=== PATIENT | female | born 1945 | race Caucasian/White ===

== ENCOUNTER 2023-09-15 20:39 | Inpatient (IN) | payer MEDICARE, SELFPAY ==
[2023-09-15 20:40] VITALS: BP 172/95; PULSE 128; RESP 22; TEMP 36.6; O2SAT 95; BMI 27.8
--- NOTE | 2023-09-15 20:48 | ED_ITS ---
Documented by User: BILL Brooks 09/15/23 23:40 HPI - SOB/Dyspnea 2 General: Chief Complaint: Shortness of Breath/Dyspnea Stated Complaint: SOB Time Seen by Provider: 09/15/23 20:41 Source: patient Mode of arrival: EMS Limitations: no limitations History of Present Illness: HPI Narrative: Patient presents emergency department today brought by EMS for evaluation treatment of acute worsening shortness of breath. Patient admits to a history of COPD but does not use at home oxygen. Patient has been diagnosed by clinical correlation by her doctor with pneumonia recently. She is on antibiotics but is not sure what they are. Patient states that for the first couple of days she thought she was getting better but, has recently acutely worsened. Patient feels like she is not able to get any air in. She is currently on a nasal cannula from EMS. Patient daughter arrives to ER and states her mother is taking doxycycline. Review of Systems 2 General: Reports: 10 or more systems reviewed and unremarkable except in HPI and below PFSH ED 2 PFSH: Medical History Tachycardia HTN (hypertension) Surgical History No pertinent past surgical history Physical Exam 2 Const: COMMON NORMALS: no acute distress, patient oriented x3 and alert HENMT: OTHER: Mucous membranes moist. Nasal passages clear. Eye: COMMON NORMALS: Equal, round and reactive pupils present, EOMs intact bilaterally and conjunctivae normal CONJUNCTIVA: Yes conjunctivae normal P UPIL: Yes Equal, round and reactive pupils present Lymph: LYMPHATIC: no lymphadenopathy noted Resp: OTHER: Patient on 2 L by nasal cannula. She is mildly tachypneic and seems to have increased effort-especially on inspiration. Cardio: OTHER: Mild tachycardia : COMMON NORMALS: Yes no CVA tenderness BLADDER/KIDNEY EXAM: Yes no CVA tenderness Back/Pelvis: COMMON NORMALS: no CVA tenderness, thoracic and lumbar spine normal to inspection and thoraco-lumbar ROM normal Extremity: COMMON NORMALS: normal to inspection, full ROM and no pedal edema Neuro: COMMON NORMALS: patient oriented x3 SENSORIUM/ORIENTATION: Yes alert Skin: COMMON NORMALS: no rashes or lesions noted and turgor normal GENERAL SKIN EXAM: no rashes or lesions noted and turgor normal Course 2 Vital Signs: Vital signs: Vital Signs Temperature 97.8 F 09/15/23 20:40 Pulse Rate 118 H 09/16/23 00:12 Respiratory Rate 20 H 09/16/23 00:12 Blood Pressure 178/99 09/16/23 00:12 Pulse Oximetry 96 09/16/23 00:12 Oxygen Delivery Me thod Nasal Cannula 09/16/23 00:12 Oxygen Flow Rate 2 09/16/23 00:12 MDM - SOB/Dyspnea Medical Decision Making Patient presents by EMS for acute worsening of shortness of breath. Patient reports a history of COPD but does not require at home oxygen. Patient's oxygen saturation is in the mid 90s percent on 2 L by nasal cannula. Family states she is currently taking doxycycline for clinical diagnosis of pneumonia. Patient thought she was doing a little bit better after starting her medications but has then had acute worsening. She states she feels like she cannot get any air in. Lab work today shows elevated white blood cell count however, we were notified of the critical sodium of 118. I did discuss the case with Dr. Sarah and as we discussed supplementing sodium, he also recommended a CT of the patient's chest for concerns of SIADH. Given the patient's hyponatremia and requirement for supplemental oxygen at this time, he has graciously offered to except transfer of care of this patient here in the emergency department for continued monitoring and management. Hospitalist was consulted and inpatient admission given for further management and treatment. Differential Diagnosis Likely acute exacerbation of chronic obstructive airways disease and community acquired pneumonia; Unlikely congestive heart failure, asthma with exacerbation or pulmonary embolism Lab Data 09/15/23 20:55 09/15/23 20:55 Labs/Radiology: Radiology Impressions Chest X-Ray 09/15/23 20:50 IMPRESSION: 1. No acute cardiopulmonary process. 2. Incidental/nonacute findings are listed in the report. Chest CT 09/15/23 21:43 IMPRESSION: 1. No acute cardiopulmonary process. 2. Moderate to severe atherosclerotic changes in the visualized arteries. 50% stenosis in the visualized upper abdominal aorta (series 4, image 54). 3. Indeterminate foci in both right and left adrenal glands. Consider 12 month follow-up adrenal CT. (Reference: Supriya) 4. Incidental/nonacute findings are listed in the report. COMMENTS: In the absence of a history or active diagnosis of lung cancer, it is recommended that this patient with emphysema be evaluated for enrollment in a low dose CT lung cancer screening program. REFERENCES: ThorntonLevon OROSCO, et al. Management of Incidental Adrenal Masses: A White Paper of the ACR Incidental Findings Committee. J Am Ailyn Radiol. 2017;14(8):3945-2231. Laboratory Results WBC 14.88 10^3/uL (3.29-11.43) H 09/15/23 20:55 RBC 3.71 10^6/uL (3.85-5.65) L 09/15/23 20:55 Hgb 10.90 g/dL (11.27-16.99) L 09/15/23 20:55 Hct 33.1 % (36-47) L 09/15/23 20:55 MCV 89.2 fl (85-98) 09/15/23 20:55 MCH 29.4 pg (27-33) 09/15/23 20:55 MCHC 32.9 g/dL (30-55) 09/15/23 20:55 RDW 13.0 % (12.1-15.1) 09/15/23 20:55 Plt Count 550 10^3/cmm (157-399) H 09/15/23 20:55 MPV 8.9 fL (7.4-10.4) 09/15/23 20:55 Neut % (Auto) 87.0 % 09/15/23 20:55 Lymph % (Auto) 6.9 % 09/15/23 20:55 Castro % (Auto) 4.5 % 09/15/23 20:55 Eos % (Auto) 0.3 % 09/15/23 20:55 Baso % (Auto) 0.1 % 09/15/23 20:55 Neut # (Auto) 12.95 10^3/uL (1.8-7.7) H 09/15/23 20:55 Lymph # (Auto) 1.0 10^3/uL (0.8-4.8) 09/15/23 20:55 Castro # (Auto) 0.7 10^3/uL (0.2-0.9) 09/15/23 20:55 Eos # (Auto) 0.0 10^3/uL (0.0-0.8) 09/15/23 20:55 Baso # (Auto) 0.0 10^3/uL (0.0-0.1) 09/15/23 20:55 Nucleated RBC % (auto) 0 % 09/15/23 20:55 Nucleated RBCs # 0.0 /100WBC 09/15/23 20:55 D-Dimer 0.37 ug/mLFEU (0-0.59) 09/16/23 00:00 Specimen Type Venous 09/15/23 21:11 Sample Site Lab draw 09/15/23 21:11 Jose Test N/a 09/15/23 21:11 VBG pH 7.38 (7.32-7.42) 09/15/23 21:11 VBG pCO2 45.7 mmHg (41-51) 09/15/23 21:11 VBG pO2 53.5 mmHg (25-40) H 09/15/23 21:11 VBG HCO3 26.8 mmol/L (24-28) 09/15/23 21:11 VBG Base Excess 1.2 mmol/L (-3.0-3.0) 09/15/23 21:11 VBG Hematocrit 35.5 % (37-47) L 09/15/23 21:11 O2 Delivery Device Na 09/15/23 21:11 Faith Doctor ID Cak 09/15/23 21:11 Sodium 118 mmol/L (136-145) L* 09/15/23 20:55 Potassium 3.9 mmol/L (3.5-5.1) 09/15/23 20:55 Chloride 81 mmol/L (98-107) L 09/15/23 20:55 Carbon Dioxide 26 mmol/L (22-29) 09/15/23 20:55 Anion Gap 14.9 (5-19) 09/15/23 20:55 BUN 25 mg/dL (8-23) H 09/15/23 20:55 Creatinine 1.1 mg/dL (0.5-0.9) H 09/15/23 20:55 GFR Calculation Not Reportable 09/15/23 20:55 Glucose 114 mg/dL (65-115) 09/15/23 20:55 Calculated Osmolality 251 mOsm/kg (285-295) L 09/15/23 20:55 Lactic Acid 1.2 mmol/L (0.5-2.2) 09/15/23 20:55 Calcium 9.7 mg/dL (8.5-10.5) 09/15/23 20:55 Total Bilirubin 0.2 mg/dL (0.15-1.2) 09/15/23 20:55 AST 16 U/L (0-32) 09/15/23 20:55 ALT 15 U/L (0-33) 09/15/23 20:55 Alkaline Phosphatase 77 U/L (35-105) 09/15/23 20:55 Troponin T Baseline 20 ng/L (0-10) H 09/15/23 20:55 Troponin T 120 Minute 21.76 ng/L (0-10) H 09/15/23 22:05 Delta Troponin T 1.76 ABS# (0-10) 09/15/23 22:05 Total Protein 7.4 g/dL (6.6-8.7) 09/15/23 20:55 Albumin 4.4 g/dL (3.5-5.2) 09/15/23 20:55 Globulin 3.0 g/dL (1.3-4.6) 09/15/23 20:55 Urine Color Yellow (Yellow) 09/15/23 21:10 Urine Appearance Clear (CLEAR) 09/15/23 21:10 Urine pH 6 (5-7) 09/15/23 21:10 Ur Specific [place] 1.015 (1.005-1.030) 09/15/23 21:10 Urine Protein 1+ (Negative) H 09/15/23 21:10 Urine Glucose (UA) Norm (Normal) 09/15/23 21:10 Urine Ketones Negative (Negative) 09/15/23 21:10 Urine Blood Neg (Negative) 09/15/23 21:10 Urine Nitrate Negative (Negative) 09/15/23 21:10 Urine Bilirubin Neg (Negative) 09/15/23 21:10 Prot Sulfosalicylic Acd Negative (Negative) 09/15/23 21:10 Urine Urobilinogen Norm mg/dL (Negative) 09/15/23 21:10 Ur Leukocyte Esterase Negative (Negative) 09/15/23 21:10 Urine RBC 0-4 /hpf (0-2) H 09/15/23 21:10 Urine WBC 0-4 /hpf (0-5) H 09/15/23 21:10 Ur Squamous Epith Cells 5-10 /hpf (0-5) H 09/15/23 21:10 Amorphous Sediment Not Reportable 09/15/23 21:10 Urine Bacteria Trace /hpf (NONE) 09/15/23 21:10 Influenza Type A Ag negative (Negative) 09/15/23 21:10 Influenza Type B Ag negative (Negative) 09/15/23 21:10 SARS-CoV-2 Ag (Rapid) negative (Negative) 09/15/23 21:10 All radiology interpretation(s) finalized by discharge Discharge Plan Discharge Patient Disposition: Admitted As Inpatient Admit Provider: Mandi Bo Clinical Impression: Acute hyponatremia Condition: Fair Coding Level of Care Code ED Endless Belt Finisher for Chg Fwd Documented by User: Karel Sarah DO 09/16/23 00:40 HPI - SOB/Dyspnea 2 General: Chief Complaint: Shortness of Breath/Dyspnea Stated Complaint: SOB Time Seen by Provider: 09/15/23 20:41 PFSH ED 2 PFSH: Medical History Tachycardia HTN (hypertension) Surgical History No pertinent past surgical history Course 2 Vital Signs: Vital signs: Vital Signs Temperature 97.8 F 09/15/23 20:40 Pulse Rate 118 H 09/16/23 00:12 Respiratory Rate 20 H 09/16/23 00:12 Blood Pressure 178/99 09/16/23 00:12 Pulse Oximetry 96 09/16/23 00:12 Oxygen Delivery Me thod Nasal Cannula 09/16/23 00:12 Oxygen Flow Rate 2 09/16/23 00:12 MDM - SOB/Dyspnea Medical Decision Making Patient presents by EMS for acute worsening of shortness of breath. Patient reports a history of COPD but does not require at home oxygen. Patient's oxygen saturation is in the mid 90s percent on 2 L by nasal cannula. Family states she is currently taking doxycycline for clinical diagnosis of pneumonia. Patient thought she was doing a little bit better after starting her medications but has then had acute worsening. She states she feels like she cannot get any air in. Lab work today shows elevated white blood cell count however, we were notified of the critical sodium of 118. I did discuss the case with Dr. Sarah and as we discussed supplementing sodium, he also recommended a CT of the patient's chest for concerns of SIADH. Given the patient's hyponatremia and requirement for supplemental oxygen at this time, he has graciously offered to except transfer of care of this patient here in the emergency department for continued monitoring and management. Hospitalist was consulted and inpatient admission given for further management and treatment. This patient was originally seen by Mrs. Daniel PA-C.? I agree with her history, evaluation, and treatment. Given the critical nature of her hyponatremia, with use of hypertonic saline, she will have to go to the ICU for frequent sodium checks. Hospitalist has seen the patient. Lab Data 09/15/23 20:55 09/15/23 20:55 Labs/Radiology: Radiology Impressions Chest X-Ray 09/15/23 20:50 IMPRESSION: 1. No acute cardiopulmonary process. 2. Incidental/nonacute findings are listed in the report. Chest CT 09/15/23 21:43 IMPRESSION: 1. No acute cardiopulmonary process. 2. Moderate to severe atherosclerotic changes in the visualized arteries. 50% stenosis in the visualized upper abdominal aorta (series 4, image 54). 3. Indeterminate foci in both right and left adrenal glands. Consider 12 month follow-up adrenal CT. (Reference: Supriya) 4. Incidental/nonacute findings are listed in the report. COMMENTS: In the absence of a history or active diagnosis of lung cancer, it is recommended that this patient with emphysema be evaluated for enrollment in a low dose CT lung cancer screening program. REFERENCES: Supryia OROSCO, et al. Management of Incidental Adrenal Masses: A White Paper of the ACR Incidental Findings Committee. J Am Ailyn Radiol. 2017;14(8):6364-9388. Laboratory Results WBC 14.88 10^3/uL (3.29-11.43) H 09/15/23 20:55 RBC 3.71 10^6/uL (3.85-5.65) L 09/15/23 20:55 Hgb 10.90 g/dL (11.27-16.99) L 09/15/23 20:55 Hct 33.1 % (36-47) L 09/15/23 20:55 MCV 89.2 fl (85-98) 09/15/23 20:55 MCH 29.4 pg (27-33) 09/15/23 20:55 MCHC 32.9 g/dL (30-55) 09/15/23 20:55 RDW 13.0 % (12.1-15.1) 09/15/23 20:55 Plt Count 550 10^3/cmm (157-399) H 09/15/23 20:55 MPV 8.9 fL (7.4-10.4) 09/15/23 20:55 Neut % (Auto) 87.0 % 09/15/23 20:55 Lymph % (Auto) 6.9 % 09/15/23 20:55 Castro % (Auto) 4.5 % 09/15/23 20:55 Eos % (Auto) 0.3 % 09/15/23 20:55 Baso % (Auto) 0.1 % 09/15/23 20:55 Neut # (Auto) 12.95 10^3/uL (1.8-7.7) H 09/15/23 20:55 Lymph # (Auto) 1.0 10^3/uL (0.8-4.8) 09/15/23 20:55 Castro # (Auto) 0.7 10^3/uL (0.2-0.9) 09/15/23 20:55 Eos # (Auto) 0.0 10^3/uL (0.0-0.8) 09/15/23 20:55 Baso # (Auto) 0.0 10^3/uL (0.0-0.1) 09/15/23 20:55 Nucleated RBC % (auto) 0 % 09/15/23 20:55 Nucleated RBCs # 0.0 /100WBC 09/15/23 20:55 D-Dimer 0.37 ug/mLFEU (0-0.59) 09/16/23 00:00 Specimen Type Venous 09/15/23 21:11 Sample Site Lab draw 09/15/23 21:11 Jose Test N/a 09/15/23 21:11 VBG pH 7.38 (7.32-7.42) 09/15/23 21:11 VBG pCO2 45.7 mmHg (41-51) 09/15/23 21:11 VBG pO2 53.5 mmHg (25-40) H 09/15/23 21:11 VBG HCO3 26.8 mmol/L (24-28) 09/15/23 21:11 VBG Base Excess 1.2 mmol/L (-3.0-3.0) 09/15/23 21:11 VBG Hematocrit 35.5 % (37-47) L 09/15/23 21:11 O2 Delivery Device Na 09/15/23 21:11 Faith Doctor ID Cak 09/15/23 21:11 Sodium 118 mmol/L (136-145) L* 09/15/23 20:55 Potassium 3.9 mmol/L (3.5-5.1) 09/15/23 20:55 Chloride 81 mmol/L (98-107) L 09/15/23 20:55 Carbon Dioxide 26 mmol/L (22-29) 09/15/23 20:55 Anion Gap 14.9 (5-19) 09/15/23 20:55 BUN 25 mg/dL (8-23) H 09/15/23 20:55 Creatinine 1.1 mg/dL (0.5-0.9) H 09/15/23 20:55 GFR Calculation Not Reportable 09/15/23 20:55 Glucose 114 mg/dL (65-115) 09/15/23 20:55 Calculated Osmolality 251 mOsm/kg (285-295) L 09/15/23 20:55 Lactic Acid 1.2 mmol/L (0.5-2.2) 09/15/23 20:55 Calcium 9.7 mg/dL (8.5-10.5) 09/15/23 20:55 Total Bilirubin 0.2 mg/dL (0.15-1.2) 09/15/23 20:55 AST 16 U/L (0-32) 09/15/23 20:55 ALT 15 U/L (0-33) 09/15/23 20:55 Alkaline Phosphatase 77 U/L (35-105) 09/15/23 20:55 Troponin T Baseline 20 ng/L (0-10) H 09/15/23 20:55 Troponin T 120 Minute 21.76 ng/L (0-10) H 09/15/23 22:05 Delta Troponin T 1.76 ABS# (0-10) 09/15/23 22:05 Total Protein 7.4 g/dL (6.6-8.7) 09/15/23 20:55 Albumin 4.4 g/dL (3.5-5.2) 09/15/23 20:55 Globulin 3.0 g/dL (1.3-4.6) 09/15/23 20:55 Urine Color Yellow (Yellow) 09/15/23 21:10 Urine Appearance Clear (CLEAR) 09/15/23 21:10 Urine pH 6 (5-7) 09/15/23 21:10 Ur Specific [place] 1.015 (1.005-1.030) 09/15/23 21:10 Urine Protein 1+ (Negative) H 09/15/23 21:10 Urine Glucose (UA) Norm (Normal) 09/15/23 21:10 Urine Ketones Negative (Negative) 09/15/23 21:10 Urine Blood Neg (Negative) 09/15/23 21:10 Urine Nitrate Negative (Negative) 09/15/23 21:10 Urine Bilirubin Neg (Negative) 09/15/23 21:10 Prot Sulfosalicylic Acd Negative (Negative) 09/15/23 21:10 Urine Urobilinogen Norm mg/dL (Negative) 09/15/23 21:10 Ur Leukocyte Esterase Negative (Negative) 09/15/23 21:10 Urine RBC 0-4 /hpf (0-2) H 09/15/23 21:10 Urine WBC 0-4 /hpf (0-5) H 09/15/23 21:10 Ur Squamous Epith Cells 5-10 /hpf (0-5) H 09/15/23 21:10 Amorphous Sediment Not Reportable 09/15/23 21:10 Urine Bacteria Trace /hpf (NONE) 09/15/23 21:10 Influenza Type A Ag negative (Negative) 09/15/23 21:10 Influenza Type B Ag negative (Negative) 09/15/23 21:10 SARS-CoV-2 Ag (Rapid) negative (Negative) 09/15/23 21:10 Discharge Plan Discharge Patient Disposition: Admitted As Inpatient Admit Provider: Mandi Bo Clinical Impression: Acute hyponatremia Condition: Fair Coding Level of Care Code ED Endless Belt Finisher for Camron Sousa
--- NOTE | 2023-09-15 20:50 | XRR_ITS ---
PROCEDURE INFORMATION: Exam: XR Chest Exam date and time: 09/15/2023 9:08 PM Age: 77 years old Clinical indication: Shortness of breath; Patient HX: SOB; Copd; Pneumonia TECHNIQUE: Imaging protocol: Radiologic exam of the chest. Views: 1 view. COMPARISON: No relevant prior studies available. FINDINGS: Lungs: Areas of scarring in the mid and lower lungs. No focal consolidation. No pulmonary edema. Pleural spaces: No pleural effusion. No pneumothorax. Heart/Mediastinum: Cardiac silhouette is moderately enlarged. Mediastinal contours are unremarkable. Vasculature: Vascular calcifications in the aorta. Bones/joints: Unremarkable for age. XR/XR chest 1V [id number] IMPRESSION: 1. No acute cardiopulmonary process. 2. Incidental/nonacute findings are listed in the report.
[2023-09-15 20:56] VITALS: BP 172/95; PULSE 68; RESP 16; O2SAT 96
[2023-09-15 21:02] LABS: Basophils % 0.1 %; Eosinophils % 0.3 %; Hematocrit 33.1 % (36-47); Lymphocytes % 6.9 %; Mean Corpuscular HGB Conc 32.9 g/dL (30-55); Mean Corpuscular Hemoglobin 29.4 pg (27-33); Mean Corpuscular Volume 89.2 fl (85-98); Mean Platelet Volume 8.9 fL (7.4-10.4); Monocytes # 0.7 10^3/uL (0.2-0.9); Monocytes % 4.5 %; Neutrophils # 12.95 10^3/uL (1.8-7.7); Nucleated Red Blood Cells % 0 %; Platelet Count 550 10^3/cmm (157-399); Red Blood Count 3.71 10^6/uL (3.85-5.65); White Blood Count 14.88 10^3/uL (3.29-11.43)
[2023-09-15 21:21] LABS: Base Excess VBG 1.2 mmol/L (-3.0-3.0); Blood Gas Operator Identificat CAK; Blood Gas Sample Type Venous; HCO3 VBG 26.8 mmol/L (24-28); PCO2 VBG 45.7 mmHg (41-51); PO2 VBG 53.5 mmHg (25-40); Venous Blood Gas Hematocrit 35.5 % (37-47); pH VBG 7.38 (7.32-7.42)
[2023-09-15 21:22] LABS: Blood Gas Sample Site LAB DRAW
[2023-09-15 21:26] LABS: Add Urine Microscopic? YES; Bilirubin Urine Neg (Negative); Blood Urine Neg (Negative); Glucose Urine UA Norm (Normal); Ketones Urine Negative (Negative); Leukocyte Esterase Urine Negative (Negative); Nitrate Urine Negative (Negative); Protein Urine 1+ (Negative); Specific Gravity, Urine 1.015 (1.005-1.030); Sulfosalicylic Acid Urine Negative (Negative); Urine Appearance Clear (CLEAR); Urine Color Yellow (Yellow); Urobilinogen Urine Norm (Negative); pH Urine 6 (5-7)
[2023-09-15 21:27] LABS: Bacteria Urine TRACE /hpf; RBC Urine 0-4 /hpf (0-2); WBC Urine 0-4 /hpf (0-5)
[2023-09-15 21:29] LABS: Troponin(5th) Baseline 20 ng/L (0-10)
[2023-09-15 21:31] LABS: Alanine Aminotransferase 15 U/L (0-33); Albumin Level 4.4 g/dL (3.5-5.2); Alkaline Phosphatase 77 U/L (35-105); Anion Gap 14.9 (5-19); Aspartate Amino Transferase 16 U/L (0-32); Blood Urea Nitrogen 25 mg/dL (8-23); Calcium 9.7 mg/dL (8.5-10.5); Carbon Dioxide 26 mmol/L (22-29); Chloride 81 mmol/L (98-107); Glucose 114 mg/dL (65-115); Osmolality Calculated 251 mOsm/kg (285-295); Potassium 3.9 mmol/L (3.5-5.1); Total Bilirubin 0.2 mg/dL (0.15-1.2); Total Protein 7.4 g/dL (6.6-8.7)
[2023-09-15 21:35] LABS: Influenza A by IFA negative (Negative); Influenza B by IFA negative (Negative); SARS Covid-2 Antigen negative (Negative)
[2023-09-15 21:36] LABS: Sodium 118 mmol/L (136-145)
--- NOTE | 2023-09-15 21:43 | CTR_ITS ---
PROCEDURE INFORMATION: Exam: CT Chest With Contrast; Diagnostic Exam date and time: 09/15/2023 10:09 PM Age: 77 years old Clinical indication: Abnormal findings; Abnormal diagnostic tests; Abnormal ekg; Shortness of breath; Patient HX: Currently being treated for pneumonia. C/O worsening SOB. Wbc of 15k. History of copd. ; Additional info: SOA, current tx for pneu, HX copd, acute SOA, hyponatremia TECHNIQUE: Imaging protocol: Diagnostic computed tomography of the chest with contrast. Sagittal and coronal reformatted images were created and reviewed. Radiation optimization: All CT scans at this facility use at least one of these dose optimization techniques: automated exposure control; mA and/or kV adjustment per patient size (includes targeted exams where dose is matched to clinical indication); or iterative reconstruction. Contrast material: OMNI 350; Contrast volume: 100 ml; Contrast route: INTRAVENOUS (IV); REPORTING DATA: Count of CT and Cardiac NM exams in prior 12 months: This patient has received 0 known CTs and 0 known cardiac nuclear medicine studies in the 12 months prior to the current study. COMPARISON: CR (CHEST, ) 09/15/2023 9:08 PM RADIATION DOSE METRICS: Total DLP (mGy-cm): 479.86 FINDINGS: Trachea: Tracheobronchial structures are patent. Lungs: Lungs are mildly hyperinflated. Lungs are clear bilaterally. Mild to moderate paraseptal and centrilobular emphysematous changes in the lungs. No focal consolidation. No pulmonary edema. There is linear scarring in the right middle lobe and red and left lower lobes. No pulmonary parenchymal nodules or masses. Pleural spaces: No pneumothorax. No pleural effusion. Heart: Stable moderate enlargement of the heart. Calcification of the mitral valve annulus. Coronary arteries: Moderate atherosclerotic calcification in the coronary arteries. Esophagus: The esophagus is unremarkable. Mediastinal space: No mediastinal hematoma. No pneumomediastinum. Lymph nodes: No lymphadenopathy. Vasculature: Moderate to severe atherosclerotic changes in the visualized arteries. 50% stenosis in the visualized upper abdominal aorta (series 4, image 54). No evidence for aortic aneurysm or aortic dissection. Pulmonary arteries are unremarkable. Pulmonary veins are unremarkable. Liver: Multiple calcified granulomas in the liver. Simple cyst in the left lobe of the liver measuring 1.3 cm. Gallbladder and bile ducts: The visualized gallbladder is unremarkable. No dilatation of the visualized bile ducts. Pancreas: The visualized pancreas is unremarkable. No pancreatic ductal dilatation. Spleen: Multiple calcified granulomas in the spleen. Adrenal glands: Indeterminate foci in the right and left adrenal glands. Hounsfield units show density greater than expected for adenomas. The focus in the right adrenal gland measures 0.9 x 1.6 cm and the focus in the left adrenal gland measures 1.2 x 1.0 cm (series 4, images 52 and 54). Kidneys and ureters: The visualized right and left kidneys are unremarkable. Bones/joints: Bones are diffusely osteopenic. Old fracture of the posterolateral right 7th rib in multiple old left rib fractures. Multilevel degenerative changes of varying severity in the visualized spine. Soft tissues: No acute abnormality in the extrathoracic soft tissues. CT/CT chest w con* [id number] IMPRESSION: 1. No acute cardiopulmonary process. 2. Moderate to severe atherosclerotic changes in the visualized arteries. 50% stenosis in the visualized upper abdominal aorta (series 4, image 54). 3. Indeterminate foci in both right and left adrenal glands. Consider 12 month follow-up adrenal CT. (Reference: Supriya) 4. Incidental/nonacute findings are listed in the report. COMMENTS: In the absence of a history or active diagnosis of lung cancer, it is recommended that this patient with emphysema be evaluated for enrollment in a low dose CT lung cancer screening program. REFERENCES: Supriya OROSCO et al. Management of Incidental Adrenal Masses: A White Paper of the ACR Incidental Findings Committee. J Am Ailyn Radiol. 2017;14(8):6945-6029.
[2023-09-15] MEDS: ipratropium-albuterol 3 mL Neb INHALATION (21:53)
[2023-09-15 21:55] VITALS: PULSE 116; RESP 18; O2SAT 94
[2023-09-15 21:56] VITALS: PULSE 120
[2023-09-15 22:08] LABS: Lactic Sepsis W/Reflex 1.2 mmol/L (0.5-2.2)
[2023-09-15] MEDS: iohexol 350 mg/mL 500 mL Btl (per mL) IV (22:08)
[2023-09-15] MEDS: cefTRIAXone 1,000 MG in sodium chloride 0.9% (plus) 50 ML 100 MG IV (22:20)
[2023-09-15] MEDS: sodium chloride 0.9% 500 ML IV (22:21)
[2023-09-15 22:40] VITALS: BP 171/78; PULSE 118; RESP 16; O2SAT 97
[2023-09-15 22:45] LABS: Troponin 5 2HR 21.76 ng/L (0-10); Troponin 5 2HR Delta 1.76 ABS# (0-10)
--- NOTE | 2023-09-15 22:46 | ECG_ITS ---
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 Measurements Intervals Donald Rate: 119 P: 103 WI: 101 QRS: 37 QRSD: 122 T: -7 QT: 336 QTc: 474 Interpretive Statements SINUS TACHYCARDIA WITH SHORT WI INTERVAL LATERAL MYOCARDIAL INFARCTION , PROBABLY OLD [40+ ms Q WAVE AND/OR ST/T ABNORMALITY IN I/aVL/V5/V6] INFERIOR MYOCARDIAL INFARCTION , PROBABLY OLD [40+ ms Q WAVE AND/OR ST/T ABNORMALITY IN II/aVF] ST DEPRESSION, CONSIDER SUBENDOCARDIAL INJURY [0.1+ mV ST DEPRESSION] No previous ECG available for comparison Electronically Signed On 09-16-2023 10:00:51 FOOD SERVICE SPECIALIST by Gregg Corrales M.D. [email or web address]
--- NOTE | 2023-09-15 22:51 | PC.NURSE ---
Delay in NaCl 3% due to waiting on telepharmacy to [facility]. Continued to be placed on hold awaiting to find location of med in hospital.
--- NOTE | 2023-09-15 23:05 | P.HP_ITS ---
Providers/Chief Complaint 2 Chief Complaint: SOB History of Present Illness Oanh Quispe is a 77 year old female with history of hypertension and congestive heart failure, takes Coreg, Lasix, presented to the hospital with chief complaint of shortness of breath. Patient has not been in this hospital before, patient is stating that she was told that she had low sodium a year ago she is not sure about the number, she has been feeling weak and lethargic for quite some time, she experiencing worsening of shortness of breath orthopnea PND with wheezing on Sunday her PCP started on steroids and doxycycline which did not improve her symptoms. For worsening of symptoms she decided to come to the hospital today, she is requiring 3 L which is new she does not use oxygen at home she is an active smoker smokes less than half a pack a day, no previous history of coronary disease, no recent diarrhea, vomiting patient is stating that she drinks 2 bottles of 16 ounces each. No previous history of cancer in the ER she was diagnosed with severe hyponatremia 118 she was started on hypertonic saline at 50 mill per hour which have decreased to 30/h, consulted nephro No active signs of seizure Patient is upset that she has to stay in the hospital during I have explained to the patient and her family that her sodium is critically low and we cannot replenish it quickly which can pose risk of pontine mylinosis and locked-in syndrome Review of Systems 2 Const: Denies: fever(s) Eyes: Denies: change in vision ENMT: Denies: throat pain Card: Denies: chest pain Resp: Reports: dyspnea GI: Denies: abdominal pain : Denies: urinary frequency Musc: Denies: neck pain Skin/Breast: Denies: rash Neuro: Denies: headache(s) Psych: Reports: anxiety Medications/Allergies Allergies Allergy/AdvReac Type Severity Reaction Status Date / Time No Known Allergies Allergy Verified 09/15/23 23:29 PFSH Acute 2 PFSH: Medical History Tachycardia HTN (hypertension) Surgical History No pertinent past surgical history Vitals/I&O/Wt Last Vital Signs Temp 97.8 F 09/15/23 20:40 Pulse 118 H 09/15/23 22:40 Resp 16 09/15/23 22:40 BP 171/78 09/15/23 22:40 Pulse Ox 97 09/15/23 22:40 O2 Del Method Nasal Cannula 09/15/23 22:40 O2 Flow Rate 3 09/15/23 22:40 09/15/23 09/15/23 09/16/23 14:59 22:59 06:59 Intake Total 50 / 50 Balance 50 / 50 Weight last 48 hrs Weight 68.946 kg Physical Exam 2 Narrative: Hypovolemic hyponatremia Family is at the bedside Examination tachycardia Abdomen soft Nonfocal Currently doing well on 2 L Mild wheezing present Appropriate mood and affect Data 09/15/23 20:55 09/15/23 20:55 A&P Assessment and plan (1) Acute hyponatremia: Plan Symptomatic chronic hyponatremia Hypovolemic hyponatremia Patient drinks fluid 2 bottles 16 ounces Timeline for low sodium is not known. Chronic hyponatremia Currently on hypertonic saline 30 mill per hour, will consult nephro Check sodium every 4 hours Goal sodium correction 6 -8mEq per 24 hours 5050 Hemoglobin A1c Smoker She takes Lasix at home Is not sure about congestive heart failure history I will request BNP and echo Hold Lasix No recent vomiting no history of cancer DVT prophylaxis added DNR/DNI goals of care discussed with the patient and clinical family Regular diet Patient is very upset that she wants to spend [place] with her family at the that he cannot correct her sodium rapidly. Risk of pontine myelinolysis and locked-in syndrome Attestations 2 Medical Necessity Statement*: More than 2 midnights anticipated in ICU for hyponatremia management Diagnoses Acute hyponatremia E87.1
[2023-09-15] MEDS: sodium chloride 3% 100 ML in empty flexible container 1 EACH 50 ML IV (23:13)
[2023-09-15 23:48] VITALS: BP 185/94; PULSE 121; RESP 18; O2SAT 95
[2023-09-16] VITALS (82 sets, daily range): BP systolic 125–199; BP diastolic 74–132; PULSE 86–118; RESP 12–25; TEMP 36.6–36.8; O2SAT 94–99; BMI 29.9
[2023-09-16 00:29] LABS: D Dimer 0.37 ug/mLFEU (0-0.59)
[2023-09-16 00:44] LABS: NT Pro B Type Natriuretic Pept 5839 pg/mL (0-450)
--- NOTE | 2023-09-16 00:48 | USCV_ITS ---
Oanh Quispe Age: 77 Gender: F : 1945 Exam Date: 09/16/2023 08:10 Ordering Phys: Mandi Bo MD Technologist: Agustin Beckett Exam Location: [facility] [place] Indication: chf BP: 174 / 74 HR: 97 Rhythm: Sinus Technical Quality: Adequate MEASUREMENTS (Male / Female) Normal Values 2D ECHO LVOT Diameter 2.0 cm LV Ejection Fraction MOD 2C 58.1 % LV Ejection Fraction 2C AL 58.9 % LA Diameter 4.1 cm LA Width 3.8 cm LA Height 5.8 cm RA Width 3.4 cm RA Height 5.0 cm IVC Diameter 2.0 cm DOPPLER AV Peak Velocity 226.3 cm/s LVOT Peak Velocity 90.0 cm/s AV Area Cont Eq vti 1.4 cm squared AV Area Cont Eq pk 1.2 cm squared MV Peak Velocity 139.0 cm/s MV Area PHT 8.5 cm squared Mitral E to A Ratio 1.4 MV E' Velocity 41.0 cm/s Mitral E to MV E' Ratio 6.8 Mitral E to LV E' Lateral Ratio 8.1 Mitral E to LV E' Septal Ratio 5.8 TR Peak Velocity 287.8 cm/s TR Peak Gradient 33.1 mmHg TR Mean Velocity 183.4 cm/s TR Mean Gradient 14.6 mmHg TR Velocity Time Integral 64.9 cm Right Atrial Pressure 3.0 mmHg Pulmonary Artery Systolic Pressu 36.1 mmHg FINDINGS Left Ventricle Technically limited quality echocardiogram because of poor ultrasonic windows. LV systolic function is normal with EF 55 to 60%. No regional wall motion abnormalities are seen. Right Ventricle Grossly normal. Right Atrium Normal in size Left Atrium Dilated Mitral Valve Grossly normal. Mild mitral regurgitation. Aortic Valve Grossly thickened. Mild aortic stenosis with aortic valve area of 1.41 cm squared and mean gradient across aortic valve of 10 mmHg. Tricuspid Valve Insufficient TR jet to calculate RVSP. Pulmonic Valve Not well visualized Pericardium Not well visualized Aorta Not well visualized IVC Appears to be normal CONCLUSIONS Technically limited quality echocardiogram because of poor ultrasonic windows. LV systolic function is normal with EF of 55 to 60%. Left atrial dilation. Mild mitral regurgitation. Mild aortic stenosis. No comparison studies are available. Gregg Corrales MD (Electronically Signed) Final Date: 16 September 2023 14:12 S
[2023-09-16 00:50] LABS: Sodium 119 mmol/L (136-145)
[2023-09-16] MEDS: carvedilol 12.5 mg Tablet PO ×2 (01:29→10:38)
[2023-09-16] MEDS: methylPREDNISolone sod succ 40 mg/mL INJ IVP ×2 (01:29→13:37)
--- NOTE | 2023-09-16 01:55 | PC.NURSE ---
Patient arrived to the ICU with sodium chloride 3% already running at 30ml/hr. MAR showed that ER nurse scanned the bag and started the infusion but then a new order was put in to change rate from 50mls/hr to 30mls/hr.
[2023-09-16 01:59] LABS: Potassium, Radom Urine 11 mmol/L; Urine Random Chloride 46 mmol/L; Urine Random Sodium 53 mmol/L
[2023-09-16 02:04] LABS: Creatinine Urine, Random 30 mg/dL (28-217); Microalbum Creatinine Ratio Ur 100 mg/dL (0-20); Microalbumin Random Urine 3 ug/dL (0-20)
[2023-09-16 02:34] LABS: Estmated Average Glucose 97
[2023-09-16] MEDS: hyDRALAzine 20 mg/mL INJ 1 mL 5 MG IVP (02:43)
[2023-09-16 03:54] LABS: Basophils % 0.1 %; Eosinophils % 0.3 %; Lymphocytes # 1.1 10^3/uL (0.8-4.8); Lymphocytes % 9.6 %; Mean Corpuscular Hemoglobin 29.4 pg (27-33); Mean Platelet Volume 9.3 fL (7.4-10.4); Monocytes # 0.5 10^3/uL (0.2-0.9); Monocytes % 3.9 %; Neutrophils # 9.87 10^3/uL (1.8-7.7); Nucleated Red Blood Cells % 0 %; Platelet Count 513 10^3/cmm (157-399); Red Blood Count 3.37 10^6/uL (3.85-5.65); White Blood Count 11.61 10^3/uL (3.29-11.43)
[2023-09-16 04:10] LABS: Anion Gap 14.5 (5-19); Blood Urea Nitrogen 22 mg/dL (8-23); C Reactive Protein 3.2 mg/L (0.0-4.9); Calcium 9.5 mg/dL (8.5-10.5); Carbon Dioxide 25 mmol/L (22-29); Chloride 87 mmol/L (98-107); Glucose 103 mg/dL (65-115); Magnesium 1.8 mg/dL (1.7-2.3); Osmolality Calculated 258 mOsm/kg (285-295); Potassium 4.5 mmol/L (3.5-5.1); Sodium 122 mmol/L (136-145)
[2023-09-16 04:19] LABS: Sodium 124 mmol/L (136-145)
[2023-09-16 04:22] LABS: Troponin 5 6HR 22.22 ng/L (0-10); Troponin 5 6HR Delta 2.22 ng/L (0-12)
[2023-09-16 04:31] LABS: Sodium 123 mmol/L (136-145); Thyroid Stimulating Hormone 2.17 uIU/mL (0.27-4.20); Uric Acid 4.4 mg/dL (2.4-5.7); Vitamin B12 630 pg/mL (232-1245)
[2023-09-16 08:33] LABS: Sodium 125 mmol/L (136-145)
--- NOTE | 2023-09-16 09:01 | PC.PHAR ---
PT VERIFIED MEDICATIONS- MEDICATIONS VERIFIED USING EXTERNAL MED LIST AND PT
[2023-09-16] MEDS: ipratropium-albuterol 3 mL Neb INHALATION ×2 (09:12→20:55)
--- NOTE | 2023-09-16 10:17 | P.CONIM_ITS ---
Providers/Reason For Consult 2 Consulting Physician/Specialty*: [facility]/Nephrology Reason for Consult*: Hyponatremia Attending Physician: Etta Muñiz MD History of Present Illness History of Present Illness Oanh Quispe is a 77 year old female Patient is a 77-year-old female with a past medical history of hypertension, CHF, presented to the emergency department due to shortness of breath. In the ER patient was noted to have low sodium of 118 and she was started on 3% saline and admitted to ICU. Patient reports that she had low sodium in the past. She was treated for bronchitis with steroids and doxycycline as outpatient. Most recent sodium is 125 and 3% saline is on hold. Noted urine sodium of 53 urine osmolality pending. Takes HCTZ at home also takes spironolactone at home. Patient currently denies any complaints. Review of Systems 2 Narrative: Other ROS negative Medications/Allergies Home Medications Medication Instructions Recorded Confirmed Last Taken Type buprenorphine HCl 2 mg sublingual 2 mg sublingual DAILY 09/16/23 09/16/23 Unknown History tablet carvedilol 6.25 mg tablet 6.25 mg PO BID 09/16/23 09/16/23 Unknown History doxycycline hyclate 100 mg capsule 100 mg PO BID 09/16/23 09/16/23 Unknown History duloxetine 20 mg capsule,delayed 20 mg PO DAILY 09/16/23 09/16/23 Unknown History release fluticasone 250 mcg-salmeterol 50 1 inh inhalation BID 09/16/23 09/16/23 Unknown History mcg/dose blistr powdr for inhalation fluticasone propionate 50 2 spray intranasal DAILY 09/16/23 09/16/23 Unknown History mcg/actuation nasal spray,suspension hydralazine 25 mg tablet 25 mg PO BID 09/16/23 09/16/23 Unknown History hydrochlorothiazide 25 mg tablet 25 mg PO DAILY 09/16/23 09/16/23 Unknown History hydrocodone 10 mg-acetaminophen 1 tab PO DAILY PRN Pain 09/16/23 09/16/23 Unknown History 325 mg tablet hydroxyzine HCl 25 mg tablet 25 mg PO QID PRN Anxiety 09/16/23 09/16/23 Unknown History prednisone 20 mg tablet 20 mg PO BID 09/16/23 09/16/23 Unknown History spironolactone 25 mg tablet 25 mg PO DAILY 09/16/23 09/16/23 Unknown History tiotropium bromide 18 mcg capsule 1 cap inhalation DAILY 09/16/23 09/16/23 Unknown History with inhalation device (Spiriva with HandiHaler) Allergies Allergy/AdvReac Type Severity Reaction Status Date / Time No Known Allergies Allergy Verified 09/16/23 08:31 Current Medications Generic Name Dose Route Start Last Admin Trade Name Freq PRN Reason Stop Dose Admin Albuterol/Ipratropium 3 ml 09/16/23 00:48 09/16/23 09:12 Ipratropium-Albuterol 3 Ml Neb INHALATION 3 ml Q6H PRN Administration SHORTNESS OF BREATH Carvedilol 12.5 mg 09/16/23 00:48 09/16/23 01:29 Carvedilol 12.5 Mg Tablet PO 12.5 mg DAILY BIANCA Administration Methylprednisolone Sodium Succinate 40 mg 09/16/23 01:00 09/16/23 01:29 Methylprednisolone Sod Succ 40 Mg/Ml Inj IVP 40 mg Q12H BIANCA Administration PFSH Acute 2 PFSH: Medical History Tachycardia HTN (hypertension) Surgical History No pertinent past surgical history Vitals/I&O/Wt Last Vital Signs Temp 97.8 F 09/15/23 20:40 Pulse 99 09/16/23 09:14 Resp 20 H 09/16/23 09:12 BP 170/97 09/16/23 08:15 Pulse Ox 96 09/16/23 09:12 O2 Del Method Nasal Cannula 09/16/23 09:12 O2 Flow Rate 2 09/16/23 09:12 09/15/23 09/16/23 09/16/23 22:59 06:59 14:59 Intake Total 50 / 50 500 / 550 100 / 100 Output Total 550 / 550 Balance 50 / 50 500 / 550 -450 / -450 Weight last 48 hrs Weight 74.389 kg Weight 74.389 kg Weight 68.946 kg Physical Exam 2 Narrative: awake , alert HEENT S1S2 RRR per report Lungs clear per report No edema Data 09/16/23 02:58 09/16/23 12:15 A&P Assessment and plan (1) Acute hyponatremia: Plan 1. Hyponatremia: Likely from HCTZ use, exacerbated by hypovolemia, status post 3% saline currently on hold-most recent sodium 125. 3% saline is on hold currently and awaiting next sodium level. Holding HCTZ and spironolactone. Free water restriction to 1500 mill per day. -If next sodium is below 125 we will restart 3% saline. BMPs every 4 until sodium level 125 then can change to BMPs every 12 hours -Echo reviewed, EF 55 to 60% 2. History of hypertension: On Coreg, HCTZ and Aldactone on hold (will not restart these at discharge) 3. Shortness of breath, possible bronchitis, on steroids Patient evaluated using audiovisual cart. Time spent 40 minutes. Consult Attestations 2 Medical Necessity Statement: per medicine team Coding Level of Care Code Acute Code for [facility] Diagnoses Acute hyponatremia E87.1
[2023-09-16] MEDS: enoxaparin 40 mg/0.4 mL Syringe SUBCUT (10:38)
[2023-09-16] MEDS: sennosides-docusate Tablet 1 TAB PO (10:38)
[2023-09-16 12:49] LABS: Sodium 122 mmol/L (136-145)
--- NOTE | 2023-09-16 15:12 | P.PN_ITS ---
Subjective 2 Subjective: seen today sodium 125, repeat pending nephro on board pt would like to go home in AM Vitals/I&O/Wt Last Vital Signs Temp 97.8 F 09/15/23 20:40 Pulse 87 09/16/23 14:00 Resp 19 H 09/16/23 14:00 BP 163/96 09/16/23 14:00 Pulse Ox 96 09/16/23 12:00 O2 Del Method Nasal Cannula 09/16/23 09:12 O2 Flow Rate 2 09/16/23 09:12 09/16/23 09/16/23 09/16/23 06:59 14:59 22:59 Intake Total 500 / 550 100 / 100 Output Total 900 / 900 Balance 500 / 550 -800 / -800 Weight last 48 hrs Weight 74.389 kg Weight 74.389 kg Weight 68.946 kg Physical Exam 2 Narrative: Hypovolemic hyponatremia Family is at the bedside Examination tachycardia Abdomen soft Nonfocal Currently doing well on 2 L Mild wheezing present Appropriate mood and affect Data 09/16/23 02:58 09/16/23 12:15 A&P Assessment and plan (1) Acute hyponatremia: Plan Symptomatic chronic hyponatremia Hypovolemic hyponatremia Patient drinks fluid 2 bottles 16 ounces Timeline for low sodium is not known. Chronic hyponatremia Currently on hypertonic saline 30 mill per hour, will consult nephro Check sodium every 4 hours Goal sodium correction 6 -8mEq per 24 hours 5050 Hemoglobin A1c Smoker She takes Lasix at home Is not sure about congestive heart failure history I will request BNP and echo Hold Lasix No recent vomiting no history of cancer DVT prophylaxis added DNR/DNI goals of care discussed with the patient and clinical family continue on 3% saline and monitor BMP [id number] Regular diet Patient is very upset that she wants to spend [place] with her family at the that he cannot correct her sodium rapidly. Risk of pontine myelinolysis and locked-in syndrome Attestations 2 Medical Necessity Statement*: continue in hospital mgmt for hyponatremia Diagnoses Acute hyponatremia E87.1
[2023-09-16 15:33] LABS: Sodium 122 mmol/L (136-145)
[2023-09-16] MEDS: sodium chloride 3% 100 ML in empty flexible container 1 EACH 20 ML IV (16:14)
--- NOTE | 2023-09-16 18:30 | PC.NURSE ---
blood pressure remains elevated doctor call will restart home blood pressure medicine
[2023-09-16] MEDS: hyDRALAzine 25 mg Tablet PO (19:55)
[2023-09-16 20:38] LABS: Sodium 125 mmol/L (136-145)
--- NOTE | 2023-09-16 21:29 | PC.NURSE ---
2129 Sodium result of 125 sent to Hospitalist.
[2023-09-16] MEDS: sodium chloride 3% 500 ML 20 ML (22:54)
[2023-09-16 23:24] LABS: Sodium 127 mmol/L (136-145)
[2023-09-17] VITALS (19 sets, daily range): BP systolic 133–191; BP diastolic 64–99; PULSE 82–106; RESP 12–23; TEMP 36.6–36.9; O2SAT 86–97
[2023-09-17] MEDS: acetaminophen 500 mg Tablet PO ×2 (01:36→09:23)
[2023-09-17] MEDS: cyclobenzaprine 10 mg Tablet 5 MG PO ×2 (01:36→09:24)
[2023-09-17] MEDS: methylPREDNISolone sod succ 40 mg/mL INJ IVP (01:36)
[2023-09-17] MEDS: ipratropium-albuterol 3 mL Neb INHALATION (02:19)
[2023-09-17 05:29] LABS: Basophils % 0.1 %; Hematocrit 34.7 % (36-47); Lymphocytes # 1.1 10^3/uL (0.8-4.8); Lymphocytes % 13.6 %; Mean Corpuscular HGB Conc 31.1 g/dL (30-55); Mean Corpuscular Hemoglobin 29.2 pg (27-33); Mean Corpuscular Volume 93.8 fl (85-98); Mean Platelet Volume 9.3 fL (7.4-10.4); Monocytes # 0.3 10^3/uL (0.2-0.9); Monocytes % 4.3 %; Neutrophils # 6.21 10^3/uL (1.8-7.7); Neutrophils % 80.4 %; Nucleated Red Blood Cells % 0 %; Platelet Count 529 10^3/cmm (157-399); Red Cell Distribution Width 13.1 % (12.1-15.1); White Blood Count 7.72 10^3/uL (3.29-11.43)
[2023-09-17 05:45] LABS: Sodium 129 mmol/L (136-145)
[2023-09-17 05:47] LABS: Anion Gap 10.2 (5-19); Blood Urea Nitrogen 21 mg/dL (8-23); Calcium 9.3 mg/dL (8.5-10.5); Carbon Dioxide 28 mmol/L (22-29); Chloride 96 mmol/L (98-107); Glucose 119 mg/dL (65-115); Osmolality Calculated 274 mOsm/kg (285-295); Potassium 4.2 mmol/L (3.5-5.1); Sodium 130 mmol/L (136-145)
--- NOTE | 2023-09-17 05:54 | P.PN_ITS ---
Subjective 2 Subjective: no new complaints Medications: Reviewed: Yes Vitals/I&O/Wt Last Vital Signs Temp 98.2 F 09/17/23 05:00 Pulse 88 09/17/23 05:00 Resp 14 09/17/23 05:00 BP 175/81 09/17/23 05:00 Pulse Ox 86 L 09/17/23 05:00 O2 Del Method Nasal Cannula 09/17/23 02:15 O2 Flow Rate 2 09/17/23 02:15 09/16/23 09/16/23 09/17/23 14:59 22:59 06:59 Intake Total 930 / 930 350 / 1280 Output Total 1600 / 1600 300 / 1900 250 / 2150 Balance -670 / -670 50 / -620 -250 / -870 Weight last 48 hrs Weight 74.389 kg Weight 74.389 kg Weight 68.946 kg Physical Exam 2 Narrative: awake , alert HEENT S1S2 RRR per report Lungs clear per report No edema Data 09/17/23 04:55 09/17/23 07:37 A&P Assessment and plan (1) Acute hyponatremia: Plan 1. Hyponatremia: Likely from HCTZ use, exacerbated by hypovolemia, status post 3% saline currently on hold-most recent sodium 130. 3% saline stoppedl. Holding HCTZ and spironolactone. Free water restriction to 1500 mill per day. -Echo reviewed, EF 55 to 60% 2. History of hypertension: On Coreg, HCTZ and Aldactone on hold (will not restart these at discharge) 3. Shortness of breath, possible bronchitis, on steroids Patient evaluated using audiovisual cart. Time spent 20 minutes. Attestations 2 Medical Necessity Statement*: per medicine Coding Level of Care Code Acute Code for [facility] Fwd Diagnoses Acute hyponatremia E87.1
[2023-09-17 08:06] LABS: Sodium 131 mmol/L (136-145)
[2023-09-17] MEDS: carvedilol 12.5 mg Tablet PO (09:23)
[2023-09-17] MEDS: sennosides-docusate Tablet 1 TAB PO (09:24)
[2023-09-17] MEDS: enoxaparin 40 mg/0.4 mL Syringe SUBCUT (09:24)
[2023-09-17] MEDS: hyDRALAzine 25 mg Tablet PO (09:24)
[2023-09-17 11:29] LABS: Sodium 130 mmol/L (136-145)
--- NOTE | 2023-09-17 12:52 | PM.DCS ---
Discharge Providers Date of Admission: 09/16/23 00:23 Date of Discharge: September 17, 2023 Attending Provider at Admission: Mandi Bo MD Attending Provider at Discharge: Etta Muñiz MD Diagnoses at Discharge Discharge Diagnosis (1) Acute hyponatremia: Status: Resolved Reason for Visit Reason for Visit: SOB Brief History: As per Dr. Bo Oanh Quispe is a 77 year old female with history of hypertension and congestive heart failure, takes Coreg, Lasix, presented to the hospital with chief complaint of shortness of breath. Patient has not been in this hospital before, patient is stating that she was told that she had low sodium a year ago she is not sure about the number, she has been feeling weak and lethargic for quite some time, she experiencing worsening of shortness of breath orthopnea PND with wheezing on Sunday her PCP started on steroids and doxycycline which did not improve her symptoms. For worsening of symptoms she decided to come to the hospital today, she is requiring 3 L which is new she does not use oxygen at home she is an active smoker smokes less than half a pack a day, no previous history of coronary disease, no recent diarrhea, vomiting patient is stating that she drinks 2 bottles of 16 ounces each. No previous history of cancer in the ER she was diagnosed with severe hyponatremia 118 she was started on hypertonic saline at 50 mill per hour which have decreased to 30/h, consulted nephro No active signs of seizure Patient is upset that she has to stay in the hospital during arin I have explained to the patient and her family that her sodium is critically low and we cannot replenish it quickly which can pose risk of pontine mylinosis and locked-in syndrome Hospital Course Hospital Course Patient presented with hypoeuvolemic hyponatremia. She does have acute on chronic hyponatremia. Baseline sodium not known. Timeline for low sodium not known. She was treated with hypertonic saline. Nephrology was consulted. At discharge sodium 131. She was sent home with a fluid restriction. Patient asked to follow-up with primary care as an outpatient. She will be given BMP every 7 days at discharge. Patient qualified for 2 L nasal cannula at discharge. Nursing staff will alert case management to set up patient with home oxygen. Her existing machine is broken at this time. Physical Exam Narrative: Abdomen soft Nonfocal neuroexam Lungs clear to auscultation bilaterally Currently doing well on 2 L No acute distress. Appropriate mood and affect Discharge Data Studies Completed and Pending Completed Studies During Hospitalization Category Date Time Status CT chest w con* [id number] Stat Cat Scan 09/15/23 21:43 Completed XR chest 1V [id number] Stat Exams 09/15/23 20:50 Completed CV. echo complete* [id number] Routine Ultrasound 09/16/23 00:48 Completed Pending at discharge Category Date Time Status Blood Cultures ([facility]) Routine Lab 09/15/23 21:57 Received Blood Cultures ([facility]) Routine Lab 09/15/23 22:05 Received Osmolality Serum Routine Lab 09/16/23 02:58 Received Osmolality Urine Routine Lab 09/16/23 01:23 Received Sodium Q4H Lab 09/17/23 15:14 Ordered Sodium Q4H Lab 09/17/23 19:14 Ordered Radiology Impressions Chest X-Ray 09/15/23 20:50 IMPRESSION: 1. No acute cardiopulmonary process. 2. Incidental/nonacute findings are listed in the report. Chest CT 09/15/23 21:43 IMPRESSION: 1. No acute cardiopulmonary process. 2. Moderate to severe atherosclerotic changes in the visualized arteries. 50% stenosis in the visualized upper abdominal aorta (series 4, image 54). 3. Indeterminate foci in both right and left adrenal glands. Consider 12 month follow-up adrenal CT. (Reference: Supriya) 4. Incidental/nonacute findings are listed in the report. COMMENTS: In the absence of a history or active diagnosis of lung cancer, it is recommended that this patient with emphysema be evaluated for enrollment in a low dose CT lung cancer screening program. REFERENCES: Supriya OROSCO, et al. Management of Incidental Adrenal Masses: A White Paper of the ACR Incidental Findings Committee. J Am Ailyn Radiol. 2017;14(8):8034-1112. Laboratory Results WBC 7.72 10^3/uL (3.29-11.43) 09/17/23 04:55 RBC 3.70 10^6/uL (3.85-5.65) L 09/17/23 04:55 Hgb 10.80 g/dL (11.27-16.99) L 09/17/23 04:55 Hct 34.7 % (36-47) L 09/17/23 04:55 MCV 93.8 fl (85-98) 09/17/23 04:55 MCH 29.2 pg (27-33) 09/17/23 04:55 MCHC 31.1 g/dL (30-55) D 09/17/23 04:55 RDW 13.1 % (12.1-15.1) 09/17/23 04:55 Plt Count 529 10^3/cmm (157-399) H 09/17/23 04:55 MPV 9.3 fL (7.4-10.4) 09/17/23 04:55 Neut % (Auto) 80.4 % 09/17/23 04:55 Lymph % (Auto) 13.6 % 09/17/23 04:55 White % (Auto) 4.3 % 09/17/23 04:55 Eos % (Auto) 0.0 % 09/17/23 04:55 Baso % (Auto) 0.1 % 09/17/23 04:55 Neut # (Auto) 6.21 10^3/uL (1.8-7.7) 09/17/23 04:55 Lymph # (Auto) 1.1 10^3/uL (0.8-4.8) 09/17/23 04:55 White # (Auto) 0.3 10^3/uL (0.2-0.9) 09/17/23 04:55 Eos # (Auto) 0.0 10^3/uL (0.0-0.8) 09/17/23 04:55 Baso # (Auto) 0.0 10^3/uL (0.0-0.1) 09/17/23 04:55 Nucleated RBC % (auto) 0 % 09/17/23 04:55 Nucleated RBCs # 0.0 /100WBC 09/17/23 04:55 D-Dimer 0.37 ug/mLFEU (0-0.59) 09/16/23 00:00 Specimen Type Venous 09/15/23 21:11 Sample Site Lab draw 09/15/23 21:11 Jose Test N/a 09/15/23 21:11 VBG pH 7.38 (7.32-7.42) 09/15/23 21:11 VBG pCO2 45.7 mmHg (41-51) 09/15/23 21:11 VBG pO2 53.5 mmHg (25-40) H 09/15/23 21:11 VBG HCO3 26.8 mmol/L (24-28) 09/15/23 21:11 VBG Base Excess 1.2 mmol/L (-3.0-3.0) 09/15/23 21:11 VBG Hematocrit 35.5 % (37-47) L 09/15/23 21:11 O2 Delivery Device Na 09/15/23 21:11 Hand I Thermal Cutter ID Cak 09/15/23 21:11 Sodium 130 mmol/L (136-145) L 09/17/23 11:06 Potassium 4.2 mmol/L (3.5-5.1) 09/17/23 04:55 Chloride 96 mmol/L (98-107) L 09/17/23 04:55 Carbon Dioxide 28 mmol/L (22-29) 09/17/23 04:55 Anion Gap 10.2 (5-19) 09/17/23 04:55 BUN 21 mg/dL (8-23) 09/17/23 04:55 Creatinine 0.9 mg/dL (0.5-0.9) 09/17/23 04:55 GFR Calculation Not Reportable 09/17/23 04:55 Glucose 119 mg/dL (65-115) H 09/17/23 04:55 Estimat Average Glucose 97 09/16/23 00:00 Hemoglobin A1c 5.0 % (4.0-6.0) 09/16/23 00:00 Calculated Osmolality 274 mOsm/kg (285-295) L 09/17/23 04:55 Lactic Acid 1.2 mmol/L (0.5-2.2) 09/15/23 20:55 Uric Acid 4.4 mg/dL (2.4-5.7) 09/16/23 02:58 Calcium 9.3 mg/dL (8.5-10.5) 09/17/23 04:55 Magnesium 1.8 mg/dL (1.7-2.3) 09/16/23 02:58 Total Bilirubin 0.2 mg/dL (0.15-1.2) 09/15/23 20:55 AST 16 U/L (0-32) 09/15/23 20:55 ALT 15 U/L (0-33) 09/15/23 20:55 Alkaline Phosphatase 77 U/L (35-105) 09/15/23 20:55 Troponin T Baseline 20 ng/L (0-10) H 09/15/23 20:55 Troponin T 120 Minute 21.76 ng/L (0-10) H 09/15/23 22:05 Delta Troponin T 1.76 ABS# (0-10) 09/15/23 22:05 Troponin T Hi Sens 6Hr 22.22 ng/L (0-10) H 09/16/23 02:58 Troponin T Hi Sens 6Hr Delta 2.22 ng/L (0-12) 09/16/23 02:58 C-Reactive Protein 3.2 mg/L (0.0-4.9) 09/16/23 02:58 NT-Pro-B Natriuret Pep 5839 pg/mL (0-450) H 09/16/23 00:00 Total Protein 7.4 g/dL (6.6-8.7) 09/15/23 20:55 Albumin 4.4 g/dL (3.5-5.2) 09/15/23 20:55 Globulin 3.0 g/dL (1.3-4.6) 09/15/23 20:55 Vitamin B12 630 pg/mL (232-1245) 09/16/23 02:58 TSH 2.17 uIU/mL (0.27-4.20) 09/16/23 02:58 Urine Color Yellow (Yellow) 09/15/23 21:10 Urine Appearance Clear (CLEAR) 09/15/23 21:10 Urine pH 6 (5-7) 09/15/23 21:10 Ur Specific [place] 1.015 (1.005-1.030) 09/15/23 21:10 Urine Protein 1+ (Negative) H 09/15/23 21:10 Urine Glucose (UA) Norm (Normal) 09/15/23 21:10 Urine Ketones Negative (Negative) 09/15/23 21:10 Urine Blood Neg (Negative) 09/15/23 21:10 Urine Nitrate Negative (Negative) 09/15/23 21:10 Urine Bilirubin Neg (Negative) 09/15/23 21:10 Prot Sulfosalicylic Acd Negative (Negative) 09/15/23 21:10 Urine Urobilinogen Norm mg/dL (Negative) 09/15/23 21:10 Ur Leukocyte Esterase Negative (Negative) 09/15/23 21:10 Urine RBC 0-4 /hpf (0-2) H 09/15/23 21:10 Urine WBC 0-4 /hpf (0-5) H 09/15/23 21:10 Ur Squamous Epith Cells 5-10 /hpf (0-5) H 09/15/23 21:10 Amorphous Sediment Not Reportable 09/15/23 21:10 Urine Bacteria Trace /hpf (NONE) 09/15/23 21:10 Ur Random Microalbumin 3 ug/dL (0-20) 09/16/23 01:23 Ur Random Sodium 53 mmol/L 09/16/23 01:23 Ur Random Potassium 11 mmol/L 09/16/23 01:23 Ur Random Chloride 46 mmol/L 09/16/23 01:23 Urine Creatinine 30 mg/dL (28-217) 09/16/23 01:23 Microalb/Creat Ratio 100 mg/dL (0-20) H 09/16/23 01:23 Influenza Type A Ag negative (Negative) 09/15/23 21:10 Influenza Type B Ag negative (Negative) 09/15/23 21:10 SARS-CoV-2 Ag (Rapid) negative (Negative) 09/15/23 21:10 Vitals Last Vital Signs Temp 97.8 F 09/17/23 08:00 Pulse 88 09/17/23 11:00 Resp 18 09/17/23 11:00 BP 133/73 09/17/23 11:00 Pulse Ox 93 09/17/23 11:47 O2 Del Method Nasal Cannula 09/17/23 11:00 O2 Flow Rate 2 09/17/23 11:47 Discharge Plan Discharge Patient Disposition: Home Condition: Fair Prescriptions: Continued carvedilol 6.25 mg tablet 6.25 mg PO BID doxycycline hyclate 100 mg capsule 100 mg PO BID hydralazine 25 mg tablet 25 mg PO BID hydrocodone-acetaminophen 10-325 mg tablet 1 tab PO DAILY PRN (Reason: Pain) spironolactone 25 mg tablet 25 mg PO DAILY hydroxyzine HCl 25 mg tablet 25 mg PO QID PRN (Reason: Anxiety) hydrochlorothiazide 25 mg tablet 25 mg PO DAILY fluticasone propionate 50 mcg/actuation spray,suspension 2 spray INTRANASAL DAILY buprenorphine HCl 2 mg tablet, sublingual 2 mg SUBLINGUAL DAILY duloxetine 20 mg capsule,delayed release(DR/EC) 20 mg PO DAILY No Action fluticasone propion-salmeterol 250-50 mcg/dose blister with device 1 inh INHALATION BID Qty: 60 3RF Spiriva with HandiHaler 18 mcg capsule, w/inhalation device 1 cap INHALATION DAILY Qty: 60 3RF Discharge Orders: Discharge Order (Routine); Ordered 09/17/23 Ordered By: Etta Muñiz Other Ambulatory Orders: DME: Oxygen (Order) Location: None Selected Ordered By: Etta Muñiz Basic Metabolic Panel (Routine) Timeframe: 1 Week Facility: [facility] - Location: Lab - Main Lab Ordered By: Etta Muñiz Referrals: Long Malone MD [Physician] - 2 weeks (Dr. Malone's Office has your information and will be calling you to schedule a follow up appointment. You can call the number listed if you have any questions or concerns. Thank you.) Discharge Diet: Cardiac Discharge Activity: Resume usual activity Patient Instructions: Hyponatremia, Using Oxygen at Home (DC), Opioid Safety Discharge Attestations Time Spent in Discharge Care*: greater than 30 min Quality Metrics Clinical Quality Measures [ No reported AMI, CVA or VTE this stay] Coding Level of Care Code Acute Code for Chg Fwd Diagnoses Acute hyponatremia E87.1
--- NOTE | 2023-09-17 15:03 | PC.NURSE ---
Discharge instructions provided after H.O.M.E. with O2 finished. No questions. Pt instructed to completed her previously prescribed predinsone and Doxycycline.
[2023-09-19 07:55] LABS: Osmolality Urine 357 mOsm/kg (50-1200)
[2023-09-19 08:04] LABS: Osmolality Serum 258 mOsm/kg (278-305)
== END 2023-09-17 15:00 | disposition home or self-care (01) | DRG 641 ==
LOC: ER 23:39 → ICU 09-16 00:23
PROVIDERS: Emergency Medicine; Hospitalist; Admitting Provider Internal Medicine; Emergency Provider Physician Assistant; Visit Provider Internal Medicine
DX: E87.1 Hypo-osmolality and hyponatremia (principal); Z11.52 Encounter for screening for COVID-19; I11.0 Hypertensive heart disease with heart failure; I50.9 Heart failure, unspecified; F17.210 Nicotine dependence, cigarettes, uncomplicated
CPT/HCPCS: 36415; 71045; 71260; 80048; 80053; 81001; 82044; 82436; 82607; 82803; 83036; 83605; 83735; 83880; 83930; 83935; 84133; 84295; 84300; 84443; 84484; 84550; 85025; 85378; 86140; 87040; 87426; 87804; 93005; 93306; 94640; 94760; 96365; 96366; 96367; 96372; 97161; 99285; J0360; J0696; J1650; J2920; J7040; J7131; Q9967

== ENCOUNTER → 2023-09-20 09:22 | Outpatient (BNVA) | payer MEDICARE, SELFPAY | PROVIDERS: Visit Provider Internal Medicine Pulmonary Disease | DX: R06.02 Shortness of breath (principal); Z09 Encounter for follow-up examination after completed treatment for conditions other than malignant neoplasm; J43.2 Centrilobular emphysema; F17.210 Nicotine dependence, cigarettes, uncomplicated | CPT/HCPCS: 99204 ==

== ENCOUNTER 2023-10-11 07:49 | Outpatient (CLI) | payer MEDICARE, SELFPAY ==
[2023-10-11 08:22] VITALS: PULSE 89; RESP 18; O2SAT 99
[2023-10-11 08:26] VITALS: PULSE 89
[2023-10-11] MEDS: albuterol 2.5 mg/3 mL Neb INHALATION (08:26)
== END 2023-10-11 07:50 | disposition home or self-care (01) ==
PROVIDERS: Visit Provider Internal Medicine Pulmonary Disease
DX: R06.02 Shortness of breath (principal)
CPT/HCPCS: 94060; 94618; 94726; 94729; J7613

== ENCOUNTER 2023-11-09 10:01 | Inpatient (IN) | payer MEDICARE, SELFPAY ==
[2023-11-09] VITALS (16 sets, daily range): BP systolic 104–152; BP diastolic 10–83; PULSE 94–109; RESP 16–24; TEMP 36.2–36.7; O2SAT 90–99; BMI 28.3
--- NOTE | 2023-11-09 10:22 | XR_ITS ---
WS: [id number] Portable AP upright chest, 11/09/2023 Clinical Data: dyspnea/cough Comparison: Portable chest, 11/06/2023 Findings: No nodules, masses or effusions are seen. The heart is enlarged. The pulmonary vascularity is not increased. No pneumonia or pneumothorax is seen. The aortic arch and descending thoracic aorta show tortuosity. There are monitor leads on the chest wall. Impression: Cardiomegaly and atherosclerosis.
--- NOTE | 2023-11-09 10:23 | ECG_ITS ---
[facility] Test Date: 2023-11-09 Pat Name: Oanh Quispe Department: Room: Gender: Female Public Health Sanitarian: : 1945 Requested By: Chintan Allison Order Number: [id number] Booker MD: Gregg Corrales M.D. Measurements Intervals [place] Rate: 176 P: 0 NM: 0 QRS: 73 QRSD: 114 T: 38 QT: 282 QTc: 484 Interpretive Statements SUPRAVENTRICULAR TACHYCARDIA MODERATE INTRAVENTRICULAR CONDUCTION DELAY [110+ ms QRS DURATION] NONSPECIFIC ST & T-WAVE ABNORMALITY Compared to ECG 11/06/2023 22:45:18 Intraventricular conduction delay now present T-wave abnormality now present Sinus rhythm no longer present Electronically Signed On 11-09-2023 14:01:12 PIANO STRINGER by Gregg Corrales M.D. [id number] f
--- NOTE | 2023-11-09 10:27 | ECG_ITS ---
[facility] Test Date: 2023-11-09 Pat Name: Oanh Quispe Department: Room: Gender: Female Substation Design Draftsperson: : 1945 Requested By: Chintan Allison Order Number: [id number] Booker MD: Gregg Corrales M.D. Measurements Intervals [place] Rate: 105 P: 0 IN: 0 QRS: 66 QRSD: 84 T: 63 QT: 351 QTc: 466 Interpretive Statements ATRIAL FIBRILLATION WITH RAPID VENTRICULAR RESPONSE WITH ABERRANT CONDUCTION OR VENTRICULAR PREMATURE COMPLEXES MODERATE ST DEPRESSION [0.05+ mV ST DEPRESSION] Compared to ECG 11/09/2023 10:16:58 Aberrant conduction of supraventricular beat(s) now present Ventricular premature complex(es) now present ST (T wave) deviation now present Supraventricular tachycardia no longer present Intraventricular conduction delay no longer present T-wave abnormality no longer present Electronically Signed On 11-09-2023 14:01:02 MILLINERY BLOCKER by Gregg Corrales M.D. [id number] f
--- NOTE | 2023-11-09 10:40 | ED_ITS ---
HPI - SOB/Dyspnea 2 General: Chief Complaint: Shortness of Breath/Dyspnea Stated Complaint: SOB , neck and back pain Time Seen by Provider: 11/09/23 10:12 Source: patient Mode of arrival: ambulatory History of Present Illness: HPI Narrative: 77-year-old female presents emergency ro om with neck and back pain and shortness of breath on arrival here she first EKG shows SVT auscultating it sounds more like atrial fibrillation she converted spontaneously to a lower rate and is still running in A-fib with a rate a little over 100. MD elicited complaint: shortness of breath and cough Associated symptoms: Reports palpitations; Deny abdominal pain, chest pain or fever(s) Review of Systems 2 Const: Denies: fever(s) or chills Card: Reports: palpitations and irregular heart rhythm; Denies: chest pain Resp: Reports: dyspnea GI: Denies: abdominal pain : Denies: dysuria, urinary frequency or urinary urgency Musc: Denies: neck pain or back pain Skin/Breast: Denies: rash PFSH ED 2 PFSH: Medical History (Updated 11/14/23 @ 08:00 by Chintan Lincoln DO) Acute respiratory failure Chronic hyponatremia COPD (chronic obstructive pulmonary disease) Upper respiratory infection Encounter to establish care Emphysema lung Chronic low back pain Tachycardia HTN (hypertension) Surgical History H/O: hysterectomy Social History Smoking and tobacco/nicotine status: current every day tobacco/nicotine user cigarettes Packs smoked per day: 0.5 Years cigarettes smoked: 62 [ Other cigarette details: Started at 15] Physical Exam 2 Const: GENERAL APPEARANCE: cooperative and comfortable O RIENTATION/CONSCIOUSNESS: Yes awake, Yes oriented to person, Yes oriented to place and Yes oriented to time HENMT: COMMON NORMALS: normocephalic, atraumatic and hearing grossly normal bilaterally HEAD & SCALP: normocephalic and atraumatic Resp: COMMON NORMALS: normal respiratory effort, No retractions, No use of accessory muscles and clear to auscultation bilaterally AUSCULTATION: clear to auscultation bilaterally Cardio: COMMON NORMALS: No murmurs present (Cardio) RATE: tachycardic R HYTHM: abnormal rhythm irregularly irregular GI: COMMON NORMALS: Soft to palpation and No hepatosplenomegaly present A USCULTATION: Yes normoactive bowel sounds PALPATION: Yes Soft to palpation, No Tenderness to palpation present (GI), No Guarding due to palpation present (GI) and Yes No hepatosplenomegaly present Extremity: COMMON NORMALS: normal to inspection, capillary refill normal, no clubbing, cyanosis or edema, no calf tenderness and no pedal edema Neuro: SENSORIUM/ORIENTATION: Yes oriented to person, Yes oriented to place and Yes oriented to time Skin: COMMON NORMALS: no rashes or lesions noted GENERAL SKIN EXAM: no rashes or lesions noted Course 2 Vital Signs: Vital signs: Vital Signs Temperature 97.1 F L 11/14/23 07:54 Pulse Rate 85 11/14/23 07:54 Respiratory Rate 19 H 11/14/23 07:54 Blood Pressure 133/70 11/14/23 07:54 Pulse Oximetry 95 11/14/23 07:54 Oxygen Delivery Me thod Room Air 11/14/23 07:54 Oxygen Flow Rate 2 11/14/23 04:45 Fraction of Inspir ed Oxygen 30 11/12/23 05:00 MDM - SOB/Dyspnea Medical Decision Making Acute hyponatremia atrial fibrillation exacerbation heart failure and COPD. Admit discussed with hospitalist orders written Differential Diagnosis Likely acute exacerbation of chronic obstructive airways disease and congestive heart failure Medical Records I reviewed the patient's medical records. Lab Data I reviewed the patient's lab results. 11/12/23 05:04 11/13/23 05:17 Labs/Radiology: Radiology Impressions Chest CTA 11/10/23 13:17 IMPRESSION: 1. No pulmonary embolism. 2. Predominantly upper lobe centrilobular emphysema. 3. There is moderate atherosclerotic calcification of the coronary arteries. COMMENTS: The presence of pulmonary emphysema on CT is an independent risk factor for lung cancer. In the absence of a history or active diagnosis of lung cancer, it is recommended that this patient with emphysema be evaluated for enrollment in a low dose CT lung cancer screening program. Lumbar Spine X-Ray 11/12/23 08:16 IMPRESSION: Degenerative changes. Thoracic Spine X-Ray 11/12/23 08:18 IMPRESSION: No acute findings. Laboratory Results WBC 8.42 10^3/uL (3.29-11.43) 11/09/23 10:38 RBC 3.61 10^6/uL (3.85-5.65) L 11/09/23 10:38 Hgb 10.40 g/dL (11.27-16.99) L 11/09/23 10:38 Hct 32.1 % (36-47) L 11/09/23 10:38 MCV 88.9 fl (85-98) 11/09/23 10:38 MCH 28.8 pg (27-33) 11/09/23 10:38 MCHC 32.4 g/dL (30-55) 11/09/23 10:38 RDW 13.1 % (12.1-15.1) 11/09/23 10:38 Plt Count 487 10^3/cmm (157-399) H 11/09/23 10:38 MPV 9.8 fL (7.4-10.4) 11/09/23 10:38 Neut % (Auto) 86.4 % 11/09/23 10:38 Lymph % (Auto) 8.8 % 11/09/23 10:38 [place] % (Auto) 4.4 % 11/09/23 10:38 Eos % (Auto) 0.0 % 11/09/23 10:38 Baso % (Auto) 0.0 % 11/09/23 10:38 Neut # (Auto) 7.28 10^3/uL (1.8-7.7) 11/09/23 10:38 Lymph # (Auto) 0.7 10^3/uL (0.8-4.8) L 11/09/23 10:38 [place] # (Auto) 0.4 10^3/uL (0.2-0.9) 11/09/23 10:38 Eos # (Auto) 0.0 10^3/uL (0.0-0.8) 11/09/23 10:38 Baso # (Auto) 0.0 10^3/uL (0.0-0.1) 11/09/23 10:38 Nucleated RBC % (auto) 0 % 11/09/23 10:38 Nucleated RBCs # 0.0 /100WBC 11/09/23 10:38 PT 12.50 SECONDS (12.1-14.9) 11/09/23 10:38 INR 0.91 (0.8-1.2) 11/09/23 10:38 Sodium 121 mmol/L (136-145) L 11/09/23 10:38 Potassium 3.8 mmol/L (3.5-5.1) 11/09/23 10:38 Chloride 80 mmol/L (98-107) L 11/09/23 10:38 Carbon Dioxide 27 mmol/L (22-29) 11/09/23 10:38 Anion Gap 17.8 (5-19) 11/09/23 10:38 BUN 22 mg/dL (8-23) 11/09/23 10:38 Creatinine 0.9 mg/dL (0.5-0.9) 11/09/23 10:38 GFR Calculation Not Reportable 11/09/23 10:38 Glucose 110 mg/dL (65-115) 11/09/23 10:38 Estimat Average Glucose 105 11/09/23 10:38 Hemoglobin A1c 5.3 % (4.0-6.0) 11/09/23 10:38 Calculated Osmolality 256 mOsm/kg (285-295) L 11/09/23 10:38 Calcium 9.3 mg/dL (8.5-10.5) 11/09/23 10:38 Total Bilirubin 0.5 mg/dL (0.15-1.2) 11/09/23 10:38 AST 52 U/L (0-32) H 11/09/23 10:38 ALT 21 U/L (0-33) 11/09/23 10:38 Alkaline Phosphatase 91 U/L (35-105) 11/09/23 10:38 Troponin T Baseline 32 ng/L (0-10) H 11/09/23 10:38 Troponin T 120 Minute 33.31 ng/L (0-10) H 11/09/23 13:28 Delta Troponin T 1.31 ABS# (0-10) 11/09/23 13:28 NT-Pro-B Natriuret Pep 82870 pg/mL (0-450) H 11/09/23 10:38 Total Protein 6.7 g/dL (6.6-8.7) 11/09/23 10:38 Albumin 4.0 g/dL (3.5-5.2) 11/09/23 10:38 Globulin 2.7 g/dL (1.3-4.6) 11/09/23 10:38 TSH 4.03 uIU/mL (0.27-4.20) 11/09/23 10:38 Urine Color Yellow (Yellow) 11/09/23 11:35 Urine Appearance Clear (CLEAR) 11/09/23 11:35 Urine pH 6 (5-7) 11/09/23 11:35 Ur Specific [place] 1.005 (1.005-1.030) 11/09/23 11:35 Urine Protein Neg (Negative) 11/09/23 11:35 Urine Glucose (UA) Norm (Normal) 11/09/23 11:35 Urine Ketones Negative (Negative) 11/09/23 11:35 Urine Blood Neg (Negative) 11/09/23 11:35 Urine Nitrate Negative (Negative) 11/09/23 11:35 Urine Bilirubin Neg (Negative) 11/09/23 11:35 Urine Urobilinogen Norm mg/dL (Negative) 11/09/23 11:35 Ur Leukocyte Esterase Negative (Negative) 11/09/23 11:35 Urine Osmolality 288 mOsm/kg (50-1200) 11/09/23 11:35 All radiology interpretation(s) finalized by discharge Discharge Plan Discharge Patient Disposition: Admitted As Inpatient Admit Provider: Manpreet Branch Clinical Impression: Hyponatremia, Chronic heart failure with preserved ejection fraction (HFpEF), Acute respiratory failure, CHF exacerbation, COPD exacerbation Condition: Stable Coding Level of Care Code ED Filler In for Camron Sousa
[2023-11-09 10:44] LABS: Hematocrit 32.1 % (36-47); Lymphocytes # 0.7 10^3/uL (0.8-4.8); Lymphocytes % 8.8 %; Mean Corpuscular HGB Conc 32.4 g/dL (30-55); Mean Corpuscular Hemoglobin 28.8 pg (27-33); Mean Corpuscular Volume 88.9 fl (85-98); Mean Platelet Volume 9.8 fL (7.4-10.4); Monocytes # 0.4 10^3/uL (0.2-0.9); Monocytes % 4.4 %; Neutrophils # 7.28 10^3/uL (1.8-7.7); Neutrophils % 86.4 %; Nucleated Red Blood Cells % 0 %; Platelet Count 487 10^3/cmm (157-399); Red Blood Count 3.61 10^6/uL (3.85-5.65); Red Cell Distribution Width 13.1 % (12.1-15.1); White Blood Count 8.42 10^3/uL (3.29-11.43)
[2023-11-09] MEDS: carvedilol 3.125 mg Tablet PO (10:55)
--- NOTE | 2023-11-09 10:56 | PC.PHAR ---
PTS DAUGHTER RICKY [phone] VERIFIED PTS MEDS AND STATES THE PT ALSO HAD A LIST OF HER MEDS WITH HER-PTS DAUGHTER STATES ON 11/08/23 THAT THE PTS BUPRENORPHINE 2MG DAILY WAS DCED PTS DAUGHTER STATES THE PT HAD 1MG ON 11/08/23 IN THE AM AND THEN GOT A RX FOR NORCO AND TOOK ONE TAB AT HS ON 11/08/23 AND A NORCO ON 11/09/23-
[2023-11-09 11:01] LABS: Troponin(5th) Baseline 32 ng/L (0-10)
[2023-11-09] MEDS: FUROsemide 10 mg/mL SDV 2mL 20 MG IVP (11:12)
[2023-11-09 11:38] LABS: Alanine Aminotransferase 21 U/L (0-33); Alkaline Phosphatase 91 U/L (35-105); Blood Urea Nitrogen 22 mg/dL (8-23); Calcium 9.3 mg/dL (8.5-10.5); Carbon Dioxide 27 mmol/L (22-29); Chloride 80 mmol/L (98-107); Globulin 2.7 g/dL (1.3-4.6); Glucose 110 mg/dL (65-115); NT Pro B Type Natriuretic Pept 11966 pg/mL (0-450); Osmolality Calculated 256 mOsm/kg (285-295); Sodium 121 mmol/L (136-145); Thyroid Stimulating Hormone 4.03 uIU/mL (0.27-4.20); Total Bilirubin 0.5 mg/dL (0.15-1.2); Total Protein 6.7 g/dL (6.6-8.7)
[2023-11-09 11:40] LABS: Anion Gap 17.8 (5-19); Aspartate Amino Transferase 52 U/L (0-32); Potassium 3.8 mmol/L (3.5-5.1)
[2023-11-09 11:50] LABS: Add Urine Microscopic? NO; Charge for UA Resulting for Rev
[2023-11-09 11:53] LABS: Specific Gravity, Urine 1.005 (1.005-1.030); Urine Appearance Clear (CLEAR); Urine Color Yellow (Yellow); pH Urine 6 (5-7)
[2023-11-09 11:54] LABS: Bilirubin Urine Neg (Negative); Blood Urine Neg (Negative); Glucose Urine UA Norm (Normal); Ketones Urine Negative (Negative); Leukocyte Esterase Urine Negative (Negative); Nitrate Urine Negative (Negative); Protein Urine Neg (Negative); Urobilinogen Urine Norm (Negative)
--- NOTE | 2023-11-09 12:30 | ECG_ITS ---
[facility] Test Date: 2023-11-09 Pat Name: Oanh Quispe Department: Room: Gender: Female Automotive Fuel Systems Converter: : 1945 Requested By: Chintan Allison Order Number: [id number] Booker MD: Gregg Corrales M.D. Measurements Intervals [place] Rate: 99 P: 82 MI: 123 QRS: 65 QRSD: 110 T: 23 QT: 382 QTc: 491 Interpretive Statements SINUS RHYTHM WITH OCCASIONAL VENTRICULAR PREMATURE COMPLEXES WITH OCCASIONAL SUPRAVENTRICULAR PREMATURE COMPLEXES ST DEPRESSION, CONSIDER SUBENDOCARDIAL INJURY [0.1+ mV ST DEPRESSION] Compared to ECG 11/09/2023 10:20:25 Atrial fibrillation no longer present Aberrant conduction of supraventricular beat(s) no longer present ST (T wave) deviation still present Electronically Signed On 11-09-2023 14:02:40 CHIEF AIRLINE RADIO OPERATOR by Gregg Corrales M.D. [id number]
[2023-11-09] MEDS: ipratropium-albuterol 3 mL Neb INHALATION ×3 (12:40→20:05)
[2023-11-09] MEDS: dexamethasone 10 mg/mL INJ IM (12:44)
--- NOTE | 2023-11-09 13:51 | P.HP_ITS ---
Providers/Chief Complaint 2 Admitting Physician: Manpreet Branch MD Primary Care Provider: Margarita Lilly DO Chief Complaint: SOB , neck and back pain History of Present Illness Oanh Quispe is a 77 year old female with a past medical history of chronic hyponatremia, CHF, COPD, emphysema, hypertension, quit smoking 5 days ago, who presents [facility] for shortness of breath, orthopnea, paroxysmal nocturnal dyspnea, lower extremity edema. Patient tells that she is here in the hospital is over the last few weeks she has had increased shortness of breath, shortness of breath with exertion now at rest, she can only sit up in bed, she needs to prop up with a pillow she has orthopnea, paroxysmal nocturnal dyspnea, no chest pain does have a cough, no fevers, no chills, due to concerns for her sodium level she has been taking 1000 mg of sodium 3 times daily denies any fevers, no chills Review of Systems 2 Const: Denies: fever(s) or chills Card: Denies: chest pain Resp: Reports: dyspnea and non-productive cough GI: Denies: abdominal pain : Reports: flank pain; Denies: difficulty voiding Medications/Allergies Home Medications Medication Instructions Recorded Confirmed Last Taken Type fluticasone 250 mcg-salmeterol 50 1 inh inhalation BID #60 ea 09/20/23 11/09/23 11/08/23 Rx mcg/dose blistr powdr for inhalation tiotropium bromide 18 mcg capsule 1 cap inhalation DAILY #60 09/20/23 11/09/23 11/08/23 Rx with inhalation device (Spiriva inhalations with HandiHaler) carvedilol 6.25 mg tablet 6.25 mg PO BID #60 tabs 10/22/23 11/09/23 11/09/23 Rx hydralazine 25 mg tablet 25 mg PO BID #30 tabs 10/22/23 11/09/23 11/09/23 Rx azithromycin 250 mg tablet See Rx Instructions PO .COMPLEX #6 11/07/23 11/09/23 11/08/23 Rx (Zithromax Z-Bhanu) tabs prednisone 20 mg tablet 40 mg (2 x 20 mg) PO DAILY 5 days 11/07/23 11/09/23 11/09/23 Rx #10 tabs hydrocodone 5 mg-acetaminophen 325 1 tab PO BID PRN pain 30 days #60 11/08/23 11/09/23 11/09/23 Rx mg tablet tabs buprenorphine HCl 2 mg sublingual 2 mg sublingual DAILY 11/09/23 11/09/23 11/08/23 History tablet 1 MG duloxetine 20 mg capsule,delayed 20 mg PO QAM 11/09/23 11/09/23 11/09/23 History release furosemide 20 mg tablet (Lasix) 20 mg PO QAM 11/09/23 11/09/23 11/08/23 History hydrochlorothiazide 25 mg tablet 25 mg PO QAM 11/09/23 11/09/23 11/09/23 History sodium chloride 1,000 mg soluble 1,000 mg PO TID 11/09/23 11/09/23 11/08/23 History tablet spironolactone 25 mg tablet 25 mg PO QAM 11/09/23 11/09/23 11/09/23 History Allergies Allergy/AdvReac Type Severity Reaction Status Date / Time No Known Allergies Allergy Verified 11/09/23 10:55 PFSH Acute 2 PFSH: Medical History Chronic low back pain Tachycardia HTN (hypertension) Surgical History H/O: hysterectomy Social History Smoking and tobacco/nicotine status: current every day tobacco/nicotine user cigarettes Packs smoked per day: 0.5 Years cigarettes smoked: 62 [ Other cigarette details: Started at 15] Vitals/I&O/Wt Last Vital Signs Pulse 103 H 11/09/23 13:26 Resp 21 H 11/09/23 13:26 BP 104/83 11/09/23 13:26 Pulse Ox 95 11/09/23 13:26 O2 Del Method Nasal Cannula 11/09/23 13:26 O2 Flow Rate 2 11/09/23 13:26 Physical Exam 2 Const: COMMON NORMALS: no acute distress and patient oriented x3 HENMT: COMMON NORMALS: normocephalic Eye: COMMON NORMALS: Equal, round and reactive pupils present and EOMs intact bilaterally Neck/C-Spine: OTHER: JVD, 8 centimeters Lymph: LYMPHATIC: no lymphadenopathy noted Chest: COMMONS NORMALS: normal inspection of the chest Resp: OTHER: Sitting up in bed, intercostal retraction suprasternal retractions, mild respiratory distress, tachypnea, wheezing and crackles in all lung tsang, Cardio: COMMON NORMALS: regular rate, regular rhythm, S1 normal heart sound present and S2 normal heart sound present RATE: regular rate RHYTHM: a bnormal rhythm HEART SOUNDS: S1 normal heart sound present and S2 normal heart sound present GI: COMMON NORMALS: Normal to inspection, nondistended, normoactive bowel sounds present, Soft to palpation and non-tender : COMMON NORMALS: Yes no CVA tenderness Extremity: COMMON NORMALS: no calf tenderness NARRATIVE EXTREMITY EXAM: 2+ pitting edema clearly only Neuro: COMMON NORMALS: patient oriented x3, CN's II-XII intact bilaterally, moves all extremities and no focal motor deficits Psych: COMMON NORMALS: mental status grossly normal Data 11/09/23 10:38 11/09/23 10:38 A&P Assessment and plan (1) Chronic heart failure with preserved ejection fraction (HFpEF): (2) COPD (chronic obstructive pulmonary disease): (3) Acute hyponatremia: (4) Acute respiratory failure: (5) CHF exacerbation: (6) COPD exacerbation: Plan Acute hypoxic respiratory failure, mild masturbatory distress, intercostal retraction suprasternal retractions, nasal flaring, -Secondary to CHF exacerbation -Secondary to COPD -Plan -Admit to CSU -Obtain ABG -Monitor respiratory status closely -Follow serum sodiums as patient is being diuresed every 4 hours -Lasix 40 IV twice daily -Serum sodiums every 4 hours -Monitor creatinine, monitor mag -Has received Decadron emergency room, continue Solu-Medrol -DuoNeb -Will consider BiPAP based on clinical progress CHF exacerbation, likely diastolic -Serial EKGs, serial troponins, telemetry monitoring -Cardiac echo COPD -Active exacerbation, quit smoking 5 days ago -Will obtain respiratory viral panel Acute hyponatremia, on chronic -Current serum sodium 121 -Prior history of hyponatremia was secondary to hydrochlorothiazide which she continues to take -Hold hydrochlorothiazide -Worry is with further diuresis or serum sodium eyedrop consult nephrology note will consider hypertonic saline -Neurochecks, New onset atrial fibrillation -Received Coreg in the emergency room, heart rates are well-controlled still in A-fib -Continue Coreg -Cardiac echo -Serial EKGs, serial troponins, telemetry monitoring -Started on therapeutic Lovenox Full code Lovenox for DVT prophylaxis Attestations 2 Medical Necessity Statement*: Patient requires hospital, inpatient, greater than 2 midnights for acute respiratory failure, CHF exacerbation, COPD exacerbation, hyponatremia Diagnoses Chronic heart failure with preserved ejection fraction (HFpEF) I50.32 COPD (chronic obstructive pulmonary disease) J44.9 Acute hyponatremia E87.1 Acute respiratory failure J96.00 CHF exacerbation I50.9 COPD exacerbation J44.1
[2023-11-09 14:17] LABS: Troponin 5 2HR 33.31 ng/L (0-10); Troponin 5 2HR Delta 1.31 ABS# (0-10)
[2023-11-09 14:28] LABS: ABG PCO2 49.5 mmHg (35-45); Arterial Blood Gas Hematocrit 33.2 % (37-47); Base Excess ABG 5.1 mmol/L (-2.0-2.0); Blood Gas Allen Test Pos; Blood Gas Sample Type Arterial; HCO3 ABG 30.8 mmol/L (22-26); PO2 ABG 89.8 mmHg (80.0-100.0)
[2023-11-09 14:29] LABS: Blood Gas Operator Identificat MONRO; Blood Gas Sample Site Radial, left; Oxygen Device NC; PO2 FiO2 Ratio Arterial Blood 0
--- OUTSIDE RECORDS SUMMARY | 2023-11-09 14:34 | XMS_ITS | Continuity of Care Document ---
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 Name Role Phone Reji ROTHMAN ([facility]), Anh Ocasio Primary Care Physician Encounter [facility] Financial Number [id number] Date(s): 04/28/22 - 05/25/23 [facility] [address] [place] [phone] Attending Physician: Reji ROTHMAN ([facility])Anh Allergies, Adverse Reactions, Alerts No Known Medication Allergies Assessment and Plan Future Scheduled Tests Laboratory* Troponin I - Series High-Sensitivity 04/27/22 Radiology* XR Shoulder 3 View Right Routine 04/27/22 Immunizations Given and Recorded Vaccine Date Status Refusal Reason influenza virus vaccine 07/14/22 Given influenza virus vaccine 08/23/21 Given influenza virus vaccine 08/02/20 Given influenza virus vaccine 07/28/19 Given influenza virus vaccine 08/12/18 Given influenza virus vaccine 06/20/17 Given influenza virus vaccine 07/13/16 Given Medications acetaminophen-hydrocodone 325 mg-10 mg oral tablet 1 tab, By mouth, Q4H, 150 tab, 0, 0, Substitution Permitted, [facility], 62, Height, 02/23/21 10:27:00 CDT, in, 67.55, Weight, 02/23/21 10:27:00 CDT, kg Start Date: 05/16/21 Status: Ordered acetaminophen-hydrocodone 325 mg-10 mg oral tablet 0.5 tab, By mouth, BID, 15 tab, 0, 0, Substitution Permitted, [facility], 62, Height (inches) (Clinical), 04/27/22 10:19:00 CDT, in, 69.27, Weight (kg) (Clinical), 04/27/22 10:20:00 CDT, kg Start Date: 05/17/23 Status: Ordered acetaminophen-hydrocodone 325 mg-10 mg oral tablet See Instructions, 1/2 tab PRN severe pain. may fill 05/16/23, 15 tab, 0, 0, Substitution Permitted, [facility], 62, Height (inches) (Clinical), 04/27/22 10:19:00 CDT, in, 69.27, Weight (kg) (Clinical), 04/27/22 10:20:00 CDT, kg Start Date: 05/15/23 Status: Ordered carvedilol 6.25 mg oral tablet = 1 tab, By mouth, BID, # 60 tab, Refill(s) 2, Pharmacy: [facility], [id number], Take 1 tablet by mouth twice daily, 69.27, 04/27/22 10:20:00 CDT, kg, Weight Start Date: 02/20/23 Status: Ordered celecoxib 50 mg oral capsule 50 mg = 1 cap, By mouth, BID, # 60 cap, Refill(s) 0, Pharmacy: 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, [id number], Take 1 capsule by mouth once daily, 69.27, 04/27/22 10:20:00 CDT, kg, Weight (kg)(Clinical) Start Date: 05/21/23 Status: Ordered furosemide 20 mg oral tablet = 1 tab, By mouth, Daily, PRN NEEDED FOR EDEMA, # 30 tab, Refill(s) 0, Pharmacy: [facility], [id number], TAKE 1 TABLET BY MOUTH ONCE DAILY NEEDED FOR EDEMA, 69.27, 04/27/22 10:20:00 CDT, kg, Weight (kg) (Clinical) Start Date: 03/05/23 Status: Ordered hydrALAZINE 25 mg oral tablet = 1 tab, By mouth, BID, # 60 tab, Refill(s) 0, Pharmacy: [facility], [id number], Take 1 tablet by mouth twice daily, 69.27, 04/27/22 10:20:00 CDT, kg, Weight (kg) (Clinical) Start Date: 05/15/23 Status: Ordered hydroCHLOROthiazide 25 mg oral tablet = 1 tab, By mouth, Daily, # 30 tab, Refill(s) 2, Pharmacy: [facility], [id number], Take 1 tablet by mouth once daily, 69.27, 04/27/22 10:20:00 CDT, kg, Weight Start Date: 02/20/23 Status: Ordered hydrOXYzine hydrochloride 25 mg oral tablet = 1 tab, By mouth, QID, PRN NEEDED FOR ANXIETY, # 30 tab, Refill(s) 0, Pharmacy: [facility], [id number], TAKE 1 TABLET BY MOUTH 4 TIMES DAILY NEEDED FOR ANXIETY, 69.27, 04/27/22 10:20:00 CDT, kg, Weight Start Date: 09/19/22 Status: Ordered ibuprofen Refill(s) 0 Start Date: 02/22/16 Status: Ordered spironolactone 25 mg oral tablet = 1 tab, By mouth, Daily, # 30 tab, Refill(s) 0, Pharmacy: [facility], [id number], Take 1 tablet by mouth once daily, 69.27, 04/27/22 10:20:00 CDT, kg, Weight (kg) (Clinical) Start Date: 05/15/23 Status: Ordered Trelegy Ellipta 100 mcg-62.5 mcg-25 mcg/inh inhalation powder = 1 puff, Inhalation, Daily, # 1 EA, Refill(s) 3, Pharmacy: [facility], [id number], 1 puff Inhalation Daily, 69.55, 03/13/22 10:33:00 CDT, kg, Weight Start Date: 03/13/22 Status: Ordered Vitamin C Refill(s) 0 Start Date: 02/22/16 Status: Ordered Problem List Condition Confirmation Course Effective Dates Status Health Status Informant Lumbar facet arthropathy Confirmed Active At very low risk for fall Confirmed Active At risk for depression Confirmed Active Benign hypertension without CHF Confirmed Active Bilateral cataracts Confirmed Active Centrilobular emphysema Confirmed Active Chronic hyponatremia Confirmed Active Chronic pain Confirmed Active Edema of lower extremity Confirmed Active Mixed hypercholesterolemia and hypertriglyceridemia Confirmed Active Recurrent cold sores Confirmed Active Tobacco use Confirmed Active patient Trigger finger, right index finger Confirmed Active Social History Social History Type Response Smoking Status Current every day sm oker; Smokeless tobacco use: Never; Has the patient smoked in the last 365 days, even once? Yes; Type: Cigarettes; Tobacco use per day: 10 or more cigarettes (1/2 pack or more)/day in last 30 days entered on: 08/23/21 Sex Female Goals quit smoking Start Date:07/13/16 End Date: Status:Met Progression:Not Met Live a long life Start Date:02/22/16 End Date:09/26 Status:Met Progression:Not Met Patient Care team information Care Team Personnel Name: Reji ROTHMAN ([facility])Anh Position: PX Physician - OB/Family Practice Member Role: Primary Care Physician Address: Address: [address] [place] [id number] [place] [address] Care Team Related Persons Name: RICKY MARIE Name: RICKY MARIE Address: home [address] [place] [phone] [place] Address: mailing [address] [place] [phone] [place] Name: GIVEN, NONE
[2023-11-09 14:36] LABS: INR 0.91 (0.8-1.2)
[2023-11-09] MEDS: FUROsemide 10 mg/mL SDV 4mL 40 MG IVP (14:36)
[2023-11-09] MEDS: pantoprazole 40 mg SDV IVP (14:37)
[2023-11-09 14:54] LABS: Lactic Sepsis W/Reflex 1.3 mmol/L (0.5-2.2)
[2023-11-09 14:58] LABS: Estmated Average Glucose 105; Hemoglobin A1C 5.3 % (4.0-6.0)
[2023-11-09 15:04] LABS: Procalcitonin 0.23 ng/mL (0-0.5); Thyroid Stimulating Hormone 3.23 uIU/mL (0.27-4.20)
[2023-11-09 15:16] LABS: C Reactive Protein 49.2 mg/L (0.0-4.9); Chol HDL Ratio 3.64 mg/dL (0.0-4.40); Cholesterol 222 mg/dL (0-200); HDL Cholesterol 61 mg/dL (60-100); LDL Cholesterol Calculated 148 mg/dL (50-129); LDL HDL Ratio 2.43 RATIO (0.00-3.22); Triglycerides 63 mg/dL (0-150)
[2023-11-09 15:22] LABS: Sodium 119 mmol/L (136-145)
--- NOTE | 2023-11-09 16:23 | ECG_ITS ---
[facility] Test Date: 2023-11-09 Pat Name: Oanh Quispe Department: Room: 105 Gender: Female [employer] Consultant: : 1945 Requested By: Chintan Allison Order Number: [id number] Booker MD: Gregg Corrales M.D. Measurements Intervals [place] Rate: 100 P: 48 IN: 139 QRS: 29 QRSD: 93 T: 12 QT: 362 QTc: 468 Interpretive Statements SINUS TACHYCARDIA WITH OCCASIONAL VENTRICULAR PREMATURE COMPLEXES POSSIBLE LEFT ATRIAL ENLARGEMENT [-0.1mV P-WAVE IN V1/V2] Compared to ECG 11/09/2023 12:30:53 Sinus rhythm no longer present ST (T wave) deviation no longer present Electronically Signed On 11-09-2023 23:46:40 FINANCIAL ANALYSIS CONSULTANT by Gregg Corrales M.D. [id number]
[2023-11-09] MEDS: potassium chloride ER 20 mEq Tablet PO (16:54)
[2023-11-09] MEDS: carvedilol 6.25 mg Tablet PO (16:55)
[2023-11-09] MEDS: enoxaparin 80 mg/0.8 mL Syringe 70 MG SUBCUT (17:04)
--- NOTE | 2023-11-09 17:05 | P.CONIM_ITS ---
Providers/Reason For Consult 2 Consulting Physician/Specialty*: Olivia Knight DO, telenephrology Reason for Consult*: Hyponatremia Requesting Physician: Manpreet Branch MD Attending Physician: Manpreet Branch MD Primary Care Provider: Margarita Lilly DO History of Present Illness History of Present Illness Oanh Quispe is a 77 year old female presented for evaluation of shortness of breath. States NaCl tablets were started in past week. Had been taking furosemide and weighing herself. Review of Systems 2 Const: Reports: fatigue Resp: Reports: dyspnea Musc: Reports: muscle weakness and other (legs ache, limited mobility) Medications/Allergies Home Medications Medication Instructions Recorded Confirmed Last Taken Type fluticasone 250 mcg-salmeterol 50 1 inh inhalation BID #60 ea 09/20/23 11/09/23 11/08/23 Rx mcg/dose blistr powdr for inhalation tiotropium bromide 18 mcg capsule 1 cap inhalation DAILY #60 09/20/23 11/09/23 11/08/23 Rx with inhalation device (Spiriva inhalations with HandiHaler) carvedilol 6.25 mg tablet 6.25 mg PO BID #60 tabs 10/22/23 11/09/23 11/09/23 Rx hydralazine 25 mg tablet 25 mg PO BID #30 tabs 10/22/23 11/09/23 11/09/23 Rx azithromycin 250 mg tablet See Rx Instructions PO .COMPLEX #6 11/07/23 11/09/23 11/08/23 Rx (Zithromax Z-Bhanu) tabs prednisone 20 mg tablet 40 mg (2 x 20 mg) PO DAILY 5 days 11/07/23 11/09/23 11/09/23 Rx #10 tabs hydrocodone 5 mg-acetaminophen 325 1 tab PO BID PRN pain 30 days #60 11/08/23 11/09/23 11/09/23 Rx mg tablet tabs buprenorphine HCl 2 mg sublingual 2 mg sublingual DAILY 11/09/23 11/09/23 11/08/23 History tablet 1 MG duloxetine 20 mg capsule,delayed 20 mg PO QAM 11/09/23 11/09/23 11/09/23 History release furosemide 20 mg tablet (Lasix) 20 mg PO QAM 11/09/23 11/09/23 11/08/23 History hydrochlorothiazide 25 mg tablet 25 mg PO QAM 11/09/23 11/09/23 11/09/23 History sodium chloride 1,000 mg soluble 1,000 mg PO TID 11/09/23 11/09/23 11/08/23 History tablet spironolactone 25 mg tablet 25 mg PO QAM 11/09/23 11/09/23 11/09/23 History Allergies Allergy/AdvReac Type Severity Reaction Status Date / Time No Known Allergies Allergy Verified 11/09/23 10:55 Current Medications Generic Name Dose Route Start Last Admin Trade Name Freq PRN Reason Stop Dose Admin Albuterol/Ipratropium 3 ml 11/09/23 16:00 11/09/23 15:03 Ipratropium-Albuterol 3 Ml Neb INHALATION 3 ml Q4H.RESPIRATORY BIANCA Administration Carvedilol 6.25 mg 11/09/23 18:00 11/09/23 16:55 Carvedilol 6.25 Mg Tablet PO 6.25 mg BID BIANCA Administration Enoxaparin Sodium 70 mg 11/09/23 17:00 11/09/23 17:04 Enoxaparin 80 Mg/0.8 Ml Syringe SUBCUT 70 mg Q12H BIANCA Administration Furosemide 40 mg 11/09/23 13:45 11/09/23 14:36 Furosemide 10 Mg/Ml Sdv 4ml IVP 40 mg Q12H BIANCA Administration Pantoprazole Sodium 40 mg 11/09/23 13:45 11/09/23 14:37 Pantoprazole 40 Mg Sdv IVP 40 mg Q24H BIANCA Administration Potassium Chloride 20 meq 11/09/23 18:00 11/09/23 16:54 Potassium Chloride Er 20 Meq Tablet PO 20 meq Q12H BIANCA Administration PFSH Acute 2 PFSH: Medical History Chronic low back pain Tachycardia HTN (hypertension) Surgical History H/O: hysterectomy Social History Smoking and tobacco/nicotine status: current every day tobacco/nicotine user cigarettes Packs smoked per day: 0.5 Years cigarettes smoked: 62 [ Other cigarette details: Started at 15] Vitals/I&O/Wt Last Vital Signs Temp 98.0 F 02/16/24 16:00 Pulse 106 H 11/09/23 16:00 Resp 16 11/09/23 16:00 BP 147/68 11/09/23 16:00 Pulse Ox 90 11/09/23 16:00 O2 Del Method Nasal Cannula 11/09/23 16:32 O2 Flow Rate 4 11/09/23 15:03 Weight last 48 hrs Weight 70.307 kg Physical Exam 2 Const: COMMON NORMALS: no acute distress and alert Extremity: NARRATIVE EXTREMITY EXAM: no edema Neuro: SENSORIUM/ORIENTATION: Yes alert Data 11/09/23 10:38 11/09/23 18:51 Other Labs: urinalysis normal, BNP 55304, TSH normal CXR: Radiologist's impression: cardiomegaly, no pulmonary edema Echo: Radiologist's impression: 08/2023 Technically limited quality echocardiogram because of poor ultrasonic windows. LV systolic function is normal with EF of 55 to 60%. Left atrial dilation. Mild mitral regurgitation. Mild aortic stenosis. No comparison studies are available. ABG Interpretation 1: 11/09/23 14:14 ABG pH 7.40 ABG pCO2 49.5 H ABG pO2 89.8 ABG HCO3 30.8 H ABG Base Excess 5.1 H My Interpretation: metabolic alkalosis, respiratory acidosis Other data: seen via telemedicine with assistance of RN at bedside A&P Assessment and plan (1) Hyponatremia: Plan 1. Hyponatremia, hypervolemic. Serum sodium 130 mEq/L Aug 2023. Agree with IV lasix, resume NaCl 1 g BID, serum, urine osmolality ordered, sendout 2. HFpEF, COPD 3. Anemia, rule-out iron deficiency 4. Myalgias, check CK Consult Attestations 2 Medical Necessity Statement: see above Time Spent in Patient Care: 16 - 35 minutes Coding Level of Care Code Acute Code for Chg Fwd Diagnoses Hyponatremia E87.1
[2023-11-09 17:36] LABS: Troponin 5 6HR 32.06 ng/L (0-10); Troponin 5 6HR Delta 0.06 ng/L (0-12)
[2023-11-09 19:19] LABS: Sodium 120 mmol/L (136-145)
[2023-11-09] MEDS: budesonide 0.5 mg/2 mL Neb INHALATION (20:05)
[2023-11-09 22:32] LABS: Sodium 123 mmol/L (136-145)
[2023-11-10] VITALS (54 sets, daily range): BP systolic 87–164; BP diastolic 56–115; PULSE 64–117; RESP 11–26; TEMP 36.2–36.9; O2SAT 92–100
[2023-11-10] MEDS: LORazepam 2 mg/mL INJ 1 mL 0.25 MG IVP (00:34)
[2023-11-10] MEDS: FUROsemide 10 mg/mL SDV 4mL 40 MG IVP ×3 (01:50→20:59)
[2023-11-10 02:28] LABS: Sodium 122 mmol/L (136-145)
[2023-11-10] MEDS: HYDROcodone-acetaminophen 5-325 mg Tablet 1 TAB PO ×3 (03:47→22:00)
[2023-11-10] MEDS: lanolin oint 7 gm 1 APPLIC TOPICAL (03:48)
[2023-11-10 04:10] LABS: Hematocrit 31.7 % (36-47); Lymphocytes # 0.9 10^3/uL (0.8-4.8); Lymphocytes % 18.4 %; Mean Corpuscular HGB Conc 32.5 g/dL (30-55); Mean Corpuscular Hemoglobin 28.6 pg (27-33); Mean Corpuscular Volume 88.1 fl (85-98); Mean Platelet Volume 9.7 fL (7.4-10.4); Monocytes # 0.4 10^3/uL (0.2-0.9); Monocytes % 9.5 %; Neutrophils # 3.31 10^3/uL (1.8-7.7); Neutrophils % 71.5 %; Nucleated Red Blood Cells % 0 %; Platelet Count 498 10^3/cmm (157-399); White Blood Count 4.63 10^3/uL (3.29-11.43)
[2023-11-10] MEDS: ipratropium-albuterol 3 mL Neb INHALATION ×7 (04:18→23:42)
[2023-11-10 04:37] LABS: Alanine Aminotransferase 21 U/L (0-33); Albumin Level 3.9 g/dL (3.5-5.2); Alkaline Phosphatase 83 U/L (35-105); Anion Gap 13.5 (5-19); Aspartate Amino Transferase 48 U/L (0-32); Blood Urea Nitrogen 33 mg/dL (8-23); Carbon Dioxide 32 mmol/L (22-29); Chloride 80 mmol/L (98-107); Creatinine Clr Calc Pharmacy 33.8156; Globulin 3.3 g/dL (1.3-4.6); Glucose 108 mg/dL (65-115); Magnesium 1.9 mg/dL (1.7-2.3); Osmolality Calculated 262 mOsm/kg (285-295); Phosphorus 4.2 mg/dL (2.5-4.5); Potassium 3.5 mmol/L (3.5-5.1); Sodium 122 mmol/L (136-145); Total Bilirubin 0.4 mg/dL (0.15-1.2); Total Protein 7.2 g/dL (6.6-8.7)
[2023-11-10 04:44] LABS: NT Pro B Type Natriuretic Pept 9292 pg/mL (0-450)
[2023-11-10 04:49] LABS: Ferritin 405 ng/mL (15-150); Iron 38 ug/dL (37-145); Sodium 122 mmol/L (136-145); Vitamin B12 1827 pg/mL (232-1245)
[2023-11-10 04:51] LABS: Creatine Phosphokinase 338 U/L (26-192)
--- NOTE | 2023-11-10 06:00 | USCV_ITS ---
Oanh Quispe Age: 77 Gender: F : 1945 Exam Date: 11/10/2023 08:25 Ordering Phys: Manpreet Branch MD Technologist: Agustin Beckett Exam Location: [facility] [place] Indication: sob BP: 152 / 85 HR: Rhythm: Sinus Technical Quality: Poor MEASUREMENTS (Male / Female) Normal Values 2D ECHO LVOT Diameter 2.0 cm LV Ejection Fraction MOD 2C 59.9 % Aorta at Sinotubular Diameter 0.7 cm IVC Diameter 1.5 cm M-MODE LA Ao Ratio MM 1.7 AV Cusp Separation MM 1.7 cm DOPPLER AV Peak Velocity 224.0 cm/s AV Area Cont Eq vti 1.1 cm squared MV Area PHT 8.5 cm squared Mitral E to A Ratio 1.4 TR Peak Velocity 231.0 cm/s TR Peak Gradient 21.3 mmHg FINDINGS Left Ventricle Image quality is poor. The only useful view is the apical view. The left ventricle appears to be normal in size and function. In this view the ejection fraction is within normal limits probably 55 to 60%. Grade 2 diastolic dysfunction. Right Ventricle Normal right ventricular size and systolic function. Right Atrium Right atrium not well visualized. Left Atrium Moderately increased left atrial size. Mitral Valve Structurally normal mitral valve. Mild-moderate mitral valve regurgitation. Aortic Valve Aortic valve not well visualized. No aortic valve stenosis. No aortic valve regurgitation. Tricuspid Valve Tricuspid valve not well visualized. Pulmonic Valve Pulmonic valve not well visualized. Pericardium There is a very small hemodynamically insignificant pericardial effusion. Aorta Aorta not well visualized. IVC The inferior vena cava appears normal. CONCLUSIONS Image quality is poor. The only useful view is the apical view. The left ventricle appears to be normal in size and function. In this view the ejection fraction is within normal limits probably 55 to 60%. Grade 2 diastolic dysfunction. Moderately increased left atrial size. Structurally normal mitral valve. Mild-moderate mitral valve regurgitation. There is a very small hemodynamically insignificant pericardial effusion. Previous echo was done only 6 weeks ago. There has been no significant change. This study could not interrogate the aortic valve due to technical difficulties. Dr. Andrey Brewer MD (Electronically Signed) Final Date: 10 November 2023 10:02 S
[2023-11-10] MEDS: potassium chloride ER 20 mEq Tablet PO ×2 (07:59→20:05)
[2023-11-10] MEDS: enoxaparin 80 mg/0.8 mL Syringe 70 MG SUBCUT ×2 (07:59→17:00)
[2023-11-10] MEDS: methylPREDNISolone sod succ 40 mg/mL INJ IVP ×2 (08:26→16:59)
[2023-11-10] MEDS: budesonide 0.5 mg/2 mL Neb INHALATION ×2 (08:45→19:44)
[2023-11-10] MEDS: LORazepam 2 mg/mL INJ 1 mL 0.5 MG IV (09:19)
[2023-11-10] MEDS: carvedilol 6.25 mg Tablet PO ×2 (09:20→20:05)
[2023-11-10] MEDS: sodium chloride 1 gm Tablet PO ×2 (09:20→20:11)
[2023-11-10] MEDS: spironolactone 25 mg Tablet PO (09:20)
--- NOTE | 2023-11-10 10:13 | PC.NURSE ---
dr maza has ordered to transfer pt to icu due to cont sob,tripoding,and resistance to wear bipap due to claustrophobia.report phoned to mary dwyer.transferred to icu 11 at this time.
--- NOTE | 2023-11-10 11:12 | P.PN_ITS ---
Subjective 2 Subjective: required BiPAP overnight, moved to ICU, sedated Vitals/I&O/Wt Last Vital Signs Temp 98.2 F 11/10/23 07:32 Pulse 79 11/10/23 10:41 Resp 22 H 11/10/23 08:00 BP 152/85 11/10/23 07:32 Pulse Ox 95 11/10/23 10:18 O2 Del Method Nasal Cannula 11/10/23 08:00 O2 Flow Rate 4 11/10/23 08:00 FiO2 40 11/10/23 10:18 11/09/23 11/10/23 11/10/23 22:59 06:59 14:59 Intake Total 100 / 100 355 / 455 Output Total 350 / 350 Balance 100 / 100 5 / 105 Weight last 48 hrs Weight 69.853 kg Weight 70.307 kg Physical Exam 2 Urinary Catheter Management: Nicholson: Cath Placed During This Visit: yes Reason for Continuing Indwelling Catheter: Accurate Measurement of Urinary Output in Critically Ill Patients Urinary Catheter Date of Insertion: 11/10/23 Urinary Catheter Time of Insertion: 00:45 Data 11/10/23 03:50 11/10/23 03:50 Other Labs: urinalysis normal Mg 1.9 Echo: Radiologist's impression: The left ventricle appears to be normal in size and function. In this view the ejection fraction is within normal limits probably 55 to 60%. Grade 2 diastolic dysfunction. Moderately increased left atrial size. Structurally normal mitral valve. Mild-moderate mitral valve regurgitation. There is a very small hemodynamically insignificant pericardial effusion. Other data: Seen via telemedicine with assistance of RN at bedside A&P Assessment and plan (1) Hyponatremia: Plan 1. Hyponatremia, not improved with attempt at diuresis. Serum sodium 130 mEq/L Aug 2023. serum, urine osmolality ordered, sendout. 100 ml 3% NSS, oral NaCl ordered 2. Renal function decreased with attempt at diuresis, urine output 50 ml/hr, check urine sodium and Cr 3. HFpEF, COPD 4. Anemia, rule-out iron deficiency 5. Myalgias, CK 338 Attestations 2 Medical Necessity Statement*: see above Time Spent in Patient Care: 16 - 35 minutes Coding Level of Care Code Acute Code for Chg Fwd Diagnoses Hyponatremia E87.1
[2023-11-10] MEDS: dexmedeTOMIDine 0.9 % NaCL 400 MCG/100 ML PREMIX IV (12:02)
--- NOTE | 2023-11-10 13:01 | PC.NURSE ---
pt insisting on removing bipap, explained to her and son at bedside the importance of bipap. Explained mechanical ventilation and asked if she would want that if it came to that. Patient did not answer even with prodding from her son. He said he would speak to her more about it and what she wants done. Precedex was increased, see eMAR. Respiratory was called and patient was placed on 3L NC. Will try bipap again later.
--- NOTE | 2023-11-10 13:17 | CTR_ITS ---
PROCEDURE INFORMATION: Exam: CTA Chest With Contrast Exam date and time: 11/10/2023 4:32 PM Age: 77 years old Clinical indication: Shortness of breath; Additional info: SOB TECHNIQUE: Imaging protocol: Computed tomographic angiography of the chest with contrast. Exam focused on the arteries. 3D rendering (Not supervised by radiologist): MIP and/or 3D reconstructed images were created by the technologist. Radiation optimization: All CT scans at this facility use at least one of these dose optimization techniques: automated exposure control; mA and/or kV adjustment per patient size (includes targeted exams where dose is matched to clinical indication); or iterative reconstruction. Contrast material: OMNI 350; Contrast volume: 53 ml; Contrast route: INTRAVENOUS (IV); COMPARISON: CT chest w con* [id number] 09/15/2023 10:09 PM RADIATION DOSE METRICS: Total DLP (mGy-cm): 381.52 FINDINGS: Pulmonary arteries: Adequate visualization of the pulmonary arteries to the subsegmental level. No pulmonary embolism. Aorta: Ascending aorta is normal in caliber. Lungs: Right lower lobe linear atelectatic changes. Predominantly upper lobe centrilobular emphysema. Pleural spaces: Unremarkable. No pneumothorax. No pleural effusion. Heart: Unremarkable. No cardiomegaly. No pericardial effusion. Lymph nodes: Unremarkable. No enlarged lymph nodes. 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 Bones/joints: Unremarkable. No acute fracture. Soft tissues: Unremarkable. CT/CT angio chest PE protcl [id number] IMPRESSION: 1. No pulmonary embolism. 2. Predominantly upper lobe centrilobular emphysema. 3. There is moderate atherosclerotic calcification of the coronary arteries. COMMENTS: The presence of pulmonary emphysema on CT is an independent risk factor for lung cancer. In the absence of a history or active diagnosis of lung cancer, it is recommended that this patient with emphysema be evaluated for enrollment in a low dose CT lung cancer screening program.
[2023-11-10] MEDS: sodium chloride 3% 100 ML in empty flexible container 1 EACH 200 ML IV (13:33)
[2023-11-10] MEDS: pantoprazole 40 mg SDV IVP (13:33)
--- NOTE | 2023-11-10 14:10 | ECG_ITS ---
[facility] Test Date: 2023-11-10 Pat Name: Oanh Quispe Department: Room: ICU11 Gender: Female Security Police: : 1945 Requested By: Manpreet Branch Order Number: [id number] Booker MD: Andrey Brewer M.D. Measurements Intervals [place] Rate: 97 P: 66 VA: 118 QRS: 58 QRSD: 93 T: 40 QT: 376 QTc: 479 Interpretive Statements SINUS RHYTHM WITH SHORT VA INTERVAL WITH OCCASIONAL SUPRAVENTRICULAR PREMATURE COMPLEXES NONSPECIFIC T-WAVE ABNORMALITY Compared to ECG 11/09/2023 15:56:11 Short VA interval now present T-wave abnormality now present Sinus tachycardia no longer present Ventricular premature complex(es) no longer present Electronically Signed On 11-11-2023 7:46:44 APPLIANCE REPAIRER by Andrey Brewer M.D. [email or web address]
--- NOTE | 2023-11-10 14:55 | PC.NURSE ---
pt placed back on bipap at 1445.
[2023-11-10 15:30] LABS: Creatinine Urine, Random 62 mg/dL (28-217); Urine Random Sodium 24 mmol/L
--- NOTE | 2023-11-10 15:49 | P.PN_ITS ---
Subjective 2 Subjective: Patient was seen this morning, she is in CCU, she is sitting up in the bed tripoding, short of breath, normotensive, she is on nasal cannula, 4 L, saturating in low 90s, she tells me that she can only use the BiPAP 2 hours during the night, due to shortness of breath, and claustrophobia, currently she can only say a few words as she feels short of breath, nasal flaring intercostal retraction suprasternal retractions, he does have diffuse wheezing in all lung tsang, patient was moved to ICU for worsening respiratory failure, she was seen in ICU, she is more comfortably, no evidence of respiratory distress no intercostal traction no suprasternal retractions, tolerating BiPAP well, Vitals/I&O/Wt Last Vital Signs Temp 98.4 F 11/10/23 10:50 Pulse 87 11/10/23 15:47 Resp 18 11/10/23 15:47 BP 153/95 11/10/23 12:35 Pulse Ox 98 11/10/23 15:47 O2 Del Method BiPAP 11/10/23 15:47 O2 Flow Rate 4 11/10/23 08:00 FiO2 30 11/10/23 15:47 11/10/23 11/10/23 11/10/23 06:59 14:59 22:59 Intake Total 355 / 455 107.773 / 107.773 Output Total 350 / 350 Balance 5 / 105 107.773 / 107.773 Weight last 48 hrs Weight 69.853 kg Weight 70.307 kg Physical Exam 2 Const: COMMON NORMALS: no acute distress and patient oriented x3 Resp: COMMON NORMALS: normal respiratory effort, No retractions, No use of accessory muscles and clear to auscultation bilaterally AUSCULTATION: clear to auscultation bilaterally Cardio: COMMON NORMALS: regular rate, regular rhythm, S1 normal heart sound present and S2 normal heart sound present RATE: regular rate RHYTHM: r egular rhythm HEART SOUNDS: S1 normal heart sound present and S2 normal heart sound present GI: COMMON NORMALS: Normal to inspection, nondistended, normoactive bowel sounds present and non-tender Extremity: COMMON NORMALS: no pedal edema Neuro: COMMON NORMALS: patient oriented x3 Psych: COMMON NORMALS: mental status grossly normal Urinary Catheter Management: Nicholson: Cath Placed During This Visit: yes Reason for Continuing Indwelling Catheter: Accurate Measurement of Urinary Output in Critically Ill Patients Urinary Catheter Date of Insertion: 11/10/23 Urinary Catheter Time of Insertion: 00:45 Data 11/10/23 03:50 11/10/23 03:50 A&P Assessment and plan (1) Chronic heart failure with preserved ejection fraction (HFpEF): (2) COPD (chronic obstructive pulmonary disease): (3) Acute hyponatremia: (4) Acute respiratory failure: (5) CHF exacerbation: (6) COPD exacerbation: Plan Acute hypoxic respiratory failure, mild masturbatory distress, intercostal retraction suprasternal retractions, nasal flaring, -Secondary to CHF exacerbation -Secondary to COPD -Plan -Admit to ICU -Continue BiPAP, Precedex for agitation and anxiety -Monitor respiratory status closely -Follow serum sodiums as patient is being diuresed every 4 hours -Lasix 40 IV twice daily -Serum sodiums every 4 hours -Order CT angiogram of the chest -Start azithromycin -Monitor creatinine, monitor mag - continue Solu-Medrol -DuoNeb -Will consider BiPAP based on clinical progress CHF exacerbation, likely diastolic -Serial EKGs, serial troponins, telemetry monitoring -Cardiac echo COPD -Active exacerbation, quit smoking 5 days ago -Will obtain respiratory viral panel Acute hyponatremia, on chronic -Current serum sodium 121 -Prior history of hyponatremia was secondary to hydrochlorothiazide which she continues to take -Hold hydrochlorothiazide -Worry is with further diuresis or serum sodium eyedrop consult nephrology note will consider hypertonic saline -Neurochecks, New onset atrial fibrillation -Received Coreg in the emergency room, heart rates are well-controlled still in A-fib -Continue Coreg -Cardiac echo CONCLUSIONS Image quality is poor. The only useful view is the apical view. The left ventricle appears to be normal in size and function. In this view the ejection fraction is within normal limits probably 55 to 60%. Grade 2 diastolic dysfunction. Moderately increased left atrial size. Structurally normal mitral valve. Mild-moderate mitral valve regurgitation. There is a very small hemodynamically insignificant pericardial effusion. Previous echo was done only 6 weeks ago. There has been no significant change. This study could not interrogate the aortic valve due to technical difficulties. -Serial EKGs, serial troponins, telemetry monitoring -Started on therapeutic Lovenox Full code Lovenox for DVT prophylaxis Attestations 2 Medical Necessity Statement*: Patient requires hospitalization for respiratory failure, CHF, COPD, hyponatremia, respiratory failure requiring ICU monitoring Diagnoses Chronic heart failure with preserved ejection fraction (HFpEF) I50.32 COPD (chronic obstructive pulmonary disease) J44.9 Acute hyponatremia E87.1 Acute respiratory failure J96.00 CHF exacerbation I50.9 COPD exacerbation J44.1
--- NOTE | 2023-11-10 15:52 | ECG_ITS ---
[facility] Test Date: 2023-11-10 Pat Name: Oanh Quispe Department: Room: ICU11 Gender: Female Director Cardiac: : 1945 Requested By: Manpreet Branch Order Number: [id number] Booker MD: Andrey Brewer M.D. Measurements Intervals [place] Rate: 74 P: 42 NV: 118 QRS: 25 QRSD: 84 T: 18 QT: 418 QTc: 464 Interpretive Statements SINUS RHYTHM WITH SHORT NV INTERVAL WITH OCCASIONAL VENTRICULAR PREMATURE COMPLEXES Compared to ECG 11/10/2023 14:10:12 Ventricular premature complex(es) now present T-wave abnormality no longer present Electronically Signed On 11-11-2023 7:51:44 SAND CUTTER OPERATOR by Andrey Brewer M.D. [id number]
[2023-11-10 15:57] LABS: D Dimer 0.72 ug/mLFEU (0-0.59)
[2023-11-10 16:00] LABS: Troponin(5th) Baseline 35 ng/L (0-10)
[2023-11-10] MEDS: iohexol 350 mg/mL 500 mL Btl (per mL) IV (16:34)
[2023-11-10] MEDS: azithromycin 500 MG in sodium chloride 0.9% 250 ML 250 MG IV (17:00)
[2023-11-10 17:36] LABS: Troponin 5 2HR 32.58 ng/L (0-10)
[2023-11-10 17:41] LABS: Troponin 5 2HR Delta -2.42 ABS# (0-10)
--- NOTE | 2023-11-10 19:17 | ECG_ITS ---
[facility] Test Date: 2023-11-10 Pat Name: Oanh Quispe Department: Room: ICU11 Gender: Female Tube Builder Airplane: : 1945 Requested By: Manpreet Branch Order Number: [id number] Booker MD: Andrey Brewer M.D. Measurements Intervals [place] Rate: 70 P: 49 MN: 133 QRS: 54 QRSD: 102 T: 39 QT: 425 QTc: 460 Interpretive Statements SINUS RHYTHM SEPTAL MYOCARDIAL INFARCTION , PROBABLY OLD [40+ ms Q WAVE IN V1/V2] Compared to ECG 11/10/2023 15:52:32 Myocardial infarct finding now present Ventricular premature complex(es) no longer present Short MN interval no longer present Electronically Signed On 11-11-2023 7:52:19 IT SYSTEMS ANALYST by Andrey Brewer M.D. [id number]
[2023-11-10] MEDS: saline nasal spray 44mL Btl 1 SPRAY NASAL (21:02)
--- NOTE | 2023-11-10 21:27 | PC.NURSE ---
Change of Shift This nurse woke pt for medication administration and EKG. Pt awoken easily with Son-in-law at bedside. Pt placed on 3LNC, swallowed water and medications without incident. Pt called multiple family members to check-in for the night. Precedex running at 0.4. Pt states she is uncomfortable with back and neck pain - repositioning and pain medication provided. Pt states she can not breath through her nostrils - saline spray provided. Lab at bedside for blood draw. Update given to multiple family members OTP. Nicholson catheter patent. Bilateral IV flushed and patent.
[2023-11-10 22:25] LABS: Anion Gap 14.5 (5-19); Blood Urea Nitrogen 39 mg/dL (8-23); Calcium 8.7 mg/dL (8.5-10.5); Carbon Dioxide 29 mmol/L (22-29); Chloride 84 mmol/L (98-107); Creatinine Clr Calc Pharmacy 31.3022; Glucose 149 mg/dL (65-115); Osmolality Calculated 270 mOsm/kg (285-295); Potassium 3.5 mmol/L (3.5-5.1); Sodium 124 mmol/L (136-145)
[2023-11-10 22:32] LABS: Troponin 5 6HR 31.81 ng/L (0-10)
[2023-11-10 22:36] LABS: Troponin 5 6HR Delta -3.19 ng/L (0-12)
[2023-11-11] VITALS (62 sets, daily range): BP systolic 106–150; BP diastolic 60–96; PULSE 66–92; RESP 12–26; TEMP 36.4–36.8; O2SAT 90–100
[2023-11-11] MEDS: methylPREDNISolone sod succ 40 mg/mL INJ IVP ×3 (00:34→15:59)
[2023-11-11] MEDS: dexmedeTOMIDine 0.9 % NaCL 400 MCG/100 ML PREMIX 6.99000000000000021 MCG IV ×2 (00:35→14:08)
[2023-11-11] MEDS: ipratropium-albuterol 3 mL Neb INHALATION ×6 (03:00→23:46)
[2023-11-11 05:04] LABS: Hematocrit 31.4 % (36-47); Lymphocytes # 0.6 10^3/uL (0.8-4.8); Lymphocytes % 23.5 %; Mean Corpuscular HGB Conc 32.2 g/dL (30-55); Mean Corpuscular Hemoglobin 28.7 pg (27-33); Mean Corpuscular Volume 89.2 fl (85-98); Mean Platelet Volume 9.9 fL (7.4-10.4); Monocytes # 0.1 10^3/uL (0.2-0.9); Monocytes % 3.8 %; Neutrophils # 1.91 10^3/uL (1.8-7.7); Neutrophils % 72.3 %; Nucleated Red Blood Cells % 0 %; Platelet Count 431 10^3/cmm (157-399); Red Blood Count 3.52 10^6/uL (3.85-5.65); Red Cell Distribution Width 13.2 % (12.1-15.1); White Blood Count 2.64 10^3/uL (3.29-11.43)
[2023-11-11 05:20] LABS: Lactate (Lactic Acid level) 1.1 mmol/L (0.5-2.2)
[2023-11-11 05:21] LABS: C Reactive Protein 27.6 mg/L (0.0-4.9); Creatine Phosphokinase 155 U/L (26-192)
[2023-11-11 05:25] LABS: Procalcitonin 0.22 ng/mL (0-0.5)
[2023-11-11 05:29] LABS: NT Pro B Type Natriuretic Pept 3602 pg/mL (0-450); Sodium 128 mmol/L (136-145)
[2023-11-11 05:32] LABS: Alanine Aminotransferase 20 U/L (0-33); Albumin Level 3.7 g/dL (3.5-5.2); Alkaline Phosphatase 74 U/L (35-105); Anion Gap 13.7 (5-19); Aspartate Amino Transferase 36 U/L (0-32); Blood Urea Nitrogen 38 mg/dL (8-23); Calcium 8.8 mg/dL (8.5-10.5); Carbon Dioxide 31 mmol/L (22-29); Chloride 85 mmol/L (98-107); Creatinine Clr Calc Pharmacy 33.1834; Globulin 2.6 g/dL (1.3-4.6); Glucose 127 mg/dL (65-115); Magnesium 2.1 mg/dL (1.7-2.3); Osmolality Calculated 273 mOsm/kg (285-295); Phosphorus 4.2 mg/dL (2.5-4.5); Potassium 3.7 mmol/L (3.5-5.1); Sodium 126 mmol/L (136-145); Total Bilirubin 0.4 mg/dL (0.15-1.2); Total Protein 6.3 g/dL (6.6-8.7)
[2023-11-11] MEDS: potassium chloride ER 20 mEq Tablet PO ×2 (05:39→17:06)
[2023-11-11] MEDS: enoxaparin 80 mg/0.8 mL Syringe 70 MG SUBCUT (05:39)
[2023-11-11] MEDS: spironolactone 25 mg Tablet PO (05:40)
[2023-11-11] MEDS: budesonide 0.5 mg/2 mL Neb INHALATION ×2 (07:47→19:20)
[2023-11-11] MEDS: metOLazone 5 MG Tablet PO (08:32)
[2023-11-11] MEDS: sodium chloride 1 gm Tablet PO ×3 (08:32→21:01)
[2023-11-11] MEDS: carvedilol 6.25 mg Tablet PO ×2 (08:32→17:06)
[2023-11-11] MEDS: FUROsemide 10 mg/mL SDV 4mL 40 MG IVP ×2 (08:32→21:01)
[2023-11-11] MEDS: HYDROcodone-acetaminophen 5-325 mg Tablet 1 TAB PO ×2 (08:41→16:41)
--- NOTE | 2023-11-11 09:43 | PC.NURSE ---
optifoam placed on both lower checks buttocks for comfort to prevent pressure attempt to get up in recliner refused at this time
--- NOTE | 2023-11-11 10:48 | P.PN_ITS ---
Subjective 2 Subjective: no new c/o Medications: Reviewed: Yes Vitals/I&O/Wt Last Vital Signs Temp 98.2 F 11/11/23 07:55 Pulse 84 11/11/23 08:15 Resp 16 11/11/23 08:15 BP 149/86 11/11/23 08:15 Pulse Ox 92 11/11/23 08:15 O2 Del Method BiPAP 11/11/23 07:49 O2 Flow Rate 3 11/10/23 20:00 FiO2 30 11/11/23 07:51 11/10/23 11/11/23 11/11/23 22:59 06:59 14:59 Intake Total 459.28 / 567.053 24.698 / 591.751 250 / 250 Output Total 650 / 650 1300 / 1950 Balance -190.72 / -82.947 -1275.302 / -1358.249 250 / 250 Weight last 48 hrs Weight 68.266 kg Weight 69.853 kg Weight 70.307 kg Physical Exam 2 Narrative: awake , alert HEENT S1S2 RRR per report Lungs clear per report No edema Urinary Catheter Management: Nicholson: Cath Placed During This Visit: yes Reason for Continuing Indwelling Catheter: Accurate Measurement of Urinary Output in Critically Ill Patients Urinary Catheter Date of Insertion: 11/10/23 Urinary Catheter Time of Insertion: 00:45 Data 11/11/23 03:31 11/11/23 14:43 A&P Assessment and plan (1) Hyponatremia: Plan 1. Hyponatremia, not improved with attempt at diuresis. Serum sodium 130 mEq/L Aug 2023. serum, urine osmolality ordered, sendout. s/p 100 ml 3% NSS, oral NaCl ordered and fluid restriction 2. Renal function decreased with attempt at diuresis, urine output 50 ml/hr, check urine sodium and Cr 3. HFpEF, COPD 4. Anemia, rule-out iron deficiency 5. Myalgias, CK 338 Attestations 2 Medical Necessity Statement*: per medicine Coding Level of Care Code Acute Code for g Fwd Diagnoses Hyponatremia E87.1
[2023-11-11 11:20] LABS: Sodium 128 mmol/L (136-145)
--- NOTE | 2023-11-11 12:13 | P.PN_ITS ---
Subjective 2 Subjective: Patient was seen this morning, patient's son is at bedside she is resting much more comfortably, she can speak sentences without feeling short of breath, she does complain of generalized weakness, we discussed potentially getting neuropathy of that continue to diurese her she is -4 L yesterday, Vitals/I&O/Wt Last Vital Signs Temp 98.2 F 11/11/23 07:55 Pulse 80 11/11/23 12:00 Resp 21 H 11/11/23 12:00 BP 120/70 11/11/23 12:00 Pulse Ox 100 11/11/23 12:00 O2 Del Method Nasal Cannula 11/11/23 11:40 O2 Flow Rate 3 11/11/23 11:40 FiO2 30 11/11/23 07:51 11/10/23 11/11/23 11/11/23 22:59 06:59 14:59 Intake Total 459.28 / 567.053 24.698 / 591.751 322.23 / 322.23 Output Total 650 / 650 1300 / 1950 1950 / 1950 Balance -190.72 / -82.947 -1275.302 / -1358.249 -1627.77 / -1627.77 Weight last 48 hrs Weight 68.266 kg Weight 69.853 kg Weight 70.307 kg Physical Exam 2 Const: COMMON NORMALS: no acute distress and patient oriented x3 Resp: COMMON NORMALS: normal respiratory effort, No retractions and No use of accessory muscles OTHER: Wheezing and crackles in lung tsang Cardio: COMMON NORMALS: regular rate, regular rhythm, S1 normal heart sound present and S2 normal heart sound present RATE: regular rate RHYTHM: r egular rhythm HEART SOUNDS: S1 normal heart sound present and S2 normal heart sound present GI: COMMON NORMALS: Normal to inspection, nondistended, normoactive bowel sounds present and non-tender Extremity: NARRATIVE EXTREMITY EXAM: 1+ pitting edema Neuro: COMMON NORMALS: patient oriented x3 Psych: COMMON NORMALS: mental status grossly normal Urinary Catheter Management: Nicholson: Cath Placed During This Visit: yes Reason for Continuing Indwelling Catheter: Accurate Measurement of Urinary Output in Critically Ill Patients Urinary Catheter Date of Insertion: 11/10/23 Urinary Catheter Time of Insertion: 00:45 Data 11/11/23 03:31 11/11/23 10:19 A&P Assessment and plan (1) Chronic heart failure with preserved ejection fraction (HFpEF): (2) COPD (chronic obstructive pulmonary disease): (3) Acute hyponatremia: (4) Acute respiratory failure: (5) CHF exacerbation: (6) COPD exacerbation: Plan Acute hypoxic respiratory failure, mild masturbatory distress, intercostal retraction suprasternal retractions, nasal flaring, -Secondary to CHF exacerbation -Clinically improving today -Secondary to COPD -Secondary to fluid overload, CHF exacerbation -CT angiogram of the chest -00ACCESSION #: [id number] CT/CT angio chest PE protcl [id number] IMPRESSION: 1. No pulmonary embolism. 2. Predominantly upper lobe centrilobular emphysema. 3. There is moderate atherosclerotic calcification of the coronary arteries. -Plan -Admit to ICU -Continue BiPAP, Precedex for agitation and anxiety -Monitor respiratory status closely -Follow serum sodiums as patient is being diuresed -Lasix 40 IV twice daily -Serum sodiums every 4 hours -Continue azithromycin -Monitor creatinine, monitor mag - continue Solu-Medrol -DuoNeb -Continue BiPAP CHF exacerbation, likely diastolic -Serial EKGs, serial troponins, telemetry monitoring -Cardiac echo CONCLUSIONS Image quality is poor. The only useful view is the apical view. The left ventricle appears to be normal in size and function. In this view the ejection fraction is within normal limits probably 55 to 60%. Grade 2 diastolic dysfunction. Moderately increased left atrial size. Structurally normal mitral valve. Mild-moderate mitral valve regurgitation. There is a very small hemodynamically insignificant pericardial effusion. Previous echo was done only 6 weeks ago. There has been no significant change. This study could not interrogate the aortic valve due to technical difficulties. COPD -Active exacerbation, quit smoking 5 days ago -Will obtain respiratory viral panel Acute hyponatremia, on chronic -Current serum sodium 121 -Prior history of hyponatremia was secondary to hydrochlorothiazide which she continues to take -Hold hydrochlorothiazide -Worry is with further diuresis or serum sodium eyedrop consult nephrology note will consider hypertonic saline -Neurochecks, New onset atrial fibrillation -Received Coreg in the emergency room, heart rates are well-controlled still in A-fib -Continue Coreg -Cardiac echo CONCLUSIONS Image quality is poor. The only useful view is the apical view. The left ventricle appears to be normal in size and function. In this view the ejection fraction is within normal limits probably 55 to 60%. Grade 2 diastolic dysfunction. Moderately increased left atrial size. Structurally normal mitral valve. Mild-moderate mitral valve regurgitation. There is a very small hemodynamically insignificant pericardial effusion. Previous echo was done only 6 weeks ago. There has been no significant change. This study could not interrogate the aortic valve due to technical difficulties. -Serial EKGs, serial troponins, telemetry monitoring -Started on therapeutic Lovenox Full code Lovenox for DVT prophylaxis Plan for today continue to diurese, monitor urine output, monitor clinical status, continue steroids, continue antibiotics, continue to diurese, monitor clinical status, PT OT, Attestations 2 Medical Necessity Statement*: Patient requires hospitalization, inpatient, greater than 2 midnights for acute respiratory failure diastolic CHF exacerbation COPD respiratory failure new onset A-fib Diagnoses Chronic heart failure with preserved ejection fraction (HFpEF) I50.32 COPD (chronic obstructive pulmonary disease) J44.9 Acute hyponatremia E87.1 Acute respiratory failure J96.00 CHF exacerbation I50.9 COPD exacerbation J44.1
[2023-11-11] MEDS: pantoprazole 40 mg SDV IVP (14:07)
--- NOTE | 2023-11-11 14:53 | PC.NURSE ---
assisted up in chair with pt at this time o2 at 3 lnc
[2023-11-11 15:25] LABS: Sodium 122 mmol/L (136-145)
[2023-11-11] MEDS: azithromycin 500 MG in sodium chloride 0.9% 250 ML 250 MG IV (15:58)
[2023-11-11 19:08] LABS: Adenovirus Not Detected (NOT DETECT); Chlamydia Pneumoniae Not Detected (NOT DETECT); Coronavirus 229E,HKU1,NL63,OC4 Not Detected (NOT DETECT); Human Metapneumovirus Not Detected (NOT DETECT); Human Rhinovirus/Enterovirus Not Detected (NOT DETECT); Influenza A Detected (NOT DETECT); Influenza A H1 Not Detected (NOT DETECT); Influenza A H1-2009 Not Detected (NOT DETECT); Influenza A H3 Detected (NOT DETECT); Influenza B Not Detected (NOT DETECT); Mycoplasma Pneumoniae Not Detected (NOT DETECT); Parainfluenza Virus Type 1 Not Detected (NOT DETECT); Parainfluenza Virus Type 2 Not Detected (NOT DETECT); Parainfluenza Virus Type 3 Not Detected (NOT DETECT); Parainfluenza Virus Type 4 Not Detected (NOT DETECT); Respiratory Syncytial Virus A Not Detected (NOT DETECT); Respiratory Syncytial Virus B Not Detected (NOT DETECT); SARS-COV-2 Not Detected (NOT DETECT)
[2023-11-11 19:09] LABS: Sodium 119 mmol/L (136-145)
--- NOTE | 2023-11-11 20:00 | PC.NURSE ---
Sodium Level Patient's sodium level resulted critical as 119 at 190. Voicemail left for Dr. August at 1922. Call returned by Dr. August at 1950 and the following orders received: administer 2gm sodium chloride tablets PO once in addition to the scheduled 1gm for a total of 3gm sodium chloride this evening, as well as initiate a fluid restriction of 1200 mls in 24 hr. See MAR for details.
[2023-11-11] MEDS: sodium chloride 1 gm Tablet 2 GM PO (21:01)
[2023-11-11] MEDS: ondansetron 2 mg/ML SDV 2 mL 4 MG IVP (21:13)
[2023-11-12] VITALS (48 sets, daily range): BP systolic 93–163; BP diastolic 53–89; PULSE 65–94; RESP 10–24; TEMP 35.9–36.9; O2SAT 74–98; BMI 27.6
[2023-11-12 00:16] LABS: Sodium 129 mmol/L (136-145)
[2023-11-12] MEDS: methylPREDNISolone sod succ 40 mg/mL INJ IVP ×2 (00:58→08:34)
[2023-11-12] MEDS: dexmedeTOMIDine 0.9 % NaCL 400 MCG/100 ML PREMIX 10.4800000000000004 MCG IV ×2 (01:52→10:55)
--- NOTE | 2023-11-12 03:00 | PC.NURSE ---
Sodium Level Message left for Dr. August at around 0100 regarding sodium level increase from 119 to 129. Call received from Dr. August at 0300; order received to recheck sodium level now.
[2023-11-12] MEDS: ipratropium-albuterol 3 mL Neb INHALATION ×4 (04:05→19:41)
[2023-11-12] MEDS: potassium chloride ER 20 mEq Tablet PO ×2 (05:04→17:22)
[2023-11-12] MEDS: enoxaparin 80 mg/0.8 mL Syringe 70 MG SUBCUT ×2 (05:04→17:22)
[2023-11-12] MEDS: spironolactone 25 mg Tablet PO (05:04)
[2023-11-12 05:49] LABS: Eosinophils % 0.2 %; Hematocrit 31.2 % (36-47); Lymphocytes # 0.8 10^3/uL (0.8-4.8); Lymphocytes % 19.3 %; Mean Corpuscular HGB Conc 32.4 g/dL (30-55); Mean Corpuscular Hemoglobin 29.1 pg (27-33); Mean Corpuscular Volume 89.9 fl (85-98); Mean Platelet Volume 9.6 fL (7.4-10.4); Monocytes # 0.2 10^3/uL (0.2-0.9); Neutrophils # 3.25 10^3/uL (1.8-7.7); Neutrophils % 75.8 %; Nucleated Red Blood Cells % 0 %; Platelet Count 416 10^3/cmm (157-399); Red Blood Count 3.47 10^6/uL (3.85-5.65); Red Cell Distribution Width 13.1 % (12.1-15.1); White Blood Count 4.29 10^3/uL (3.29-11.43)
[2023-11-12 06:11] LABS: Alanine Aminotransferase 20 U/L (0-33); Albumin Level 3.8 g/dL (3.5-5.2); Alkaline Phosphatase 70 U/L (35-105); Anion Gap 14.2 (5-19); Aspartate Amino Transferase 27 U/L (0-32); Blood Urea Nitrogen 42 mg/dL (8-23); Carbon Dioxide 32 mmol/L (22-29); Chloride 86 mmol/L (98-107); Creatinine Clr Calc Pharmacy 32.8202; Globulin 2.9 g/dL (1.3-4.6); Glucose 158 mg/dL (65-115); Osmolality Calculated 282 mOsm/kg (285-295); Phosphorus 3.2 mg/dL (2.5-4.5); Potassium 3.2 mmol/L (3.5-5.1); Sodium 129 mmol/L (136-145); Total Bilirubin 0.4 mg/dL (0.15-1.2); Total Protein 6.7 g/dL (6.6-8.7)
[2023-11-12 06:13] LABS: Lactate (Lactic Acid level) 1.5 mmol/L (0.5-2.2)
[2023-11-12 06:17] LABS: Procalcitonin 0.14 ng/mL (0-0.5)
[2023-11-12 06:18] LABS: NT Pro B Type Natriuretic Pept 4284 pg/mL (0-450)
[2023-11-12 06:28] LABS: C Reactive Protein 13.8 mg/L (0.0-4.9); Creatine Phosphokinase 101 U/L (26-192)
[2023-11-12 07:58] LABS: Iron 55 ug/dL (37-145); Percent Saturation 25.7 % (20-50); Total Iron Binding Capacity 214 mcg/dl; Unsaturated Iron Binding 159 ug/dL (112-347)
[2023-11-12 08:01] LABS: Sodium 124 mmol/L (136-145)
--- NOTE | 2023-11-12 08:16 | XRR_ITS ---
PROCEDURE INFORMATION: Exam: XR Lumbosacral Spine Exam date and time: 11/12/2023 9:23 AM Age: 78 years old Clinical indication: Patient HX: Chronic low back pain; Additional info: Severe low back pain TECHNIQUE: Imaging protocol: Radiologic exam of the lumbosacral spine. Views: 2 or 3 views. COMPARISON: CR XR thoracic spine 2V [id number] 11/12/2023 9:12 AM FINDINGS: Bones/joints: Moderate disc space narrowing and spurring L4-L5. Mild anterior lipping L4 through S1. Pedicles are intact. Soft tissues: The perivertebral soft tissues are normal. Vasculature: Aortic calcification without aneurysmal dilatation. XR/XR lumbar spine 2-3V* [id number] IMPRESSION: Degenerative changes.
--- NOTE | 2023-11-12 08:18 | XRR_ITS ---
PROCEDURE INFORMATION: Exam: XR Thoracic Spine Exam date and time: 11/12/2023 9:12 AM Age: 78 years old Clinical indication: Pain in thoracic spine; Additional info: Severe back pain TECHNIQUE: Imaging protocol: Radiologic exam of the thoracic spine. Views: 3 views. COMPARISON: CT angio chest PE protcl [id number] 11/10/2023 4:32 PM FINDINGS: Bones/joints: Moderate demineralization. Mild marginal spurring. Slightly accentuated kyphosis. No compression fracture. The pedicles are intact. Soft tissues: The perivertebral soft tissues are normal. Lungs: Calcified hilar lymph nodes. Heart/Mediastinum: Mild cardiomegaly. XR/XR thoracic spine 2V [id number] IMPRESSION: No acute findings.
[2023-11-12] MEDS: FUROsemide 10 mg/mL SDV 4mL 40 MG IVP ×2 (08:33→20:45)
[2023-11-12] MEDS: sodium chloride 1 gm Tablet PO ×3 (08:33→20:45)
[2023-11-12] MEDS: sennosides-docusate Tablet 1 TAB PO ×2 (08:33→17:22)
[2023-11-12] MEDS: carvedilol 6.25 mg Tablet PO ×2 (08:33→17:22)
[2023-11-12] MEDS: hyDROXYzine 25 mg Capsule PO ×2 (11:26→20:46)
--- NOTE | 2023-11-12 12:14 | P.PN_ITS ---
Subjective 2 Subjective: Patient reports shortness of breath is improving with treatment. Endorses severe low back pain, acute on chronic in nature. Denies fevers or chills. Reports generalized weakness and fatigue. Denies nausea or vomiting. Vitals/I&O/Wt Last Vital Signs Temp 98.5 F 11/12/23 05:00 Pulse 83 11/12/23 11:35 Resp 16 11/12/23 11:35 BP 141/86 11/12/23 10:30 Pulse Ox 95 11/12/23 11:35 O2 Del Method Nasal Cannula 11/12/23 11:35 O2 Flow Rate 3 11/12/23 11:35 FiO2 30 11/12/23 05:00 11/11/23 11/12/23 11/12/23 22:59 06:59 14:59 Intake Total 291.878 / 777.648 1024.697 / 1789.681 65.674 / 65.674 Output Total 300 / 2700 1640 / 4340 Balance -8.122 / -2068.016 -482.303 / -2550.319 65.674 / 65.674 Weight last 48 hrs Weight 68.674 kg Weight 68.266 kg Physical Exam 2 Narrative: General: Patient is awake. Appears fatigued. Head: Normocephalic. Atraumatic. EOM intact. Neck: No JVD. Cardiovascular: RRR. No gallops. No murmurs. No peripheral edema. Lungs: Moderate air movement. No rales or rhonchi. Very faint dependent crackles. On 3 L nasal cannula support. Skin: No jaundice. No rashes. Abdomen: Normal bowel sounds, abdomen soft and nontender. Genito Urinary: Genital exam not performed since complaints not related. Rectal: Rectal exam not performed since no symptoms indicated blood loss. Extremities: No cyanosis or clubbing. Musculoskeletal: No swollen or erythematous joints. Neurological: Moves all 4 extremities. No myoclonus. Urinary Catheter Management: Nicholson: Cath Placed During This Visit: yes Reason for Continuing Indwelling Catheter: Accurate Measurement of Urinary Output in Critically Ill Patients Urinary Catheter Date of Insertion: 11/10/23 Urinary Catheter Time of Insertion: 00:45 Data 11/12/23 05:04 11/12/23 05:04 A&P Assessment and plan (1) Chronic heart failure with preserved ejection fraction (HFpEF): (2) Hyponatremia: (3) CHF exacerbation: (4) HTN (hypertension): Qualifiers: Hypertension type: primary hypertension Qualified Code(s): I10 - Essential (primary) hypertension (5) Influenza: (6) COPD (chronic obstructive pulmonary disease): (7) COPD exacerbation: (8) Chronic back pain: Plan Acute hypoxic respiratory failure 2/2 CHF, COPD, and influenza -CTA Chest negative for PE, notable for emphysema -Treat underlying COPD, CHF, and influenza -Supplemental oxygen support, currently at 3 L nasal cannula -BiPAP as needed Acute on chronic heart failure with preserved ejection fraction exacerbation -TTE reviewed, grade 2 diastolic dysfunction, LVEF 55 to 60% enlarged left atrium -Strict I's and O's -Daily weights -Continue Lasix 40 mg IV every 12 hours -Continue Aldactone 25 mg PO daily -Continue scheduled potassium supplementation for hypokalemia COPD with acute exacerbation Tobacco use disorder -Quit smoking about a week ago -Continue Solu-Medrol, reduce to daily dosing -Continue Pulmicort -Continue azithromycin Agitation, improving -Wean off Precedex -Trial of Vistaril as needed Acute on chronic back pain -Continue home buprenorphine -Continue [place], frequency adjusted -Restart home Cymbalta -Obtain plain films -PT/OT Acute on chronic hyponatremia -Nephrology consulted, appreciate recommendations -Strongly consider discontinuing HCTZ at discharge -Continue fluid restriction of 1200 mL in 24 hours -Currently on salt tabs 1 g 3 times daily, appreciate nephrology management Newly diagnosed atrial fibrillation -Continue rate control with Coreg -Continue therapeutic Lovenox for stroke prophylaxis Influenza A -Outside the window for Tamiflu -Droplet precautions Debility and physical deconditioning -Encourage out of bed to chair -Physical and occupational therapy consulted Hypertension -Holding home hydralazine -Continue Coreg DVT prophylaxis: Lovenox CODE STATUS: Full code Attestations 2 Medical Necessity Statement*: Patient requires ongoing hospitalization for IV diuresis, electrolyte management, antibiotics, breathing treatments, and supportive care. Coding Level of Care Code Acute Code for [facility] Diagnoses Chronic heart failure with preserved ejection fraction (HFpEF) I50.32 Hyponatremia E87.1 CHF exacerbation I50.9 Primary hypertension I10 Hypertension type: primary hypertension Influenza J11.1 COPD (chronic obstructive pulmonary disease) J44.9 COPD exacerbation J44.1 Chronic back pain M54.9; G89.29
--- NOTE | 2023-11-12 12:22 | PC.SOCIAL ---
IMM Update pg 2 of IMM updated and reviewed w/ patient. Copy provided and copy dated, initialed and placed in chart.
[2023-11-12] MEDS: HYDROcodone-acetaminophen 5-325 mg Tablet 1 TAB PO ×2 (13:05→18:01)
--- NOTE | 2023-11-12 14:00 | P.PN_ITS ---
Subjective 2 Subjective: Patient denies any complaints, but has still with poor p.o. intake Medications: Medication Review Details: Reviewed medications Vitals/I&O/Wt Last Vital Signs Temp 98.5 F 11/12/23 05:00 Pulse 84 11/12/23 12:00 Resp 17 11/12/23 12:00 BP 134/81 11/12/23 11:30 Pulse Ox 98 11/12/23 12:00 O2 Del Method Nasal Cannula 11/12/23 11:35 O2 Flow Rate 3 11/12/23 11:35 FiO2 30 11/12/23 05:00 11/11/23 11/12/23 11/12/23 22:59 06:59 14:59 Intake Total 291.878 / 410.315 5953.697 / 1789.681 477.790 / 477.790 Output Total 300 / 2700 1640 / 4340 Balance -8.122 / -2068.016 -482.303 / -2550.319 477.790 / 477.790 Weight last 48 hrs Weight 68.674 kg Weight 68.266 kg Physical Exam 2 Narrative: Patient is awake alert, no acute distress S1-S2 regular rate and rhythm per report Lungs clear per report No pedal edema Urinary Catheter Management: Nicholson: Cath Placed During This Visit: yes Reason for Continuing Indwelling Catheter: Accurate Measurement of Urinary Output in Critically Ill Patients Urinary Catheter Date of Insertion: 11/10/23 Urinary Catheter Time of Insertion: 00:45 Data 11/12/23 05:04 11/12/23 05:04 A&P Assessment and plan (1) Hyponatremia: Plan 1. Hyponatremia, not improved with attempt at diuresis. Serum sodium 130 mEq/L Aug 2023. serum, urine osmolality ordered, sendout. s/p 100 ml 3% NSS, oral NaCl ordered and fluid restriction -Sodium 129 today 2. Renal function decreased with attempt at diuresis, creatinine stable at 1.3 today 3. HFpEF, COPD 4. Anemia, rule-out iron deficiency 5. Myalgias, CK 338 Attestations 2 Medical Necessity Statement*: Per medicine team Coding Level of Care Code Acute Code for [facility] Fwd Diagnoses Hyponatremia E87.1
[2023-11-12 14:30] LABS: Osmolality Urine 288 mOsm/kg (50-1200)
[2023-11-12 14:30] LABS: Osmolality Serum 268 mOsm/kg (278-305)
[2023-11-12] MEDS: azithromycin 500 MG in sodium chloride 0.9% 250 ML 250 MG IV (15:11)
[2023-11-12] MEDS: budesonide 0.5 mg/2 mL Neb INHALATION (19:41)
--- NOTE | 2023-11-12 22:10 | PC.NURSE ---
Patient transferred to med surg unit at 2200, nurse aware. All belongings with patient.
[2023-11-13] VITALS (13 sets, daily range): BP systolic 126–142; BP diastolic 57–81; PULSE 74–96; RESP 15–21; TEMP 36.3–36.8; O2SAT 84–96
[2023-11-13] MEDS: HYDROcodone-acetaminophen 5-325 mg Tablet 1 TAB PO ×4 (00:12→16:59)
[2023-11-13] MEDS: enoxaparin 80 mg/0.8 mL Syringe 70 MG SUBCUT ×2 (06:22→16:59)
[2023-11-13] MEDS: spironolactone 25 mg Tablet PO (06:22)
[2023-11-13] MEDS: potassium chloride ER 20 mEq Tablet PO ×2 (06:22→16:59)
[2023-11-13] MEDS: duloxetine 20 mg Capsule PO (06:22)
[2023-11-13 06:24] LABS: Albumin Level 3.7 g/dL (3.5-5.2); Anion Gap 13.1 (5-19); Blood Urea Nitrogen 49 mg/dL (8-23); Calcium 9.2 mg/dL (8.5-10.5); Carbon Dioxide 34 mmol/L (22-29); Chloride 87 mmol/L (98-107); Creatinine Clr Calc Pharmacy 27.3326; Glucose 86 mg/dL (65-115); Phosphorus 2.2 mg/dL (2.5-4.5); Potassium 3.1 mmol/L (3.5-5.1); Sodium 131 mmol/L (136-145)
[2023-11-13] MEDS: ipratropium-albuterol 3 mL Neb INHALATION ×3 (07:39→19:38)
[2023-11-13] MEDS: carvedilol 6.25 mg Tablet PO ×2 (08:29→16:59)
[2023-11-13] MEDS: hyDROXYzine 25 mg Capsule PO ×2 (08:29→16:59)
[2023-11-13] MEDS: sennosides-docusate Tablet 1 TAB PO ×2 (08:29→16:59)
[2023-11-13] MEDS: sodium chloride 1 gm Tablet PO ×3 (08:29→21:15)
[2023-11-13] MEDS: methylPREDNISolone sod succ 40 mg/mL INJ IVP (08:39)
[2023-11-13] MEDS: FUROsemide 10 mg/mL SDV 4mL 40 MG IVP (08:39)
--- NOTE | 2023-11-13 10:06 | PM.PN ---
Subjective Subjective: doing well denies any complaints Medications: Reviewed: Yes Vitals/I&O/Wt Last Vital Signs Temp 98.0 F 11/13/23 08:00 Pulse 96 11/13/23 08:00 Resp 16 11/13/23 08:00 BP 137/70 11/13/23 08:00 Pulse Ox 96 11/13/23 08:00 O2 Del Method Nasal Cannula 11/13/23 08:00 O2 Flow Rate 3 11/13/23 08:00 FiO2 30 11/12/23 05:00 11/12/23 11/13/23 11/13/23 22:59 06:59 14:59 Intake Total 994.77 / 1478.848 Output Total 1300 / 1300 1200 / 2500 Balance -305.23 / 178.848 -1200 / -1021.152 Weight last 48 hrs Weight 71.849 kg Weight 68.674 kg Physical Exam Narrative: Patient is awake alert, no acute distress S1-S2 regular rate and rhythm per report Lungs clear per report No pedal edema Urinary Catheter Management: Nicholson: Cath Placed During This Visit: yes Reason for Continuing Indwelling Catheter: Other Urinary Catheter Date of Insertion: 11/10/23 Urinary Catheter Time of Insertion: 00:45 Data 11/12/23 05:04 11/13/23 05:17 A&P Assessment and plan (1) Hyponatremia: Plan 1. Hyponatremia, not improved with attempt at diuresis. Serum sodium 130 mEq/L Aug 2023. serum, urine osmolality ordered, sendout. s/p 100 ml 3% NSS, oral NaCl ordered and fluid restriction -Sodium 131 today 2. MARISOL , Cr slightly worse today , change lasix to PO , on aldactone 3. HFpEF, COPD 4. Anemia, rule-out iron deficiency 5. Myalgias, CK 338 Attestations Medical Necessity Statement*: per medicine Coding Level of Care Code Acute Code for [facility] Fwd Diagnoses Hyponatremia E87.1
[2023-11-13] MEDS: azithromycin 500 MG in sodium chloride 0.9% 250 ML 250 MG IV (17:00)
--- NOTE | 2023-11-13 17:34 | P.PN_ITS ---
Subjective 2 Subjective: Patient has developed an MARISOL. She complains of feeling dyspneic. Per chayito who is at bedside, she tends to feel poorly in the evenings. She denies CP, palpitations, dizziness, light headedness, abdominal pain, n/v. She complains of 2 days of constipation, but is passing flatus. She has a farmer catheter in place today. She would like something to help her sleep tonight. She is on 2L today. Vitals/I&O/Wt Last Vital Signs Temp 98.2 F 11/13/23 11:55 Pulse 88 11/13/23 15:40 Resp 17 11/13/23 15:40 BP 135/57 11/13/23 15:40 Pulse Ox 93 11/13/23 15:40 O2 Del Method Nasal Cannula 11/13/23 15:40 O2 Flow Rate 2 11/13/23 15:10 FiO2 30 11/12/23 05:00 11/13/23 11/13/23 11/13/23 06:59 14:59 22:59 Intake Total 240 / 240 0 / 240 Output Total 1200 / 2500 900 / 900 Balance -1200 / -1021.152 240 / 240 -900 / -660 Weight last 48 hrs Weight 71.849 kg Weight 68.674 kg Physical Exam 2 Const: GENERAL APPEARANCE: cooperative and comfortable O RIENTATION/CONSCIOUSNESS: Yes awake, Yes oriented to person, Yes oriented to place and Yes oriented to time HENMT: COMMON NORMALS: normocephalic, atraumatic, external ears normal and Normal external nose present HEAD & SCALP: normocephalic and atraumatic N OSE: Normal external nose present EXTERNAL EAR: Yes external ears normal M OUTH: Normal oral and palatal mucosa present THROAT: posterior oropharynx normal Eye: COMMON NORMALS: Equal, round and reactive pupils present PUPIL: Yes Equal, round and reactive pupils present EOM: No EOM abnormal Neck/C-Spine: COMMON NORMALS: Thyroid normal GENERAL: Yes normal visual inspection and Yes trachea midline THYROID: Thyroid normal CAROTIDS: No bruit CERVICAL SPINE: Yes cervical ROM normal Lymph: LYMPHATIC: No lymphadenopathy Resp: OTHER: crackles and decreased breath sounds in the b/l lower lung tsang. Cardio: OTHER: RRR. 2+ radial and DP pulses, no carotid bruits b/l GI: OTHER: BS+, nontender, nondistended, no guarding, no rigidity, no rebound tenderness, no organomegaly. Extremity: NARRATIVE EXTREMITY EXAM: No clubbing, no cyanosis, no pedal edema bilaterally Neuro: SENSORIUM/ORIENTATION: Yes oriented to person, Yes oriented to place and Yes oriented to time CRANIAL NERVES: Yes CN normal except as noted S PEECH: speech normal SENSORY EXAM: No sensory level loss detected MOTOR EXAM: 5/5 motor strength present throughout Psych: COMMON NORMALS: Normal thought process present and speech normal A PPEARANCE: Yes grossly normal ATTITUDE: Yes calm and Yes engaged A CTIVITY/MOTOR BEHAVIOR: Yes appropriate eye contact SPEECH: Yes normal speech MOOD & AFFECT: Yes euthymic mood THOUGHT PROCESS: Normal thought process present THOUGHT CONTENT: Yes Normal thought content present A TTENTION/CONCENTRATION: Yes attention grossly intact MEMORY/COGNITION: Yes memory grossly intact Skin: COMMON NORMALS: no rashes or lesions noted GENERAL SKIN EXAM: no rashes or lesions noted Urinary Catheter Management: Farmer: Cath Placed During This Visit: yes Reason for Continuing Indwelling Catheter: Other Urinary Catheter Date of Insertion: 11/10/23 Urinary Catheter Time of Insertion: 00:45 Data 11/12/23 05:04 11/13/23 05:17 A&P Assessment and plan (1) HTN (hypertension): Qualifiers: Hypertension type: primary hypertension Qualified Code(s): I10 - Essential (primary) hypertension (2) Acute respiratory failure: Qualifiers: Respiratory failure complication: hypoxia Qualified Code(s): J96.01 - Acute respiratory failure with hypoxia (3) Influenza: (4) COPD with acute exacerbation: (5) Acute on chronic heart failure with preserved ejection fraction (HFpEF): Plan Ms. Quispe is a 77o woman w/ chonic hyponatremia, chronic HFpEF (EF of 55-60% w/ mild aortic stenosis and mild MR on 08/2023 ECHO), HTN, & COPD, who presented to the ED on 11/09/2023 w/ comlaints of dyspnea, PND an b/l LE edema, and was admitted for acute hypoxic resiratory failure secondary to Acute on chronic HFpEF and acute COPD exacerbation, new onset Afib, and Acute (Na of 121) on chronic hyponatremia. Patient also tested positive for Influenza A. On admission, Tele-Nephrolog was consulted. Overnight, she developed respiratory distress and was transferred to the ICU for BiPAP & Precedex. she was Patient's vol overload and hyponatremia were managed diuresis w/ IV Lasix, w/ 3% 100cc of hypertonic NS, oral NaCl 1g TID, and fluid restriction of 1200cc q24h. She was transferred out of the ICU on 11/12/2023. She developed an MARISOL noted on 11/13/2023 #MARISOL: Switched to po Lasix by Nephrology. Monitor renal fxn. Farmer catheter still in place. #Acute on chronic hypoxic respiratory failure: - On 2L continuous at baseline. Now at baseline. - S/p CTA chest negative for a PE. - Continue to wean BiPAP prn. #Acute on chronic HFpEF - Lasix switched to po Lasix due to MARISOL #HTN: On Coreg. Home Hydralazine held. #acute COPD exacerbation: - CTA chest showed emphysema - Stopped smokin 5 days before presentation - Solumedrol q8h from 11/10 to 11/12/2023. Started Solumedrol 40m qd on 11/13/2023 - Ordered respiratory culture #Newly diagnosed Afib: - On full dose Lovenox and Coreg #Acute (Na of 121) on chronic hyponatremia - Hx of HCTZ use. Held on admission. #Agitation: Resolved w/ Precedex drip. #Influenza A infection - Outside the window for Tamiflu. Continue Droplet precautions #Debility and Physical Deconditioning - Pt/ot #Insomnia: Temazepam qhs prn. #Constipation: Mag citrate x 1 ordered. DVT ppx: Lovenox Code status: Full code. Attestations 2 Medical Necessity Statement*: Patient remains in COPD exacerbation. She also remains hospitalized now for an MARISOL. Coding Level of Care Code 62194 Diagnoses Primary hypertension I10 Hypertension type: primary hypertension Acute respiratory failure with hypoxia J96.01 Respiratory failure complication: hypoxia Influenza J11.1 COPD with acute exacerbation J44.1 Acute on chronic heart failure with preserved ejection fraction (HFpEF) I50.33
[2023-11-13] MEDS: POTASSIUM PHOSPHATE IV (17:57)
[2023-11-13] MEDS: potassium chloride ER 20 mEq Tablet 40 MEQ PO (17:57)
[2023-11-13] MEDS: SODIUM CHLORIDE 0.9% IV (17:57)
[2023-11-13] MEDS: magnesium citrate Btl 296 mL PO (18:53)
[2023-11-13] MEDS: budesonide 0.5 mg/2 mL Neb INHALATION (19:39)
[2023-11-14] VITALS (14 sets, daily range): BP systolic 117–148; BP diastolic 68–90; PULSE 79–101; RESP 16–20; TEMP 36.2–36.9; O2SAT 91–95
[2023-11-14] MEDS: HYDROcodone-acetaminophen 5-325 mg Tablet 1 TAB PO ×6 (00:34→21:15)
[2023-11-14] MEDS: enoxaparin 80 mg/0.8 mL Syringe 70 MG SUBCUT ×2 (04:32→17:12)
[2023-11-14] MEDS: ipratropium-albuterol 3 mL Neb INHALATION ×5 (04:45→20:08)
[2023-11-14] MEDS: potassium chloride ER 20 mEq Tablet PO (05:19)
[2023-11-14] MEDS: duloxetine 20 mg Capsule PO (05:19)
[2023-11-14] MEDS: spironolactone 25 mg Tablet PO (05:19)
[2023-11-14] MEDS: budesonide 0.5 mg/2 mL Neb INHALATION ×2 (08:35→20:08)
[2023-11-14] MEDS: FUROsemide 40 mg Tablet PO (08:37)
[2023-11-14] MEDS: hyDROXYzine 25 mg Capsule PO ×3 (08:38→17:11)
[2023-11-14] MEDS: sodium chloride 1 gm Tablet PO ×3 (08:38→20:42)
[2023-11-14] MEDS: carvedilol 6.25 mg Tablet PO ×2 (08:38→17:11)
[2023-11-14] MEDS: sennosides-docusate Tablet 1 TAB PO ×2 (08:38→17:11)
--- NOTE | 2023-11-14 09:56 | P.PN_ITS ---
Subjective 2 Subjective: no new complaints on 2l nc Medications: Reviewed: Yes Vitals/I&O/Wt Last Vital Signs Temp 97.1 F L 11/14/23 07:54 Pulse 101 H 11/14/23 08:35 Resp 20 H 11/14/23 08:35 BP 133/70 11/14/23 07:54 Pulse Ox 93 11/14/23 08:35 O2 Del Method Nasal Cannula 11/14/23 08:35 O2 Flow Rate 2.5 11/14/23 08:35 FiO2 30 11/12/23 05:00 11/13/23 11/14/23 11/14/23 22:59 06:59 14:59 Intake Total 356.6667 / 596.6667 Output Total 900 / 900 855 / 1755 Balance -543.3333 / -303.3333 -855 / -1158.3333 Weight last 48 hrs Weight 69.672 kg Weight 71.849 kg Physical Exam 2 Narrative: Patient is awake alert, no acute distress S1-S2 regular rate and rhythm per report Lungs clear per report No pedal edema Urinary Catheter Management: Nicholson: Cath Placed During This Visit: yes Reason for Continuing Indwelling Catheter: Acute Urinary Retention or Obstruction Urinary Catheter Date of Insertion: 11/10/23 Urinary Catheter Time of Insertion: 00:45 Data 11/14/23 09:52 11/13/23 05:17 A&P Assessment and plan (1) Hyponatremia: Plan 1. Hyponatremia Serum sodium 130 mEq/L Aug 2023. serum, urine osmolality ordered, sendout. s/p 100 ml 3% NSS, oral NaCl ordered and fluid restriction -Sodium improved > 130 2. MARISOL , Cr 1.3-1.6 range , changed lasix to PO , on aldactone, BMP pending today 3. HFpEF, COPD 4. Anemia, rule-out iron deficiency 5. Myalgias, CK 338 Attestations 2 Medical Necessity Statement*: per celine Coding Level of Care Code Acute Code for [facility] Fwd Diagnoses Hyponatremia E87.1
[2023-11-14 09:57] LABS: Basophils % 0.2 %; Eosinophils % 0.2 %; Hematocrit 32.8 % (36-47); Lymphocytes % 31.1 %; Mean Corpuscular HGB Conc 31.7 g/dL (30-55); Mean Corpuscular Hemoglobin 28.7 pg (27-33); Mean Corpuscular Volume 90.4 fl (85-98); Mean Platelet Volume 8.9 fL (7.4-10.4); Monocytes # 0.6 10^3/uL (0.2-0.9); Monocytes % 8.9 %; Neutrophils # 3.84 10^3/uL (1.8-7.7); Neutrophils % 58.7 %; Nucleated Red Blood Cells % 0 %; Platelet Count 405 10^3/cmm (157-399); Red Blood Count 3.63 10^6/uL (3.85-5.65); Red Cell Distribution Width 13.2 % (12.1-15.1); White Blood Count 6.53 10^3/uL (3.29-11.43)
[2023-11-14] MEDS: methylPREDNISolone sod succ 40 mg/mL INJ IVP (10:07)
[2023-11-14 10:33] LABS: Alanine Aminotransferase 18 U/L (0-33); Albumin Level 3.6 g/dL (3.5-5.2); Alkaline Phosphatase 62 U/L (35-105); Anion Gap 7.6 (5-19); Aspartate Amino Transferase 18 U/L (0-32); Blood Urea Nitrogen 46 mg/dL (8-23); Calcium 8.8 mg/dL (8.5-10.5); Carbon Dioxide 34 mmol/L (22-29); Chloride 94 mmol/L (98-107); Globulin 2.6 g/dL (1.3-4.6); Glucose 106 mg/dL (65-115); Magnesium 2.5 mg/dL (1.7-2.3); NT Pro B Type Natriuretic Pept 4265 pg/mL (0-450); Osmolality Calculated 286 mOsm/kg (285-295); Potassium 3.6 mmol/L (3.5-5.1); Sodium 132 mmol/L (136-145); Total Bilirubin 0.3 mg/dL (0.15-1.2); Total Protein 6.2 g/dL (6.6-8.7)
--- NOTE | 2023-11-14 11:08 | P.PN_ITS ---
Subjective 2 Subjective: The patient was seen using her walker to get to the chair. She states that she worked with PT this morning, and that she felt dyspneic with exertion when getting to the bathroom. She has not had any productive cough since yesterday evening when she was given a sputum cup. She denies any CP, palpitations, dizziness, light headedness, abdominal pain, n/v, fever, chills. She states that she did not sleep well overnight due to needing to get up to use restroom all the time. She had a BM this morning. She was also seen by the Tele-Bombsight Specialist, who recommended that the patient stay today for further monitoring of her renal function before she can probably be discharged. Her Nicholson catheter was also discontinued by the Tele- compressor mechanic. She is on 2.5L NC. Medications: Reviewed: Yes Medication Review Details: Reviewed medications Vitals/I&O/Wt Last Vital Signs Temp 97.1 F L 11/14/23 07:54 Pulse 101 H 11/14/23 08:35 Resp 20 H 11/14/23 08:35 BP 133/70 11/14/23 07:54 Pulse Ox 93 11/14/23 08:35 O2 Del Method Nasal Cannula 11/14/23 08:35 O2 Flow Rate 2.5 11/14/23 08:35 FiO2 30 11/12/23 05:00 11/13/23 11/14/23 11/14/23 22:59 06:59 14:59 Intake Total 356.6667 / 596.6667 Output Total 900 / 900 855 / 1755 400 / 400 Balance -543.3333 / -303.3333 -855 / -1158.3333 -400 / -400 Weight last 48 hrs Weight 69.672 kg Weight 71.849 kg Physical Exam 2 Const: GENERAL APPEARANCE: cooperative and comfortable O RIENTATION/CONSCIOUSNESS: Yes awake, Yes oriented to person, Yes oriented to place and Yes oriented to time HENMT: COMMON NORMALS: normocephalic, atraumatic, external ears normal and Normal external nose present HEAD & SCALP: normocephalic and atraumatic N OSE: Normal external nose present EXTERNAL EAR: Yes external ears normal M OUTH: Normal oral and palatal mucosa present THROAT: posterior oropharynx normal Eye: COMMON NORMALS: Equal, round and reactive pupils present PUPIL: Yes Equal, round and reactive pupils present EOM: No EOM abnormal Neck/C-Spine: COMMON NORMALS: Thyroid normal GENERAL: Yes normal visual inspection and Yes trachea midline THYROID: Thyroid normal CAROTIDS: No bruit CERVICAL SPINE: Yes cervical ROM normal Lymph: LYMPHATIC: No lymphadenopathy Resp: OTHER: She is actually CTAB w/ no w/r/r. Cardio: OTHER: RRR w/ no m/r/g/clicks. 2+ radial and DP pulses, no carotid bruits b/l GI: OTHER: BS+, nontender, nondistended, no guarding, no rigidity, no rebound tenderness, no organomegaly. Extremity: NARRATIVE EXTREMITY EXAM: No clubbing, no cyanosis, no pedal edema bilaterally Neuro: SENSORIUM/ORIENTATION: Yes oriented to person, Yes oriented to place and Yes oriented to time CRANIAL NERVES: Yes CN normal except as noted S PEECH: speech normal SENSORY EXAM: No sensory level loss detected MOTOR EXAM: 5/5 motor strength present throughout Psych: COMMON NORMALS: Normal thought process present and speech normal A PPEARANCE: Yes grossly normal ATTITUDE: Yes calm and Yes engaged A CTIVITY/MOTOR BEHAVIOR: Yes appropriate eye contact SPEECH: Yes normal speech MOOD & AFFECT: Yes euthymic mood THOUGHT PROCESS: Normal thought process present THOUGHT CONTENT: Yes Normal thought content present A TTENTION/CONCENTRATION: Yes attention grossly intact MEMORY/COGNITION: Yes memory grossly intact Skin: COMMON NORMALS: no rashes or lesions noted GENERAL SKIN EXAM: no rashes or lesions noted Urinary Catheter Management: Nicholson: Cath Placed During This Visit: yes Reason for Continuing Indwelling Catheter: Acute Urinary Retention or Obstruction Urinary Catheter Date of Insertion: 11/10/23 Urinary Catheter Time of Insertion: 00:45 Data 11/14/23 09:52 11/14/23 09:52 A&P Assessment and plan (1) HTN (hypertension): Qualifiers: Hypertension type: primary hypertension Qualified Code(s): I10 - Essential (primary) hypertension (2) Acute respiratory failure: Qualifiers: Respiratory failure complication: hypoxia Qualified Code(s): J96.01 - Acute respiratory failure with hypoxia (3) Influenza: (4) COPD with acute exacerbation: (5) Acute on chronic heart failure with preserved ejection fraction (HFpEF): Plan Ms. Quispe is a 77o woman w/ chonic hyponatremia, chronic HFpEF (EF of 55-60% w/ mild aortic stenosis and mild MR on 08/2023 ECHO), HTN, & COPD, who presented to the ED on 11/09/2023 w/ comlaints of dyspnea, PND an b/l LE edema, and was admitted for acute hypoxic resiratory failure secondary to Acute on chronic HFpEF and acute COPD exacerbation, new onset Afib, and Acute (Na of 121) on chronic hyponatremia. Patient also tested positive for Influenza A. On admission, Tele-Nephrolog was consulted. Overnight, she developed respiratory distress and was transferred to the ICU for BiPAP & Precedex. she was Patient's vol overload and hyponatremia were managed diuresis w/ IV Lasix, w/ 3% 100cc of hypertonic NS, oral NaCl 1g TID, and fluid restriction of 1200cc q24h. She was transferred out of the ICU on 11/12/2023. She developed an MARISOL noted on 11/13/2023 #MARISOL: Switched to po Lasix by Nephrology on 11/13. Nicholson catheter d/c'ed on 11/14. Monitor renal fxn. #Hypokalemia #Hypophosphatemia - 500mg neutraphos x 1 ordered. #Acute on chronic hypoxic respiratory failure: - On 2L continuous at baseline. Now at baseline. - S/p CTA chest negative for a PE. - Continue to wean BiPAP prn. #Acute on chronic HFpEF - Lasix switched to po Lasix due to MARISOL #HTN: On Coreg. Home Hydralazine held. #hyperlipidemia. LDL of 148 on 11/09. CK of 338 on 11/10/2023, but per discussion and review with the pharmacist, she never had any Statin ordered or administered on this admission. Will find out whether she has a hx of myositis or rhabdomyolysis with statin use, repeat CK and initiate statins. #acute COPD exacerbation: - CTA chest showed emphysema - Stopped smokin 5 days before presentation - Solumedrol q8h from 11/10 to 11/12/2023. Started Solumedrol 40m qd on 11/13/2023. Added PPI on 11/14. - Ordered respiratory culture #Newly diagnosed Afib: - On full dose Lovenox and Coreg #Acute (Na of 121) on chronic hyponatremia - Hx of HCTZ use. Held on admission. - Mgmt per Tele-Bombsight Specialist. Monitor Na levels. #Agitation: Resolved w/ Precedex drip. #Influenza A infection - Outside the window for Tamiflu. Continue Droplet precautions #Debility and Physical Deconditioning - Pt/ot #Insomnia: Temazepam qhs prn. #Constipation: Mag citrate x 1 w/ resolution of her constipation ordered. DVT ppx: Lovenox Code status: Full code. Attestations 2 Medical Necessity Statement*: Patient needs to remain hospitalized due to need to monitor her renal function. Coding Level of Care Code 19712 Diagnoses Primary hypertension I10 Hypertension type: primary hypertension Acute respiratory failure with hypoxia J96.01 Respiratory failure complication: hypoxia Influenza J11.1 COPD with acute exacerbation J44.1 Acute on chronic heart failure with preserved ejection fraction (HFpEF) I50.33
[2023-11-14] MEDS: pantoprazole DR 40 mg Tablet PO (12:32)
[2023-11-14] MEDS: phosphorus 250 mg Tablet 500 MG PO (12:32)
[2023-11-14 13:08] LABS: Creatine Phosphokinase 63 U/L (26-192)
[2023-11-14] MEDS: azithromycin 500 MG in sodium chloride 0.9% 250 ML 250 MG IV (17:12)
[2023-11-15] VITALS (7 sets, daily range): BP systolic 124–164; BP diastolic 68–88; PULSE 82–97; RESP 16–98; TEMP 36.8; O2SAT 3–96
[2023-11-15] MEDS: ipratropium-albuterol 3 mL Neb INHALATION ×3 (00:07→08:18)
[2023-11-15 05:17] LABS: Hematocrit 31.9 % (36-47); Lymphocytes # 2.3 10^3/uL (0.8-4.8); Mean Corpuscular HGB Conc 30.7 g/dL (30-55); Mean Corpuscular Hemoglobin 28.3 pg (27-33); Mean Corpuscular Volume 92.2 fl (85-98); Mean Platelet Volume 9.6 fL (7.4-10.4); Monocytes # 0.8 10^3/uL (0.2-0.9); Monocytes % 10.3 %; Neutrophils # 4.35 10^3/uL (1.8-7.7); Neutrophils % 57.8 %; Nucleated Red Blood Cells % 0 %; Platelet Count 433 10^3/cmm (157-399); Red Blood Count 3.46 10^6/uL (3.85-5.65); Red Cell Distribution Width 13.2 % (12.1-15.1); White Blood Count 7.54 10^3/uL (3.29-11.43)
[2023-11-15 05:47] LABS: Alanine Aminotransferase 15 U/L (0-33); Albumin Level 3.5 g/dL (3.5-5.2); Alkaline Phosphatase 61 U/L (35-105); Anion Gap 12.9 (5-19); Aspartate Amino Transferase 14 U/L (0-32); Blood Urea Nitrogen 32 mg/dL (8-23); Calcium 8.9 mg/dL (8.5-10.5); Carbon Dioxide 33 mmol/L (22-29); Chloride 93 mmol/L (98-107); Creatinine Clr Calc Pharmacy 35.9038; Globulin 2.7 g/dL (1.3-4.6); Glucose 90 mg/dL (65-115); Magnesium 2.5 mg/dL (1.7-2.3); Osmolality Calculated 286 mOsm/kg (285-295); Phosphorus 2.4 mg/dL (2.5-4.5); Potassium 3.9 mmol/L (3.5-5.1); Sodium 135 mmol/L (136-145); Total Bilirubin 0.3 mg/dL (0.15-1.2); Total Protein 6.2 g/dL (6.6-8.7)
[2023-11-15] MEDS: spironolactone 25 mg Tablet PO (06:32)
[2023-11-15] MEDS: potassium chloride ER 20 mEq Tablet PO (06:32)
[2023-11-15] MEDS: pantoprazole DR 40 mg Tablet PO (06:33)
[2023-11-15] MEDS: enoxaparin 80 mg/0.8 mL Syringe 70 MG SUBCUT (06:33)
[2023-11-15] MEDS: HYDROcodone-acetaminophen 5-325 mg Tablet 1 TAB PO ×3 (06:41→15:03)
[2023-11-15] MEDS: duloxetine 20 mg Capsule PO (06:42)
[2023-11-15] MEDS: budesonide 0.5 mg/2 mL Neb INHALATION (08:18)
[2023-11-15] MEDS: sodium chloride 1 gm Tablet PO ×2 (08:20→13:21)
[2023-11-15] MEDS: hyDROXYzine 25 mg Capsule PO ×2 (08:20→13:21)
[2023-11-15] MEDS: carvedilol 6.25 mg Tablet PO (08:20)
[2023-11-15] MEDS: sennosides-docusate Tablet 1 TAB PO (08:20)
[2023-11-15] MEDS: FUROsemide 40 mg Tablet PO (08:20)
--- NOTE | 2023-11-15 09:33 | PM.PN ---
Subjective Subjective: no new complaints Medications: Reviewed: Yes Vitals/I&O/Wt Last Vital Signs Temp 98.3 F 11/15/23 08:23 Pulse 88 11/15/23 08:23 Resp 17 11/15/23 08:23 BP 151/81 11/15/23 08:23 Pulse Ox 96 11/15/23 08:23 O2 Del Method Nasal Cannula 11/15/23 08:23 O2 Flow Rate 2 11/15/23 08:00 FiO2 30 11/12/23 05:00 11/14/23 11/15/23 11/15/23 22:59 06:59 14:59 Intake Total 730 / 730 60 / 60 Output Total 675 / 1075 250 / 250 Balance 730 / 330 -675 / -345 -190 / -190 Weight last 48 hrs Weight 69.672 kg Physical Exam Narrative: Patient is awake alert, no acute distress S1-S2 regular rate and rhythm per report Lungs clear per report No pedal edema Urinary Catheter Management: Nicholson: Cath Placed During This Visit: yes Reason for Continuing Indwelling Catheter: Acute Urinary Retention or Obstruction Urinary Catheter Date of Insertion: 11/10/23 Urinary Catheter Time of Insertion: 00:45 Data 11/15/23 04:31 11/15/23 04:31 A&P Assessment and plan (1) Hyponatremia: (2) COPD exacerbation: Plan 1. Hyponatremia Serum sodium 130 mEq/L Aug 2023. serum, urine osmolality ordered, sendout. s/p 100 ml 3% NSS, oral NaCl ordered and fluid restriction -Sodium improved > 130 2. MARISOL , Cr 1.2-1.6 range , changed lasix to PO , on aldactone, 3. HFpEF, COPD 4. Anemia, rule-out iron deficiency 5. Myalgias, improved Attestations Medical Necessity Statement*: per medicine Coding Level of Care Code Acute Code for [facility] Diagnoses Hyponatremia E87.1 COPD exacerbation J44.1
[2023-11-15] MEDS: methylPREDNISolone sod succ 40 mg/mL INJ IVP (09:54)
[2023-11-15] MEDS: phosphorus 250 mg Tablet 500 MG PO (13:22)
--- NOTE | 2023-11-15 14:32 | P.DS_ITS ---
Discharge Providers Date of Admission: 11/09/23 13:47 Date of Discharge: November 15, 2023 Attending Provider at Admission: Manpreet Branch MD Attending Provider at Discharge: Oliva Storm MD Primary Care Provider: Margarita Lilly DO Diagnoses at Discharge Discharge Diagnosis (1) Hyponatremia: Status: Acute Reason for Visit Reason for Visit: SOB , neck and back pain Hospital Course Hospital Course Ms. Quispe is a 77o woman w/ chonic hyponatremia, chronic HFpEF (EF of 55-60% w/ mild aortic stenosis and mild MR on 08/2023 ECHO), HTN, & COPD, who presented to the ED on 11/09/2023 w/ comlaints of dyspnea, PND an b/l LE edema, and was admitted for acute hypoxic resiratory failure secondary to Acute on chronic HFpEF and acute COPD exacerbation, new onset Afib, and Acute (Na of 121) on chronic hyponatremia. Patient also tested positive for Influenza A. On admission, Tele-Nephrolog was consulted. Overnight, she developed respiratory distress and was transferred to the ICU for BiPAP & Precedex. she was Patient's vol overload and hyponatremia were managed diuresis w/ IV Lasix, w/ 3% 100cc of hypertonic NS, oral NaCl 1g TID, and fluid restriction of 1200cc q24h. She was transferred out of the ICU on 11/12/2023. She developed an MARISOL noted on 11/13/2023. Her lasix was converted to oral Lasix daily. Her renal function improved. She was advised to avoid HCTZ in the future. Based on the discussion with the planting material unloader, she was discharged on oral furosemide and spironolactone, as well as salt tabs 1 g twice daily. She was noted to have HLD. She stated that she had taken atorvastatin years ago, and her previous physician discontinued it because it was no longer necessary. She was started on atorvastatin on discharge. She was discharged home w/o homehealth b/c it was not available. #MARISOL #Hypokalemia #Hypophosphatemia #Acute on chronic hypoxic respiratory failure: #Acute on chronic HFpEF: Discharge on Lasix 40mg daily and Spironolactone, based on discussion w/ Tele Nephrology. #HTN: Discharged on her home Coreg & Hydralazine. HCTZ was discontinued at discharge. #hyperlipidemia. LDL of 148 on 11/09. CK of 338 on 11/10/2023, but per discussion and review with the pharmacist, she never had any Statin ordered or administered on this admission. She has taken a #acute COPD exacerbation: - CTA chest showed emphysema - Stopped smoking 5 days before presentation - She was discharge on a Prednisone taper, albuterol inhaler and Albuterol nebulizer since she said she also had a nebulizer machine. #Newly diagnosed Afib: - Discharged on Apixaban. #Acute (Na of 121) on chronic hyponatremia - Hx of HCTZ use. D/c'ed on discharge. #Agitation: Resolved w/ Precedex drip. #Influenza A infection #Debility and Physical Deconditioning Physical Exam Const: GENERAL APPEARANCE: cooperative and comfortable ORIENTATION/CONSCIOUSNESS: Yes awake, Yes oriented to person, Yes oriented to place and Yes oriented to time HENMT: COMMON NORMALS: normocephalic, atraumatic, external ears normal and Normal external nose present HEAD & SCALP: normocephalic and atraumatic NOSE: Normal external nose present EXTERNAL EAR: Yes external ears normal MOUTH: Normal oral and palatal mucosa present THROAT: posterior oropharynx normal Eye: COMMON NORMALS: Equal, round and reactive pupils present PUPIL: Yes Equal, round and reactive pupils present EOM: No EOM abnormal Neck/C-Spine: COMMON NORMALS: Thyroid normal GENERAL: Yes normal visual inspection and Yes trachea midline THYROID: Thyroid normal CAROTIDS: No bruit CERVICAL SPINE: Yes cervical ROM normal Lymph: LYMPHATIC: No lymphadenopathy Resp: OTHER: She is actually CTAB w/ no w/r/r. Cardio: OTHER: RRR w/ no m/r/g/clicks. 2+ radial and DP pulses, no carotid bruits b/l GI: OTHER: BS+, nontender, nondistended, no guarding, no rigidity, no rebound tenderness, no organomegaly. Extremity: NARRATIVE EXTREMITY EXAM: No clubbing, no cyanosis, no pedal edema bilaterally Neuro: SENSORIUM/ORIENTATION: Yes oriented to person, Yes oriented to place and Yes oriented to time CRANIAL NERVES: Yes CN normal except as noted SPEECH: speech normal SENSORY EXAM: No sensory level loss detected MOTOR EXAM: 5/5 motor strength present throughout Psych: COMMON NORMALS: Normal thought process present and speech normal APPEARANCE: Yes grossly normal ATTITUDE: Yes calm and Yes engaged ACTIVITY/MOTOR BEHAVIOR: Yes appropriate eye contact SPEECH: Yes normal speech MOOD & AFFECT: Yes euthymic mood THOUGHT PROCESS: Normal thought process present THOUGHT CONTENT: Yes Normal thought content present ATTENTION/CONCENTRATION: Yes attention grossly intact MEMORY/COGNITION: Yes memory grossly intact Skin: COMMON NORMALS: no rashes or lesions noted GENERAL SKIN EXAM: no rashes or lesions noted Urinary Catheter Management: Nicholson: Cath Placed During This Visit: yes Reason for Continuing Indwelling Catheter: Acute Urinary Retention or Obstruction Urinary Catheter Date of Insertion: 11/10/23 Urinary Catheter Time of Insertion: 00:45 Discharge Data Studies Completed and Pending Completed Studies During Hospitalization Category Date Time Status CT angio chest PE protcl [id number] Stat Cat Scan 11/10/23 13:17 Completed XR chest 1V portable [id number] Stat Exams 11/09/23 10:22 Completed XR lumbar spine 2-3V* [id number] Routine Exams 11/12/23 08:16 Completed XR thoracic spine 2V [id number] Routine Exams 11/12/23 08:18 Completed CV. echo complete* [id number] Routine Ultrasound 11/10/23 06:00 Completed Pending at discharge Category Date Time Status CBC Auto Diff [Complete Blood Count w/Auto] AM LABS Lab 11/16/23 04:00 Ordered CMP [Comprehensive Metabolic Panel] AM LABS Lab 11/16/23 04:00 Ordered Magnesium AM LABS Lab 11/16/23 04:00 Ordered Phosphorus AM LABS Lab 11/16/23 04:00 Ordered Sputum Culture and Gram Stain Stat Lab 11/13/23 18:30 Uncollected Radiology Impressions Chest CTA 11/10/23 13:17 IMPRESSION: 1. No pulmonary embolism. 2. Predominantly upper lobe centrilobular emphysema. 3. There is moderate atherosclerotic calcification of the coronary arteries. COMMENTS: The presence of pulmonary emphysema on CT is an independent risk factor for lung cancer. In the absence of a history or active diagnosis of lung cancer, it is recommended that this patient with emphysema be evaluated for enrollment in a low dose CT lung cancer screening program. Lumbar Spine X-Ray 11/12/23 08:16 IMPRESSION: Degenerative changes. Thoracic Spine X-Ray 11/12/23 08:18 IMPRESSION: No acute findings. Laboratory Results WBC 7.54 10^3/uL (3.29-11.43) 11/15/23 04:31 RBC 3.46 10^6/uL (3.85-5.65) L 11/15/23 04:31 Hgb 9.80 g/dL (11.27-16.99) L 11/15/23 04:31 Hct 31.9 % (36-47) L 11/15/23 04:31 MCV 92.2 fl (85-98) 11/15/23 04:31 MCH 28.3 pg (27-33) 11/15/23 04:31 MCHC 30.7 g/dL (30-55) 11/15/23 04:31 RDW 13.2 % (12.1-15.1) 11/15/23 04:31 Plt Count 433 10^3/cmm (157-399) H 11/15/23 04:31 MPV 9.6 fL (7.4-10.4) 11/15/23 04:31 Neut % (Auto) 57.8 % 11/15/23 04:31 Lymph % (Auto) 31.0 % 11/15/23 04:31 [place] % (Auto) 10.3 % 11/15/23 04:31 Eos % (Auto) 0.0 % 11/15/23 04:31 Baso % (Auto) 0.0 % 11/15/23 04:31 Neut # (Auto) 4.35 10^3/uL (1.8-7.7) 11/15/23 04:31 Lymph # (Auto) 2.3 10^3/uL (0.8-4.8) 11/15/23 04:31 [place] # (Auto) 0.8 10^3/uL (0.2-0.9) 11/15/23 04:31 Eos # (Auto) 0.0 10^3/uL (0.0-0.8) 11/15/23 04:31 Baso # (Auto) 0.0 10^3/uL (0.0-0.1) 11/15/23 04:31 Nucleated RBC % (auto) 0 % 11/15/23 04:31 Nucleated RBCs # 0.0 /100WBC 11/15/23 04:31 PT 12.50 SECONDS (12.1-14.9) 11/09/23 10:38 INR 0.91 (0.8-1.2) 11/09/23 10:38 D-Dimer 0.72 ug/mLFEU (0-0.59) H 11/10/23 15:04 Specimen Type Arterial 11/09/23 14:14 Sample Site Radial, left 11/09/23 14:14 ABG pH 7.40 (7.35-7.45) 11/09/23 14:14 ABG pCO2 49.5 mmHg (35-45) H 11/09/23 14:14 ABG pO2 89.8 mmHg (80.0-100.0) 11/09/23 14:14 ABG PO2/FiO2 Ratio 0 11/09/23 14:14 ABG HCO3 30.8 mmol/L (22-26) H 11/09/23 14:14 ABG Base Excess 5.1 mmol/L (-2.0-2.0) H 11/09/23 14:14 Jose Test Pos 11/09/23 14:14 Hematocrit 33.2 % (37-47) L 11/09/23 14:14 O2 Delivery Device Nc 11/09/23 14:14 O2 Liters/Min 4.0 % 11/09/23 14:14 FiO2 36.0 % 11/09/23 14:14 Auto Fleet Manager ID Monro 11/09/23 14:14 Sodium 135 mmol/L (136-145) L 11/15/23 04:31 Potassium 3.9 mmol/L (3.5-5.1) 11/15/23 04:31 Chloride 93 mmol/L (98-107) L 11/15/23 04:31 Carbon Dioxide 33 mmol/L (22-29) H 11/15/23 04:31 Anion Gap 12.9 (5-19) 11/15/23 04:31 BUN 32 mg/dL (8-23) H 11/15/23 04:31 Creatinine 1.2 mg/dL (0.5-0.9) H 11/15/23 04:31 GFR Calculation Not Reportable 11/15/23 04:31 Glucose 90 mg/dL (65-115) 11/15/23 04:31 Estimat Average Glucose 105 11/09/23 10:38 Hemoglobin A1c 5.3 % (4.0-6.0) 11/09/23 10:38 Serum Osmolality 268 mOsm/kg (278-305) L 11/10/23 08:16 Calculated Osmolality 286 mOsm/kg (285-295) 11/15/23 04:31 Lactic Acid 1.3 mmol/L (0.5-2.2) 11/09/23 14:29 Lactate 1.5 mmol/L (0.5-2.2) 11/12/23 05:04 Calcium 8.9 mg/dL (8.5-10.5) 11/15/23 04:31 Phosphorus 2.4 mg/dL (2.5-4.5) L 11/15/23 04:31 Magnesium 2.5 mg/dL (1.7-2.3) H 11/15/23 04:31 Iron 55 ug/dL (37-145) 11/10/23 15:04 TIBC 214 mcg/dl 11/10/23 15:04 % Saturation 25.7 % (20-50) 11/10/23 15:04 Unsat Iron Binding 159 ug/dL (112-347) 11/10/23 15:04 Ferritin 405 ng/mL (15-150) H 11/10/23 03:50 Total Bilirubin 0.3 mg/dL (0.15-1.2) 11/15/23 04:31 AST 14 U/L (0-32) 11/15/23 04:31 ALT 15 U/L (0-33) 11/15/23 04:31 Alkaline Phosphatase 61 U/L (35-105) 11/15/23 04:31 Creatine Kinase 63 U/L (26-192) 11/14/23 09:52 CK-MB (CK-2) ng/mL (0-5.34) 11/10/23 03:50 Troponin T Baseline 35 ng/L (0-10) H 11/10/23 15:04 Troponin T 120 Minute 32.58 ng/L (0-10) H 11/10/23 17:06 Delta Troponin T -2.42 ABS# (0-10) L 11/10/23 17:06 Troponin T Hi Sens 6Hr 31.81 ng/L (0-10) H 11/10/23 21:10 Troponin T Hi Sens 6Hr Delta -3.19 ng/L (0-12) L 11/10/23 21:10 C-Reactive Protein 13.8 mg/L (0.0-4.9) H 11/12/23 05:04 NT-Pro-B Natriuret Pep 4265 pg/mL (0-450) H 11/14/23 09:52 Total Protein 6.2 g/dL (6.6-8.7) L 11/15/23 04:31 Albumin 3.5 g/dL (3.5-5.2) 11/15/23 04:31 Globulin 2.7 g/dL (1.3-4.6) 11/15/23 04:31 Triglycerides 63 mg/dL (0-150) 11/09/23 14:29 Cholesterol 222 mg/dL (0-200) H 11/09/23 14:29 LDL Cholesterol, Calc 148 mg/dL (50-129) H 11/09/23 14:29 HDL Cholesterol 61 mg/dL (60-100) 11/09/23 14: LDL/HDL Ratio 2.43 RATIO (0.00-3.22) 11/09/23 14: Cholesterol/HDL Ratio 3.64 mg/dL (0.0-4.40) 11/09/23 14:29 Vitamin B12 1827 pg/mL (232-1245) H 11/10/23 03:50 Procalcitonin 0.14 ng/mL (0-0.5) 11/12/23 05:04 TSH 3.23 uIU/mL (0.27-4.20) 11/09/23 14:29 Urine Color Yellow (Yellow) 11/09/23 11:35 Urine Appearance Clear (CLEAR) 11/09/23 11:35 Urine pH 6 (5-7) 11/09/23 11:35 Ur Specific [place] 1.005 (1.005-1.030) 11/09/23 11:35 Urine Protein Neg (Negative) 11/09/23 11:35 Urine Glucose (UA) Norm (Normal) 11/09/23 11:35 Urine Ketones Negative (Negative) 11/09/23 11:35 Urine Blood Neg (Negative) 11/09/23 11:35 Urine Nitrate Negative (Negative) 11/09/23 11:35 Urine Bilirubin Neg (Negative) 11/09/23 11:35 Urine Urobilinogen Norm mg/dL (Negative) 11/09/23 11:35 Ur Leukocyte Esterase Negative (Negative) 11/09/23 11:35 Urine Osmolality 288 mOsm/kg (50-1200) 11/09/23 11:35 Ur Random Sodium 24 mmol/L 11/10/23 14:15 Urine Creatinine 62 mg/dL (28-217) 11/10/23 14:15 Adenovirus (PCR) Not detected (NOT DETECT) 11/11/23 15:30 C. pneumoniae DNA (PCR) Not detected (NOT DETECT) 11/11/23 15:30 Coronavirus 229E (PCR) Not detected (NOT DETECT) 11/11/23 15:30 Human Metapneumovir PCR Not detected (NOT DETECT) 11/11/23 15:30 Influenza A (H1) PCR Not detected (NOT DETECT) 11/11/23 15:30 Influ A (H1/09) PCR Not detected (NOT DETECT) 11/11/23 15:30 Influenza A (H3) PCR Detected (NOT DETECT) A 11/11/23 15:30 Influenza Type A (PCR) Detected (NOT DETECT) A 11/11/23 15:30 Influenza Type B (PCR) Not detected (NOT DETECT) 11/11/23 15:30 M. pneumoniae (PCR) Not detected (NOT DETECT) 11/11/23 15:30 Parainfluenza 1 (PCR) Not detected (NOT DETECT) 11/11/23 15:30 Parainfluenza 2 (PCR) Not detected (NOT DETECT) 11/11/23 15:30 Parainfluenza 3 (PCR) Not detected (NOT DETECT) 11/11/23 15:30 Parainfluenza 4 (PCR) Not detected (NOT DETECT) 11/11/23 15:30 RSV Type A (PCR) Not detected (NOT DETECT) 11/11/23 15:30 RSV Type B (PCR) Not detected (NOT DETECT) 11/11/23 15:30 Entero/Rhino (PCR) Not detected (NOT DETECT) 11/11/23 15:30 SARS-CoV-2 (PCR) Not detected (NOT DETECT) 11/11/23 15:30 Vitals Last Vital Signs Temp 98.2 F 11/15/23 11:39 Pulse 90 11/15/23 11:39 Resp 18 11/15/23 11:39 BP 130/68 11/15/23 11:39 Pulse Ox 93 11/15/23 11:39 O2 Del Method Nasal Cannula 11/15/23 11:39 O2 Flow Rate 2 11/15/23 08:00 FiO2 30 11/12/23 05:00 Discharge Plan Discharge Patient Disposition: Home Condition: Stable Prescriptions: New furosemide 40 mg Tablet 40 mg PO DAILY@0800 30 Days Qty: 30 0RF albuterol sulfate 1.25 mg/3 mL solution for nebulization 1.25 mg inhalation Q6H PRN (Reason: shortness of breath or wheezing) Qty: 90 0RF albuterol sulfate 90 mcg/actuation HFA aerosol inhaler 2 inh inhalation Q6H PRN (Reason: shortness of breath or wheezing) Qty: 6.7 0RF prednisone 10 mg tablet 10 mg PO DAILY Qty: 20 0RF Rx Instructions: Take 30mg daily for 3days, then 20mg for 3 days, then 10mg for 3 days, then 5mg for 2 days , then stop. atorvastatin 40 mg tablet 40 mg PO DAILY Qty: 30 0RF apixaban 5 mg tablet 5 mg PO BID Qty: 60 0RF hydrocodone-acetaminophen 5-325 mg tablet 1 tab PO BID PRN (Reason: pain) Qty: 30 0RF Continued fluticasone propion-salmeterol 250-50 mcg/dose blister with device 1 inh INHALATION BID Qty: 60 3RF Spiriva with HandiHaler 18 mcg capsule, w/inhalation device 1 cap INHALATION DAILY Qty: 60 3RF carvedilol 6.25 mg tablet 6.25 mg PO BID Qty: 60 2RF hydralazine 25 mg tablet 25 mg PO BID Qty: 30 2RF buprenorphine HCl 2 mg tablet, sublingual 2 mg SUBLINGUAL DAILY Rx Instructions: RX DCED 11/08/23 spironolactone 25 mg tablet 25 mg PO QAM duloxetine 20 mg capsule,delayed release(DR/EC) 20 mg PO QAM Changed sodium chloride 1,000 mg Tablet,Soluble 1,000 mg PO BID 30 Days Qty: 60 0RF Discontinued hydrocodone-acetaminophen 5-325 mg tablet 1 tab PO BID PRN (Reason: pain) 30 Days Qty: 60 0RF prednisone 20 mg tablet 40 mg PO DAILY 5 Days Qty: 10 0RF Rx Instructions: FOR 5 DAYS (RX FILLED 11/07/23) azithromycin [Zithromax Z-Bhanu] 250 mg tablet See Rx Instructions .ROUTE .COMPLEX Qty: 6 0RF Rx Instructions: For 250 mg dose pack: take 500 mg today (day 1), then 250 mg for 4 days (days 2-5) hydrochlorothiazide 25 mg tablet 25 mg PO QAM furosemide [Lasix] 20 mg tablet 20 mg PO QAM Discharge Orders: Discharge Order (Routine); Ordered 11/15/23 Ordered By: Oliva Storm Other Ambulatory Orders: DME: [employer] (Order) Location: None Selected Ordered By: Manpreet Branch Physical Therapy Eval and Treat Outpatient (Order) Timeframe: 3 Days Facility: [facility] - Location: Physical Therapy [facility] Ordered By: Oliva Storm Referrals: [facility] [place] [Outside] Margarita Lilly DO [Primary Care Provider] - (We have notified your physician's clinic of the need for a follow-up appointment to be scheduled. If you have not heard from them within the next 2 business days, please call them directly. ) Discharge Diet: Low Salt Discharge Activity: Resume usual activity and Increase activity as tolerated Patient Instructions: Furosemide (By mouth) (Lasix), Hydrocodone/Acetaminophen (By mouth), Albuterol (By breathing) (ProAir, AccuNeb, Proventil, Proventil..., Prednisone (By mouth) (predniSONE Intensol, Prednicot, Deltasone, Zee), Atorvastatin (By mouth) (Lipitor, Atorvaliq), Heart Failure (GEN), COPD (Chronic Obstructive Pulmonary Disease) (DC), CHF Stoplight, COPD Stoplight, Opioid Safety Discharge Attestations Time Spent in Discharge Care*: greater than 30 min Quality Metrics Clinical Quality Measures [ No reported AMI, CVA or VTE this stay] Coding Level of Care Code Acute Code for Chg Fwd Diagnoses Hyponatremia E87.1
== END 2023-11-15 15:18 | disposition home or self-care (01) | DRG 291 ==
LOC: ER 10:45 → CSU 14:33 → ICU 11-10 10:13 → MEDSURG 11-12 22:36
PROVIDERS: Internal Medicine; Admitting Provider Family Medicine; Emergency Provider Family Medicine; PCP Family Medicine; Visit Provider Internal Medicine
DX: I11.0 Hypertensive heart disease with heart failure (principal); I50.33 Acute on chronic diastolic (congestive) heart failure; J96.21 Acute and chronic respiratory failure with hypoxia; J44.1 Chronic obstructive pulmonary disease with (acute) exacerbation; E87.1 Hypo-osmolality and hyponatremia; E87.4 Mixed disorder of acid-base balance; N17.9 Acute kidney failure, unspecified; J10.1 Influenza due to other identified influenza virus with other respiratory manifestations; J43.9 Emphysema, unspecified; F17.210 Nicotine dependence, cigarettes, uncomplicated; G89.29 Other chronic pain; M54.50 Low back pain, unspecified; I48.91 Unspecified atrial fibrillation; E86.1 Hypovolemia; D64.9 Anemia, unspecified; M79.10 Myalgia, unspecified site; F40.240 Claustrophobia; R45.1 Restlessness and agitation; K59.00 Constipation, unspecified; E78.5 Hyperlipidemia, unspecified; G47.00 Insomnia, unspecified; Z11.52 Encounter for screening for COVID-19
CPT/HCPCS: 36415; 36600; 51702; 51798; 71045; 71275; 72070; 72100; 80048; 80053; 80061; 80069; 81003; 82550; 82553; 82575; 82607; 82728; 82803; 83036; 83540; 83550; 83605; 83735; 83880; 83930; 83935; 84100; 84145; 84295; 84300; 84443; 84484; 85025; 85378; 85610; 86140; 87426; 87486; 87581; 87631; 87633; 93005; 93306; 94640; 94660; 94664; 94760; 96372; 96374; 96376; 97110; 97116; 97161; 97166; 97530; 99285; C9113; J0456; J1100; J1650; J1940; J2060; J2405; J2920; J7050; J7131; J7626; Q3014; Q9967

== ENCOUNTER 2023-11-28 06:00 | Outpatient (RCR) | payer MEDICARE, SELFPAY | END 2023-12-23 23:59 | disposition home or self-care (01) | LOC: MPT 06:00 | PROVIDERS: PCP Family Medicine; Visit Provider Internal Medicine | DX: R53.1 Weakness (principal) | CPT/HCPCS: 97110; 97112; 97162 ==

== ENCOUNTER → 2023-12-13 10:07 | Outpatient (BNVA) | payer MEDICARE, SELFPAY | PROVIDERS: PCP Family Medicine; Visit Provider Family Medicine | DX: Z13.6 Encounter for screening for cardiovascular disorders (principal); I50.32 Chronic diastolic (congestive) heart failure | CPT/HCPCS: 80053 ==

== ENCOUNTER 2023-12-24 06:00 | Outpatient (RCR) | payer MEDICARE, SELFPAY | END 2024-01-22 23:59 | disposition home or self-care (01) | LOC: MPT 06:00 | PROVIDERS: PCP Family Medicine; Visit Provider Internal Medicine | DX: R53.1 Weakness (principal) | CPT/HCPCS: 97110; 97112; 99214 ==

== ENCOUNTER → 2024-01-10 08:35 | Outpatient (BNVA) | payer MEDICARE, SELFPAY | PROVIDERS: PCP Family Medicine; Visit Provider Anesthesiology Pain Medicine | DX: M51.17 Intervertebral disc disorders with radiculopathy, lumbosacral region; M47.816 Spondylosis without myelopathy or radiculopathy, lumbar region; G89.29 Other chronic pain | CPT/HCPCS: 99204 ==

== ENCOUNTER 2024-01-31 08:28 | Outpatient (CLI) | payer MEDICARE, SELFPAY ==
--- NOTE | 2024-01-31 08:45 | MR_ITS ---
WS: [id number] MRI LUMBAR SPINE NONCONTRAST TECHNIQUE: Sagittal T1, T2 and STIR imaging. Axial T1 and T2 imaging. CLINICAL INFORMATION: M54.16 - Radiculopathy, lumbar region COMPARISON: None. FINDINGS: Chronic appearing anterior wedging with compression at T7 on the bark grinder imaging. Mild central canal st enosis throughout the cervical spine on the bark grinder imaging. Partially visualized small LEFT adrenal ad enoma. LEFT renal cyst partially visualized. L1-L2: Normal. L2-L3: Mild annular bulging. Mild central canal stenosis. Moderate facet arthropathy with ligamentum flavum hypertrophy. Mild RIGHT foraminal narrowing. L3-L4: Mild annular bulging with shallow broad-based central protrusion. Moderate central canal steno sis. Impingement traversing L4 nerve roots bilaterally. Moderate facet arthropathy ligamentum flavum hypertrophy. Foramen are patent. L4-L5: Mild annular bulge with a tiny LEFT subarticular protrusion. Impingement of the traversing LEF T L5 nerve root. Moderate facet arthropathy. Mild central canal stenosis. Mild bilateral foraminal na rrowing. L5-S1: Mild annular bulging with slight effacement of the ventral thecal sac. Spinal canal is patent. Moderate LEFT and mild RIGHT bony foraminal narrowing. Mild facet arthropathy. Visualized pelvic bony structures: Normal. Paravertebral soft tissues: Normal. MR/MR lumbar spine wo con* [id number] IMPRESSION: 1. Moderate central canal stenosis L3-L4 2. Mild central canal stenosis L2-3 and L4-5. Small LEFT subarticular protrusi on with impingement on the LEFT L4-5 subarticular recess and traversing LEFT L5 nerve root. 3. Chronic appearing compression with anterior wedging T7 on the bark grinder imaging . 4. L5-S1 foraminal narrowing. 5. Mild multilevel central canal stenosis in the cervical spine bark grinder imaging.
== END 2024-01-31 08:29 | disposition home or self-care (01) ==
LOC: RAD 08:28
PROVIDERS: PCP Family Medicine; Visit Provider Anesthesiology Pain Medicine
DX: M54.16 Radiculopathy, lumbar region (principal); M48.061 Spinal stenosis, lumbar region without neurogenic claudication; M48.07 Spinal stenosis, lumbosacral region
CPT/HCPCS: 72148

== ENCOUNTER → 2024-02-11 09:31 | Outpatient (BNVA) | payer MEDICARE, SELFPAY | PROVIDERS: PCP Family Medicine; Visit Provider Anesthesiology Pain Medicine | DX: G89.29 Other chronic pain; M47.816 Spondylosis without myelopathy or radiculopathy, lumbar region; M51.16 Intervertebral disc disorders with radiculopathy, lumbar region; M48.062 Spinal stenosis, lumbar region with neurogenic claudication; M48.07 Spinal stenosis, lumbosacral region | CPT/HCPCS: 99215 ==

== ENCOUNTER → 2024-02-21 08:51 | Outpatient (BNVA) | payer MEDICARE, SELFPAY | PROVIDERS: PCP Family Medicine; Visit Provider Orthopaedic Surgery | DX: M47.894 Other spondylosis, thoracic region (principal); M54.41 Lumbago with sciatica, right side; M54.42 Lumbago with sciatica, left side; G89.29 Other chronic pain | CPT/HCPCS: 72072; 99204 ==

== ENCOUNTER 2024-02-27 14:21 | Outpatient (CLI) | payer MEDICARE, SELFPAY ==
--- NOTE | 2024-02-27 14:30 | MR_ITS ---
WS: [id number] MRI THORACIC SPINE WITH CONTRAST TECHNIQUE: Sagittal T1, T2 and STIR imaging. Axial T2 imaging. Post gadolinium imaging was obtained. CLINICAL INFORMATION: Pain COMPARISON: Lumbar MRI 01/31/2024 FINDINGS: Mild thoracic curve. Moderate thoracic kyphosis. Compression fractures in the mid thoracic spine new compared to the prior CTA chest 11/10/2023. Compression fractures with anterior wedging at T7-T8 with loss of approximately 50% vertebral body height at T7 and 40% at T8. Fracture clefts in the superior endplates with diffuse edema compatible with recent compression. No significant retropulsion. Disc bu lging at T7-T8 with a small central protrusion and slight contact of the thoracic cord. No high-grade central canal stenosis. Associated bony and slight paravertebral enhancement likely reactive. Small amount of epidural enhancement. No other acute appearing compression fractures. Cord signal is normal. Normal caliber thoracic aorta. Moderate facet arthropathy lower thoracic spine. Disc protrusions in the lower cervical spine with m ild central canal stenosis at C5-C6 and C6-C7. Small central protrusions at T2-3 and T3-4. MR/MR thoracic spine wo/w [id number] IMPRESSION: 1. Moderate thoracic kyphosis with recent compression fractures with edema at T7 and T8 with anterior wedging described above. No significant retropulsion. T 8 compression appears progressed compared to 01/31/2024. 2. Associated enhancement likely reactive but biopsy can be obtained if kyphop lasty performed to exclude pathologic fracture. 3. Small central protrusion at T7-T8 with slight contact of the thoracic cord. No high-grade central canal stenosis. 4. Cord signal is normal. 5. Otherwise moderate spondylitic changes described above.
[2024-02-27] MEDS: gadobenate dimeglumine 20 mL vial IV (15:02)
== END 2024-02-27 14:22 | disposition home or self-care (01) ==
LOC: RAD 14:21
PROVIDERS: PCP Family Medicine; Visit Provider Orthopaedic Surgery
DX: S22.060A Wedge compression fracture of T7-T8 vertebra, initial encounter for closed fracture (principal); M40.204 Unspecified kyphosis, thoracic region; M46.94 Unspecified inflammatory spondylopathy, thoracic region; M50.20 Other cervical disc displacement, unspecified cervical region
CPT/HCPCS: 72157; A9577

== ENCOUNTER → 2024-02-28 08:25 | Outpatient (BNVA) | payer MEDICARE, SELFPAY | PROVIDERS: PCP Family Medicine; Visit Provider Internal Medicine Pulmonary Disease | DX: J43.2 Centrilobular emphysema (principal); J43.1 Panlobular emphysema; J44.9 Chronic obstructive pulmonary disease, unspecified; F17.210 Nicotine dependence, cigarettes, uncomplicated | CPT/HCPCS: 99214 ==

== ENCOUNTER → 2024-03-04 13:52 | Outpatient (BNVA) | payer MEDICARE, SELFPAY | PROVIDERS: PCP Family Medicine; Visit Provider Orthopaedic Surgery | DX: Z01.812 Encounter for preprocedural laboratory examination (principal); M54.6 Pain in thoracic spine; Z09 Encounter for follow-up examination after completed treatment for conditions other than malignant neoplasm | CPT/HCPCS: 36415; 80053; 81003; 85025; 99214 ==

== ENCOUNTER 2024-03-14 06:40 | Day surgery (SDC) | payer MEDICARE, SELFPAY ==
[2024-03-14] VITALS (13 sets, daily range): BP systolic 113–141; BP diastolic 45–87; PULSE 80–94; RESP 14–99; TEMP 36.1–36.7; O2SAT 92–100; BMI 23.9
--- OUTSIDE RECORDS SUMMARY | 2024-03-14 06:42 | XMS_ITS ---
Author Name Hola Randhawa Address [address] [place] [id number] Organization Unknown Address [address] [place] [id number] ALLERGIES AND ADVERSE REACTIONS No information ASSESSMENT No information CHIEF COMPLAINT No information MEDICATIONS No information OBJECTIVE DATA No information PHYSICAL EXAMINATION No information TREATMENT PLAN Planned Care Start Date Provider Encounter for Check-up [id number] [employer] [facility] Joan PROBLEMS No information RESULTS No information REVIEW OF SYSTEMS No information SUBJECTIVE DATA No information VITAL SIGNS No information
--- NOTE | 2024-03-14 06:46 | SC_ITS ---
WS: [id number] INTRAOPERATIVE TECHNIQUE: 4 Spot fluoroscopic images for intraoperative purposes. FLUOROSCOPY TIME: 84.3 seconds CLINICAL INFORMATION: Surgery COMPARISON: None. FINDINGS: Moderate thoracic kyphosis. Kyphoplasty changes in the midthoracic spine with anterior wedging. Fluor oscopy used for intraoperative purposes. SC/C-arm FL for Kyphoplasty IMPRESSION: Images obtained for intraoperative purposes.
--- NOTE | 2024-03-14 07:48 | W.PM.OPSUD ---
Surgery/Procedure H&P Update DATE OF PROCEDURE: March 14, 2024 DATE H&P PERFORMED: 03/12/24 H&P UPDATE INFORMATION: I have reviewed H&P completed within last 30 days, I have examined patient prior to procedure and No changes to prior documentation PREOP DIAGNOSIS: T7-T8 osteoporotic wedge traumatic compression fracture PLANNED PROCEDURE: Operation Date: 03/14/24 08:20 Proposed Procedures p Kyphoplasty T 7,8(Not Applicable) - Luiz Brothers DO
[2024-03-14] MEDS: sodium chloride 0.9% 1,000 ML 30 ML IV (07:49)
[2024-03-14] MEDS: ceFAZolin 2,000 MG in sodium chloride 0.9% (plus) 50 ML 100 MG IV (08:12)
--- NOTE | 2024-03-14 08:26 | ANES.PREANE2 ---
Pre-Anesthetic Assessment Height/Weight: Height 1.57 m Weight 59.421 kg O2 Del Method Room Air 03/14/24 06:58 Preop Diagnosis: T7-T8 osteoporotic wedge traumatic compression fracture Operation Date: 03/14/24 08:20 Proposed Procedures p Kyphoplasty T 7,8(Not Applicable) - Luiz Brothers DO Last intake: Intake Last Liquid Date 03/13/24 Last Liquid Time 22:00 Last Solid Date 03/13/24 Last Solid Time 17:00 Social Tobacco and No alcohol Exam alert, oriented x 3, clear to auscultation bilaterally and regular rate & rhythm (occasional irregularity ) Airway Submandibular: within normal limits Cervical ROM: within normal limits Mallampati: Class II Pulmonary Chronic Obstructive Pulmonary Disease, Cough, Exertional Dyspnea and Shortness of Breath CV/HEM Atrial Fibrillation, Congestive Heart Failure and Hypertension Neuropsych Depression Anesthetic Plan ASA status: 3 Anesthesia: General Medications/Allergies Home Medications Medication Instructions Recorded Confirmed Last Taken Type tiotropium bromide 18 mcg capsule 1 cap inhalation DAILY #60 09/20/23 03/13/24 03/14/24 05:20 Rx with inhalation device (Spiriva inhalations with HandiHaler) albuterol sulfate 1.25 mg/3 mL 1.25 mg (3 mL) inhalation Q6H PRN 11/15/23 03/13/24 03/14/24 05:20 Rx solution for nebulization shortness of breath or wheezing #90 mL albuterol sulfate 90 mcg/actuation 2 inh inhalation Q6H PRN shortness 11/15/23 03/13/24 03/14/24 05:20 Rx aerosol inhaler of breath or wheezing #6.7 grams sodium chloride 1,000 mg soluble 1,000 mg PO BID 30 days #60 tabs 11/15/23 03/13/24 03/13/24 Rx tablet apixaban 5 mg tablet 5 mg PO BID Atrial fibrillation 12/14/23 03/13/24 03/11/24 Rx #180 tabs carvedilol 6.25 mg tablet 6.25 mg PO BID #60 tabs 12/14/23 03/13/24 03/14/24 05:20 Rx hydralazine 25 mg tablet 25 mg PO BID #60 tabs 12/14/23 03/13/24 03/13/24 Rx hydrocodone 5 mg-acetaminophen 325 1 tab PO Q8H PRN pain 1 month #90 02/21/24 03/13/24 03/14/24 05:20 Rx mg tablet tabs furosemide 40 mg tablet 40 mg PO DAILY@0800 30 days #90 03/03/24 03/13/24 03/13/24 Rx tabs spironolactone 25 mg tablet 25 mg PO QAM #90 tabs 03/03/24 03/13/24 03/13/24 Rx fluticasone 250 mcg-salmeterol 50 1 inh inhalation BID 03/14/24 03/13/24 03/14/24 05:20 History mcg/dose blistr powdr for inhalation (Advair Diskus) Allergies Allergy/AdvReac Type Severity Reaction Status Date / Time No Known Allergies Allergy Verified 03/12/24 08:51 Current Medications Generic Name Dose Route Start Last Admin Trade Name Freq PRN Reason Stop Dose Admin Sodium Chloride 1,000 mls @ 30 mls/hr 03/14/24 07:30 03/14/24 07:49 Sodium Chloride 0.9% IV 03/15/24 07:29 30 mls/hr .Q24H BIANCA Administration PFSH Anesthesia Medical History HTN (hypertension) COPD (chronic obstructive pulmonary disease) Chronic heart failure with preserved ejection fraction (HFpEF) Acute respiratory failure Chronic hyponatremia Upper respiratory infection Encounter to establish care Emphysema lung Chronic low back pain Tachycardia Surgical History H/O: hysterectomy Social History Smoking and tobacco/nicotine status: current every day tobacco/nicotine user (3-4 cigarettes per day) cigarettes Packs smoked per day: 0.2 Years cigarettes smoked: 62 [ Other cigarette details: Smokes maybe once a day] Data Anesthesia Cardiac Studies: Echocardiogram 11/10/23
[2024-03-14] MEDS: lidocaine-epi 1% 20 mL INJ 10 ML INJECTION (08:40)
--- NOTE | 2024-03-14 09:17 | ANE.PACU2 ---
Inpatient post-anesthesia follow up: Airway intact: Yes Vital signs: Temperature Pulse Rate Respiratory Rate Blood Pressure Pulse Oximetry Oxygen Delivery Me thod Room Air Oxygen Flow Rate Fraction of Inspir ed Oxygen Hydration adequate: Yes Nausea and vomiting: No Pain level: 2 Mental status: Baseline
--- NOTE | 2024-03-14 09:30 | PM.OP ---
Operative Report Date of procedure: March 14, 2024 Pre-op diagnosis: T7 and T8 wedge osteoporotic traumatic compression fractures Post-op diagnosis: same Procedure done: 1. T7 kyphoplasty 2. T8 kyphoplasty Surgeon: Luiz Brothers DO Estimated blood loss (mL): 5 Procedure: 1. T7 kyphoplasty 2. T8 kyphoplasty Patient brought the op suite after undergoing anesthesia was placed in prone position. All areas impingement well-padded. Patient's prepped draped normal sterile fashion. Skin incision made over the left T8 pedicle. Awl was inserted. Drill was inserted. Balloon was inserted inflated. This process was repleted on the right side as well balloon was inflated on the right side as well. Then deflated. Next attention was brought to the T7 level. Again stab incision was made on the left and right lateral aspect of the pedicles. Awl was inserted followed by the drill followed by the balloon. This was done bilaterally. Then the cement was injected at T8 first vertebrae had good fill. This was repeated at the T7 level with cement. Tubes were pulled AP lateral fluoroscopy ensured the cement and is in good position in the T7 and T8 vertebrae's. Wounds irrigated closed with nylon suture. Sterile dressings applied patient transferred to PACU in stable condition.
[2024-03-14] MEDS: fentaNYL 50 mcg/mL INJ 2mL IVP (09:40)
[2024-03-14] MEDS: HYDROcodone-acetaminophen 5-325 mg Tablet 1 TAB PO (10:12)
== END 2024-03-14 10:59 | disposition home or self-care (01) ==
PROVIDERS: PCP Family Medicine; Visit Provider Orthopaedic Surgery
PROC: (CPT 22513; principal; 2024-03-14 08:10)
DX: S22.060A Wedge compression fracture of T7-T8 vertebra, initial encounter for closed fracture (principal); X58.XXXA Exposure to other specified factors, initial encounter; J44.9 Chronic obstructive pulmonary disease, unspecified; I48.91 Unspecified atrial fibrillation; I11.0 Hypertensive heart disease with heart failure; F17.210 Nicotine dependence, cigarettes, uncomplicated; I50.32 Chronic diastolic (congestive) heart failure
CPT/HCPCS: 22513; 22515; 76000; J0131; J0690; J1100; J2371; J2405; J3010; J3490; J7030

== ENCOUNTER → 2024-04-01 08:48 | Outpatient (BNVA) | payer MEDICARE, SELFPAY | PROVIDERS: PCP Family Medicine; Visit Provider Orthopaedic Surgery | DX: Z98.890 Other specified postprocedural states (principal) | CPT/HCPCS: 72070; 72100; 99213 ==

== ENCOUNTER 2024-04-14 06:00 | Outpatient (RCR) | payer MEDICARE, SELFPAY | END 2024-04-23 23:59 | disposition home or self-care (01) | LOC: MPT 06:00 | PROVIDERS: Visit Provider Orthopaedic Surgery | DX: M54.6 Pain in thoracic spine (principal) | CPT/HCPCS: 97110; 97162; G0283 ==

== ENCOUNTER 2024-04-24 06:00 | Outpatient (RCR) | payer MEDICARE, SELFPAY | END 2024-05-24 23:59 | disposition home or self-care (01) | LOC: MPT 06:00 | PROVIDERS: Visit Provider Orthopaedic Surgery | DX: M54.6 Pain in thoracic spine (principal) | CPT/HCPCS: 97110; G0283 ==

== ENCOUNTER 2024-05-25 06:00 | Outpatient (RCR) | payer MEDICARE, SELFPAY | END 2024-06-23 23:59 | disposition home or self-care (01) | LOC: MPT 06:00 | PROVIDERS: PCP Family Medicine; Visit Provider Orthopaedic Surgery | DX: M54.6 Pain in thoracic spine (principal) | CPT/HCPCS: 97110; G0283 ==

== ENCOUNTER → 2024-05-27 10:26 | Outpatient (BNVA) | payer MEDICARE, SELFPAY | PROVIDERS: Visit Provider Orthopaedic Surgery | DX: Z98.890 Other specified postprocedural states (principal); I10 Essential (primary) hypertension; I50.32 Chronic diastolic (congestive) heart failure; D64.9 Anemia, unspecified | CPT/HCPCS: 80053; 83540; 85025; 99213 ==

== ENCOUNTER 2024-06-24 06:00 | Outpatient (RCR) | payer MEDICARE, SELFPAY | END 2024-07-22 23:59 | disposition home or self-care (01) | LOC: MPT 06:00 | PROVIDERS: PCP Family Medicine; Visit Provider Orthopaedic Surgery | DX: M54.6 Pain in thoracic spine (principal); M54.59 Other low back pain | CPT/HCPCS: 97110; G0283 ==

== ENCOUNTER → 2024-07-31 09:27 | Outpatient (BNVA) | payer MEDICARE, SELFPAY | PROVIDERS: PCP Family Medicine; Visit Provider Family Medicine | DX: D50.9 Iron deficiency anemia, unspecified (principal); E87.1 Hypo-osmolality and hyponatremia | CPT/HCPCS: 80048; 83540; 85025 ==

== ENCOUNTER 2024-08-26 08:08 | Emergency (ER) | payer MEDICARE, SELFPAY ==
[2024-08-26 08:14] VITALS: BP 128/67; PULSE 107; RESP 18; TEMP 36.7; O2SAT 100; BMI 21.5
--- NOTE | 2024-08-26 08:44 | PC.PHAR ---
Pt states hasn't taken any of her medications in over a week due to severe stomach issues.
--- NOTE | 2024-08-26 08:46 | ED_ITS ---
HPI - Abdominal Pain 2 General: Chief Complaint: Abdominal Pain Stated Complaint: abd pain Time Seen by Provider: 08/26/24 08:14 History of Present Illness: 78-year-old female who presents to the e mergency room with complaints of abdominal pain she related mostly epigastric has been going on for 2 months. She has a macrocytic anemia. She was previously started on Carafate. She had seen her primary care doctor those notes were reviewed there is a CT scan on Sunday and an EGD or referral with general surgery for later this week. She denies any medic easy melena hematemesis or coffee-ground emesis she denies any dysuria urgency or frequency. She is on apixaban for atrial fibrillation. No fever sweats or chills. Has not had any vomiting but she does get abdominal pain after eating. Associated Symptoms: Denies chills, dysuria and fever(s) Related Data Home Medications Medication Instructions Recorded Confirmed hydrocodone 5 mg-acetaminophen 325 1 tab PO Q8H PRN Pain 05/27/24 08/26/24 mg tablet apixaban 5 mg tablet 5 mg PO BID 08/26/24 08/26/24 Previous Rx's Medication Instructions Recorded sodium chloride 1,000 mg soluble 1,000 mg PO BID 30 days #60 tabs 11/15/23 tablet albuterol sulfate 1.25 mg/3 mL 1.25 mg (3 mL) inhalation Q6H PRN 05/27/24 solution for nebulization shortness of breath or wheezing #90 mL albuterol sulfate 90 mcg/actuation 2 inh inhalation Q6H PRN shortness 05/27/24 aerosol inhaler of breath or wheezing #6.7 grams carvedilol 6.25 mg tablet 6.25 mg PO BID 90 days #180 tabs 05/27/24 fluticasone 250 mcg-salmeterol 50 1 inh inhalation BID #60 ea 05/27/24 mcg/dose blistr powdr for inhalation (Advair Diskus) furosemide 40 mg tablet 40 mg PO QAM 90 days #90 tabs 05/27/24 hydralazine 25 mg tablet 25 mg PO BID 90 days #180 tabs 05/27/24 spironolactone 25 mg tablet 25 mg PO QAM 90 days #90 tabs 05/27/24 tiotropium bromide 18 mcg capsule 1 cap inhalation DAILY 30 days #60 05/27/24 with inhalation device (Spiriva inhalations with HandiHaler) sucralfate 1 gram tablet (Carafate) 1 g PO QID 30 days #120 tabs 08/18/24 hydrocodone 5 mg-acetaminophen 325 1 tab PO Q6H PRN pain #20 tabs 08/26/24 mg tablet pantoprazole 40 mg tablet,delayed 40 mg PO DAILY 4 weeks #30 tabs 08/26/24 release (Protonix) promethazine 25 mg tablet 25 mg PO Q6H PRN nausea and 08/26/24 vomiting #20 tabs tamsulosin 0.4 mg capsule 0.4 mg PO DAILY #20 caps 08/26/24 Allergies Allergy/AdvReac Type Severity Reaction Status Date / Time No Known Allergies Allergy Verified 08/18/24 14:46 Review of Systems 2 Const: Denies: fever(s) or chills Card: Denies: chest pain Resp: Denies: dyspnea GI: Denies: abdominal pain : Denies: dysuria, urinary frequency or urinary urgency Musc: Denies: neck pain or back pain Skin/Breast: Denies: rash PFSH ED 2 PFSH: Medical History Chronic hyponatremia HTN (hypertension) COPD (chronic obstructive pulmonary disease) Chronic heart failure with preserved ejection fraction (HFpEF) Acute respiratory failure Upper respiratory infection Encounter to establish care Emphysema lung Chronic low back pain Tachycardia Surgical History History of kyphoplasty H/O: hysterectomy Social History Smoking and tobacco/nicotine status: current every day tobacco/nicotine user cigarettes Packs smoked per day: 0.2 Years cigarettes smoked: 62 [ Other cigarette details: Smokes maybe once a day] Physical Exam 2 Const: COMMON NORMALS: no acute distress GENERAL APPEARANCE: cooperative and comfortable ORIENTATION/CONSCIOUSNESS: Yes awake, Yes oriented to person, Yes oriented to place and Yes oriented to time HENMT: COMMON NORMALS: normocephalic, atraumatic and hearing grossly normal bilaterally HEAD & SCALP: normocephalic and atraumatic Resp: COMMON NORMALS: normal respiratory effort, No retractions, No use of accessory muscles and clear to auscultation bilaterally AUSCULTATION: clear to auscultation bilaterally Cardio: COMMON NORMALS: regular rate, regular rhythm and No murmurs present (Cardio) RATE: regular rate RHYTHM: regular rhythm GI: COMMON NORMALS: Soft to palpation and No hepatosplenomegaly present A USCULTATION: Yes normoactive bowel sounds PALPATION: Yes Soft to palpation, No Tenderness to palpation present (GI), No Guarding due to palpation present (GI) and Yes No hepatosplenomegaly present Extremity: COMMON NORMALS: normal to inspection, capillary refill normal, no clubbing, cyanosis or edema, no calf tenderness and no pedal edema Neuro: SENSORIUM/ORIENTATION: Yes oriented to person, Yes oriented to place and Yes oriented to time Skin: COMMON NORMALS: no rashes or lesions noted GENERAL SKIN EXAM: no rashes or lesions noted Course 2 Vital Signs: Vital signs: Vital Signs Temperature 98.1 F 08/26/24 08:14 Pulse Rate 76 08/26/24 11:53 Respiratory Rate 18 08/26/24 10:29 Blood Pressure 152/78 08/26/24 11:53 Pulse Oximetry 92 08/26/24 11:53 Oxygen Delivery Me thod Room Air 08/26/24 10:29 MDM - Abdominal Pain Medical Decision Making Patient has a distal right ureteral stone. She has some mild hematuria but no signs of infection. I think you may have some GI issues going on as well her hemoglobin is 7 8. She is stable at this point. Not having any active bleeding. Will transfuse a unit of blood tomorrow in outpatient department. She should follow-up with her primary care doctor. She will likely need further endoscopy to evaluate for blood loss. Will start on tamsulosin 1 and set her up for urology as well. Lab Data 08/26/24 09:15 08/26/24 09:15 Labs/Radiology: Radiology Impressions Abdomen/Pelvis CT 08/26/24 09:49 IMPRESSION: 1. Mild fluid distention of small bowel with a few air-fluid levels with mild bowel wall thickening can be seen with small bowel enteritis or small bowel ileus. No evidence of high-grade obstruction. Air-fluid level in the RIGHT colon. Colon is otherwise decompressed. 2. Sigmoid diverticulosis. No evidence of acute diverticulitis. Mild sigmoid constipation. 3. 3 mm calculus in or adjacent to the distal RIGHT ureter. No hydronephrosis. 4. Densely calcified abdominal aorta. Dense calcified celiac and SMA origins. 5. Prior hysterectomy. 6. No other acute findings. Laboratory Results WBC 12.43 10^3/uL (3.29-11.43) H 08/26/24 09:15 RBC 2.82 10^6/uL (3.85-5.65) L 08/26/24 09:15 Hgb 7.80 g/dL (11.27-16.99) L 08/26/24 09:15 Hct 25.9 % (36-47) L 08/26/24 09:15 MCV 91.8 fl (85-98) 08/26/24 09:15 MCH 27.7 pg (27-33) 08/26/24 09:15 MCHC 30.1 g/dL (30-55) 08/26/24 09:15 RDW 15.6 % (12.1-15.1) H 08/26/24 09:15 Plt Count 607 10^3/cmm (157-399) H 08/26/24 09:15 MPV 10.0 fL (7.4-10.4) 08/26/24 09:15 Neut % (Auto) 73.3 % 08/26/24 09:15 Lymph % (Auto) 17.9 % 08/26/24 09:15 [place] % (Auto) 7.0 % 08/26/24 09:15 Eos % (Auto) 0.2 % 08/26/24 09:15 Baso % (Auto) 0.4 % 08/26/24 09:15 Neut # (Auto) 9.10 10^3/uL (1.8-7.7) H 08/26/24 09:15 Lymph # (Auto) 2.2 10^3/uL (0.8-4.8) 08/26/24 09:15 [place] # (Auto) 0.9 10^3/uL (0.2-0.9) 08/26/24 09:15 Eos # (Auto) 0.0 10^3/uL (0.0-0.8) 08/26/24 09:15 Baso # (Auto) 0.1 10^3/uL (0.0-0.1) 08/26/24 09:15 Nucleated RBC % (auto) 0 % 08/26/24 09:15 Nucleated RBCs # 0.0 /100WBC 08/26/24 09:15 Sodium 133 mmol/L (136-145) L 08/26/24 09:15 Potassium 2.9 mmol/L (3.5-5.1) L 08/26/24 09:15 Chloride 94 mmol/L (98-107) L 08/26/24 09:15 Carbon Dioxide 26 mmol/L (22-29) 08/26/24 09:15 Anion Gap 15.9 (5-19) 08/26/24 09:15 BUN 14 mg/dL (8-23) 08/26/24 09:15 Creatinine 1.0 mg/dL (0.5-0.9) H 08/26/24 09:15 GFR Calculation Not Reportable 08/26/24 09:15 Glucose 94 mg/dL (65-115) 08/26/24 09:15 Calculated Osmolality 276 mOsm/kg (285-295) L 08/26/24 09:15 Lactic Acid 1.0 mmol/L (0.5-2.2) 08/26/24 09:15 Calcium 9.0 mg/dL (8.5-10.5) 08/26/24 09:15 Magnesium 2.0 mg/dL (1.7-2.3) 08/26/24 09:15 Total Bilirubin 0.2 mg/dL (0.15-1.2) 08/26/24 09:15 AST 13 U/L (0-32) 08/26/24 09:15 ALT 12 U/L (0-33) 08/26/24 09:15 Alkaline Phosphatase 120 U/L (35-105) H 08/26/24 09:15 Total Protein 6.5 g/dL (6.6-8.7) L 08/26/24 09:15 Albumin 3.7 g/dL (3.5-5.2) 08/26/24 09:15 Globulin 2.8 g/dL (1.3-4.6) 08/26/24 09:15 Lipase 29 U/L (13-60) 08/26/24 09:15 Urine Color Yellow (Yellow) 08/26/24 10:25 Urine Appearance Clear (CLEAR) 08/26/24 10:25 Urine pH 6.0 (5-7) 08/26/24 10:25 Ur Specific [place] 1.014 (1.005-1.030) 08/26/24 10:25 Urine Protein 1+ (Negative) A 08/26/24 10:25 Urine Glucose (UA) Negative (Normal) 08/26/24 10:25 Urine Ketones Negative (Negative) 08/26/24 10:25 Urine Blood Negative (Negative) 08/26/24 10:25 Urine Nitrate Negative (Negative) 08/26/24 10:25 Urine Bilirubin Negative (Negative) 08/26/24 10:25 Urine Urobilinogen 1.0 mg/dL (Negative) 08/26/24 10:25 Ur Leukocyte Esterase Negative (Negative) 08/26/24 10:25 Urine RBC 6-10 /hpf (0-2) 08/26/24 10:25 Urine WBC 0-5 /hpf (0-5) 08/26/24 10:25 Ur Squamous Epith Cells 0-5 /hpf (0-5) 08/26/24 10:25 Amorphous Sediment Not Reportable 08/26/24 10:25 Urine Bacteria None seen /hpf (NONE) 08/26/24 10:25 Hyaline Casts 4.11 /lpf 08/26/24 10:25 All radiology interpretation(s) finalized by discharge Discharge Plan Discharge Patient Disposition: Home Clinical Impression: Right nephrolithiasis, Anemia Condition: Stable Prescriptions: New tamsulosin 0.4 mg capsule 0.4 mg PO DAILY Qty: 20 0RF hydrocodone-acetaminophen 5-325 mg tablet 1 tab PO Q6H PRN (Reason: pain) Qty: 20 0RF promethazine 25 mg tablet 25 mg PO Q6H PRN (Reason: nausea and vomiting) Qty: 20 0RF pantoprazole [Protonix] 40 mg tablet,delayed release (DR/EC) 40 mg PO DAILY 28 Days Qty: 30 0RF Discontinued famotidine 40 mg tablet 40 mg PO BID 30 Days Qty: 60 5RF No Action hydrocodone-acetaminophen 5-325 mg tablet 1 tab PO Q8H PRN (Reason: Pain) albuterol sulfate 1.25 mg/3 mL solution for nebulization 1.25 mg inhalation Q6H PRN (Reason: shortness of breath or wheezing) Qty: 90 5RF albuterol sulfate 90 mcg/actuation HFA aerosol inhaler 2 inh inhalation Q6H PRN (Reason: shortness of breath or wheezing) Qty: 6.7 5RF carvedilol 6.25 mg tablet 6.25 mg PO BID 90 Days Qty: 180 2RF Advair Diskus 250-50 mcg/dose blister with device 1 inh INHALATION BID Qty: 60 5RF furosemide 40 mg tablet 40 mg PO QAM 90 Days Qty: 90 2RF hydralazine 25 mg tablet 25 mg PO BID 90 Days Qty: 180 2RF spironolactone 25 mg tablet 25 mg PO QAM 90 Days Qty: 90 2RF Spiriva with HandiHaler 18 mcg capsule, w/inhalation device 1 cap INHALATION DAILY 30 Days Qty: 60 5RF sucralfate [Carafate] 1 gram tablet 1 g PO QID 30 Days Qty: 120 0RF apixaban 5 mg tablet 5 mg PO BID Rx Instructions: 340B sodium chloride 1,000 mg Tablet,Soluble 1,000 mg PO BID 30 Days Qty: 60 0RF Discharge Orders: Discharge ED (Routine); Ordered 08/26/24 Ordered By: Chintan Lincoln Referrals: Melonie Padron MD [Primary Care Provider] - Discharge Diet: Usual diet Discharge Activity: Increase activity as tolerated Patient Instructions: Opioid Safety, Pain Management Activity Restrictions/Additional Instructions: Thank you for choosing [facility] for your healthcare needs today. It is very important that you follow up as instructed or that you return to the Emergency Department should you have concerns or if your condition changes or worsens in any way. You were seen in the emergency room with complaint of abdominal pain on the CT laboratory studies you are found to have some blood in your urine suggestive likely a right renal stone in the ureter that is probably causing some of your pain. Additionally you are mildly hypokalemic and anemic. The anemia has been progressively worsening patient is not emergent to be transfused today and will such up for outpatient transfusion tomorrow for 1 unit of blood. You should follow-up with your primary care provider you will need further evaluation regarding the anemia. You also need to see urology regarding the kidney stone. You are given pain medication nausea medication and tamsulosin which will help pass the kidney stone. Coding Level of Care Code ED Feed Inspection Supervisor for Camron Sousa
[2024-08-26 09:23] VITALS: BP 147/99; O2SAT 90
[2024-08-26 09:25] LABS: Basophils # 0.1 10^3/uL (0.0-0.1); Basophils % 0.4 %; Eosinophils % 0.2 %; Hematocrit 25.9 % (36-47); Lymphocytes # 2.2 10^3/uL (0.8-4.8); Lymphocytes % 17.9 %; Mean Corpuscular HGB Conc 30.1 g/dL (30-55); Mean Corpuscular Hemoglobin 27.7 pg (27-33); Mean Corpuscular Volume 91.8 fl (85-98); Monocytes # 0.9 10^3/uL (0.2-0.9); Neutrophils % 73.3 %; Nucleated Red Blood Cells % 0 %; Platelet Count 607 10^3/cmm (157-399); Red Blood Count 2.82 10^6/uL (3.85-5.65); Red Cell Distribution Width 15.6 % (12.1-15.1); White Blood Count 12.43 10^3/uL (3.29-11.43)
[2024-08-26 09:45] LABS: Alanine Aminotransferase 12 U/L (0-33); Albumin Level 3.7 g/dL (3.5-5.2); Alkaline Phosphatase 120 U/L (35-105); Anion Gap 15.9 (5-19); Aspartate Amino Transferase 13 U/L (0-32); Blood Urea Nitrogen 14 mg/dL (8-23); Carbon Dioxide 26 mmol/L (22-29); Chloride 94 mmol/L (98-107); Creatinine Clr Calc Pharmacy 38.2805; Globulin 2.8 g/dL (1.3-4.6); Glucose 94 mg/dL (65-115); Lipase 29 U/L (13-60); Osmolality Calculated 276 mOsm/kg (285-295); Sodium 133 mmol/L (136-145); Total Bilirubin 0.2 mg/dL (0.15-1.2); Total Protein 6.5 g/dL (6.6-8.7)
--- NOTE | 2024-08-26 09:49 | CT_ITS ---
WS: [id number] CT ABDOMEN PELVIS TECHNIQUE: Noncontrast CT of the abdomen and pelvis with coronal and sagittal reformatted images. CLINICAL INFORMATION: abd pain COMPARISON: None. DLP: 356.[address] scans at [facility] use at least one of these dose optimization techniques: automated e xposure control; mA and/or kV adjustment per patient size (includes targeted exams where dose is matc hed to clinical indication); or iterative reconstruction. FINDINGS: Lung bases are well aerated. Normal noncontrast liver. Hepatic and splenic calcified granul omas. Normal GE junction. 12 mm low-attenuation adrenal nodules compatible with adenomas. Tiny calcul us distal RIGHT ureter proximal to the UVJ measuring 3 mm. This appears in or just adjacent to the RI GHT ureter. No hydronephrosis in the RIGHT kidney. LEFT renal cyst measuring 1.5 cm. Fatty atrophy of the pancreas. Gallbladder is contracted. Densely calcified abdominal aorta. Densely calcified iliac arteries. Dense calcification at the celiac and SMA origins. Sigmoid diverticulosis. No evidence of acute diverticulitis. Disc narrowing worse at L4-5. Fluid-fill ed mildly dilated small bowel with a few air-fluid levels can be seen with small bowel enteritis or s mall bowel ileus. No evidence of high-grade obstruction. Air-fluid level in the RIGHT colon. Remainde r of colon is decompressed. Prior hysterectomy. CT/CT abdomen pelvis wo con [id number] IMPRESSION: 1. Mild fluid distention of small bowel with a few air-fluid levels with mild bowel wall thickening can be seen with small bowel enteritis or small bowel ile us. No evidence of high-grade obstruction. Air-fluid level in the RIGHT colon. Colon is otherwise decompressed. 2. Sigmoid diverticulosis. No evidence of acute diverticulitis. Mild sigmoid c onstipation. 3. 3 mm calculus in or adjacent to the distal RIGHT ureter. No hydronephrosis. 4. Densely calcified abdominal aorta. Dense calcified celiac and SMA origins. 5. Prior hysterectomy. 6. No other acute findings.
[2024-08-26 09:52] LABS: Potassium 2.9 mmol/L (3.5-5.1)
[2024-08-26 10:29] VITALS: RESP 18; O2SAT 92
[2024-08-26 10:36] LABS: Bilirubin Urine Negative (Negative); Blood Urine Negative (Negative); Glucose Urine UA Negative (Normal); Ketones Urine Negative (Negative); Leukocyte Esterase Urine Negative (Negative); Nitrate Urine Negative (Negative); Protein Urine 1+ (Negative); Specific Gravity, Urine 1.014 (1.005-1.030); Urine Appearance Clear (CLEAR); Urine Color Yellow (Yellow)
[2024-08-26] MEDS: potassium chloride oral liq 20 mEq/15 mL UDC 40 MEQ PO (10:37)
[2024-08-26 10:38] LABS: Add Urine Microscopic? YES; Bacteria Urine None Seen /hpf; Hyaline Casts Urine 4.11 /lpf; Squamous Epithelial Cell Urine 0-5 /hpf (0-5); WBC Urine 0-5 /hpf (0-5)
[2024-08-26 11:00] LABS: Add Urine Culture? No; UA Slide Review UA Slide Review Perf
[2024-08-26 11:29] VITALS: BP 154/82; PULSE 102; O2SAT 97
[2024-08-26 11:53] VITALS: BP 152/78; PULSE 76; O2SAT 92
--- NOTE | 2024-08-27 10:05 | DCPLANNER ---
Urology referral sent to [facility]
== END 2024-08-26 11:54 | disposition home or self-care (01) ==
PROVIDERS: Emergency Provider Family Medicine; PCP Family Medicine
DX: N20.0 Calculus of kidney (principal); D64.9 Anemia, unspecified; F17.210 Nicotine dependence, cigarettes, uncomplicated; I11.0 Hypertensive heart disease with heart failure; I50.32 Chronic diastolic (congestive) heart failure; J44.9 Chronic obstructive pulmonary disease, unspecified
CPT/HCPCS: 36415; 74176; 80053; 81001; 83605; 83690; 83735; 85025; 99284

== ENCOUNTER 2024-08-27 07:52 | Oncology outpatient (recurring) (ONCR) | payer MEDICARE, SELFPAY ==
--- OUTSIDE RECORDS SUMMARY | 2024-08-26 16:11 | XMS_ITS | Patient Health Record ---
Author Name Unknown Organization [facility] Address [address] [address], [place] [id number] Care Team Providers Care Equipment Technician Name Role Phone Melonie Padron MD Primary Care Provider Unavail able Juvenal ROTHMAN, Abad Unavailable [phone] Sujit ROTHMAN, Jadiel Unavailable Unavailable Omar QIUP, Gale Unavailable [phone] Allergies No Known Allergies Results Component Value Reference Range Notes Urine tox screen / MS if ind icated Reviewed date:05/05/2024 01:51:25 PM Interpretation:Consistent Performing Lab: Notes/Report: Consistent Reason For Referral Reason Chronic low back mary alice n Diagnosis 1 Lumbago with sciatic a, left side (M54.42) Diagnosis 2 Lumbago with sciatic a, right side (M54.41) Diagnosis 3 Other chronic pain ( G89.29) Referring Provider First Name Jadiel Referring Provider Last Name Sujit Referring Provider Speciality Pain Manag ement Referred Organization [facility] Referred Provider Abad Sanford Referred Address [address], [id number], Referred Provider Specialty Pain Managem ent General Notes Rani Telles 05:11:49 PM >Sent for insurance verification., Lyssa Banda 02/13/2024 07:06:24 AM > active. $35 germanayElfego Danielle 02/13/2024 03:33:30 PM >Left message to schedule on home number. Referral Priority Routine Medications Medication SIG (Take, Route, Frequency, Duration) Notes Start Date End Date Status fluticasone-salmeterol 250 mcg-50 mcg 1 INH inhaled 2 times a day for 30 day(s) Active furosemide 40 mg 1 tab(s) orally once a day Active DULoxetine 20 mg 1 cap(s) orally once a day Active Eliquis 5 mg as directed orally 2 times a day for 30 day(s) Active carvedilol 6.25 mg 1 tab(s) orally 2 times a day for 30 day(s) Active diphenhydrAMINE 25 mg 1 tab(s) orally every 6 hours, as needed Active spironolactone 25 mg 1 tab(s) orally once a day for 30 day(s) Active [facility] Triple Carotenoid Formula as directed Active Spiriva HandiHaler 18 mcg 1 cap(s) inhal ed once a day for 30 day(s) Active acetaminophen-hydrocodone 325 mg-5 mg 1 tab orally Q4-6H prn pain (max 3/day; hold within 4H of planned sleep) for 28 days Do not fill prior to 09/10/24. ICD-10: G89.29 08/05/2024 Active hydrALAZINE 25 mg 1 tab(s) orally 2 times a day Active acetaminophen-hydrocodone 325 mg-5 mg 1 tab orally Q4-6H prn pain (max 3/day; hold within 4H of planned sleep) for 28 days Do not fill prior to 08/13/24. ICD-10: G89.29 08/05/2024 Active Social History Tobacco Use: Social History Observation Description Date Details (start date - stop date) Current Smoker NA - NA alcohol Question Answer Notes Did you have a drink containing alcohol in the p ast year? No Points 0 Interpretation Negative Tobacco use: Question Answer Notes : current smoker Are you interested in quitting? Thinking about q uitting How many cigarettes a day do you smoke? 5 or les s How often do you smoke cigarettes? every day How soon after you wake up d o you smoke your first cigarette? after 60 min When did you start smoking? 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) Active confirmed Problem Sleep disorder (12989616) Other sleep disorders (G47.8) Active confirmed Problem Chronic pain (55546683) Other chronic pain (G89.29) Active confirmed Problem Sciatica (50991282) Lumbago with sciatica, right side (M54.41) Active confirmed Problem Sciatica (77393427) Lumbago with sciatica, left side (M54.42) Active confirmed Problem Long-term current use of drug therapy (389716794) Other fdc (current) drug therapy (Z79.899) Active confirmed Problem Low back pain (finding) (733459492) Vertebrogenic low back pain (M54.51) Active confirmed Vital Signs Temperature 97.6 degrees Fahrenheit 08/05/2024 Oximetry 97 % 08/05/2024 Blood pressure diastolic 65 mm Hg 08/05/2024 Height 62 in 08/05/2024 Blood pressure systolic 132 mm Hg 08/05/2024 Weight 126.6 lbs 08/05/2024 BMI 23.15 kg/m2 08/05/2024 Encounters Encounter Location Date Provider Diagnosis [facility] [employer] [place], [place] [id number] 05/05/2024 Gale Nelson Vertebrogenic low ba ck pain M54.51 ; Sacroiliitis, not elsewhere classified M46.1 and 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 Z79.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 [facility] [address] [place] [id number] 05/15/2024 Abad Pelletierval Vertebrogenic low ba ck pain M54.51 ; Other chronic pain G89.29 ; Other sleep disorders G47.8 and Other fdc (current) drug therapy Z79.899 [facility] [address] [place] [id number] 06/10/2024 Gale Nelson Vertebrogenic low ba ck pain M54.51 ; Other chronic pain G89.29 ; Other sleep disorders G47.8 and 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 Sanford. 05/15/2024 Other chronic pain (ICD-10 - G89.29) Patient desires continuation of the oral opioid therapy as most recently provided by Dr. Brothers. Plan to continue oral opioid medication management via this facility pending patient compliance with the Treatment Agreement. 05/15/2024 Vertebrogenic low back pain (ICD-10 - M54.51) Chronic axial lumbosacral spine pain. Orthopedic spine evaluation by Dr. Brothers has been noted: patient stated no recommendation for lumbar surgery was received, although, recommendation for thoracic surergy noted by patient. Patient declined the proposed surgery as per patient report. Patient continues with PT for low back pain with minimal to no benefit. Patient continues with home exercise program for low back pain with minimal to no benefit. Oral opioid therapy as presribed by Dr. Brothers with benefit. 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 Plan to continue oral opioid medication management. 06/10/2024 Vertebrogenic low back pain (ICD-10 - M54.51) Chronic axial lumbosacral spine pain. 08/05/2024 Other chronic pain (ICD-10 - G89.29) Patient reports that taking her pain medication allows her to care for her home and grocery shop. Plan to continue oral opioid medication management. 08/05/2024 Vertebrogenic low back pain (ICD-10 - M54.51) Chronic axial lumbosacral spine pain. 08/05/2024 Other sleep disorders (ICD-10 - G47.8) Plan to restrict opioid usage in relation to sleep for safety concerns: patient has verbalized understanding to hold short-acting opioids within four hours of planned sleep. 06/10/2024 Other sleep disorders (ICD-10 - G47.8) Plan to restrict opioid usage in relation to sleep for safety concerns: patient has verbalized understanding to hold short-acting opioids within four hours of planned sleep. 05/15/2024 Other sleep disorders (ICD-10 - G47.8) Patient reports a sleep disorder with restless legs noted Plan to restrict opioid usage in relation to sleep for safety concerns: patient has verbalized understanding to hold short-acting opioids within four hours of planned sleep. Patient has been counseled on the risks of sleep apnea (if present), with or without opioid and / or other sedative usage, and the patient verbalized understanding and acceptance of the increased risk (sleep apnea, respiratory depression, ) with opioid and / or sedative substance usage. Patient has been counseled that synergistic risk occurs with concomitant opioid and sedative usage. Patient has been counseled to hold opioid and / or sedative substances prior to planned sleep or dangerous activities and patient verbalized understanding that noncompliance would be at patient's increased risk. 05/05/2024 Other fdc (current) drug therapy (ICD-10 - Z79.899) Patient was given copies of the Treatment Agreement she signed on 05/05/24 and Cannabis Policy she signed on 02/28/24. 2022 opioid (OUD) risk tool score = 0. This places the patient in the low risk category. Plan urine toxicology screen today in anticipation of possibly starting opioid therapy at future visit as well as to assess for any prescribed, unprescribed, and / or illicit controlled substance(s). 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 This places the [facility] in the [facility] low risk category for total daily opioid usage. Patient has refused offer of a Narcan nasal spray prescription. 2022 opioid (OUD) risk tool score = 0. This places the patient in the low risk category. 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 Patient has had opportunity to read the Guide and ask questions pertaining to the Guide. Patient has been advised on 05/15/24 that any suspected patient misuse, abuse, or diversion of controlled substances (i.e. opioids/narcotics/ pain killers) WILL result in dissolution of treatment from this clinic. Patients adhering to the concepts contained within the patient's Treatment Agreement will be protected from such termination of care. Patient was given copies of the Treatment Agreement she signed on 05/05/24 and Cannabis Policy she signed on 02/28/24. Patient signed an opioid consent form on 05/15/24. 2022 opioid (OUD) risk tool score = 0. This places the patient in the low risk category. 05/05/2024 Other Continue above medication as currently prescribed by Dr. Beckett (resigned). Case reviewed, treatment plan approved, and visit note edited by Dr. Sanford. 05/15/2024 Other 06/10/2024 Other 08/05/2024 Other The service was provided by TEODORO Camp, as part of the ongoing care plan established by Abad Sanford MD, who was present in the office for direct supervision during the encounter. Plan Of Treatment Next Appt Details Provider Name:Abad Pascual son, 10/07/2024 09:20:00 AM, [address] [place], [place], [id number], Insurance Providers Payer Name Payer Address Payer Phone Subscriber Number Group Number Insured Name Patient Relationship to Insured Coverage Start Date Coverage End Date [employer] [address] [address] [place] [address] [id number] Oanh Quispe Self - patient is the insured Medical (General) History Medical History History ICD Code Chronic pain Low back pain Lumbar spondylosis, disc disease and mul tilevel spinal stenosis Lumbar radiculopathy Sciatica, bilateral Sacroiliitis T7 compression fracture Cervical spinal stenosis as noted upon r eview of lumbar MRI report Chronic hyponatremia Hypertension Tachycardia Chronic heart failure with preserved eje ction fraction COPD Acute respiratory failure Emphysema lung Sleep disorder with restless legs Surgical History Surgery Date(Month/Year) Hysterectomy T7 Kyphoplasty, performed at [facility] by Dr. Luiz Brothers, 03/14/24 Hospitalization History Reason Date(Month/Year) Flu x 2, treated at [facility], 2022, 10/2023
--- OUTSIDE RECORDS SUMMARY | 2024-08-26 16:11 | XMS_ITS ---
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 Name Role Phone Vito ROTHMAN, Melonie Primary Care Provider Unavail able Juvenal ROTHMAN, Abad Unavailable [phone] Sujit ROTHMAN, Jadiel Unavailable Unavailable Omar VALERIO, Gale Unavailable [phone] Allergies No Known Allergies REASON FOR VISIT Patient states she is here today for my pain medication {low back pain} Medications Medication SIG (Take, Route, Frequency, Duration) Notes Start Date End Date Status carvedilol 6.25 mg 1 tab(s) orally 2 times a day for 30 day(s) Active diphenhydrAMINE 25 mg 1 tab(s) orally every 6 hours, as needed Active fluticasone-salmeterol 250 mcg-50 mcg 1 INH inhaled 2 times a day for 30 day(s) Active DULoxetine 20 mg 1 cap(s) orally once a day Active Eliquis 5 mg as directed orally 2 times a day for 30 day(s) Active acetaminophen-hydrocodone 325 mg-5 mg 1 tab orally Q4-6H prn pain (max 3/day; hold within 4H of planned sleep) for 28 days Do not fill prior to 06/17/24. ICD-10: G89.29 06/10/2024 Active acetaminophen-hydrocodone 325 mg-5 mg 1 tab orally Q4-6H prn pain (max 3/day; hold within 4H of planned sleep) for 28 days Do not fill prior to 07/15/24. ICD-10: G89.29 06/10/2024 Active Spiriva HandiHaler 18 mcg 1 cap(s) inhal ed once a day for 30 day(s) Active spironolactone 25 mg 1 tab(s) orally once a day for 30 day(s) Active [employer] Triple Carotenoid Formula as directed Active furosemide 40 mg 1 tab(s) orally once a day Active hydrALAZINE 25 mg 1 tab(s) orally 2 times a day Active Social History Tobacco Use: Social History [...] Problem Status W/U Status Risk Notes Problem High risk drug monitoring status ([id number]) jail (current) use of opiate analgesic (Z79.891) Active confirmed Vital Signs Temperature 94.4 degrees Fahrenheit 06/10/20 24 Blood pressure systolic 123 mm Hg 06/10/20 24 Blood pressure diastolic 91 mm Hg 024 Height 62 in 06/10/2024 Weight 129.2 lbs 06/10/2024 Oximetry 88 % 06/10/2024 BMI 23.63 kg/m2 06/10/2024 Encounters Encounter Location Date Provider Diagnosis [facility] [id number] [place], [place] [id number] 06/10/2024 Gale Nelson Vertebrogenic low ba ck pain M54.51 ; Other chronic pain G89.29 ; Other sleep disorders G47.8 and jail (current) use of opiate analgesic Z79.891 Assessments Encounter Date Diagnosis (ICD Code) Assessment Notes Treatment Notes Treatment Clinical Notes Section Notes 06/10/2024 Vertebrogenic low back pain (ICD-10 - M54.51) Chronic axial lumbosacral spine pain. 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 Plan to continue oral opioid medication management. 06/10/2024 Other sleep disorders (ICD-10 - G47.8) Plan to restrict opioid usage in relation to sleep for safety concerns: patient has verbalized understanding to hold short-acting opioids within four hours of planned sleep. 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 This places the patient in the [facility] low risk category for total daily opioid usage. Patient has refused offer of a Narcan nasal spray prescription. 2022 opioid (OUD) risk tool score = 0. This places the patient in the low risk category. 06/10/2024 Other Plan Of Treatment Medication Medication Name Sig Start Date Stop Date Notes acetaminophen-hydrocodon e 325 mg-5 mg 1 tab orally Q4-6H prn pain (max 3/day; hold within 4H of planned sleep) for 28 days 06/10/2024 Do not fill prior to 06/17/24. ICD-10: G89.29 acetaminophen-hydrocodon e 325 mg-5 mg 1 tab orally Q4-6H prn pain (max 3/day; hold within 4H of planned sleep) for 28 days 06/10/2024 Do not fill prior to 07/15/24. ICD-10: G89.29 Treatment Notes Assessment Notes Vertebrogenic low back pain Chronic axia l lumbosacral spine pain. 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 Plan to continue oral opioid medication management. Other sleep disorders Plan to restrict o pioid usage in relation to sleep for safety concerns: patient has verbalized understanding to hold short-acting opioids within four hours of planned sleep. jail (current) use of opiate analge sic Patient has a total daily MED of 15. This places the patient in the [facility] low risk category for total daily opioid usage. Patient has refused offer of a Narcan nasal spray prescription. 2022 opioid (OUD) risk tool score = 0. This places the patient in the low risk category. Next Appt Details Follow Up: 2 month Rx visit. , Reason: Provider Name:Abad Pascual son, 10/07/2024 09:20:00 AM, [address], [place], [place], [id number], Progress Notes * Oanh MARIE: [birth year] (78 yo F)Acc No.[id number]:06/10/2024 Patient:?Oanh Marie Provider:?TEODORO Camp :1945???Age:78 Y???Sex:Female D ate:06/10/2024 Address:[facility] [id number] Pcp:Melonie Padron MD Subjective: * Chief Complaints: * ???Patient states she is her e today for my pain medication {low back pain} * HPI: ???Lumbar Spine:?78 year old female presents with c/o pain?for?chronic duration?in the bilateral low back. This pain (R>L) is described as intermittent and sharp. The back pain is aggravated by sitting at the kitchen table, standing to do dishes, and lifting laundry. This pain is somewhat alleviated with use of heat, by stretching, and by sitting in a reclined position.?Denies : radiation of pain.?Denies : tingling/numbness.?Denies : weakness.?Denies : injury:.?Denies : previous surgery:.?Previous Imaging/Studies:?X-rays?of the T-spine and L-spine on 04/01/24; of the T-spine on ; of the T-spine and L-spine on 11/09/23.?MRI?of the T-spine on 02/27/24; of the L-spine on 01/31/24.?Other studies?C-arm [place] for kyphoplasty on 03/14/24.?Previous Therapy:?Previous therapy:?heat therapy with?some benefit (initiated in 02/2024); home exercises / stretching therapy?with?some?benefit (initiated in 01/2024); physical therapy with history of mininal benefit; history of acupuncture therapy.?Medication history:?baclofen 5 mg; Neurontin 100 mg.?Medications:?Eliquis (apixaban)?is managed by Dr. Margarita Lilly; request for anticoagulation cessation recommendations sent via fax.?Aguada (hydrocodone / acetaminophen)?325 mg-5 mg, 1 tab, orally, Q4-6H prn pain (max 3/day; hold within 4H of planned sleep), 28 days, 84, Refills 0. Notes: Prescription given (1) on 05/15/24. 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 * ROS:?14 point review of systems negative. * Medical History:? * Surgical History:?Hysterecto my T7 Kyphoplasty, performed at [facility] by Dr. Luiz Brothers, 03/14/24 * Hospitalization/Major Diagno stic Procedure:?Flu x 2, treated at [facility], 2022, 10/2023 * Family History:?Father: dece ased, drowned.?Mother: , lung cancer.? * Social History:?Tobacco use?:?current smoker ?Are you interested in quitting??Thinking about quitting ?How many cigarettes a day do you smoke??5 or less ?How often do you smoke cigarettes??every day ?How soon after you wake up do you smoke your first cigarette??after 60 min ?When did you start smoking??1967 ???Marijuana: no. ???Meth: no. ???Other illicit drug use: no. ???Alcohol?Did you have a drink containing alcohol in the past year??No ?Points?0 ?Interpretation?Negative ???: . ???Children: 7. ???Education: GED. ???Occupation: no, reportedly disabled. ???Exercise: 1-2 days per week. 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 ???Travel: no. * Medications:?Takingacetamino phen-hydrocodone 325 mg-5 mg tablet 1 tab orally Q4- 6H prn pain (max 3/day; hold within 4H of planned sleep)carvedilol 6.25 mg tablet 1 tab(s) orally 2 times a daydiphenhydrAMINE 25 mg tablet 1 tab(s) orally every 6 hours, as neededDULoxetine 20 mg delayed release capsule 1 cap(s) orally once a dayEliquis(apixaban) 5 mg tablet as directed orally 2 times a dayfluticasone-salmeterol 250 mcg-50 mcg powder 1 INH inhaled 2 times a dayfurosemide 40 mg tablet 1 tab(s) orally once a dayhydrALAZINE 25 mg tablet 1 tab(s) orally 2 times a dayMacuHealth Triple Carotenoid Formula as directed Spiriva HandiHaler(tiotropium) 18 mcg capsule 1 cap(s) inhaled once a dayspironolactone 25 mg tablet 1 tab(s) orally once a dayMedication List reviewed and reconciled with the patientTaking acetaminophen-hydrocodone 325 mg-5 mg tablet 1 tab orally Q4-6H prn pain (max 3/day; hold within 4H of planned sleep)Taking carvedilol 6.25 mg tablet 1 tab(s) orally 2 times a dayTaking diphenhydrAMINE 25 mg tablet 1 tab(s) orally every 6 hours, as neededTaking DULoxetine 20 mg delayed release capsule 1 cap(s) orally once a dayTaking Eliquis(apixaban) 5 mg tablet as directed orally 2 times a dayTaking fluticasone-salmeterol 250 mcg-50 mcg powder 1 INH inhaled 2 times a dayTaking furosemide 40 mg tablet 1 tab(s) orally once a dayTaking hydrALAZINE 25 mg tablet 1 tab(s) orally 2 times a dayTaking [employer] Triple Carotenoid Formula as directed Taking Spiriva HandiHaler(tiotropium) 18 mcg capsule 1 cap(s) inhaled once a dayTaking spironolactone 25 mg tablet 1 tab(s) orally once a dayMedication List reviewed and reconciled with the patient * Allergies:?N.K.D.A.no[Allerg ies Verified] Objective: * Vitals:?Pain Scale:8 (0-10), Pain average:7, Pain Range:5-10, Ht: 62 in, Wt:129.2 lbs, BMI:23.63 index, BP:123/91 mm Hg, HR:82, RR:16, Temp:94.4, SaO2:88. * Physical Examination:?General:?General appearence:?well groomed, well nourished.?Build:?average.?Head:?normocephalic.?Eyes:?Conjunctiva:?without injection.?ENT:?Hearing:?grossly intact.?Chest:?Shape and expansion:?normal expansion, equal bilaterally, respirations even and unlabored.?Neurological:?Psychiatric:?alert and conversant.?Musculoskeletal:?Gait:?coordinated and smooth.?Outcome Assessment:?Findings:?Negative, care plan not required ???Dermatology:?Skin inspection:?pink, warm, dry, and intact.? Therapeutic Interventions: * Therapeutic Interventions: ???1.?PDMP ? [facility] : 06/04/2024 11:24 AM - database accessed and reviewed prior to today's visit in anticipation of possible opioid prescribing ? Assessment: * Assessment: 1.?Other chronic pain - G89. 29 (Primary)?2.?Vertebrogenic low back pain - M54.51?3.?Other sleep disorders - G47.8?4.?jail (current) use of opiate analgesic - Z79.891? Plan: * Treatment: 2.?Vertebrogenic low back pa in? Notes: Chronic axial lumbosacral spine pain.?? 3.?Other sleep disorders? Notes: Plan to restrict opioid usage in relation to sleep for safety concerns: patient has verbalized understanding to hold short-acting opioids within four hours of planned sleep.?? 4.?jail (current) use o f opiate analgesic? Notes: Patient has a total daily MED of 15. This places the patient in the [facility]' low risk category for total daily opioid usage. Patient has refused offer of a Narcan nasal spray prescription. 2022 opioid (OUD) risk tool score = 0. This places the patient in the low risk category.?? 5.?Others? Continue acetaminophen-hydrocodone tablet, 325 mg-5 mg, 1 tab, orally, Q4-6H prn pain (max 3/day; hold within 4H of planned sleep), 28 days, 84, Refills 0, Notes: Do not fill prior to 06/17/24. ICD-10: G89.29;?Continue acetaminophen-hydrocodone tablet, 325 mg-5 mg, 1 tab, orally, Q4-6H prn pain (max 3/day; hold within 4H of planned sleep), 28 days, 84, Refills 0, Notes: Do not fill prior to 07/15/24. ICD-10: G89.29.?? * Procedure Codes:?G8427 DOC M EDS VERIFIED W/PT OR RE * Preventive Medicine:? ??Counseling:?Pain Management:?Follow-up Plan documented:?Yes ?Pain Screening:?8 ?Communication to patient:?Counseled the Patient on smoking cessation, education provided?06/10/2024 ??ASA Status Classification:?score:?P3.? ??Screening / Special Tests:?Fall Risk?Screening:?No falls in the past year as of: 06/10/2024 * Follow Up:?2 month Rx visit. * Images: * Sign off status: Completed true * Provider:?TEODORO Camp Date:? 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 This pain (R>L) is described as intermittent and sharp. The back pain is aggravated by sitting at the kitchen table, standing to do dishes, and lifting laundry. This pain is somewhat alleviated with use of heat, by stretching, and by sitting in a reclined position radiation of pain previous surgery: weakness Medications Aguada (hydrocodone / acetaminoph en) 325 mg-5 mg, 1 tab, orally, Q4- 6H prn pain (max 3/day; hold within 4H of planned sleep), 28 days, 84, Refills 0. Notes: Prescription given (1) on 05/15/24. 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 Last fill date: 05/21/24 Eliquis (apixaban) is managed by Dr. Cheo Lilly; request for anticoagulation cessation recommendations sent via fax Previous Therapy Previous therapy: heat therapy with some benefit (initiated in 02/2024); home exercises / stretching therapy with some benefit (initiated in 01/2024); physical therapy with history of mininal benefit; history of acupuncture therapy Medication history: baclofen 5 mg; Neuro ntin 100 mg Previous Imaging/Studies MRI of the T-spine on 02/27/24; of the L-spine on 01/31/24 X-rays of the T-spine and L -spine on 04/01/24; of the T-spine on ; of the T-spine and L-spine on 11/09/23 Other studies C-arm FL for kyphopl asty on 03/14/24 Physical Examination Category Sub-Category Detail Notes Section Note s ENT Hearing: grossly intact Chest Shape and expansion: normal expa nsion, equal bilaterally, respirations even and unlabored Neurological Psychiatric: alert and conversant Musculoskeletal Gait: coordinated and smooth Outcome Assessment: Findings:: Negative, care pl an not required Dermatology Skin inspection: pink, warm, dry, and int act General General appearence: well groomed, well no urished Build: average Head: normocephalic Eyes Conjunctiva: without injection
--- OUTSIDE RECORDS SUMMARY | 2024-08-26 16:11 | XMS_ITS ---
Author Name Unknown Organization [facility] Address [address] [place], [place] [id number] Care Team Providers Care Novelty Worker Name Role Phone Melonie Padron MD Primary Care Provider Unavail able Juvenal ROTHMAN, Abad Unavailable [phone] Sujit ROTHMAN, Jadiel Unavailable Unavailable Allergies No Known Allergies REASON FOR VISIT Patient states she is here today for low back pain Medications Medication SIG (Take, Route, Frequency, Duration) Notes Start Date End Date Status spironolactone 25 mg 1 tab(s) orally once a day for 30 day(s) Active [facility] Triple Carotenoid Formula as directed Active Spiriva HandiHaler 18 mcg 1 cap(s) inhal ed once a day for 30 day(s) Active furosemide 40 mg 1 tab(s) orally once a day Active hydrALAZINE 25 mg 1 tab(s) orally 2 times a day Active acetaminophen-hydrocodone 325 mg-5 mg 1 tab orally Q4-6H prn pain (max 3/day; hold within 4H of planned sleep) for 28 days ICD-10: G89.29 05/15/2024 Active Eliquis 5 mg as directed orally 2 times a day for 30 day(s) Active fluticasone-salmeterol 250 mcg-50 mcg 1 INH inhaled 2 times a day for 30 day(s) Active diphenhydrAMINE 25 mg 1 tab(s) orally every 6 hours, as needed Active DULoxetine 20 mg 1 cap(s) orally once a day Active carvedilol 6.25 mg 1 tab(s) orally 2 times a day for 30 day(s) Active Social History Tobacco Use: Social History [...] Problem Status W/U Status Risk Notes Problem Sleep disorder (06210029) Other sleep disorders (G47.8) Active confirmed Vital Signs Temperature 97.1 degrees Fahrenheit 05/15/20 24 Blood pressure systolic 132 mm Hg 05/15/20 24 Blood pressure diastolic 70 mm Hg 024 Height 62 in 05/15/2024 Weight 129 lbs 05/15/2024 Oximetry 96 % 05/15/2024 BMI 23.59 kg/m2 05/15/2024 Encounters Encounter Location Date Provider Diagnosis [facility] [address] [place], [place] [id number] 05/15/2024 Abad Sanford Vertebrogenic low ba ck pain M54.51 ; Other chronic pain G89.29 ; Other sleep disorders G47.8 and [facility] [place] [facility] [place]current[facility] drug therapy Z79.899 Assessments Encounter Date Diagnosis (ICD Code) Assessment Notes Treatment Notes Treatment Clinical Notes Section Notes 05/15/2024 Vertebrogenic low back pain (ICD-10 - [...] as presribed by Dr. Brothers with benefit. 05/15/2024 Other chronic pain (ICD-10 - G89.29) Patient desires continuation of the oral opioid therapy as most recently provided by Dr. Brothers. Plan to continue oral opioid medication management via this facility pending patient compliance with the Treatment Agreement. 05/15/2024 Other sleep disorders (ICD-10 - G47.8) [...] noncompliance would be at patient's increased risk. 05/15/2024 [place] [facility] [place] (ICD-10 - Z79.899) Patient [...] in the low risk category. 05/15/2024 Other Plan Of Treatment Medication Medication Name Sig Start Date Stop Date Notes acetaminophen-hydrocodone 325 mg-5 mg 1 tab orally Q4-6H prn pain (max 3/day; hold within 4H of planned sleep) for 28 days 05/15/2024 ICD-10: G89.29 Treatment Notes Assessment Notes Vertebrogenic low back pain Chronic axial lumbosacral spine pain. Orthopedic spine [...] as presribed by Dr. Brothers with benefit. Other chronic pain Patient desires cont inuation of the oral opioid therapy as most recently provided by Dr. Brothers. Plan to continue oral opioid medication management via this facility pending patient compliance with the Treatment Agreement. Other sleep disorders Patient reports a sleep disorder with restless [...] noncompliance would be at patient's increased risk. Other manager intermediate (current) drug therapy Patient has received the Opioid Analgesic [facility] Patient Counseling Guide. Patient has had opportunity to read the Guide and ask questions pertaining to the Guide. Patient has been advised on 05/15/24 that any suspected patient misuse, abuse, or diversion of controlled substances (i.e. opioids/narcotics/pain killers) WILL result in dissolution of treatment [...] risk category. Next Appt Details Follow Up: 4 week Rx visit., Reason: Provider Name:Abad Pascual son, 10/07/2024 09:20:00 AM, [address] [facility] [facility] [address], [phone], Progress Notes * Oanh MARIE SDOB: [birth year] (78 yo F)Acc No.[id number]:05/15/2024 Patient:?Oanh Marie Provider:?Abad Prabhuval :1945???Age:78 Y???Sex:Female D ate:05/15/2024 Address:[facility] [address], [id number] Pcp:Melonie Padron MD Subjective: * Chief Complaints: * ???Patient states she is her e today for low back pain * HPI: ???Lumbar Spine:?78 year old female presents with c/o pain?for a very manager intermediate duration in the bilateral low back. This pain is described as constant aching with intermittent sharper paroxysms. This pain is currently severe. This pain on average is severe. This pain ranges from moderate to severe in intensity. This pain is located in the lower lumbar and sacral regions. The back pain is aggravated by standing, walking, bending, lifting, sitting?and when navigating stairs. This pain is somewhat alleviated with use of heat, with stretching exercises. and by reclining or lying down.?Denies : radiation of pain.?Denies : tingling/numbness.?Denies : weakness.?Denies : injury:.?Denies : previous surgery:.?Previous Imaging/Studies:?X-rays?of the T-spine and L-spine on 04/01/24; of the T-spine on ; of the T-spine and L-spine on 11/09/23.?MRI?of the T-spine on 02/27/24; of the L-spine on 01/31/24.?Other studies?C-arm [place] for kyphoplasty on 03/14/24.?Previous Therapy:?Previous therapy:?heat therapy with?some benefit (initiated in 02/2024); physical therapy with mininal benefit (initiated in 01/2024 - patient reports on-going PT); home exercises / stretching therapy?with?some minimal?benefit (initiated in 01/2024 - patient reports on-going exercises); history of acupuncture therapy.?Medication history:?baclofen 5 mg; Neurontin 100 mg.?Medications:?Eliquis (apixaban)?is managed by Dr. Margarita Lilly; request for anticoagulation cessation recommendations sent via fax.?[place] (hydrocodone / acetaminophen)?325 mg-5 mg tablet 1 tab(s) orally every 8 hours, as needed for pain for one month, 90 (prescribed by Dr. Luiz Brothers). Patient reports?moderate benefit with quantity?2 and?0 prescription(s) remaining.Last fill date: 04/23/24-patient states she has ~ 15 tabs at home that she did not bring with her today.? * ROS:?14 point review of systems negative. * Medical History:? * Surgical History:?Hysterecto my T7 Kyphoplasty, performed at [facility] by Dr. Luiz Brothers, 03/14/24 * Hospitalization/Major Diagno stic Procedure:?Flu x 2, treated at [facility], 2022, 10/2023 * Family History:?Father: dece ased, [...] 325 mg-5 mg tablet 1 tab orally Q8H prn paincarvedilol 6.25 mg tablet 1 tab(s) orally 2 [...] 325 mg-5 mg tablet 1 tab orally Q8H prn painTaking carvedilol 6.25 mg tablet 1 tab(s) orally [...] * Vitals:?Pain Scale:8 (0-10), Pain average:7, Pain Range:4-10, Ht: 62 in, Wt:129 lbs, BMI:23.59 index, BP:132/70 mm Hg, HR:101, RR:16, Temp:97.1, SaO2:96. * Physical Examination:?General:?General appearence:?well groomed, well nourished.?Build:?average.?Head:?normocephalic.?Eyes:?Conjunctiva:?without injection.?ENT:?Hearing:?grossly intact.?Chest:?Shape and expansion:?normal expansion, equal bilaterally, respirations even and unlabored.?Neurological:?Psychiatric:?alert and conversant.?Musculoskeletal:?Paraspinous tenderness:?bilateral low to mid lumbar, left > right.?SI joints:?tenderness noted over bilateral SI joints, left > right.?Gait:?coordinated and smooth.?Outcome Assessment:?Findings:?Negative, care plan not required ???Dermatology:?Skin inspection:?pink, warm, dry, and intact.? Therapeutic Interventions: * Therapeutic Interventions: ???1.?Counseling ? Obstructive sleep apnea : patient instructed of risks of sleep apnea (if present) with opioid and / or sedative substance use ? Anatomy and pathophysiology : discussed with patient ? Time : total time spent caring for the patient today was 42 minutes. This includes time spent before the visit reviewing the chart, time spent during the visit, and time spent after the visit on documentation ? Treatment : prior multiple imaging study results reviewed and treatment options discussed with patient ? Conditions of treatment : discussed with patient ???2.?PDMP ? [facility] : 05/13/2024 9:10 AM - database accessed and reviewed prior to today's visit in anticipation of possible opioid prescribing ?? Assessment: * Assessment: 1.?Vertebrogenic low back pa in - M54.51 (Primary)?2.?Other chronic pain - G89.29?3.?Other sleep disorders - G47.8?4.?Other manager intermediate (current) drug therapy - Z79.899? Plan: * Treatment: 2.?Other chronic pain? Notes: Patient desires continuation of the oral opioid therapy as most recently provided by Dr. Brothers. Plan to continue oral opioid medication management via this facility pending patient compliance with the Treatment Agreement.?? 3.?Other sleep disorders? Notes: Patient reports a sleep disorder with restless [...] that noncompliance would be at patient's increased risk.?? 4.?Other [place] [facility] [place] drug therapy? Notes: Patient has received the Opioid Analgesic [facility] Patient Counseling Guide. Patient has had opportunity to read the Guide and ask questions pertaining to the Guide. Patient has been advised on 05/15/24 that any suspected patient misuse, abuse, or diversion of controlled substances (i.e. opioids/narcotics/pain killers) WILL result in dissolution of treatment [...] sleep), 28 days, 84, Refills 0, Notes: ICD-10: G89.29.?? * Procedure Codes:?G8427 DOC M EDS VERIFIED W/PT OR RE * Preventive Medicine:? ??Counseling:?Pain Management:?Follow-up Plan documented:?Yes ?Pain Screening:?8 ?Communication to patient:?Counseled the Patient on smoking cessation, education provided?05/15/2024 ??ASA Status Classification:?score:?P3.? ??Screening / Special Tests:?Fall Risk?Screening:?No falls in the past year as of: 05/15/2024 * Follow Up:?4 week Rx visit. * Images: * Sign off status: Completed true * Provider:?Abad Sanford Date:?05/15/20 24 Generated for Gay melissa/Brina/eTmickey on:?08/26/2024 04:11 PM CERTIFIED ADAPTIVE PHYSICAL EDUCATOR History and Physical Notes * HPI (History of Present Illness) Category Sub-Category Detail Notes Category Not es Lumbar Spine injury: tingling/numbness pain for a very manager intermediate duration in the bilateral low back. This pain is described as constant aching with intermittent sharper paroxysms. This pain is currently severe. This pain on average is severe. This pain ranges from moderate to severe in intensity. This pain is located in the lower lumbar and sacral regions. The back pain is aggravated by standing, walking, bending, lifting, sitting and when navigating stairs. This pain is somewhat alleviated with use of heat, with stretching exercises. and by reclining or lying down radiation of pain previous surgery: weakness Medications [place] (hydrocodone / acetaminoph en) 325 mg-5 mg tablet 1 tab(s) orally every 8 hours, as needed for pain for one month, 90 (prescribed by Dr. Luiz Brothers). Patient reports moderate benefit with quantity 2 and 0 prescription(s) remaining. Last fill date: 04/23/24 - patient states she has ~ 15 tabs at home that she did not bring with her today Eliquis (apixaban) is managed by Dr. Cheo Lilly; request for anticoagulation cessation recommendations sent via fax Previous Therapy Previous therapy: heat therapy with some benefit (initiated in 02/2024); physical therapy with mininal benefit (initiated in 01/2024 - patient reports on-going PT); home exercises / stretching therapy with some minimal benefit (initiated in 01/2024 - patient reports on-going exercises); history of acupuncture therapy Medication history: baclofen [...] Section Note s ENT Hearing: grossly intact Neck Neck: Chest Shape and expansion: normal expa nsion, equal bilaterally, respirations even and unlabored Neurological Psychiatric: alert and conversant Musculoskeletal Paraspinous tenderness: bilatera l low to mid lumbar, left > right SI joints: tenderness noted ove r bilateral SI joints, left > right Gait: coordinated and smoo th Outcome Assessment: Findings:: Negative, care pl an not required Dermatology Skin inspection: pink, warm, dry, and int act General General appearence: well groomed, well no urished Build: average Head: normocephalic Eyes Conjunctiva: without injection
--- OUTSIDE RECORDS SUMMARY | 2024-08-26 16:11 | XMS_ITS ---
Author Name Unknown Organization [facility] Address [address] [place], [place] [id number] Care Team Providers Care Mapping Technician Name Role Phone Melonie Padron MD Primary Care Provider Unavail able Juvenal ROTHMAN, Abad Unavailable [phone] Sujit ROTHMAN, Jadiel Unavailable Unavailable Allergies No Known Allergies REASON FOR VISIT Patient states she is here today for low back pain. Medications Medication SIG (Take, Route, Frequency, Duration) Notes Start Date End Date Status spironolactone 25 mg 1 tab(s) orally once a day for 30 day(s) Active [facility] Triple Carotenoid Formula as directed Active Spiriva HandiHaler 18 mcg 1 cap(s) inhal ed once a day for 30 day(s) Active hydrALAZINE 25 mg 1 tab(s) orally 2 times a day Active acetaminophen-hydrocodone 325 mg-5 mg 1 tab orally Q4-6H prn pain (max 3/day; hold within 4H of planned sleep) for 28 days Do not fill prior to 08/13/24. ICD-10: G89.29 08/05/2024 Active fluticasone-salmeterol 250 mcg-50 mcg 1 INH inhaled 2 times a day for 30 day(s) Active furosemide 40 mg 1 tab(s) orally once a day Active DULoxetine 20 mg 1 cap(s) orally once a day Active Eliquis 5 mg as directed orally 2 times a day for 30 day(s) Active diphenhydrAMINE 25 mg 1 tab(s) orally every 6 hours, as needed Active carvedilol 6.25 mg 1 tab(s) orally 2 times a day for 30 day(s) Active acetaminophen-hydrocodone 325 mg-5 mg 1 tab orally Q4-6H prn pain (max 3/day; hold within 4H of planned sleep) for 28 days Do not fill prior to 09/10/24. ICD-10: G89.29 08/05/2024 Active Social History Tobacco [...] min When did you start smoking? 1966 Vital Signs Temperature 97.6 degrees Fahrenheit 08/05/20 24 Blood pressure systolic 132 mm Hg 08/05/20 24 Blood pressure diastolic 65 mm Hg 024 Height 62 in 08/05/2024 Weight 126.6 lbs 08/05/2024 Oximetry 97 % 08/05/2024 BMI 23.15 kg/m2 08/05/2024 Encounters Encounter Location Date Provider Diagnosis [facility] [id number] [place], [place] [id number] 08/05/2024 Abad Sanford Vertebrogenic low ba ck pain M54.51 ; Other chronic pain G89.29 and Other sleep disorders G47.8 Assessments Encounter Date Diagnosis (ICD Code) Assessment Notes Treatment Notes Treatment Clinical Notes Section Notes 08/05/2024 Vertebrogenic low back pain (ICD-10 - M54.51) Chronic axial lumbosacral spine pain. 08/05/2024 Other chronic pain (ICD-10 - G89.29) Patient reports that taking her pain medication allows her to care for her home and grocery shop. Plan to continue oral opioid medication management. 08/05/2024 Other sleep disorders (ICD-10 - G47.8) Plan to restrict opioid usage in relation to sleep for safety concerns: patient has verbalized understanding to hold short-acting opioids within four hours of planned sleep. 08/05/2024 Other The service was provided by TEODORO Camp, as part of the ongoing care plan established by Abad Sanford MD, who was present in the office for direct supervision during the encounter. Plan Of Treatment Medication Medication Name Sig Start Date Stop Date Notes acetaminophen-hydrocodon e 325 mg-5 mg 1 tab orally Q4-6H prn pain (max 3/day; hold within 4H of planned sleep) for 28 days 08/05/2024 Do not fill prior to 08/13/24. ICD-10: G89.29 acetaminophen-hydrocodon e 325 mg-5 mg 1 tab orally Q4-6H prn pain (max 3/day; hold within 4H of planned sleep) for 28 days 08/05/2024 Do not fill prior to 09/10/24. ICD-10: G89.29 Treatment Notes Assessment Notes Vertebrogenic [...] opioids within four hours of planned sleep. Other The service was prov ided by TEODORO Camp, as part of the ongoing care plan established by Abad Sanford MD, who was present in the office for direct supervision during the encounter. Next Appt Details Follow Up: 2 month Rx visit. , Reason: Provider Name:Abad Pascual son, 10/07/2024 09:20:00 AM, [address] [place] [address], [phone], Progress Notes * CYNTHIAOanh SDOB: [birth year] (78 yo F)Acc No.[id number]:08/05/2024 Patient:?Oanh MARIE Provider:?Abad Sanford :1945???Age:78 Y???Sex:Female D ate:08/05/2024 Address:[facility] [address], [id number] Pcp:Melonie Padron MD Subjective: * Chief Complaints: * ???Patient states she is her e today for low back pain. * HPI: ???Lumbar Spine:?78 year old female presents with c/o pain?for?chronic duration?in the bilateral low back. This pain is described as constant and sharp. The back pain is aggravated by sitting upright, walking at the grocery store, and standing to do dishes. This pain is somewhat alleviated with use of heat, with stretching, and by sitting in a reclined position.?Denies : radiation of pain.?Denies : tingling/numbness.?Denies : weakness.?Denies : injury:.?Denies : previous surgery:.?Previous Therapy:?Previous therapy:?heat therapy with?some benefit (initiated in 02/2024); home exercises / stretching therapy?with?some?benefit (initiated in 01/2024); physical therapy with history of mininal benefit; history of acupuncture therapy.?Medication history:?baclofen 5 mg; Neurontin 100 mg.?Medications:?Eliquis (apixaban)?is managed by Dr. Margarita Lilly; will seek PCP advice on cessation if desired for procedural purposes.?[place] (hydrocodone / acetaminophen)?325 mg-5 mg, 1 tab, orally, Q4-6H prn pain (max 3/day; hold within 4H of planned sleep), 28 days, 84, Refills 0.Notes: Prescription given (1) on 06/10/24. 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 * ROS:?14 point review of systems negative. * Medical History:? * Surgical History:?Hysterecto my T7 Kyphoplasty, performed at [facility] by Dr. Luiz Brothers, 03/14/24 * Hospitalization/Major Diagno stic Procedure:?Flu x 2, treated at [facility], 2022, 10/2023 * Family History:?Father: dece [...] 3/day; hold within 4H of planned sleep) carvedilol 6.25 mg tablet 1 tab(s) orally 2 times a day diphenhydrAMINE 25 mg tablet 1 tab(s) orally every 6 hours, as needed DULoxetine 20 mg delayed release capsule 1 cap(s) orally once a day Eliquis(apixaban) 5 mg tablet as directed orally 2 times a day fluticasone- salmeterol 250 mcg-50 mcg powder 1 INH inhaled 2 times a day furosemide 40 mg tablet 1 tab(s) orally once a day hydrALAZINE 25 mg tablet 1 tab(s) orally 2 times a day [facility] Triple Carotenoid Formula as directed Spiriva HandiHaler(tiotropium) 18 mcg capsule 1 cap(s) inhaled once a day spironolactone 25 mg tablet 1 tab(s) orally once a day Medication List reviewed and reconciled with the patientTaking acetaminophen-hydrocodone 325 mg-5 mg tablet 1 tab orally Q4-6H prn pain (max 3/day; hold within 4H of planned sleep) Taking carvedilol 6.25 mg tablet 1 tab(s) orally 2 times a day Taking diphenhydrAMINE 25 mg tablet 1 tab(s) orally every 6 hours, as needed Taking DULoxetine 20 mg delayed release capsule 1 cap(s) orally once a day Taking Eliquis(apixaban) 5 mg tablet as directed orally 2 times a day Taking fluticasone-salmeterol 250 mcg-50 mcg powder 1 INH inhaled 2 times a day Taking furosemide 40 mg tablet 1 tab(s) orally once a day Taking hydrALAZINE 25 mg tablet 1 tab(s) orally 2 times a day Taking [employer] Triple Carotenoid Formula as directed Taking Spiriva HandiHaler(tiotropium) 18 mcg capsule 1 cap(s) inhaled once a day Taking spironolactone 25 mg tablet 1 tab(s) orally once a day Medication List reviewed and reconciled with the patient * Allergies:?N.K.D.A.no[Allerg ies Verified] Objective: * Vitals:?Pain Scale: 8 (0-10) , Pain average: 7-8, Pain Range: 5-10, Ht:62in, Wt:126.6lbs, BMI:23.15index, BP:132/65mm Hg, HR:87, RR:16, Temp:97.6, SaO2: 97. * Physical Examination:?General:?General appearence:?well groomed, well nourished.?Build:?average.?Head:?normocephalic.?Eyes:?Conjunctiva:?without injection.?ENT:?Hearing:?grossly intact.?Chest:?Shape and expansion:?normal expansion, equal bilaterally, respirations even and unlabored.?Neurological:?Psychiatric:?alert and conversant.?Musculoskeletal:?Gait:?coordinated and smooth.?Outcome Assessment:?Findings:?Negative, care plan not required ???Dermatology:?Skin inspection:?pink, warm, dry, and intact.? Therapeutic Interventions: Assessment: * Assessment: 1.?Vertebrogenic low back pa in - M54.51 (Primary)???2.?Other chronic pain - G89.29???3.?Other sleep disorders - G47.8??? Plan: * Treatment: 2.?Other chronic pain? Notes: Patient reports that taking her pain medication allows her to care for her home and grocery shop. Plan to continue oral opioid medication management.?? 3.?Other sleep disorders? Notes: Plan to restrict opioid usage in relation to sleep for safety concerns: patient has verbalized understanding to hold short-acting opioids within four hours of planned sleep.?? 4.?Others? Continue acetaminophen-hydrocodone tablet, 325 mg-5 mg, 1 tab, orally, Q4-6H prn pain (max 3/day; hold within 4H of planned sleep), 28 days, 84, Refills 0, Notes to Pharmacist: Do not fill prior to 08/13/24. ICD-10: G89.29;?Continue acetaminophen-hydrocodone tablet, 325 mg-5 mg, 1 tab, orally, Q4-6H prn pain (max 3/day; hold within 4H of planned sleep), 28 days, 84, Refills 0, Notes to Pharmacist: Do not fill prior to 09/10/24. ICD-10: G89.29.?? Notes: The service was provided by TEODORO Camp, as part of the ongoing care plan established by Abad Sanford MD, who was present in the office for direct supervision during the encounter.?? Prescription Drug Monitoring Program (PDMP) PDMP report request complete d on 08/04/2024 09:52:08 AM - Abad Sanford * Procedure Codes:? * Preventive Medicine:? ??Counseling:?Pain Management:?Follow-up Plan documented:?Yes ?Pain Screening:?8 ?Communication to patient:?Counseled the Patient on smoking cessation, education provided?08/05/2024 ??Screening / Special Tests:?Fall Risk?Screening:?No falls in the past year as of: 08/05/2024 * Follow Up:?2 month Rx visit. * Images: * R HELPER Sign off status: Completed true * Provider:Tayler Sanford Date:?08/05/20 24 Generated for Gay melissa/Brina/Ghazala on:?08/26/2024 04:11 PM WIRER HELPER History and Physical Notes * HPI (History of Present Illness) Category Sub-Category Detail Notes Category Not es Lumbar Spine injury: tingling/numbness pain in the bilateral low back. This pain is described as constant and sharp. The back pain is aggravated by sitting upright, walking at the grocery store, and standing to do dishes. This pain is somewhat alleviated with use of heat, with stretching, and by sitting in a reclined position radiation of pain previous surgery: weakness Medications [place] (hydrocodone / acetaminoph en) 325 mg-5 mg, 1 tab, orally, Q4- 6H prn pain (max 3/day; hold within 4H of planned sleep), 28 days, 84, Refills 0. Notes: Prescription given (1) on 06/10/24. 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 Last fill date: 07/16/24 Eliquis (apixaban) is managed by Dr. Cheo Lilly; will seek PCP advice on cessation if desired for procedural purposes Previous Therapy Previous therapy: heat therapy with some benefit (initiated in 02/2024); home exercises / stretching therapy with some benefit (initiated in 01/2024); physical therapy with history of mininal benefit; history of acupuncture therapy Medication history: baclofen 5 mg; Neuro ntin 100 mg Physical Examination Category Sub-Category Detail Notes Section [...]
[2024-08-27] VITALS (7 sets, daily range): BP systolic 136–165; BP diastolic 75–84; PULSE 86–120; RESP 16–18; TEMP 36.2–36.8; O2SAT 92–96
--- OUTSIDE RECORDS SUMMARY | 2024-08-27 07:56 | XMS_ITS ---
Author Name Unknown Organization [facility] [employer] Address [address] [place], [place] [address] Care Team Providers Care News Librarian Name Role Phone Melonie Padron MD Primary Care Provider Unavail able Juvenal ROTHMAN, Abad Unavailable [phone] Sujit ROTHMAN, Jadiel Unavailable Unavailable Allergies No [...] did you start smoking? 1966 Vital Signs Height 62 in 08/05/2024 Weight 126.6 lbs 08/05/2024 BMI 23.15 kg/m2 08/05/2024 Blood pressure systolic 132 mm Hg 08/05/20 24 Blood pressure diastolic 65 mm Hg 024 Temperature 97.6 degrees Fahrenheit 08/05/20 Oximetry 97 % 08/05/2024 Encounters Encounter Location Date Provider Diagnosis [facility] [address] [place], [place] [phone] 08/05/2024 Abad Sanford Vertebrogenic low ba ck [...] Provider Name:Abad Pascual son, 10/07/2024 09:20:00 AM, [address] [place] [address], [phone], Progress Notes * CYNTHIAOanh SDOB: [birth year] (78 yo F)Acc No.[id number]:08/05/2024 Patient:?Oanh MARIE Provider:?Abad Sanford :1945???Age:78 Y???Sex:Female D ate:08/05/2024 Address:[facility] [address], [id number] Pcp:Melonie Padron MD Subjective: * Chief Complaints: [...] advice on cessation if desired for procedural purposes.?[place] (hydrocodone / acetaminophen)?325 mg-5 mg, 1 tab, orally, Q4-6H prn pain (max 3/day; hold within 4H of planned sleep), 28 days, 84, Refills 0.Notes: Prescription given (1) on 06/10/24. 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 * ROS:?14 point review of systems negative. * Medical History:? * Surgical History:?Hysterecto my T7 Kyphoplasty, performed at [facility] by Dr. Luiz Brothers, 03/14/24 * Hospitalization/Major Diagno stic Procedure:?Flu x 2, treated at [facility], 2022, 10/2023 * Family History:?Father: dece [...] Up:?2 month Rx visit. * Images: * EM MAKER Sign off status: Completed true * Provider:Tayler Sanford Date:?08/05/20 24 Generated for Gay melissa/Brina/Ghazala on:?08/27/2024 07:55 AM EMBLEM MAKER History and Physical Notes * HPI (History [...] radiation of pain previous surgery: weakness Medications [place] (hydrocodone / acetaminoph en) 325 mg-5 mg, 1 tab, orally, Q4- 6H prn pain (max 3/day; hold within 4H of planned sleep), 28 days, 84, Refills 0. Notes: Prescription given (1) on 06/10/24. 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
--- OUTSIDE RECORDS SUMMARY | 2024-08-27 07:56 | XMS_ITS | Patient Health Record ---
Author Name Unknown Organization [facility] Address [address] [place], [place] [address] Care Team Providers Care University Tutor Name Role Phone Melonie Padron MD Primary Care Provider Unavail able Juvenal ROTHMAN, Abad Unavailable [phone] Sujit ROTHMAN, Jadiel Unavailable Unavailable Omar QIUP, Gale Unavailable [phone] Allergies No Known Allergies Results Component Value [...] Pain Manag ement Referred Organization [facility] [employer] Referred Provider Abad Sanford Referred Address [address] [place], [id number], Referred Provider Specialty Pain Managem ent General [...] W/U Status Risk Notes Problem Solitary sacroiliitis (040729326) Sacroiliitis, not elsewhere classified (M46.1) Active confirmed Problem High risk drug monitoring status (610300050) 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 analgesic (Z79.891) Active confirmed Problem Sleep disorder (65908006) Other sleep disorders (G47.8) Active confirmed Problem Chronic pain (81506635) Other chronic pain (G89.29) Active confirmed Problem Sciatica (84089040) Lumbago with sciatica, right side (M54.41) Active confirmed Problem Sciatica (15211412) Lumbago with sciatica, left side (M54.42) Active confirmed Problem Long-term current use of drug therapy (795557354) Other snf (current) drug therapy (Z79.899) Active confirmed Problem Low back pain (finding) (329182753) Vertebrogenic low back pain (M54.51) Active confirmed Vital Signs Temperature 97.6 degrees Fahrenheit 08/05/2024 Oximetry 97 % 08/05/2024 Blood pressure diastolic 65 mm Hg 08/05/2024 Height 62 in 08/05/2024 Blood pressure systolic 132 mm Hg 08/05/2024 Weight 126.6 lbs 08/05/2024 BMI 23.15 kg/m2 08/05/2024 Encounters Encounter Location Date Provider Diagnosis [facility] [employer] [place], [place] [phone] 05/05/2024 Gale Nelson Vertebrogenic low ba ck pain M54.51 ; Sacroiliitis, not elsewhere classified M46.1 and Other termite exterminator helper (current) drug therapy Z79.899 [facility] [address] [place] [phone] 05/15/2024 Abad Pelletierval Vertebrogenic low ba ck pain M54.51 ; Other chronic pain G89.29 ; Other sleep disorders G47.8 and Other snf (current) drug therapy Z79.899 [facility] [address] [place] [id number] 06/10/2024 Gale Nelson Vertebrogenic low ba ck pain M54.51 ; Other chronic pain G89.29 ; Other sleep disorders G47.8 and 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 analgesic Z79.891 [facility] [address] [place] [phone] 08/05/2024 Abad Sanford Vertebrogenic low ba ck [...] be at patient's increased risk. 05/05/2024 Other snf (current) drug therapy (ICD-10 - Z79.899) Patient [...] and / or illicit controlled substance(s). 06/10/2024 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 analgesic (ICD-10 - Z79.891) Patient has a total daily MED of 15. This places the [facility] in the [facility] low risk category for total daily opioid usage. Patient has refused offer of a Narcan nasal spray prescription. 2022 opioid (OUD) risk tool score = 0. This places the patient in the low risk category. 05/15/2024 Other termite exterminator helper (current) drug therapy (ICD-10 - Z79.899) Patient [...] Name:Abad Pascual son, 10/07/2024 09:20:00 AM, [address] [place], [place], [phone], Insurance Providers Payer Name Payer Address Payer Phone Subscriber Number Group Number Insured Name Patient Relationship to Insured Coverage Start Date Coverage End Date MED[employer]IONS [address] [address] [place] [address] [id number] Oanh Quispe Self - patient is the [...] Surgery Date(Month/Year) Hysterectomy T7 Kyphoplasty, performed at [facility] by Dr. Luiz Brothers, 03/14/24 Hospitalization History Reason Date(Month/Year) Flu x 2, treated at [facility], 2022, 10/2023
--- OUTSIDE RECORDS SUMMARY | 2024-08-27 07:56 | XMS_ITS ---
Author Name Unknown Organization [facility] [employer] Address [address] [place], [place] [address] Care Team Providers Care Biofuels Operations Manager Name Role Phone Melonie Padron MD Primary Care Provider Unavail able Juvenal ROTHMAN, Abad Unavailable [phone] Sujit ROTHMAN, Jadiel Unavailable Unavailable Allergies No [...] W/U Status Risk Notes Problem Sleep disorder (55620909) Other sleep disorders (G47.8) Active confirmed Vital Signs Height 62 in 05/15/2024 Weight 129 lbs 05/15/2024 BMI 23.59 kg/m2 05/15/2024 Blood pressure systolic 132 mm Hg 05/15/20 24 Blood pressure diastolic 70 mm Hg 024 Temperature 97.1 degrees Fahrenheit 05/15/20 24 Oximetry 96 % 05/15/2024 Encounters Encounter Location Date Provider Diagnosis [facility], [address] [place], [place] [phone] 05/15/2024 Abad Sanford Vertebrogenic low ba ck pain M54.51 ; Other chronic pain G89.29 ; Other sleep disorders G47.8 and Other chcf (current) drug therapy Z79.899 Assessments Encounter Date [...] be at patient's increased risk. 05/15/2024 Other chcf (current) drug therapy (ICD-10 - Z79.899) Patient [...] would be at patient's increased risk. 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 This [...] request for anticoagulation cessation recommendations sent via fax.?[place] (hydrocodone / acetaminophen)?325 mg-5 mg tablet 1 [...] Surgical History:?Hysterecto my T7 Kyphoplasty, performed at [facility] by Dr. Luiz Brothers, 03/14/24 * Hospitalization/Major Diagno stic Procedure:?Flu x 2, treated at [facility], 2022, 10/2023 * Family History:?Father: dece ased, [...] treatment : discussed with patient ???2.?PDMP ? [facility] : 05/13/2024 9:10 AM - database accessed and reviewed prior to today's visit in anticipation of possible opioid prescribing ?? 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 Plan: * [...] would be at patient's increased risk.?? 4.?Other chcf (current) drug therapy? 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 This [...] radiation of pain previous surgery: weakness Medications [place] (hydrocodone / acetaminoph en) 325 mg-5 mg tablet 1 tab(s) orally every 8 hours, as needed for pain for one month, 90 (prescribed by Dr. Liuz Brothers). Patient reports moderate benefit with quantity [...]
--- OUTSIDE RECORDS SUMMARY | 2024-08-27 07:56 | XMS_ITS ---
Author Name Unknown Organization [facility] [employer] Address [address] [place], [place] [address] Care Team Providers Care Weather Reporter Name Role Phone Vito ROTHMAN, Melonie Primary Care Provider Unavail able Juvenal ROTHMAN, Abad Unavailable [phone] Sujit ROTHMAN, Jadiel Unavailable Unavailable Omar VALERIO, Gale Unavailable [phone] Allergies No Known Allergies REASON FOR VISIT [...] Notes Problem High risk drug monitoring status (337484410) custodial (current) use of opiate analgesic (Z79.891) Active confirmed Vital Signs Height 62 in 06/10/2024 Weight 129.2 lbs 06/10/2024 BMI 23.63 kg/m2 06/10/2024 Blood pressure systolic 123 mm Hg 06/10/20 24 Blood pressure diastolic 91 mm Hg 024 Temperature 94.4 degrees Fahrenheit 06/10/20 24 Oximetry 88 % 06/10/2024 Encounters Encounter Location Date Provider Diagnosis [facility] [address] [place], [place] [phone] 06/10/2024 Gale Nelson Vertebrogenic low ba ck pain M54.51 ; Other chronic pain G89.29 ; Other sleep disorders G47.8 and custodial (current) use of opiate analgesic Z79.891 Assessments [...] within four hours of planned sleep. 06/10/2024 watermelon inspector (current) use of opiate analgesic (ICD-10 - [...] opioids within four hours of planned sleep. custodial (current) use of opiate analge sic Patient [...] son, 10/07/2024 09:20:00 AM, [address], [place], [place], [phone], Progress Notes * Oanh MARIE: [birth year] (78 yo F)Acc No.[id number]:06/10/2024 Patient:?Oanh Marie Provider:?TEODORO Camp :1945???Age:78 Y???Sex:Female D ate:06/10/2024 [address]:[facility] [address] Pcp:Melonie Padron MD Subjective: * Chief Complaints: [...] request for anticoagulation cessation recommendations sent via fax.?[place] (hydrocodone / acetaminophen)?325 mg-5 mg, 1 tab, orally, Q4-6H prn pain (max 3/day; hold within 4H of planned sleep), 28 days, 84, Refills 0. Notes: Prescription given (1) on 05/15/24. 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 * ROS:?14 point review of systems negative. * Medical History:? * Surgical History:?Hysterecto my T7 Kyphoplasty, performed at [facility] by Dr. Luiz Brothers, 03/14/24 * Hospitalization/Major Diagno stic Procedure:?Flu x 2, treated at [facility], 2022, 10/2023 * Family History:?Father: dece ased, [...] Therapeutic Interventions: * Therapeutic Interventions: ???1.?PDMP ? [facility] : 06/04/2024 11:24 AM - database accessed and reviewed prior to today's visit in anticipation of possible opioid prescribing ? Assessment: * Assessment: 1.?Other chronic pain - G89. 29 (Primary)?2.?Vertebrogenic low back pain - M54.51?3.?Other sleep disorders - G47.8?4.?custodial (current) use of opiate analgesic - Z79.891? Plan: * Treatment: 2.?Vertebrogenic low back pa in? Notes: Chronic axial lumbosacral spine pain.?? 3.?Other sleep disorders? Notes: Plan to restrict opioid usage in relation to sleep for safety concerns: patient has verbalized understanding to hold short-acting opioids within four hours of planned sleep.?? 4.?custodial (current) use o f opiate analgesic? Notes: [...] [place] Date:? 024 Generated for Gay melissa/Brina/eTransmitting on:?08/27/2024 07:55 AM OIL EXPERT History and Physical Notes * HPI (History [...] radiation of pain previous surgery: weakness Medications [place] (hydrocodone / acetaminoph en) 325 mg-5 mg, 1 tab, orally, Q4- 6H prn pain (max 3/day; hold within 4H of planned sleep), 28 days, 84, Refills 0. Notes: Prescription given (1) on 05/15/24. 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
[2024-08-27] MEDS: diphenhydrAMINE 25 mg Capsule PO (08:40)
[2024-08-27] MEDS: sodium chloride 0.9% 250 mL Bag IV (08:41)
--- NOTE | 2024-08-27 09:14 | PC.NURSE ---
patient reports that she took her pain medication with tylenol prior to arrival, no tylenol premedication was given.
== END 2024-09-23 23:59 | disposition home or self-care (01) ==
PROVIDERS: PCP Family Medicine; Visit Provider Family Medicine
DX: D64.9 Anemia, unspecified (principal)
CPT/HCPCS: 36430; 86850; 86900; 86920; J7050; P9016

== ENCOUNTER 2024-09-02 08:01 | Inpatient (IN) | payer MEDICARE, SELFPAY ==
[2024-09-02] VITALS (14 sets, daily range): BP systolic 128–174; BP diastolic 72–93; PULSE 86–120; RESP 14–22; TEMP 36.2–36.9; O2SAT 92–98; BMI 20.5
--- NOTE | 2024-09-02 08:18 | ECG_ITS ---
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 Measurements Intervals [place] Rate: 120 P: 69 MT: 83 QRS: 18 QRSD: 118 T: 38 QT: 358 QTc: 506 Interpretive Statements SINUS TACHYCARDIA WITH SHORT MT INTERVAL LATERAL MYOCARDIAL INFARCTION , PROBABLY OLD [40+ ms Q WAVE AND/OR ST/T ABNORMALITY IN I/aVL/V5/V6] ST DEPRESSION, CONSIDER SUBENDOCARDIAL INJURY [0.1+ mV ST DEPRESSION] Compared to ECG 11/10/2023 19:58:58 Short MT interval now present ST (T wave) deviation now present Sinus rhythm no longer present Myocardial infarct finding still present Electronically Signed On 09-03-2024 01:04:01 APARTMENT LOCATOR by Bradley Padilla M.D. [email or web address]
--- NOTE | 2024-09-02 08:43 | CTR_ITS ---
PROCEDURE INFORMATION: Exam: CT Abdomen And Pelvis With Contrast Exam date and time: 09/02/2024 10:16 AM Age: 78 years old Clinical indication: Abdominal pain; Localized; Lower; Prior surgery; Surgery date: 6+ months; Surgery type: Hyst; Additional info: Abd pain TECHNIQUE: Imaging protocol: Computed tomography of the abdomen and pelvis with contrast. Radiation optimization: All CT scans at this facility use at least one of these dose optimization techniques: automated exposure control; mA and/or kV adjustment per patient size (includes targeted exams where dose is matched to clinical indication); or iterative reconstruction. Contrast material: OMNI 350; Contrast volume: 75 ml; Contrast route: INTRAVENOUS (IV); COMPARISON: CT abdomen pelvis wo con [id number] 08/26/2024 10:01 AM RADIATION DOSE METRICS: Total DLP (mGy-cm): 333.74 FINDINGS: Liver: Normal. No mass. Small hepatic cyst. Gallbladder and biliary ducts: Normal. No calcified stones. No ductal dilation. Pancreas: Normal. No ductal dilation. Spleen: Normal. No splenomegaly. Adrenal glands: Nodular hyperplasia of the adrenal glands on each side. Kidneys and ureters: Left renal cyst. Punctate nonobstructing left renal calculi. 3 mm calcification either within or adjacent to the distal right ureter. There are no obstructive changes. Stomach and bowel: Unremarkable. No obstruction. No mucosal thickening. Appendix: No evidence of appendicitis. Intraperitoneal space: Unremarkable. No free air. No significant fluid collection. Vasculature: Unremarkable. No abdominal aortic aneurysm. Lymph nodes: Unremarkable. No enlarged lymph nodes. Urinary bladder: Unremarkable as visualized. Reproductive: Hysterectomy. Bones/joints: Unremarkable. No acute fracture. Soft tissues: Unremarkable. CT/CT abdomen pelvis w con* [id number] IMPRESSION: No acute abnormality. COMMENTS: Consistent with the [employer]'s Incidental Findings Committee white paper (J Am Ailyn Radiol 2018): Any incidental renal lesion less than 1 cm or classified as too small to characterize, or any incidental cystic renal lesion characterized as simple-appearing, is likely benign. No follow-up imaging is recommended for these lesions per consensus recommendations based on imaging criteria.
--- NOTE | 2024-09-02 08:43 | ED_ITS ---
HPI - Nausea/Vomiting/Diarrhea 2 General: Chief complaint: Nausea/Vomiting/Diarrhea Stated complaint: NVD Time Seen by Provider: 09/02/24 08:07 History of Present Illness: 78-year-old female presents to the [facility] ency room complaining of persistent epigastric discomfort with nausea and vomiting. She was seen a week ago her hemoglobin was 7 8 her vital signs were stable she was transfused the following day. She has evaluation set up with GI but has not yet been seen. She is currently on apixaban. She has not had any hematemesis or coffee-ground emesis no shortness of breath or productive cough no dysuria urgency or frequency. Said multiple diarrhea bowel movements as well. Associated nausea: Yes Associated symtoms: Reports nausea; Denies chest pain or dysuria Related Data Home Medications Medication Instructions Recorded Confirmed hydrocodone 5 mg-acetaminophen 325 1 tab PO Q8H PRN Pain 05/27/24 09/02/24 mg tablet apixaban 5 mg tablet 5 mg PO BID 08/26/24 09/02/24 promethazine 12.5 mg tablet 25 mg PO Q6H PRN Nausea And 09/02/24 09/02/24 Vomiting Previous Rx's Medication Instructions Recorded sodium chloride 1,000 mg soluble 1,000 mg PO BID 30 days #60 tabs 11/15/23 tablet albuterol sulfate 1.25 mg/3 mL 1.25 mg (3 mL) inhalation Q6H PRN 05/27/24 solution for nebulization shortness of breath or wheezing #90 mL albuterol sulfate 90 mcg/actuation 2 inh inhalation Q6H PRN shortness 05/27/24 aerosol inhaler of breath or wheezing #6.7 grams carvedilol 6.25 mg tablet 6.25 mg PO BID 90 days #180 tabs 05/27/24 fluticasone 250 mcg-salmeterol 50 1 inh inhalation BID #60 ea 05/27/24 mcg/dose blistr powdr for inhalation (Advair Diskus) furosemide 40 mg tablet 40 mg PO QAM 90 days #90 tabs 05/27/24 hydralazine 25 mg tablet 25 mg PO BID 90 days #180 tabs 05/27/24 spironolactone 25 mg tablet 25 mg PO QAM 90 days #90 tabs 05/27/24 tiotropium bromide 18 mcg capsule 1 cap inhalation DAILY 30 days #60 09/03/24 with inhalation device (Spiriva inhalations with HandiHaler) sucralfate 1 gram tablet (Carafate) 1 g PO QID 30 days #120 tabs 08/18/24 hydrocodone 5 mg-acetaminophen 325 1 tab PO Q6H PRN pain #20 tabs 08/26/24 mg tablet pantoprazole 40 mg tablet,delayed 40 mg PO DAILY 4 weeks #30 tabs 08/26/24 release (Protonix) tamsulosin 0.4 mg capsule 0.4 mg PO DAILY #20 caps 08/26/24 Allergies Allergy/AdvReac Type Severity Reaction Status Date / Time No Known Allergies Allergy Verified 09/02/24 08:10 Review of Systems 2 Const: Denies: fever(s) or chills Card: Denies: chest pain Resp: Denies: dyspnea GI: Reports: abdominal pain, nausea and vomiting; Denies: hematemesis, coffee ground emesis, hematochezia or melena : Denies: dysuria, urinary frequency or urinary urgency Musc: Denies: neck pain or back pain Skin/Breast: Denies: rash PFSH ED 2 PFSH: Medical History Chronic hyponatremia HTN (hypertension) COPD (chronic obstructive pulmonary disease) Chronic heart failure with preserved ejection fraction (HFpEF) Acute respiratory failure Upper respiratory infection Encounter to establish care Emphysema lung Chronic low back pain Tachycardia Surgical History History of kyphoplasty H/O: hysterectomy Social History Smoking and tobacco/nicotine status: current every day tobacco/nicotine user cigarettes Packs smoked per day: 0.2 Years cigarettes smoked: 62 [ Other cigarette details: Smokes maybe once a day] Physical Exam 2 Const: GENERAL APPEARANCE: cooperative ORIENTATION/CONSCIOUSNESS: Yes awake, Yes oriented to person, Yes oriented to place and Yes oriented to time HENMT: COMMON NORMALS: normocephalic, atraumatic and hearing grossly normal bilaterally HEAD & SCALP: normocephalic and atraumatic Resp: COMMON NORMALS: normal respiratory effort, No retractions, No use of accessory muscles and clear to auscultation bilaterally AUSCULTATION: clear to auscultation bilaterally Cardio: COMMON NORMALS: regular rate, regular rhythm and No murmurs present (Cardio) RATE: regular rate RHYTHM: regular rhythm GI: COMMON NORMALS: No hepatosplenomegaly present AUSCULTATION: Yes normoactive bowel sounds PALPATION: Yes Tenderness to palpation present (GI) (Epigastric), No Guarding due to palpation present (GI) and Yes No hepatosplenomegaly present Extremity: COMMON NORMALS: normal to inspection, capillary refill normal, no clubbing, cyanosis or edema, no calf tenderness and no pedal edema Neuro: SENSORIUM/ORIENTATION: Yes oriented to person, Yes oriented to place and Yes oriented to time Skin: COMMON NORMALS: no rashes or lesions noted GENERAL SKIN EXAM: no rashes or lesions noted Course 2 Vital Signs: Vital signs: Vital Signs Temperature 98.0 F 09/02/24 15:34 Pulse Rate 86 09/02/24 15:34 Respiratory Rate 16 09/02/24 15:34 Blood Pressure 164/93 09/02/24 15:34 Pulse Oximetry 98 09/02/24 15:34 Oxygen Delivery Me thod Room Air 09/02/24 15:34 MDM - Nausea/Vomiting/Diarrhea Medical Decision Making Patient was seen week ago was anemic transfused a unit of blood she seemed to initially doing well but now is still worsening pain again. CT 1 week ago showed enteritis but on repeat today there is no evidence of enteritis however she continues to have persistent nausea and vomiting. White count elevated 18,000 discussed with hospitalist will admit consult surgery for possible endoscopy. Patient also mildly hypokalemic Medical Records I reviewed the patient's medical records. Lab Data I reviewed the patient's lab results. 09/02/24 08:42 09/02/24 08:42 Radiology Impressions Abdomen/Pelvis CT 09/02/24 08:43 IMPRESSION: No acute abnormality. COMMENTS: Consistent with the [employer]'s Incidental Findings Committee white paper (J Am Ailyn Radiol 2018): Any incidental renal lesion less than 1 cm or classified as too small to characterize, or any incidental cystic renal lesion characterized as simple-appearing, is likely benign. No follow-up imaging is recommended for these lesions per consensus recommendations based on imaging criteria. ADDENDUM: 09/02/24 1055 Addendum: There is extensive atherosclerotic plaque of the abdominal aorta. This appears to involve the origin of the celiac axis and SMA. There is probably significant stenosis at the origin of the SMA but the images was not tailored to optimally visualize the arterial system. Consider a CTA of the abdomen with special attention to the SMA for further evaluation. Chest X-Ray 09/02/24 11:10 IMPRESSION: 1. Mild cardiac enlargement. No acute finding. Abdomen Ultrasound 09/02/24 12:36 IMPRESSION: 1. Cholelithiasis. No gallbladder wall thickening or pericholecystic fluid. 2. Mild diffuse fatty infiltration of the liver. 3. No hydronephrosis in the RIGHT kidney. 4. Normal common bile duct. Laboratory Results WBC 18.25 10^3/uL (3.29-11.43) H 09/02/24 08:42 RBC 3.84 10^6/uL (3.85-5.65) L 09/02/24 08:42 Hgb 10.40 g/dL (11.27-16.99) L 09/02/24 08:42 Hct 33.2 % (36-47) L 09/02/24 08:42 MCV 86.5 fl (85-98) 09/02/24 08:42 MCH 27.1 pg (27-33) 09/02/24 08:42 MCHC 31.3 g/dL (30-55) 09/02/24 08:42 RDW 16.0 % (12.1-15.1) H 09/02/24 08:42 Plt Count 751 10^3/cmm (157-399) H 09/02/24 08:42 MPV 9.7 fL (7.4-10.4) 09/02/24 08:42 Neut % (Auto) 83.7 % 09/02/24 08:42 Lymph % (Auto) 10.7 % 09/02/24 08:42 [place] % (Auto) 4.4 % 09/02/24 08:42 Eos % (Auto) 0.0 % 09/02/24 08:42 Baso % (Auto) 0.2 % 09/02/24 08:42 Neut # (Auto) 15.27 10^3/uL (1.8-7.7) H 09/02/24 08:42 Lymph # (Auto) 2.0 10^3/uL (0.8-4.8) 09/02/24 08:42 [place] # (Auto) 0.8 10^3/uL (0.2-0.9) 09/02/24 08:42 Eos # (Auto) 0.0 10^3/uL (0.0-0.8) 09/02/24 08:42 Baso # (Auto) 0.0 10^3/uL (0.0-0.1) 09/02/24 08:42 Nucleated RBC % (auto) 0 % 09/02/24 08:42 Nucleated RBCs # 0.0 /100WBC 09/02/24 08:42 Sodium 135 mmol/L (136-145) L 09/02/24 08:42 Potassium 3.2 mmol/L (3.5-5.1) L 09/02/24 08:42 Chloride 95 mmol/L (98-107) L 09/02/24 08:42 Carbon Dioxide 22 mmol/L (22-29) 09/02/24 08:42 Anion Gap 21.2 (5-19) H 09/02/24 08:42 BUN 18 mg/dL (8-23) 09/02/24 08:42 Creatinine 1.2 mg/dL (0.5-0.9) H 09/02/24 08:42 GFR Calculation Not Reportable 09/02/24 08:42 Glucose 113 mg/dL (65-115) 09/02/24 08:42 Calculated Osmolality 283 mOsm/kg (285-295) L 09/02/24 08:42 Lactic Acid 1.3 mmol/L (0.5-2.2) 09/02/24 12:21 Calcium 9.8 mg/dL (8.5-10.5) 09/02/24 08:42 Magnesium 1.8 mg/dL (1.7-2.3) 09/02/24 08:42 Magnesium 1.9 mg/dL (1.7-2.3) 09/02/24 08:42 Total Bilirubin 0.3 mg/dL (0.15-1.2) 09/02/24 08:42 AST 14 U/L (0-32) 09/02/24 08:42 ALT 10 U/L (0-33) 09/02/24 08:42 Alkaline Phosphatase 165 U/L (35-105) H 09/02/24 08:42 Total Protein 6.9 g/dL (6.6-8.7) 09/02/24 08:42 Albumin 3.6 g/dL (3.5-5.2) 09/02/24 08:42 Globulin 3.3 g/dL (1.3-4.6) 09/02/24 08:42 Lipase 21 U/L (13-60) 09/02/24 08:42 TSH 1.83 uIU/mL (0.27-4.20) 09/02/24 08:42 Urine Color Yellow (Yellow) 09/02/24 09:27 Urine Appearance Clear (CLEAR) 09/02/24 09: Urine pH 5.5 (5-7) 09/02/24 09: Ur Specific [place] 1.019 (1.005-1.030) 09/02/24 09:27 Urine Protein 1+ (Negative) A 09/02/24 09: Urine Glucose (UA) Negative (Normal) 09/02/24 09: Urine Ketones 1+ (Negative) H 09/02/24 09: Urine Blood Negative (Negative) 09/02/24 09: Urine Nitrate Negative (Negative) 09/02/24 09: Urine Bilirubin Negative (Negative) 09/02/24 09: Urine Urobilinogen 1.0 mg/dL (Negative) 09/02/24 09:27 Ur Leukocyte Esterase Negative (Negative) 09/02/24 09:27 Urine RBC None /hpf (0-2) 09/02/24 09:27 Urine WBC 0-4 /hpf (0-5) H 09/02/24 09:27 Ur Squamous Epith Cells None /hpf (0-5) 09/02/24 09:27 Ur Transition Epith Cell 0-4 /hpf 09/02/24 09: Amorphous Sediment Not Reportable 09/02/24 09: Urine Bacteria None /hpf (NONE) 09/02/24 09: Hyaline Casts 25-40 /lpf H 09/02/24 09:27 Urine Mucus 1+ /hpf 09/02/24 09:27 All radiology interpretation(s) finalized by discharge Discharge Plan Discharge Patient Disposition: Admitted As Inpatient Admit Provider: Robby Patel Clinical Impression: Nausea vomiting and diarrhea, Chronic hyponatremia, Anemia, Epigastric pain, Current use of jail anticoagulation Condition: Stable Coding Level of Care Code ED [employer] for Camron Sousa
[2024-09-02 08:51] LABS: Basophils % 0.2 %; Hematocrit 33.2 % (36-47); Lymphocytes % 10.7 %; Mean Corpuscular HGB Conc 31.3 g/dL (30-55); Mean Corpuscular Hemoglobin 27.1 pg (27-33); Mean Corpuscular Volume 86.5 fl (85-98); Mean Platelet Volume 9.7 fL (7.4-10.4); Monocytes # 0.8 10^3/uL (0.2-0.9); Monocytes % 4.4 %; Neutrophils # 15.27 10^3/uL (1.8-7.7); Neutrophils % 83.7 %; Nucleated Red Blood Cells % 0 %; Platelet Count 751 10^3/cmm (157-399); Red Blood Count 3.84 10^6/uL (3.85-5.65); White Blood Count 18.25 10^3/uL (3.29-11.43)
[2024-09-02 09:09] LABS: Alanine Aminotransferase 10 U/L (0-33); Albumin Level 3.6 g/dL (3.5-5.2); Alkaline Phosphatase 165 U/L (35-105); Anion Gap 21.2 (5-19); Aspartate Amino Transferase 14 U/L (0-32); Blood Urea Nitrogen 18 mg/dL (8-23); Calcium 9.8 mg/dL (8.5-10.5); Carbon Dioxide 22 mmol/L (22-29); Chloride 95 mmol/L (98-107); Creatinine Clr Calc Pharmacy 31.2256; Globulin 3.3 g/dL (1.3-4.6); Glucose 113 mg/dL (65-115); Lipase 21 U/L (13-60); Magnesium 1.8 mg/dL (1.7-2.3); Osmolality Calculated 283 mOsm/kg (285-295); Potassium 3.2 mmol/L (3.5-5.1); Sodium 135 mmol/L (136-145); Total Bilirubin 0.3 mg/dL (0.15-1.2); Total Protein 6.9 g/dL (6.6-8.7)
--- NOTE | 2024-09-02 09:51 | PC.PHAR ---
Addendum entered by Margo Mata 09/02/24 09:59: Pharmacy states pt did not sheepskin pickler the most recent rx sent over 08/26/[address] Lincoln. Pt has pain contract with Dr Catherine. Original Note: Pt and family member were able to verify home medications. Pt states has been unable to take any of her medications in 2 weeks, except tries to take the protonix and pain medication. Pt has 2 orders for hydrocodone 5-325.The most recent rx was sent over 08/26/[address] Lincoln, not filled yet due to the current rx order is tid prn for 28ds 08/13/24 #84.
[2024-09-02] MEDS: morphine 4 mg/mL SDV 1 mL IVP (09:59)
[2024-09-02] MEDS: ondansetron 2 mg/ML SDV 2 mL 4 MG IVP ×3 (09:59→23:17)
[2024-09-02 10:04] LABS: Bilirubin Urine Negative (Negative); Blood Urine Negative (Negative); Glucose Urine UA Negative (Normal); Ketones Urine 1+ (Negative); Leukocyte Esterase Urine Negative (Negative); Nitrate Urine Negative (Negative); Protein Urine 1+ (Negative); Specific Gravity, Urine 1.019 (1.005-1.030); Urine Appearance Clear (CLEAR); Urine Color Yellow (Yellow); pH Urine 5.5 (5-7)
[2024-09-02] MEDS: iohexol 350 mg/mL 500 mL Btl (per mL) IV (10:17)
[2024-09-02 10:30] LABS: UA Manual Slide Review YES; UA Slide Review UA Slide Review Perf
[2024-09-02 10:32] LABS: Add Urine Microscopic? YES; Mucus Urine 1+ /hpf; Transitional Epi Cells Urine 0-4 /hpf; WBC Urine 0-4 /hpf (0-5)
[2024-09-02 10:33] LABS: Add Urine Culture? No; Hyaline Casts Urine 25-40 /lpf
[2024-09-02] MEDS: sodium chloride 0.9% 1,000 ML 999 ML IV (10:57)
--- NOTE | 2024-09-02 11:10 | XR_ITS ---
WS: [id number] Exam: XR chest 1V portable [id number] Date/Time of Exam: 09/02/2024 11:10 AM Reason For Exam: dyspnea/cough Comparison 11/09/2023. The lungs are fully inflated and clear. Mild cardiac enlargement unchanged. No pleural effusions. The mediastinum is normal in contour. Several old left-sided rib fractures are noted. Signs of previous mid thoracic vertebroplasty XR/XR chest 1V portable [id number] IMPRESSION: 1. Mild cardiac enlargement. No acute finding.
--- NOTE | 2024-09-02 11:34 | PC.NURSE ---
PT report took over from Haylee HUTCHINS at 1100.
--- NOTE | 2024-09-02 12:34 | P.CONIM_ITS ---
Providers/Reason For Consult 2 Consulting Physician/Specialty*: Dr. Amish Thomas, DO/General Surgery Reason for Consult*: Abdominal pain nausea and vomiting Primary Care Provider: Melonie Padron MD History of Present Illness History of Present Illness Oanh Quispe is a 78 year old female who presented to the hospital with a 2- month history of epigastric abdominal pain. Palpation makes the pain worse and nothing seems to make the pain better. She does not think it radiates but she normally has back pain. Eating does not make her pain worse. She denies any heartburn. She has never had a colonoscopy. She reports that she has had nausea vomiting and diarrhea for the past week but denies any hematochezia and/or melena. Denies any hematemesis. CT of the abdomen pelvis done a week ago showed enteritis but CT done today does not show anything acute. Review of Systems 2 General: Reports: 10 or more systems reviewed and unremarkable except in HPI and below Medications/Allergies Home Medications Medication Instructions Recorded Confirmed Last Taken Type sodium chloride 1,000 mg soluble 1,000 mg PO BID 30 days #60 tabs 11/15/23 09/02/24 1 Week Ago Rx tablet ~08/19/24 albuterol sulfate 1.25 mg/3 mL 1.25 mg (3 mL) inhalation Q6H PRN 05/27/24 09/02/24 Unknown Rx solution for nebulization shortness of breath or wheezing #90 mL albuterol sulfate 90 mcg/actuation 2 inh inhalation Q6H PRN shortness 05/27/24 09/02/24 Unknown Rx aerosol inhaler of breath or wheezing #6.7 grams carvedilol 6.25 mg tablet 6.25 mg PO BID 90 days #180 tabs 05/27/24 09/02/24 1 Week Ago Rx ~08/19/24 fluticasone 250 mcg-salmeterol 50 1 inh inhalation BID #60 ea 05/27/24 09/02/24 1 Week Ago Rx mcg/dose blistr powdr for ~08/19/24 inhalation (Advair Diskus) furosemide 40 mg tablet 40 mg PO QAM 90 days #90 tabs 05/27/24 09/02/24 1 Week Ago Rx ~08/19/24 hydralazine 25 mg tablet 25 mg PO BID 90 days #180 tabs 05/27/24 09/02/24 1 Week Ago Rx ~08/19/24 hydrocodone 5 mg-acetaminophen 325 1 tab PO Q8H PRN Pain 05/27/24 09/02/24 1 Week Ago History mg tablet ~08/19/24 spironolactone 25 mg tablet 25 mg PO QAM 90 days #90 tabs 05/27/24 09/02/24 1 Week Ago Rx ~08/19/24 tiotropium bromide 18 mcg capsule 1 cap inhalation DAILY 30 days #60 05/27/24 09/02/24 1 Week Ago Rx with inhalation device (Spiriva inhalations ~08/19/24 with HandiHaler) sucralfate 1 gram tablet (Carafate) 1 g PO QID 30 days #120 tabs 08/18/24 09/02/24 1 Week Ago Rx ~08/19/24 apixaban 5 mg tablet 5 mg PO BID 08/26/24 09/02/24 1 Week Ago History ~08/19/24 hydrocodone 5 mg-acetaminophen 325 1 tab PO Q6H PRN pain #20 tabs 08/26/24 09/02/24 Unknown Rx mg tablet pantoprazole 40 mg tablet,delayed 40 mg PO DAILY 4 weeks #30 tabs 08/26/24 09/02/24 Unknown Rx release (Protonix) tamsulosin 0.4 mg capsule 0.4 mg PO DAILY #20 caps 08/26/24 09/02/24 Unknown Rx promethazine 12.5 mg tablet 25 mg PO Q6H PRN Nausea And 09/02/24 09/02/24 Unknown History Vomiting Allergies Allergy/AdvReac Type Severity Reaction Status Date / Time No Known Allergies Allergy Verified 09/02/24 08:10 PFSH Acute 2 PFSH: Medical History Chronic hyponatremia HTN (hypertension) COPD (chronic obstructive pulmonary disease) Chronic heart failure with preserved ejection fraction (HFpEF) Acute respiratory failure Upper respiratory infection Encounter to establish care Emphysema lung Chronic low back pain Tachycardia Surgical History History of kyphoplasty H/O: hysterectomy Social History Smoking and tobacco/nicotine status: current every day tobacco/nicotine user cigarettes Packs smoked per day: 0.2 Years cigarettes smoked: 62 [ Other cigarette details: Smokes maybe once a day] Vitals/I&O/Wt Last Vital Signs Temp 98.5 F 09/02/24 08:10 Pulse 107 H 09/02/24 12:00 Resp 14 09/02/24 12:00 BP 163/79 09/02/24 12:00 Pulse Ox 92 09/02/24 12:00 O2 Del Method Room Air 09/02/24 12:00 09/01/24 09/02/24 09/02/24 22:59 06:59 14:59 Intake Total 0 / 0 Balance 0 / 0 Weight last 48 hrs Weight 112 lb Physical Exam 2 Narrative: General : Patient is well developed , no acute distress, oriented x3 Head : Normal cephalic, a-traumatic. Ears : Pinnae and external canal are normal. Hearing is normal. Eyes : PERRLA, Sclera and injection are normal. No conjunctival discharge. Nose : Mucous membranes are without erythema. Throat : buccal mucosa is normal, gums are without significant recession or hypertrophy. Lungs : Equal chest rise bilaterally, no use of accessory muscles, trachea is midline. Cor : Rate and rhythm are normal. Abdomen : Soft, ND, epigastric tenderness, no g/r/m Extremities : No edema, no cyanosis or clubbing, dorsalis pedis pulses are present bilaterally, non-tender to palpation of calves. Upper extremities are normal bilaterally. Back : non-tender to palpation, no CVA tenderness. Neuro : CN II - XII intact, Upper and lower extremities have equal and full strength Data 09/02/24 08:42 09/02/24 08:42 A&P Assessment and plan (1) Epigastric pain: (2) Anemia: (3) Nausea vomiting and diarrhea: Plan Pantoprazole 40 mg every 12 hours Gallbladder ultrasound Bowel prep Clear liquid diet N.p.o. after 10 AM tomorrow Tomorrow for EGD and colonoscopy The risks and benefits of the procedure, including bleeding, infection, intestinal perforation requiring surgery, missed lesion were explained to the patient. The patient is understanding of the risks and wishes to proceed. Medical management per primary Coding Level of Care Code 89986 Diagnoses Epigastric pain R10.13 Anemia D64.9 Nausea vomiting and diarrhea R11.2; R19.7
--- NOTE | 2024-09-02 12:36 | US_ITS ---
WS: [id number] ULTRASOUND ABDOMEN LIMITED CLINICAL INFORMATION: GALLBLADDER, EPIGASTRIC TENDERNESS COMPARISON: None. FINDINGS: Liver Size: Normal. Craniocaudal length: 13.4 cm. Echogenicity: Coarse Surface nodularity: None. Mass (size and location): None. Bile ducts Intrahepatic ducts: Normal. Common bile duct diameter: 0.4 cm. Gallbladder Cholelithiasis Gallstones: Present Gallbladder sludge: None. Gallbladder wall thickening: None. Pericholecystic fluid: None. Sonographic Olivares sign: Absent. Pancreas Normal as visualized. Right kidney: Normal. Hydronephrosis: None. Size: 7.7 cm x 4.5 cm x 5.0 cm. Abdominal aorta and IVC Visualized portions are normal. Ascites: None. US/US abdomen limited [id number] IMPRESSION: 1. Cholelithiasis. No gallbladder wall thickening or pericholecystic fluid. 2. Mild diffuse fatty infiltration of the liver. 3. No hydronephrosis in the RIGHT kidney. 4. Normal common bile duct.
--- NOTE | 2024-09-02 12:38 | P.HP_ITS ---
Providers/Chief Complaint 2 Admitting Physician: Robby Patel MD Primary Care Provider: Melonie Padron MD Chief Complaint: NVD History of Present Illness Oanh Quispe is a 78 year old female who has had issues with weight loss, abdominal pain mainly epigastric and right upper quadrant, nausea and vomiting for 3 weeks to 4 weeks, to 2 months. She reports no blood in her stool, black or tarry stool, hematemesis. She was significantly anemic, and got a transfusion approximately 1 week ago, 1 unit. She reports she cannot really take her pills, she vomits them. She reports she can drink liquid. Does not really think anything get stuck on the way down. Has had some loose stool associated with this. Review of Systems 2 General: Reports: 10 or more systems reviewed and unremarkable except in HPI and below Const: Denies: fever(s) Card: Denies: chest pain or palpitations Resp: Denies: dyspnea GI: Reports: abdominal pain, nausea and vomiting Medications/Allergies Home Medications Medication Instructions Recorded Confirmed Last Taken Type sodium chloride 1,000 mg soluble 1,000 mg PO BID 30 days #60 tabs 11/15/23 09/02/24 1 Week Ago Rx tablet ~08/19/24 albuterol sulfate 1.25 mg/3 mL 1.25 mg (3 mL) inhalation Q6H PRN 05/27/24 09/02/24 Unknown Rx solution for nebulization shortness of breath or wheezing #90 mL albuterol sulfate 90 mcg/actuation 2 inh inhalation Q6H PRN shortness 05/27/24 09/02/24 Unknown Rx aerosol inhaler of breath or wheezing #6.7 grams carvedilol 6.25 mg tablet 6.25 mg PO BID 90 days #180 tabs 05/27/24 09/02/24 1 Week Ago Rx ~08/19/24 fluticasone 250 mcg-salmeterol 50 1 inh inhalation BID #60 ea 05/27/24 09/02/24 1 Week Ago Rx mcg/dose blistr powdr for ~08/19/24 inhalation (Advair Diskus) furosemide 40 mg tablet 40 mg PO QAM 90 days #90 tabs 05/27/24 09/02/24 1 Week Ago Rx ~08/19/24 hydralazine 25 mg tablet 25 mg PO BID 90 days #180 tabs 05/27/24 09/02/24 1 Week Ago Rx ~08/19/24 hydrocodone 5 mg-acetaminophen 325 1 tab PO Q8H PRN Pain 05/27/24 09/02/24 1 Week Ago History mg tablet ~08/19/24 spironolactone 25 mg tablet 25 mg PO QAM 90 days #90 tabs 05/27/24 09/02/24 1 Week Ago Rx ~08/19/24 tiotropium bromide 18 mcg capsule 1 cap inhalation DAILY 30 days #60 05/27/24 09/02/24 1 Week Ago Rx with inhalation device (Spiriva inhalations ~08/19/24 with HandiHaler) sucralfate 1 gram tablet (Carafate) 1 g PO QID 30 days #120 tabs 08/18/24 09/02/24 1 Week Ago Rx ~08/19/24 apixaban 5 mg tablet 5 mg PO BID 08/26/24 09/02/24 1 Week Ago History ~08/19/24 hydrocodone 5 mg-acetaminophen 325 1 tab PO Q6H PRN pain #20 tabs 08/26/24 09/02/24 Unknown Rx mg tablet pantoprazole 40 mg tablet,delayed 40 mg PO DAILY 4 weeks #30 tabs 08/26/24 09/02/24 Unknown Rx release (Protonix) tamsulosin 0.4 mg capsule 0.4 mg PO DAILY #20 caps 08/26/24 09/02/24 Unknown Rx promethazine 12.5 mg tablet 25 mg PO Q6H PRN Nausea And 09/02/24 09/02/24 Unknown History Vomiting Allergies Allergy/AdvReac Type Severity Reaction Status Date / Time No Known Allergies Allergy Verified 09/02/24 08:10 PFSH Acute 2 PFSH: Medical History Chronic hyponatremia HTN (hypertension) COPD (chronic obstructive pulmonary disease) Chronic heart failure with preserved ejection fraction (HFpEF) Acute respiratory failure Upper respiratory infection Encounter to establish care Emphysema lung Chronic low back pain Tachycardia Surgical History History of kyphoplasty H/O: hysterectomy Social History Smoking and tobacco/nicotine status: current every day tobacco/nicotine user cigarettes Packs smoked per day: 0.2 Years cigarettes smoked: 62 [ Other cigarette details: Smokes maybe once a day] Vitals/I&O/Wt Last Vital Signs Temp 98.5 F 09/02/24 08:10 Pulse 107 H 09/02/24 12:00 Resp 14 09/02/24 12:00 BP 163/79 09/02/24 12:00 Pulse Ox 92 09/02/24 12:00 O2 Del Method Room Air 09/02/24 12:00 09/01/24 09/02/24 09/02/24 22:59 06:59 14:59 Intake Total 0 / 0 Balance 0 / 0 Weight last 48 hrs Weight 50.802 kg Physical Exam 2 Narrative: General exam is a white female, who reports to me she is tired of being sick HEENT: Atraumatic normocephalic. Oropharynx clear Neck is supple no lymphadenopathy thyromegaly Cardiovascular slightly tachycardic when I saw her, irregular, no murmur Lungs clear no wheezing or crackles Abdomen tenderness to palpation epigastric area, more so on the right. No rebound. No obvious organomegaly exam is deferred Extremities no sinus clubbing edema, cap refill brisk Skin no rash Neuro no obvious focal deficits Data 09/02/24 08:42 09/02/24 08:42 Other Labs: LFTs are normal with the exception of alk phos of 165 Magnesium normal Albumin and calcium normal Lactic acid normal TSH which I ordered is normal Lipase is normal Urinalysis 0-4 whites Gallbladder ultrasound ordered by surgeon demonstrates cholelithiasis Chest x-ray which I reviewed no infiltrate CT read as no acute abnormality. There is now an addendum, which I was not called on, which says there may be some celiac axis and superior mesenteric artery atherosclerotic with dense plaque and consider CTA. EKG which I reviewed demonstrated sinus tachycardia, normal axis Echo in October demonstrated poor quality, mild to moderate MR, grade 2 diastolic dysfunction A&P Assessment and plan (1) Abdominal pain: Patient presents with longstanding abdominal pain. She has had nausea and vomiting. She has had weight loss She has recently had had a bout with anemia and received a unit of blood approximately 1 week ago Hemoglobin is stable today Check stool Hemoccult Surgery consult for possible endoscopy, EGD and colonoscopy tomorrow Lactate is normal There is some concern about atherosclerosis in the region of her celiac axis and SMA. CTA could be performed. Will discuss with surgery and the patient. Will go ahead and provide hydration secondary to this concern but concerned with full anticoagulation considering her epigastric discomfort and recent anemia. She could also have an ulcer explaining her symptoms. Discussed briefly with surgeon. Consider CTA tomorrow, after hydration and procedure as she is already had some contrast today Protonix 40 mg IV every 12 hours Secondary to concern of possible atherosclerosis in the celiac axis and SMA will hydrate cautiously Zofran for nausea Gallbladder ultrasound does show cholelithiasis. Will allow surgeon to comment on whether intervention should occur regarding this. (2) Anemia: Repeat CBC tomorrow SCDs for DVT prophylaxis Anticoagulation contraindicated secondary to recent blood transfusion Check stool Hemoccult (3) Diarrhea: Stool cultures Check C. difficile No evidence of infectious colitis on last CT Plan Multiple other medical problems as outlined in by past medical history Full code currently SCDs for DVT prophylaxis, no anticoagulation secondary to recent severe anemia requiring transfusion Attestations 2 Medical Necessity Statement*: Observation currently. Potentially will need less than 2 midnight stay for evaluation and treatment of abdominal pain Diagnoses Abdominal pain R10.9 Anemia D64.9 Diarrhea R19.7 Time Spent (min) 57
[2024-09-02] MEDS: potassium chloride oral liq 20 mEq/15 mL UDC 40 MEQ PO (12:46)
[2024-09-02 12:50] LABS: Lactic Sepsis W/Reflex 1.3 mmol/L (0.5-2.2)
[2024-09-02 13:09] LABS: Magnesium 1.9 mg/dL (1.7-2.3); Thyroid Stimulating Hormone 1.83 uIU/mL (0.27-4.20)
[2024-09-02] MEDS: metoclopramide 5 mg/mL SDV 2 mL 10 MG IVP (14:04)
[2024-09-02] MEDS: morphine 4 mg/mL SDV 1 mL 2 MG IVP ×3 (14:05→21:01)
[2024-09-02] MEDS: bisacodyl 5 mg Tablet 20 MG PO (15:08)
[2024-09-02] MEDS: magnesium citrate Btl 296 mL PO (15:08)
[2024-09-02] MEDS: pantoprazole 40 mg SDV IVP (15:08)
[2024-09-02] MEDS: hyDRALAzine 25 mg Tablet PO (16:58)
[2024-09-02] MEDS: carvedilol 6.25 mg Tablet PO (16:58)
[2024-09-02] MEDS: sodium chloride 0.9% 1,000 ML 50 ML IV (16:58)
[2024-09-02 18:34] LABS: C.Diff PCR (Lab) NEGATIVE (Negative)
[2024-09-03] VITALS (20 sets, daily range): BP systolic 128–167; BP diastolic 63–87; PULSE 81–99; RESP 14–20; TEMP 36.3–36.7; O2SAT 90–100
[2024-09-03] MEDS: morphine 4 mg/mL SDV 1 mL 2 MG IVP ×5 (01:03→23:09)
[2024-09-03] MEDS: pantoprazole 40 mg SDV IVP (02:19)
--- NOTE | 2024-09-03 02:24 | PC.NURSE ---
PT REFUSED TO DRINK SECOND BOTTLE OF MAGNESIUM CITRATE. THIS RN EXPLAINED THE IMPORTANCE OF THE BOWEL PREP IN ORDER TO BE ABLE TO COMPLETE THE EGD/COLONSCOPY. PT VERBALIZED UNDERSTANDING, I AM MISERABLE AND I HAVE BEEN MISERABLE. I DO NOT WANT TO DRINK ANYMORE OF THAT STUFF AND I AM NOT GOING TO. PT WAS ABLE TO DRINK ALL OF THE FIRST BOTTLE AND HAS BEEN ON THE TOILET THE MAJORITY OF THIS RNS SHIFT. PTS STOOL IS CLEARING UP, HOWEVER THERE ARE STILL MUSHY PIECES VISIBLE. THIS RN ENCOURAGED THE PT TO AT LEAST DRINK HALF THE BOTTLE AND PT REFUSED, I JUST WANT TO BE ABLE TO GET SOME SLEEP TONIGHT AND NOT BE ON THE TOILET ALL NIGHT. THIS RN WCTM TIL THE END OF THIS RNS SHIFT.
[2024-09-03] MEDS: ondansetron 2 mg/ML SDV 2 mL 4 MG IVP ×2 (06:20→19:12)
[2024-09-03 06:29] LABS: Basophils # 0.1 10^3/uL (0.0-0.1); Basophils % 0.3 %; Hematocrit 37.4 % (36-47); Lymphocytes # 2.1 10^3/uL (0.8-4.8); Mean Corpuscular HGB Conc 30.2 g/dL (30-55); Mean Corpuscular Hemoglobin 27.4 pg (27-33); Mean Corpuscular Volume 90.8 fl (85-98); Mean Platelet Volume 10.3 fL (7.4-10.4); Monocytes # 1.4 10^3/uL (0.2-0.9); Monocytes % 4.7 %; Neutrophils # 26.04 10^3/uL (1.8-7.7); Nucleated Red Blood Cells % 0 %; Platelet Count 721 10^3/cmm (157-399); Red Blood Count 4.12 10^6/uL (3.85-5.65); Red Cell Distribution Width 16.2 % (12.1-15.1)
[2024-09-03 06:48] LABS: Alanine Aminotransferase 10 U/L (0-33); Albumin Level 3.9 g/dL (3.5-5.2); Alkaline Phosphatase 189 U/L (35-105); Anion Gap 19.5 (5-19); Aspartate Amino Transferase 16 U/L (0-32); Blood Urea Nitrogen 15 mg/dL (8-23); Calcium 10.3 mg/dL (8.5-10.5); Carbon Dioxide 21 mmol/L (22-29); Chloride 98 mmol/L (98-107); Creatinine Clr Calc Pharmacy 37.4707; Globulin 3.6 g/dL (1.3-4.6); Glucose 114 mg/dL (65-115); Magnesium 3.4 mg/dL (1.7-2.3); Osmolality Calculated 282 mOsm/kg (285-295); Potassium 3.5 mmol/L (3.5-5.1); Sodium 135 mmol/L (136-145); Total Bilirubin 0.3 mg/dL (0.15-1.2); Total Protein 7.5 g/dL (6.6-8.7)
[2024-09-03 07:04] LABS: White Blood Count 30.29 10^3/uL (3.29-11.43)
--- NOTE | 2024-09-03 07:20 | CT_ITS ---
WS: [id number] CT ANGIOGRAPHY abdomen pelvis HISTORY: abnormal CT, concern of SMA/celiac axis stenosis TECHNIQUE: CT angiogram is performed during IV injection. Reformation images reviewed. All CT scans a [employer] use at least one of these dose optimization techniques: automated exposure contro l; mA and/or kV adjustment per patient size (includes targeted exams where dose is matched to clinica l indication); or iterative reconstruction. CONTRAST: Omnipaque 350; 100 mL IV. DLP: 343.60 mGy.cm COMPARISON: 08/26/2024, 09/02/2024 Emphysematous changes at the lung bases. Mild dependent changes. No dense consolidation or pneumonia. Marked enlargement of the heart, greatest involving the LEFT heart chambers. Abdominal aorta: Good contrast opacification of the abdominal aorta. There is extensive atherosclerot ic plaque within the aorta. Noncontrast evaluation from 08/26/2024 is also utilized to evaluate the de nse calcified plaque within the aorta. No aneurysmal dilatation. Largest distribution of calcified pl aque is near the origin of the SMA and celiac axis and also the renal arteries. Heavy calcification c ontinues through the bifurcation into the iliac arteries. Celiac axis: Short segment of no contrast opacification involving the origin and proximal celiac axis . There is densely calcified plaque. There is contrast identified more distally in the hepatic artery and the splenic artery but these are small caliber with scattered atherosclerotic plaque. No splenic or hepatic infarcts. SMA: Dense calcified plaque. There is a short segment of noncontrast opacification of the proximal SM A. Contrast then returns slightly distal to the origin. There may be a string sign or this is flow fr om collateral vessels. Renal arteries: Bilateral calcified plaque. Moderate stenosis bilaterally. Kidneys are enhancing norm ally. ASHLEE: Patent. ASHLEE arises from a dense calcified aortic plaque. Unremarkable liver and spleen on this early arterial enhancement exam. Mild atrophy of the pancreas. Mild hyperplasia of the adrenal glands. Possible small RIGHT adrenal adenoma. No GI tract obstruction . No ascites. No adenopathy. No ischemic changes are identified in the GI tract. Negative urinary ani dder. CT/CT angio abdomen pelvis [id number] IMPRESSION: 1. Advanced atherosclerosis throughout the abdominal aorta and extending into the mesenteric arteries. 2. 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 The distal hepatic and splenic arteries are heavily calcified with luminal irregula rity. No infarct in the spleen or liver. 3. 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 He avily calcified plaque. Distal to the origin the SMA does contain flow. No isch emic changes in the GI tract. 4. Moderate plaque with stenosis renal arteries.
[2024-09-03] MEDS: piperacillin-tazobactam 3.375 GM in sodium chloride 0.9% (plus) 50 ML IV ×2 (07:23→23:11)
[2024-09-03] MEDS: iohexol 350 mg/mL 500 mL Btl (per mL) IV (08:38)
--- NOTE | 2024-09-03 09:27 | PC.CHAP ---
Pastoral Care Encounter/Spiritual Assessment Type of Contact [] Declined cage maker visit [] Patient/Family/Request visit [] Outpatient visit [] Follow-up visit [] Physician referral [] Code/Alert [] Routine visit [] Staff referral [] Actively dying [] Patient sleeping [] Family support [] [x] Out of room [] Palliative care [] [] Receiving care in room [] Pre-surgical visit [] Trauma [] Long length of stay [] ICU visit [] Other: Relational/Emotional Strength [] Patient feels connected with others/family/visitors/staff [] Distress [] Loneliness/isolation [] Abandonment Spirituality of Patient [] Person of Evelyne [] Attends Zoroastrian of their Evelyne [] Believes in Prayer [] Reads Bible or Congregation materials [] There are Spiritual issues to be addressed Machine Scallop Cutter Interventions [] Prayer [] Active listening [] Non-anxious presence [] Spiritual/emotional support [] Crisis/trauma care [] Spiritual counseling [] Bereavement support [] Provided bereavement packet [] Provided Bible/devotional materials [] Provided toy/stuffed animal, coloring book to patient or family member [] Provided Communion [] Anointing/[place] [] Salvation [] Completed spiritual assessment [] Other: Impact on Illness or Injury [] Angry [] Fearful [] Anxious [] Often cries [] Exhaustion [] Unable to work [] Unable to attend yazidism [] Unable to walk/stand [] Unable to read [] Unable to drive [] Unable to eat/drink [] Unable to sleep [] Unable to be with family [] Patient intubated [] Other: Summary Time spent with patient
[2024-09-03] MEDS: tamsulosin 0.4 mg Capsule PO (09:37)
[2024-09-03] MEDS: sodium chloride 0.9% 1,000 ML 100 ML IV ×2 (09:37→23:10)
[2024-09-03] MEDS: carvedilol 6.25 mg Tablet PO (09:37)
[2024-09-03] MEDS: hyDRALAzine 25 mg Tablet PO (09:37)
--- NOTE | 2024-09-03 10:21 | P.PN_ITS ---
Subjective 2 Subjective: Still has some abdominal pain but feels little bit better after some morphine. White blood cell count went up overnight. With preparation for colonoscopy she has had some blood-tinged stool. Medications: Reviewed: Yes Vitals/I&O/Wt Last Vital Signs Temp 97.8 F 09/03/24 07:35 Pulse 94 09/03/24 07:35 Resp 14 09/03/24 07:35 BP 153/76 09/03/24 07:35 Pulse Ox 95 09/03/24 07:35 O2 Del Method Room Air 09/03/24 07:35 09/02/24 09/03/24 09/03/24 22:59 06:59 14:59 Intake Total 240 / 1240 360 / 1600 936.666 / 936.666 Balance 240 / 1240 360 / 1600 936.666 / 936.666 Weight last 48 hrs Weight 50.802 kg Weight 50.802 kg Physical Exam 2 Narrative: General Reports some abdominal discomfort that is improved after morphine Neck is supple no lymphadenopathy thyromegaly Cardiovascular slightly tachycardic when I saw her, irregular, no murmur Lungs clear no wheezing or crackles Abdomen still some upper extremity tenderness but no apparent rebound exam is deferred Extremities no sinus clubbing edema, cap refill brisk Data 09/03/24 05:55 09/03/24 05:55 Micro: Microbiology 09/02/24 17:05 Occult Blood (FIT) - Final Stool A&P Assessment and plan (1) Abdominal pain: Patient presents with longstanding abdominal pain. She has had nausea and vomiting. She has had weight loss She has recently had had a bout with anemia and received a unit of blood approximately 1 week ago Hemoglobin is stable today Has had blood in stool Surgery consult for possible endoscopy, EGD and colonoscopy. This is planned today Lactate was normal on admission. Repeat today There is some concern about atherosclerosis in the region of her celiac axis and SMA. CTA could be performed. Will discuss with surgery and the patient. Will go ahead and provide hydration secondary to this concern but concerned with full anticoagulation considering her epigastric discomfort and recent anemia. She could also have an ulcer explaining her symptoms. Discussed briefly with surgeon. CTA will be performed today. She is being hydrated. Continue Protonix 40 mg IV every 12 hours Zofran for nausea Gallbladder ultrasound does show cholelithiasis. Will allow surgeon to comment on whether intervention should occur regarding this. Fluids increased to 100 cc an hour (2) Anemia: Repeat CBC tomorrow Hemoglobin currently stable SCDs for DVT prophylaxis Anticoagulation contraindicated secondary to recent blood transfusion. Await CT results, CTA being done today. May have to consider full anticoagulation, if significant stenosis, thrombus. Has had some blood in stool overnight (3) Diarrhea: Stool cultures pending C. difficile negative No evidence of infectious colitis on last CT Secondary to increasing white blood cell count Zosyn initiated empirically. Plan Multiple other medical problems as outlined in by past medical history Full code currently SCDs for DVT prophylaxis, no anticoagulation secondary to recent severe anemia requiring transfusion Attestations 2 Medical Necessity Statement*: Needs continued hospital stay secondary to continued abdominal pain, increasing white blood cell count, need for investigation with EGD colonoscopy and CTA Diagnoses Abdominal pain R10.9 Anemia D64.9 Diarrhea R19.7 Time Spent (min) 24
[2024-09-03 11:36] LABS: Lactate (Lactic Acid level) 1.4 mmol/L (0.5-2.2)
--- NOTE | 2024-09-03 12:04 | PC.SOCIAL ---
IMM Update Pg. 2 of IMM updated. Initialed, dated, and timed, copy provided at bedside.
--- NOTE | 2024-09-03 14:52 | PC.NURSE ---
1430-Pt to GI lab at this time.
--- NOTE | 2024-09-03 14:53 | P.ANESASSM_ITS ---
Pre-Anesthetic Assessment Height/Weight: Height 5 ft 2 in Weight 112 lb Temp Pulse Resp BP Pulse Ox O2 Del Method 97.8 F 92 16 134/77 94 Room Air 09/03/24 11:46 09/03/24 14:00 09/03/24 11:46 09/03/24 11:46 09/03/24 11:46 09/03/24 11:46 Preop Diagnosis: Persistent abdominal pain Operation Date: 09/03/24 13:45 Proposed Procedures p EGD(Not Applicable) - Amish Thomas DO s Colonoscopy(Not Applicable) - Amish Thomas DO Was Beta Felecia taken within 24 hours: N/A Was Clonidine taken within 24 hours: N/A Social Tobacco and No alcohol Exam alert, oriented x 3, clear to auscultation bilaterally and regular rate & rhythm Airway Submandibular: within normal limits Cervical ROM: within normal limits Mallampati: Class II Dentition: false Anesthetic Plan ASA status: 3 Anesthesia: MAC Other: Patient presents with persistent abdominal pain as well as vomiting and diarrhea NPO for the last 4 days History of COPD on inhalers and 2 L O2 at nighttime Hypertension on spironolactone and carvedilol Prior echo showing EF 55 to 60% with no wall motion abnormalities EKG showing sinus tachycardia with short MA interval Plan for MAC anesthetic Medications/Allergies Home Medications Medication Instructions Recorded Confirmed Last Taken Type sodium chloride 1,000 mg soluble 1,000 mg PO BID 30 days #60 tabs 11/15/23 09/02/24 1 Week Ago Rx tablet ~08/19/24 albuterol sulfate 1.25 mg/3 mL 1.25 mg (3 mL) inhalation Q6H PRN 05/27/24 09/02/24 Unknown Rx solution for nebulization shortness of breath or wheezing #90 mL albuterol sulfate 90 mcg/actuation 2 inh inhalation Q6H PRN shortness 05/27/24 09/02/24 Unknown Rx aerosol inhaler of breath or wheezing #6.7 grams carvedilol 6.25 mg tablet 6.25 mg PO BID 90 days #180 tabs 05/27/24 09/02/24 1 Week Ago Rx ~08/19/24 fluticasone 250 mcg-salmeterol 50 1 inh inhalation BID #60 ea 05/27/24 09/02/24 1 Week Ago Rx mcg/dose blistr powdr for ~08/19/24 inhalation (Advair Diskus) furosemide 40 mg tablet 40 mg PO QAM 90 days #90 tabs 05/27/24 09/02/24 1 Week Ago Rx ~08/19/24 hydralazine 25 mg tablet 25 mg PO BID 90 days #180 tabs 05/27/24 09/02/24 1 Week Ago Rx ~08/19/24 hydrocodone 5 mg-acetaminophen 325 1 tab PO Q8H PRN Pain 05/27/24 09/02/24 1 Week Ago History mg tablet ~08/19/24 spironolactone 25 mg tablet 25 mg PO QAM 90 days #90 tabs 05/27/24 09/02/24 1 Week Ago Rx ~08/19/24 tiotropium bromide 18 mcg capsule 1 cap inhalation DAILY 30 days #60 05/27/24 09/02/24 1 Week Ago Rx with inhalation device (Spiriva inhalations ~08/19/24 with HandiHaler) sucralfate 1 gram tablet (Carafate) 1 g PO QID 30 days #120 tabs 08/18/24 09/02/24 1 Week Ago Rx ~08/19/24 apixaban 5 mg tablet 5 mg PO BID 08/26/24 09/02/24 1 Week Ago History ~08/19/24 hydrocodone 5 mg-acetaminophen 325 1 tab PO Q6H PRN pain #20 tabs 08/26/24 09/02/24 Unknown Rx mg tablet pantoprazole 40 mg tablet,delayed 40 mg PO DAILY 4 weeks #30 tabs 08/26/24 09/02/24 Unknown Rx release (Protonix) tamsulosin 0.4 mg capsule 0.4 mg PO DAILY #20 caps 08/26/24 09/02/24 Unknown Rx promethazine 12.5 mg tablet 25 mg PO Q6H PRN Nausea And 09/02/24 09/02/24 Unknown History Vomiting Allergies Allergy/AdvReac Type Severity Reaction Status Date / Time No Known Allergies Allergy Verified 09/02/24 08:10 Current Medications Generic Name Dose Route Start Last Admin Trade Name Freq PRN Reason Stop Dose Admin Carvedilol 6.25 mg 09/02/24 18:00 09/03/24 09:37 Carvedilol 6.25 Mg Tablet PO 6.25 mg BID BIANCA Administration Hydralazine HCl 25 mg 09/02/24 18:00 09/03/24 09:37 Hydralazine 25 Mg Tablet PO 25 mg BID BIANCA Administration Sodium Chloride 1,000 mls @ 100 mls/hr 09/02/24 16:45 09/03/24 09:37 Sodium Chloride 0.9% IV 100 mls/hr .Q10H BIANCA Administration Piperacillin Sod/Tazobactam 50 mls @ 12.5 mls/hr 09/03/24 07:15 09/03/24 11:38 Sod 3.375 gm/ Sodium Chloride IV Infused Q8H BIANCA Infusion Protocol Morphine Sulfate 2 mg 09/02/24 14:46 09/03/24 11:09 Morphine 4 Mg/Ml Sdv 1 Ml IVP 2 mg Q4H PRN Administration SEVERE PAIN Ondansetron HCl 4 mg 09/02/24 14:46 09/03/24 06:20 Ondansetron 2 Mg/Ml Sdv 2 Ml IVP 4 mg Q6H PRN Administration NAUSEA AND VOMITING Pantoprazole Sodium 40 mg 09/02/24 14:46 09/03/24 02:19 Pantoprazole 40 Mg Sdv IVP 40 mg Q12H BIANCA Administration Tamsulosin HCl 0.4 mg 09/03/24 09:00 09/03/24 09:37 Tamsulosin 0.4 Mg Capsule PO 0.4 mg DAILY BIANCA Administration PFSH Anesthesia Medical History Chronic hyponatremia HTN (hypertension) COPD (chronic obstructive pulmonary disease) Chronic heart failure with preserved ejection fraction (HFpEF) Acute respiratory failure Upper respiratory infection Encounter to establish care Emphysema lung Chronic low back pain Tachycardia Surgical History History of kyphoplasty H/O: hysterectomy Social History Smoking and tobacco/nicotine status: current every day tobacco/nicotine user cigarettes Packs smoked per day: 0.2 Years cigarettes smoked: 62 [ Other cigarette details: Smokes maybe once a day] Data Anesthesia 09/03/24 05:55 09/03/24 05:55 Short CBC 09/02/24 09/03/24 Range/Units 08:42 05:55 WBC 18.25 H 30.29 H* (3.29-11.43) 10^3/uL Hgb 10.40 L 11.30 (11.27-16.99) g/dL Hct 33.2 L 37.4 (36-47) % MCV 86.5 90.8 (85-98) fl Plt Count 751 H 721 H (157-399) 10^3/cmm Neut % (Auto) 83.7 86.0 % Neut # (Auto) 15.27 H 26.04 H (1.8-7.7) 10^3/uL BMP 09/02/24 09/03/24 08:42 05:55 Sodium 135 L 135 L Potassium 3.2 L 3.5 Chloride 95 L 98 Carbon Dioxide 22 21 L BUN 18 15 Creatinine 1.2 H 1.0 H Glucose 113 114 Calcium 9.8 10.3 Liver Function 09/02/24 09/03/24 Range/Units 08:42 05:55 Total Bilirubin 0.3 0.3 (0.15-1.2) mg/dL AST 14 16 (0-32) U/L ALT 10 10 (0-33) U/L Alkaline Phosphatase 165 H 189 H (35-105) U/L Albumin 3.6 3.9 (3.5-5.2) g/dL Urine 09/02/24 Range/Units 09:27 Urine Color Yellow (Yellow) Urine Appearance Clear (CLEAR) Urine pH 5.5 (5-7) Ur Specific [place] 1.019 (1.005-1.030) Urine Protein 1+ A (Negative) Urine Glucose (UA) Negative (Normal) Urine Ketones 1+ H (Negative) Urine Nitrate Negative (Negative) Urine Bilirubin Negative (Negative) Ur Leukocyte Esterase Negative (Negative) Urine RBC None (0-2) /hpf Urine WBC 0-4 H (0-5) /hpf Microbiology 09/03/24 11:00 Blood Culture - Preliminary Blood SPECIMEN COLLECTED 09/03/24 11:05 Blood Culture - Preliminary Blood SPECIMEN COLLECTED 09/02/24 17:05 Occult Blood (FIT) - Final Stool Cardiac Studies: 2 Echocardiogram 11/10/23
[2024-09-03] MEDS: sodium chloride 0.9% 500 ML 15 ML IV (15:04)
--- NOTE | 2024-09-03 15:11 | P.PN_ITS ---
Vitals/I&O/Wt Last Vital Signs Temp 97.3 F L 09/03/24 15:04 Pulse 93 09/03/24 15:04 Resp 16 09/03/24 15:04 BP 145/78 09/03/24 15:04 Pulse Ox 94 09/03/24 15:04 O2 Del Method Room Air 09/03/24 15:04 09/03/24 09/03/24 09/03/24 06:59 14:59 22:59 Intake Total 360 / 1600 986.666 / 986.666 Balance 360 / 1600 986.666 / 986.666 Weight last 48 hrs Weight 112 lb Weight 112 lb Data 09/03/24 05:55 09/03/24 05:55 Micro: Microbiology 09/03/24 11:00 Blood Culture - Preliminary Blood SPECIMEN COLLECTED 09/03/24 11:05 Blood Culture - Preliminary Blood SPECIMEN COLLECTED 09/02/24 17:05 Occult Blood (FIT) - Final Stool A&P Assessment and plan (1) Epigastric pain: (2) Anemia: (3) Nausea vomiting and diarrhea: Plan Pantoprazole 40 mg every 12 hours EGD and colonoscopy The risks and benefits of the procedure, including bleeding, infection, intestinal perforation requiring surgery, missed lesion were explained to the patient. The patient is understanding of the risks and wishes to proceed. Medical management per primary Attestations 2 Medical Necessity Statement*: Per primary Coding Level of Care Code Acute Code for Chg Fwd Diagnoses Epigastric pain R10.13 Anemia D64.9 Nausea vomiting and diarrhea R11.2; R19.7
--- NOTE | 2024-09-03 16:01 | ANE.PACU2 ---
Inpatient post-anesthesia follow up: Airway intact: Yes Vital signs: Temperature 98.0 F Pulse Rate 93 Respiratory Rate 18 Blood Pressure 151/75 Pulse Oximetry 90 Oxygen Delivery Me thod [ Nasal Cannula Current Rate & Del jeff] Oxygen Delivery Me thod Nasal Cannula Oxygen Flow Rate [ Current Rate 2 & Delivery] Oxygen Flow Rate 2 Fraction of Inspir ed Oxygen Hydration adequate: Yes Nausea and vomiting: No Pain level: 2 Mental status: Baseline
[2024-09-03] MEDS: heparin drip 25,000 UNIT/500 ML PREMIX 15 UNIT IV (16:33)
[2024-09-03] MEDS: HYDROmorphone 1 mg/mL INJ 1 mL IVP (16:34)
[2024-09-03] MEDS: heparin 5,000 unit/mL INJ 1 mL IVP (16:34)
--- NOTE | 2024-09-03 18:18 | PM.TDS ---
Transfer Summary Providers Date of Admission: 09/03/24 07:20 Date of Discharge/Transfer: 09/03/24 Attending Provider at Admission: Robby Patel MD Attending Provider at Transfer: Robby Patel MD Primary Care Provider: Melonie Padron MD Transfer Plans: Anticipated date of transfer: 09/03/24. Diagnoses at Discharge Discharge Diagnosis (1) Epigastric pain: Status: Acute (2) Anemia: Status: Acute (3) Nausea vomiting and diarrhea: Status: Acute Reason for Visit Reason for Visit NVD Hospital Course Hospital Course Admitted with abdominal pain 1-3 months of duration with nausea and vomiting. Recent anemia and transfusion 1 week ago. Lactate normal. 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 Following day EGD and colon planned with surgery. 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 ischemic gastritis noted. Colonoscopy showed ischemic changes right colon. Arranged for family to transfer for possibility of revascularization. Arranged to go to [facility] under care of Dr. Luevano. Patient in stable but serious condition at transfer. See noted done earlier today. Exam unchanged. Vital signs stable. Physical Exam Narrative: Vital signs stable CV RRR without murmur Lungs clear Abdomen soft. Some TTP EXT no c/c/e TS Data Studies Completed and Pending Pending at discharge Category Date Time Status Blood Culture Stat Lab 09/03/24 11:00 Results CBC Auto Diff [Complete Blood Count w/Auto] AM LABS Lab 09/04/24 04:00 Ordered CMP [Comprehensive Metabolic Panel] AM LABS Lab 09/04/24 04:00 Ordered PTT [Partial Thromboplastin Time] Routine Lab 09/03/24 23:00 Ordered Platelet Count Q2D Lab 09/05/24 04:00 Ordered Platelet Count Q2D Lab 09/07/24 04:00 Ordered Stool Culture - Enteric [Salmonella / Shigella / Campy] Lab 09/02/24 17:05 Received Routine Pathology: Surgical [PTH] Routine Pth 09/03/24 15:47 Ordered Completed Studies During Hospitalization Category Date Time Status CT abdomen pelvis w con* [id number] Stat Cat Scan 09/02/24 08:43 Completed CTA abdomen pelvis [CT angio abdomen pelvis [id number]] Cat Scan 09/03/24 07:20 Completed Routine XR chest 1V portable [id number] Stat Exams 09/02/24 11:10 Completed US abdomen limited [id number] Stat Ultrasound 09/02/24 12:36 Completed Laboratory Last Values WBC 30.29 10^3/uL (3.29-11.43) H* 09/03/24 05:55 RBC 4.12 10^6/uL (3.85-5.65) 09/03/24 05:55 Hgb 11.30 g/dL (11.27-16.99) 09/03/24 05:55 Hct 37.4 % (36-47) 09/03/24 05:55 MCV 90.8 fl (85-98) 09/03/24 05:55 MCH 27.4 pg (27-33) 09/03/24 05:55 MCHC 30.2 g/dL (30-55) 09/03/24 05:55 RDW 16.2 % (12.1-15.1) H 09/03/24 05:55 Plt Count 721 10^3/cmm (157-399) H 09/03/24 05:55 MPV 10.3 fL (7.4-10.4) 09/03/24 05:55 Neut % (Auto) 86.0 % 09/03/24 05:55 Lymph % (Auto) 7.0 % 09/03/24 05:55 [place] % (Auto) 4.7 % 09/03/24 05:55 Eos % (Auto) 0.0 % 09/03/24 05:55 Baso % (Auto) 0.3 % 09/03/24 05:55 Neut # (Auto) 26.04 10^3/uL (1.8-7.7) H 09/03/24 05:55 Lymph # (Auto) 2.1 10^3/uL (0.8-4.8) 09/03/24 05:55 [place] # (Auto) 1.4 10^3/uL (0.2-0.9) H 09/03/24 05:55 Eos # (Auto) 0.0 10^3/uL (0.0-0.8) 09/03/24 05:55 Baso # (Auto) 0.1 10^3/uL (0.0-0.1) 09/03/24 05:55 Nucleated RBC % (auto) 0 % 09/03/24 05:55 Nucleated RBCs # 0.0 /100WBC 09/03/24 05:55 Sodium 135 mmol/L (136-145) L 09/03/24 05:55 Potassium 3.5 mmol/L (3.5-5.1) 09/03/24 05:55 Chloride 98 mmol/L (98-107) 09/03/24 05:55 Carbon Dioxide 21 mmol/L (22-29) L 09/03/24 05:55 Anion Gap 19.5 (5-19) H 09/03/24 05:55 BUN 15 mg/dL (8-23) 09/03/24 05:55 Creatinine 1.0 mg/dL (0.5-0.9) H 09/03/24 05:55 GFR Calculation Not Reportable 09/03/24 05:55 Glucose 114 mg/dL (65-115) 09/03/24 05:55 Calculated Osmolality 282 mOsm/kg (285-295) L 09/03/24 05:55 Lactic Acid 1.3 mmol/L (0.5-2.2) 09/02/24 12:21 Lactate 1.4 mmol/L (0.5-2.2) 09/03/24 11:05 Calcium 10.3 mg/dL (8.5-10.5) 09/03/24 05:55 Magnesium 3.4 mg/dL (1.7-2.3) H 09/03/24 05:55 Total Bilirubin 0.3 mg/dL (0.15-1.2) 09/03/24 05:55 AST 16 U/L (0-32) 09/03/24 05:55 ALT 10 U/L (0-33) 09/03/24 05:55 Alkaline Phosphatase 189 U/L (35-105) H 09/03/24 05:55 Total Protein 7.5 g/dL (6.6-8.7) 09/03/24 05:55 Albumin 3.9 g/dL (3.5-5.2) 09/03/24 05:55 Globulin 3.6 g/dL (1.3-4.6) 09/03/24 05:55 Lipase 21 U/L (13-60) 09/02/24 08:42 TSH 1.83 uIU/mL (0.27-4.20) 09/02/24 08:42 Urine Color Yellow (Yellow) 09/02/24 09:27 Urine Appearance Clear (CLEAR) 09/02/24 09:27 Urine pH 5.5 (5-7) 09/02/24 09:27 Ur Specific [place] 1.019 (1.005-1.030) 09/02/24 09:27 Urine Protein 1+ (Negative) A 09/02/24 09:27 Urine Glucose (UA) Negative (Normal) 09/02/24 09:27 Urine Ketones 1+ (Negative) H 09/02/24 09:27 Urine Blood Negative (Negative) 09/02/24 09:27 Urine Nitrate Negative (Negative) 09/02/24 09: Urine Bilirubin Negative (Negative) 09/02/24 09:27 Urine Urobilinogen 1.0 mg/dL (Negative) 09/02/24 09:27 Ur Leukocyte Esterase Negative (Negative) 09/02/24 09:27 Urine RBC None /hpf (0-2) 09/02/24 09:27 Urine WBC 0-4 /hpf (0-5) H 09/02/24 09:27 Ur Squamous Epith Cells None /hpf (0-5) 09/02/24 09:27 Ur Transition Epith Cell 0-4 /hpf 09/02/24 09:27 Amorphous Sediment Not Reportable 09/02/24 09:27 Urine Bacteria None /hpf (NONE) 09/02/24 09:27 Hyaline Casts 25-40 /lpf H 09/02/24 09:27 Urine Mucus 1+ /hpf 09/02/24 09:27 C. difficile (PCR) Negative (Negative) 09/02/24 17:05 Radiology Impressions Abdomen/Pelvis CT 09/02/24 08:43 IMPRESSION: No acute abnormality. COMMENTS: Consistent with the [place]'s Incidental Findings Committee white paper (J Am Ailyn Radiol 2018): Any incidental renal lesion less than 1 cm or classified as too small to characterize, or any incidental cystic renal lesion characterized as simple-appearing, is likely benign. No follow-up imaging is recommended for these lesions per consensus recommendations based on imaging criteria. ADDENDUM: 09/02/24 1058 Addendum: There is extensive atherosclerotic plaque of the abdominal aorta. This appears to involve the origin of the celiac axis and SMA. There is probably significant stenosis at the origin of the SMA but the images was not tailored to optimally visualize the arterial system. Consider a CTA of the abdomen with special attention to the SMA for further evaluation. Chest X-Ray 09/02/24 11:10 IMPRESSION: 1. Mild cardiac enlargement. No acute finding. Abdomen Ultrasound 09/02/24 12:36 IMPRESSION: 1. Cholelithiasis. No gallbladder wall thickening or pericholecystic fluid. 2. Mild diffuse fatty infiltration of the liver. 3. No hydronephrosis in the RIGHT kidney. 4. Normal common bile duct. Abdomen/Pelvis CTA 09/03/24 07:20 IMPRESSION: 1. Advanced atherosclerosis throughout the abdominal aorta and extending into the mesenteric arteries. 2. 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 The distal hepatic and splenic arteries are heavily calcified with luminal irregularity. No infarct in the spleen or liver. 3. 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 Heavily calcified plaque. Distal to the origin the SMA does contain flow. No ischemic changes in the GI tract. 4. Moderate plaque with stenosis renal arteries. Recent Clincial Data Last Vital Signs Temp 98.1 F 09/03/24 16:25 Pulse 81 09/03/24 17:56 Resp 14 09/03/24 17:37 BP 149/78 09/03/24 17:37 Pulse Ox 96 09/03/24 17:56 O2 Del Method Nasal Cannula 09/03/24 17:56 O2 Flow Rate 2 09/03/24 17:56 Vital Signs Temp Pulse Resp BP Pulse Ox O2 Del Method O2 Del Method 09/03/24 17:56 81 96 Nasal Cannula 09/03/24 17:37 83 14 149/78 95 Nasal Cannula 09/03/24 17:25 83 14 149/78 95 Nasal Cannula 09/03/24 16:55 83 14 148/79 90 Room Air 09/03/24 16:34 18 09/03/24 16:25 98.1 F 89 17 167/87 91 Room Air 09/03/24 15:57 87 20 H 144/84 98 Room Air 09/03/24 15:42 97.4 F L 81 20 H 128/63 100 Nasal Cannula 09/03/24 15:04 97.3 F L 93 16 145/78 94 Room Air 09/03/24 14:00 92 09/03/24 11:46 97.8 F 91 16 134/77 94 Room Air 09/03/24 11:09 18 09/03/24 07:35 97.8 F 94 14 153/76 95 Room Air O2 Flow Rate O2 Flow Rate 09/03/24 17:56 2 09/03/24 17:37 09/03/24 17:25 09/03/24 16:55 09/03/24 16:34 09/03/24 16:25 09/03/24 15:57 09/03/24 15:42 4 09/03/24 15:04 09/03/24 14:00 09/03/24 11:46 09/03/24 11:09 09/03/24 07:35 Intake & Output/Weight 09/01/24 09/02/24 09/03/24 09/04/24 06:59 06:59 06:59 06:59 Intake Total 1600 / 1600 1186.666 / 1186.666 Balance 1600 / 1600 1186.666 / 1186.666 Weight 50.802 kg Vitals Last Vital Signs Temp 98.1 F 09/03/24 16:25 Pulse 81 09/03/24 17:56 Resp 14 09/03/24 17:37 BP 149/78 09/03/24 17:37 Pulse Ox 96 09/03/24 17:56 O2 Del Method Nasal Cannula 09/03/24 17:56 O2 Flow Rate 2 09/03/24 17:56 TS Medications Medications Acetaminophen (Acetaminophen 325 Mg Tablet) 650 mg PO Q6H PRN PRN Reason: Mild/Mod Pain Or Temp >/= 101 Carvedilol (Carvedilol 6.25 Mg Tablet) 6.25 mg PO BID [facility] Last Admin: 09/03/24 17:14 Dose: Not Given Heparin Sodium (Porcine) (Heparin 5,000 Unit/Ml Inj 1 Ml) 0 unit IVP PRN PRN; Protocol PRN Reason: Heparin Weight Based Protocol -Subsequent Bolus Hydralazine HCl (Hydralazine 25 Mg Tablet) 25 mg PO BID [facility] Last Admin: 09/03/24 17:14 Dose: Not Given Sodium Chloride (Sodium Chloride 0.9%) 1,000 mls @ 100 mls/hr IV .Q10H [facility] Last Admin: 09/03/24 09:37 Dose: 100 mls/hr Piperacillin Sod/Tazobactam (Sod 3.375 gm/ Sodium Chloride) 50 mls @ 12.5 mls/hr IV Q8H [facility]; Protocol Last Infusion: 09/03/24 11:38 Dose: Infused Sodium Chloride (Sodium Chloride 0.9%) 500 mls @ 15 mls/hr IV .Q24H PRN PRN Reason: COLONOSCOPY FLUIDS Stop: 09/04/24 14:47 Last Infusion: 09/03/24 16:07 Dose: Infused Heparin Sodium/Sodium Chloride (Heparin Drip) 25,000 unit in 500 mls @ 0 mls/hr IV CONT [facility]; Protocol Last Admin: 09/03/24 16:33 Dose: 14.76 unit/kg/hr, 15 mls/hr Lidocaine HCl (Lidocaine 1% 10 Ml Inj) 0.1 ml INTRADERMA PRN PRN PRN Reason: anesthetic prior to IV start Lidocaine HCl (Lidocaine 2% Viscous 15 Ml Udc) 1 ml TOPICAL PRN PRN PRN Reason: Anesthetic prior to IV start Midazolam HCl (Midazolam 1 Mg/Ml Inj 2 Ml) 2 mg IVP Q5M PRN PRN Reason: Preop Anxiety Morphine Sulfate (Morphine 4 Mg/Ml Sdv 1 Ml) 2 mg IVP Q4H PRN PRN Reason: SEVERE PAIN Last Admin: 09/03/24 11:09 Dose: 2 mg Morphine Sulfate (Morphine 4 Mg/Ml Sdv 1 Ml) 0 mg IVP Q5M PRN PRN Reason: Breakthrough Pain PACU PhaseII Ondansetron HCl (Ondansetron 2 Mg/Ml Sdv 2 Ml) 4 mg IVP Q6H PRN PRN Reason: NAUSEA AND VOMITING Last Admin: 09/03/24 06:20 Dose: 4 mg Ondansetron HCl (Ondansetron 2 Mg/Ml Sdv 2 Ml) 4 mg IVP Q15M PRN PRN Reason: Nausea/Vomiting PACU PHASE II Pantoprazole Sodium (Pantoprazole 40 Mg Sdv) 40 mg IVP Q12H [facility] Last Admin: 09/03/24 16:30 Dose: Not Given Sodium Chloride (Sodium Chloride 0.9 % (Flush) Syringe 10 Ml) 2 ml IV DIRECTED PRN PRN Reason: EGD MEDICATION FLUSH Stop: 09/04/24 14:47 Tamsulosin HCl (Tamsulosin 0.4 Mg Capsule) 0.4 mg PO DAILY [facility] Last Admin: 09/03/24 09:37 Dose: 0.4 mg Discontinued Medications Bisacodyl (Bisacodyl 5 Mg Tablet) 20 mg PO ONCE ONE Stop: 09/02/24 14:47 Last Admin: 09/02/24 15:08 Dose: 20 mg Heparin Sodium (Porcine) (Heparin 5,000 Unit/Ml Inj 1 Ml) 0 unit IVP ONCE ONE; Protocol Stop: 09/03/24 16:00 Last Admin: 09/03/24 16:34 Dose: 2,600 unit Hydromorphone HCl (Hydromorphone 1 Mg/Ml Inj 1 Ml) 1 mg IVP ONCE ONE Stop: 09/03/24 16:27 Last Admin: 09/03/24 16:34 Dose: 1 mg Sodium Chloride (Sodium Chloride 0.9%) 1,000 mls @ 999 mls/hr IV .Q1H1M ONE Stop: 09/02/24 11:35 Last Infusion: 09/02/24 12:41 Dose: Infused Iohexol (Iohexol 350 Mg/Ml 500 Ml Btl (Per Ml)) 0 ml IV ONCE ONE Stop: 09/02/24 10:17 Last Admin: 09/02/24 10:17 Dose: 75 ml Iohexol (Iohexol 350 Mg/Ml 500 Ml Btl (Per Ml)) 0 ml IV ONCE ONE Stop: 09/03/24 08:38 Last Admin: 09/03/24 08:38 Dose: 100 ml Magnesium Citrate (Magnesium Citrate Btl 296 Ml) 296 ml PO Q4H [facility] Stop: 09/02/24 19:01 Last Admin: 09/03/24 02:23 Dose: Not Given Metoclopramide HCl (Metoclopramide 5 Mg/Ml Sdv 2 Ml) 10 mg IVP ONCE ONE Stop: 09/02/24 13:51 Last Admin: 09/02/24 14:04 Dose: 10 mg Morphine Sulfate (Morphine 4 Mg/Ml Sdv 1 Ml) 4 mg IVP ONCE ONE Stop: 09/02/24 08:44 Last Admin: 09/02/24 09:59 Dose: 4 mg Morphine Sulfate (Morphine 4 Mg/Ml Sdv 1 Ml) 2 mg IVP ONCE ONE Stop: 09/02/24 13:49 Last Admin: 09/02/24 14:05 Dose: 2 mg Ondansetron HCl (Ondansetron 2 Mg/Ml Sdv 2 Ml) 4 mg IVP ONCE ONE Stop: 09/02/24 08:44 Last Admin: 09/02/24 09:59 Dose: 4 mg Ondansetron HCl (Ondansetron 2 Mg/Ml Sdv 2 Ml) Confirm Administered Dose 4 mg .ROUTE .STK-MED ONE Stop: 09/03/24 14:42 Potassium Chloride (Potassium Chloride Oral Liq 20 Meq/15 Ml Udc) 40 meq PO ONCE ONE Stop: 09/02/24 12:26 Last Admin: 09/02/24 12:46 Dose: 40 meq Propofol (Propofol 10 Mg/Ml Sdv 20 Ml) Confirm Administered Dose 200 mg .ROUTE .STK-MED ONE Stop: 09/03/24 14:28 Allergies No Known Allergies Allergy (Verified 09/02/24 08:10) Home Medications sodium chloride 1,000 mg soluble tablet 1,000 mg PO BID 30 days #60 tabs 11/15/23 [Rx Confirmed 09/02/24] albuterol sulfate 1.25 mg/3 mL solution for nebulization 1.25 mg (3 mL) inhalation Q6H PRN shortness of breath or wheezing #90 mL 05/27/24 [Rx Confirmed 09/02/24] albuterol sulfate 90 mcg/actuation aerosol inhaler 2 inh inhalation Q6H PRN shortness of breath or wheezing #6.7 grams 05/27/24 [Rx Confirmed 09/02/24] carvedilol 6.25 mg tablet 6.25 mg PO BID 90 days #180 tabs 05/27/24 [Rx Confirmed 09/02/24] fluticasone 250 mcg-salmeterol 50 mcg/dose blistr powdr for inhalation (Advair Diskus) 1 inh inhalation BID #60 ea 05/27/24 [Rx Confirmed 09/02/24] furosemide 40 mg tablet 40 mg PO QAM 90 days #90 tabs 05/27/24 [Rx Confirmed 09/02/24] hydralazine 25 mg tablet 25 mg PO BID 90 days #180 tabs 05/27/24 [Rx Confirmed 09/02/24] hydrocodone 5 mg-acetaminophen 325 mg tablet 1 tab PO Q8H PRN Pain 05/27/24 [History Confirmed 09/02/24] spironolactone 25 mg tablet 25 mg PO QAM 90 days #90 tabs 05/27/24 [Rx Confirmed 09/02/24] tiotropium bromide 18 mcg capsule with inhalation device (Spiriva with HandiHaler) 1 cap inhalation DAILY 30 days #60 inhalations 05/27/24 [Rx Confirmed 09/02/24] sucralfate 1 gram tablet (Carafate) 1 g PO QID 30 days #120 tabs 08/18/24 [Rx Confirmed 09/02/24] apixaban 5 mg tablet 5 mg PO BID 08/26/24 [History Confirmed 09/02/24] hydrocodone 5 mg-acetaminophen 325 mg tablet 1 tab PO Q6H PRN pain #20 tabs 08/26/24 [Rx Confirmed 09/02/24] pantoprazole 40 mg tablet,delayed release (Protonix) 40 mg PO DAILY 4 weeks #30 tabs 08/26/24 [Rx Confirmed 09/02/24] tamsulosin 0.4 mg capsule 0.4 mg PO DAILY #20 caps 08/26/24 [Rx Confirmed 09/02/24] promethazine 12.5 mg tablet 25 mg PO Q6H PRN Nausea And Vomiting 09/02/24 [History Confirmed 09/02/24] Discharge Plan Discharge Patient Disposition: Xfer Short-Term Hosp Condition: Stable Prescriptions: No Action hydrocodone-acetaminophen 5-325 mg tablet 1 tab PO Q8H PRN (Reason: Pain) albuterol sulfate 1.25 mg/3 mL solution for nebulization 1.25 mg inhalation Q6H PRN (Reason: shortness of breath or wheezing) Qty: 90 5RF albuterol sulfate 90 mcg/actuation HFA aerosol inhaler 2 inh inhalation Q6H PRN (Reason: shortness of breath or wheezing) Qty: 6.7 5RF carvedilol 6.25 mg tablet 6.25 mg PO BID 90 Days Qty: 180 2RF Advair Diskus 250-50 mcg/dose blister with device 1 inh INHALATION BID Qty: 60 5RF furosemide 40 mg tablet 40 mg PO QAM 90 Days Qty: 90 2RF hydralazine 25 mg tablet 25 mg PO BID 90 Days Qty: 180 2RF spironolactone 25 mg tablet 25 mg PO QAM 90 Days Qty: 90 2RF Spiriva with HandiHaler 18 mcg capsule, w/inhalation device 1 cap INHALATION DAILY 30 Days Qty: 60 5RF sucralfate [Carafate] 1 gram tablet 1 g PO QID 30 Days Qty: 120 0RF apixaban 5 mg tablet 5 mg PO BID Rx Instructions: 340B tamsulosin 0.4 mg capsule 0.4 mg PO DAILY Qty: 20 0RF hydrocodone-acetaminophen 5-325 mg tablet 1 tab PO Q6H PRN (Reason: pain) Qty: 20 0RF pantoprazole [Protonix] 40 mg tablet,delayed release (DR/EC) 40 mg PO DAILY 28 Days Qty: 30 0RF promethazine 12.5 mg tablet 25 mg PO Q6H PRN (Reason: Nausea And Vomiting) sodium chloride 1,000 mg Tablet,Soluble 1,000 mg PO BID 30 Days Qty: 60 0RF Discharge Orders: Transfer Out of Facility (Order); Ordered 09/03/24 Ordered By: Robby Patel Referrals: Melonie Padron MD [Primary Care Provider] - Patient Instructions: GI Post Discharge Instructions w/ Anesthesia, Opioid Safety Transfer Attestations Time Spent in Transfer Care: greater than 30 min Quality Metrics Clinical Quality Measures [ No reported AMI, CVA or VTE this stay] Coding Level of Care Code 27460 Total time (in minutes) for Discharge: 35 Diagnoses Epigastric pain R10.13 Anemia D64.9 Nausea vomiting and diarrhea R11.2; R19.7
[2024-09-04] VITALS (10 sets, daily range): BP systolic 139–162; BP diastolic 72–77; PULSE 86–93; RESP 15–18; TEMP 36.4–36.7; O2SAT 90–97
[2024-09-04] MEDS: ondansetron 2 mg/ML SDV 2 mL 4 MG IVP ×2 (01:16→13:37)
[2024-09-04] MEDS: morphine 4 mg/mL SDV 1 mL 2 MG IVP ×3 (03:17→16:07)
[2024-09-04] MEDS: pantoprazole 40 mg SDV IVP ×2 (03:19→13:59)
--- NOTE | 2024-09-04 05:02 | PC.NURSE ---
[facility] CHECK IN spoke with Brenda from transfer center at 0500 and gave update on pt status with interventions overnight and most recent set of vitals.
[2024-09-04] MEDS: HYDROmorphone 1 mg/mL INJ 1 mL 0.4 MG IVP ×2 (05:51→13:32)
[2024-09-04] MEDS: scopolamine 1.5 Patch 1 PATCH TRANSDERMA (05:51)
[2024-09-04 06:45] LABS: Basophils # 0.1 10^3/uL (0.0-0.1); Basophils % 0.3 %; Lymphocytes # 1.6 10^3/uL (0.8-4.8); Lymphocytes % 5.2 %; Mean Corpuscular HGB Conc 29.7 g/dL (30-55); Mean Corpuscular Hemoglobin 27.2 pg (27-33); Mean Corpuscular Volume 91.7 fl (85-98); Mean Platelet Volume 10.4 fL (7.4-10.4); Monocytes # 1.7 10^3/uL (0.2-0.9); Monocytes % 5.3 %; Neutrophils # 27.39 10^3/uL (1.8-7.7); Neutrophils % 87.3 %; Nucleated Red Blood Cells % 0 %; Platelet Count 644 10^3/cmm (157-399); Red Blood Count 3.38 10^6/uL (3.85-5.65); Red Cell Distribution Width 16.7 % (12.1-15.1)
[2024-09-04 07:00] LABS: Partial Thromboplastin Time 60.3 SECONDS (23.9-36.7)
[2024-09-04 07:04] LABS: Alanine Aminotransferase 8 U/L (0-33); Albumin Level 2.9 g/dL (3.5-5.2); Alkaline Phosphatase 158 U/L (35-105); Anion Gap 21.3 (5-19); Aspartate Amino Transferase 13 U/L (0-32); Blood Urea Nitrogen 16 mg/dL (8-23); Calcium 9.5 mg/dL (8.5-10.5); Carbon Dioxide 15 mmol/L (22-29); Chloride 103 mmol/L (98-107); Creatinine Clr Calc Pharmacy 42.1141; Globulin 3.4 g/dL (1.3-4.6); Glucose 108 mg/dL (65-115); Osmolality Calculated 284 mOsm/kg (285-295); Potassium 3.3 mmol/L (3.5-5.1); Sodium 136 mmol/L (136-145); Total Bilirubin 0.5 mg/dL (0.15-1.2); Total Protein 6.3 g/dL (6.6-8.7)
[2024-09-04 07:15] LABS: White Blood Count 31.35 10^3/uL (3.29-11.43)
[2024-09-04] MEDS: piperacillin-tazobactam 3.375 GM in sodium chloride 0.9% (plus) 50 ML IV ×2 (07:30→14:46)
[2024-09-04] MEDS: tamsulosin 0.4 mg Capsule PO (08:46)
[2024-09-04] MEDS: hyDRALAzine 25 mg Tablet PO ×2 (08:46→17:22)
[2024-09-04] MEDS: carvedilol 6.25 mg Tablet PO ×2 (08:46→17:22)
[2024-09-04] MEDS: lidocaine 1% 5 ML in potassium chloride premix 100 ML 52.5 ML IV (08:47)
--- NOTE | 2024-09-04 10:33 | P.PN_ITS ---
Subjective 2 Subjective: No beds last night, awaiting transfer to [facility] today. Still having abdominal pain. Changed to Dilaudid. Reports she still feels nauseated. Still passing some flatus. Feels a little hunger. Medications: Reviewed: Yes Vitals/I&O/Wt Last Vital Signs Temp 98.1 F 09/04/24 07:34 Pulse 90 09/04/24 07:34 Resp 15 09/04/24 07:34 BP 162/77 09/04/24 07:34 Pulse Ox 97 09/04/24 07:34 O2 Del Method Nasal Cannula 09/04/24 07:34 O2 Flow Rate 2 09/04/24 07:34 09/03/24 09/04/24 09/04/24 22:59 06:59 14:59 Intake Total 1200 / 2186.666 393.75 / 2580.416 89.483 / 89.483 Balance 1200 / 2186.666 393.75 / 2580.416 89.483 / 89.483 Weight last 48 hrs Weight 52.254 kg Weight 50.802 kg Physical Exam 2 Narrative: Vital signs stable. On 2 L of oxygen CV RRR without murmur Lungs clear Abdomen hypoactive bowel sounds. Some tenderness to palpation upper quadrants. EXT no c/c/e Data 09/04/24 06:30 09/04/24 06:30 Micro: Microbiology 09/03/24 11:00 Blood Culture - Preliminary Blood SPECIMEN COLLECTED 09/03/24 11:05 Blood Culture - Preliminary Blood SPECIMEN COLLECTED A&P Assessment and plan (1) Abdominal pain: Patient presents with longstanding abdominal pain. She has had nausea and vomiting. She has had weight loss She has recently had had a bout with anemia and received a unit of blood approximately 1 week ago Hemoglobin is stable today Has had blood in stool Surgery consult for possible endoscopy, EGD and colonoscopy. This demonstrated ischemic gastritis and ischemic right-sided colitis Lactate was normal on admission and second day. It was not repeated today as it was expected the patient would have already transferred. There is some concern about atherosclerosis in the region of her celiac axis and SMA. CTA could be performed. CTA was performed demonstrating likely obstruction of SMA as well as celiac axis. She was placed on heparin, IV fluids, Zosyn. White blood cell count is significantly elevated. Continue Protonix 40 mg IV every 12 hours Zofran for nausea Gallbladder ultrasound does show cholelithiasis. Secondary to ischemic colitis, ischemic gastritis, significantly compromised celiac and SMA transfer was arranged with [facility]. We are awaiting transfer. White blood cell count is significantly high. She is somewhat acidotic this morning. (2) Anemia: Continue to monitor closely Continue heparin drip secondary to ischemic bowel (3) Diarrhea: C. difficile negative Secondary to ischemic bowel Plan Hypokalemia, supplement Multiple other medical problems as outlined in by past medical history Full code currently Heparin will suffice for DVT prophylaxis Discussed plan with son who was present in the room when I interviewed the patient today. Attestations 2 Medical Necessity Statement*: Needs continued hospitalization for definitive treatment for ischemic bowel with significant compromised vasculature. Awaiting transfer. Please see transfer summary done yesterday. Diagnoses Abdominal pain R10.9 Anemia D64.9 Diarrhea R19.7 Time Spent (min) 30
--- NOTE | 2024-09-04 10:34 | PM.PN ---
Subjective Subjective: Patient seen and examined. Still reporting epigastric abdominal pain. No emesis Vitals/I&O/Wt Last Vital Signs Temp 98.1 F 09/04/24 07:34 Pulse 90 09/04/24 07:34 Resp 15 09/04/24 07:34 BP 162/77 09/04/24 07:34 Pulse Ox 97 09/04/24 07:34 O2 Del Method Nasal Cannula 09/04/24 07:34 O2 Flow Rate 2 09/04/24 07:34 09/03/24 09/04/24 09/04/24 22:59 06:59 14:59 Intake Total 1200 / 2186.666 393.75 / 2580.416 89.483 / 89.483 Balance 1200 / 2186.666 393.75 / 2580.416 89.483 / 89.483 Weight last 48 hrs Weight 115 lb 3.2 oz Weight 112 lb Physical Exam Narrative: General: No acute distress, awake alert and oriented x 3 Abdomen: Soft, mild distention, tender to palpation over epigastrium without guarding or rebound Data 09/04/24 06:30 09/04/24 06:30 Micro: Microbiology 09/03/24 11:00 Blood Culture - Preliminary Blood SPECIMEN COLLECTED 09/03/24 11:05 Blood Culture - Preliminary Blood SPECIMEN COLLECTED A&P Assessment and plan (1) Ischemia, bowel: Plan 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 EGD done yesterday showed very ischemic, hemorrhagic and ulcerated stomach with similar findings in the right colon. She is awaiting transfer to [facility]. Keep n.p.o. and on anticoagulants. Medical management per hospitalist Attestations Medical Necessity Statement*: Per primary Coding Level of Care Code 70292 Diagnoses Ischemia, bowel K55.9
[2024-09-04] MEDS: sodium chloride 0.9% 1,000 ML 100 ML IV (11:25)
[2024-09-04 13:34] LABS: Partial Thromboplastin Time 43.7 SECONDS (23.9-36.7)
[2024-09-04] MEDS: heparin 5,000 unit/mL INJ 1 mL IVP (13:59)
== END 2024-09-04 19:10 | disposition short-term general hospital (02) | DRG 393 ==
LOC: ER 13:05 → MEDSURG 13:54
PROVIDERS: Internal Medicine; Surgery; Admitting Provider Internal Medicine; Emergency Provider Family Medicine; PCP Family Medicine; Visit Provider Internal Medicine
PROC: 0DJ08ZZ Inspection of Upper Intestinal Tract, Via Natural or Artificial Opening Endoscopic (ICD-10-PCS; CPT 43235; principal; 2024-09-03 13:45)
PROC: 0DJD8ZZ Inspection of Lower Intestinal Tract, Via Natural or Artificial Opening Endoscopic (ICD-10-PCS; CPT 45378; 2024-09-03 13:45)
DX: K55.1 Chronic vascular disorders of intestine (principal); K29.61 Other gastritis with bleeding; E87.1 Hypo-osmolality and hyponatremia; I50.32 Chronic diastolic (congestive) heart failure; Z68.21 Body mass index [BMI] 21.0-21.9, adult; R63.4 Abnormal weight loss; I77.1 Stricture of artery; K80.20 Calculus of gallbladder without cholecystitis without obstruction; D64.9 Anemia, unspecified; R19.7 Diarrhea, unspecified; E87.6 Hypokalemia; Z75.1 Person awaiting admission to adequate facility elsewhere; Z79.01 Long term (current) use of anticoagulants; Z79.891 Long term (current) use of opiate analgesic; I11.0 Hypertensive heart disease with heart failure; J43.9 Emphysema, unspecified; F17.210 Nicotine dependence, cigarettes, uncomplicated; G89.29 Other chronic pain
CPT/HCPCS: 36415; 43239; 45380; 45385; 71045; 74174; 74177; 76705; 80053; 81001; 82274; 83605; 83690; 83735; 84443; 85025; 85730; 87040; 87045; 87427; 87449; 87493; 88305; 93005; 96374; 96375; 96376; 99285; G0378; J1171; J1644; J2270; J2405; J2470; J2543; J2704; J2765; J3480; J7030; J7040

== ENCOUNTER → 2024-09-25 14:10 | Outpatient (BNVA) | payer MEDICARE, SELFPAY | PROVIDERS: PCP Family Medicine; Visit Provider Family Medicine | DX: I10 Essential (primary) hypertension (principal); J44.9 Chronic obstructive pulmonary disease, unspecified | CPT/HCPCS: 80053; 83880; 85025 ==

== ENCOUNTER → 2024-10-02 13:28 | Outpatient (BNVA) | payer MEDICARE, SELFPAY | PROVIDERS: PCP Family Medicine; Visit Provider Family Medicine | DX: I50.32 Chronic diastolic (congestive) heart failure (principal); I10 Essential (primary) hypertension; J44.9 Chronic obstructive pulmonary disease, unspecified; D64.9 Anemia, unspecified | CPT/HCPCS: 80053; 83880; 85025 ==

== ENCOUNTER 2024-10-05 14:47 | Emergency (ER) | payer MEDICARE, SELFPAY ==
[2024-10-05] VITALS (17 sets, daily range): BP systolic 93–124; BP diastolic 46–67; PULSE 64–121; RESP 15–20; TEMP 36.6–37.5; O2SAT 91–100; BMI 21.2
[2024-10-05 15:26] LABS: Basophils % 0.3 %; Eosinophils # 0.1 10^3/uL (0.0-0.8); Eosinophils % 0.6 %; Hematocrit 22.1 % (36-47); Lymphocytes # 5.5 10^3/uL (0.8-4.8); Lymphocytes % 44.9 %; Mean Corpuscular HGB Conc 30.3 g/dL (30-55); Mean Corpuscular Hemoglobin 27.2 pg (27-33); Mean Corpuscular Volume 89.8 fl (85-98); Mean Platelet Volume 9.5 fL (7.4-10.4); Monocytes # 0.7 10^3/uL (0.2-0.9); Monocytes % 5.4 %; Neutrophils # 5.91 10^3/uL (1.8-7.7); Neutrophils % 47.9 %; Nucleated Red Blood Cells % 0 %; Platelet Count 479 10^3/cmm (157-399); Red Blood Count 2.46 10^6/uL (3.85-5.65); Red Cell Distribution Width 17.6 % (12.1-15.1); White Blood Count 12.35 10^3/uL (3.29-11.43)
--- NOTE | 2024-10-05 15:30 | CTR_ITS ---
PROCEDURE INFORMATION: Exam: CT Abdomen And Pelvis With Contrast Exam date and time: 10/05/2024 3:54 PM Age: 78 years old Clinical indication: Other: Gi bleed TECHNIQUE: Imaging protocol: Computed tomography of the abdomen and pelvis with contrast. Radiation optimization: All CT scans at this facility use at least one of these dose optimization techniques: automated exposure control; mA and/or kV adjustment per patient size (includes targeted exams where dose is matched to clinical indication); or iterative reconstruction. Contrast material: OMNI 350; Contrast volume: 75 ml; Contrast route: INTRAVENOUS (IV); COMPARISON: CT angio abdomen pelvis [id number] 09/03/2024 8:30 AM RADIATION DOSE METRICS: Total DLP (mGy-cm): 364.43 FINDINGS: Liver: Normal. No mass. Gallbladder and biliary ducts: Normal. No calcified stones. No ductal dilation. Pancreas: Normal. No ductal dilation. Spleen: Calcified granuloma within the spleen. Adrenal glands: Normal. No mass. Kidneys and ureters: Normal. No hydronephrosis. Stomach and bowel: No evidence of active extravasation of contrast into the GI tract. No evidence of active GI bleed. Atherosclerotic calcifications of the abdominal aorta. Appendix: No evidence of appendicitis. Intraperitoneal space: Unremarkable. No free air. No significant fluid collection. Vasculature: The SMA stent appears to be patent but the lumen is very poorly seen due to adjacent artifact. Lymph nodes: Unremarkable. No enlarged lymph nodes. Urinary bladder: Unremarkable as visualized. Reproductive: Hysterectomy. Bones/joints: Unremarkable. No acute fracture. Soft tissues: Midline skin incision with packing. CT/CT abdomen pelvis w con* [id number] IMPRESSION: The SMA stent is probably patent but the lumen is very poorly seen. No evidence of active GI bleed.
--- NOTE | 2024-10-05 15:32 | ED_ITS ---
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 Patient states she has had some slight GI bleeding she states has been bright red small amount also some oozing blood from her wound states she had blood drawn last week had a hemoglobin of 7.2 and was told to come to ER for likely transfusion she denies any fever denies any pain she has had some weakness. She states that her wound VAC stopped working yesterday as well and has been removed Related Data Home Medications Medication Instructions Recorded Confirmed hydrocodone 5 mg-acetaminophen 325 1 tab PO Q8H PRN Pain 05/27/24 10/02/24 mg tablet apixaban 5 mg tablet 5 mg PO BID 08/26/24 10/02/24 promethazine 12.5 mg tablet 25 mg PO Q6H PRN Nausea And 09/02/24 10/02/24 Vomiting atorvastatin 40 mg tablet 40 mg PO DAILY 09/25/24 10/02/24 clopidogrel 75 mg tablet (Plavix) 75 mg PO DAILY 09/25/24 10/02/24 pantoprazole 40 mg tablet,delayed 40 mg PO BID 09/25/24 10/02/24 release Previous Rx's Medication Instructions Recorded sodium chloride 1,000 mg soluble 1,000 mg PO BID 30 days #60 tabs 11/15/23 tablet albuterol sulfate 1.25 mg/3 mL 1.25 mg (3 mL) inhalation Q6H PRN 05/27/24 solution for nebulization shortness of breath or wheezing #90 mL albuterol sulfate 90 mcg/actuation 2 inh inhalation Q6H PRN shortness 05/27/24 aerosol inhaler of breath or wheezing #6.7 grams carvedilol 6.25 mg tablet 6.25 mg PO BID 90 days #180 tabs 05/27/24 fluticasone 250 mcg-salmeterol 50 1 inh inhalation BID #60 ea 05/27/24 mcg/dose blistr powdr for inhalation (Advair Diskus) furosemide 40 mg tablet 40 mg PO QAM 90 days #90 tabs 05/27/24 hydralazine 25 mg tablet 25 mg PO BID 90 days #180 tabs 05/27/24 tiotropium bromide 18 mcg capsule 1 cap inhalation DAILY 30 days #60 05/27/24 with inhalation device (Spiriva inhalations with HandiHaler) hydrocodone 5 mg-acetaminophen 325 1 tab PO Q6H PRN pain #20 tabs 08/26/24 mg tablet tamsulosin 0.4 mg capsule 0.4 mg PO DAILY #20 caps 08/26/24 nystatin 100,000 unit/mL oral 1,000,000 unit (10 mL) buccal QID 09/25/24 suspension 2 weeks #560 mL petrolatum, white-lanolin topical See Rx Instructions topical 09/28/24 ointment (Vitamin A and D Diaper .COMPLEX #113 grams Rash topical ointment) spironolactone 25 mg tablet 25 mg PO QAM 90 days #90 tabs 10/02/24 Allergies Allergy/AdvReac Type Severity Reaction Status Date / Time No Known Allergies Allergy Verified 10/05/24 14:57 Review of Systems 2 Const: Reports: fatigue and malaise; Denies: fever(s), chills, body aches or change in appetite ENMT: Denies: throat pain or dental pain Card: Denies: chest pain Resp: Denies: dyspnea GI: Reports: hematochezia; Denies: abdominal pain, nausea, vomiting or diarrhea Musc: Denies: neck pain or back pain Skin/Breast: Denies: rash Neuro: Denies: headache(s) PFSH ED 2 PFSH: Medical History Chronic hyponatremia HTN (hypertension) COPD (chronic obstructive pulmonary disease) Chronic heart failure with preserved ejection fraction (HFpEF) Acute respiratory failure Upper respiratory infection Encounter to establish care Emphysema lung Chronic low back pain Tachycardia Surgical History History of kyphoplasty H/O: hysterectomy Social History Smoking and tobacco/nicotine status: current every day tobacco/nicotine user cigarettes Packs smoked per day: 0.2 Years cigarettes smoked: 62 [ Other cigarette details: Smokes maybe once a day] Physical Exam 2 Const: COMMON NORMALS: patient oriented x3 GENERAL APPEARANCE: frail appearing HENMT: COMMON NORMALS: normocephalic and atraumatic HEAD & SCALP: n ormocephalic and atraumatic Eye: COMMON NORMALS: conjunctivae normal CONJUNCTIVA: Yes conjunctivae normal Neck/C-Spine: COMMON NORMALS: full ROM and supple Chest: COMMONS NORMALS: normal inspection of the chest Resp: COMMON NORMALS: normal respiratory effort, No retractions, No use of accessory muscles and clear to auscultation bilaterally AUSCULTATION: clear to auscultation bilaterally Cardio: COMMON NORMALS: regular rate, regular rhythm and No murmurs present (Cardio) RATE: regular rate RHYTHM: regular rhythm GI: COMMON NORMALS: Soft to palpation, non-tender and no masses PALPATION: Yes Soft to palpation OTHER: Open wounds packed to the mid abdomen does have some oozing of blood no erythema no foul-smelling drainage Extremity: COMMON NORMALS: normal to inspection and full ROM Neuro: COMMON NORMALS: patient oriented x3, moves all extremities and no focal motor deficits Psych: COMMON NORMALS: mental status grossly normal, Normal thought process present and cooperative THOUGHT PROCESS: Normal thought process present Skin: COMMON NORMALS: no rashes or lesions noted and no wounds GENERAL SKIN EXAM: no rashes or lesions noted Course 2 Vital Signs: Vital signs: Vital Signs Temperature 99.3 F 10/05/24 18:12 Pulse Rate 64 10/05/24 19:46 Respiratory Rate 18 10/05/24 19:45 Blood Pressure 121/46 10/05/24 18:15 Pulse Oximetry 100 10/05/24 19:46 Oxygen Delivery Me thod Nasal Cannula 10/05/24 14:51 MDM - Recheck/Abnormal Lab/Rx Medical Decision Making Patient presents here with anemia, GI bleed patient was transfused 2 units I strongly recommended her being admitted she is adamant that she does not want to stay and is going to sign out AMA she states she has home health tomorrow will place a new wound VAC and that she feels fine and just needs blood. I informed her that she can continue bleeding and this could be life-threatening she understands has medical decision making past and signed out AGAINST MEDICAL ADVICE she is return if she changes her mind or worsens. Lab Data I reviewed the patient's lab results. 10/05/24 15:08 10/05/24 15:08 Radiology Impressions Abdomen/Pelvis CT 10/05/24 15:30 IMPRESSION: The SMA stent is probably patent but the lumen is very poorly seen. No evidence of active GI bleed. Laboratory Results WBC 12.35 10^3/uL (3.29-11.43) H 10/05/24 15:08 RBC 2.46 10^6/uL (3.85-5.65) L 10/05/24 15:08 Hgb 6.70 g/dL (11.27-16.99) L 10/05/24 15:08 Hct 22.1 % (36-47) L 10/05/24 15:08 MCV 89.8 fl (85-98) 10/05/24 15:08 MCH 27.2 pg (27-33) 10/05/24 15:08 MCHC 30.3 g/dL (30-55) 10/05/24 15:08 RDW 17.6 % (12.1-15.1) H 10/05/24 15:08 Plt Count 479 10^3/cmm (157-399) H 10/05/24 15:08 MPV 9.5 fL (7.4-10.4) 10/05/24 15:08 Neut % (Auto) 47.9 % 10/05/24 15:08 Lymph % (Auto) 44.9 % 10/05/24 15:08 [place] % (Auto) 5.4 % 10/05/24 15:08 Eos % (Auto) 0.6 % 10/05/24 15:08 Baso % (Auto) 0.3 % 10/05/24 15:08 Neut # (Auto) 5.91 10^3/uL (1.8-7.7) 10/05/24 15:08 Lymph # (Auto) 5.5 10^3/uL (0.8-4.8) H 10/05/24 15:08 [place] # (Auto) 0.7 10^3/uL (0.2-0.9) 10/05/24 15:08 Eos # (Auto) 0.1 10^3/uL (0.0-0.8) 10/05/24 15:08 Baso # (Auto) 0.0 10^3/uL (0.0-0.1) 10/05/24 15:08 Nucleated RBC % (auto) 0 % 10/05/24 15:08 Nucleated RBCs # 0.0 /100WBC 10/05/24 15:08 PT 17.50 SECONDS (12.1-14.9) H 10/05/24 15:08 INR 1.34 (0.8-1.2) H 10/05/24 15:08 Sodium 133 mmol/L (136-145) L 10/05/24 15:08 Potassium 3.4 mmol/L (3.5-5.1) L 10/05/24 15:08 Chloride 99 mmol/L (98-107) 10/05/24 15:08 Carbon Dioxide 22 mmol/L (22-29) 10/05/24 15:08 Anion Gap 15.4 (5-19) 10/05/24 15:08 BUN 28 mg/dL (8-23) H 10/05/24 15:08 Creatinine 1.3 mg/dL (0.5-0.9) H 10/05/24 15:08 GFR Calculation Not Reportable 10/05/24 15:08 Glucose 92 mg/dL (65-115) 10/05/24 15:08 Calculated Osmolality 281 mOsm/kg (285-295) L 10/05/24 15:08 Calcium 7.9 mg/dL (8.5-10.5) L 10/05/24 15:08 Total Bilirubin 0.3 mg/dL (0.15-1.2) 10/05/24 15:08 AST 10 U/L (0-32) 10/05/24 15:08 ALT 7 U/L (0-33) 10/05/24 15:08 Alkaline Phosphatase 127 U/L (35-105) H 10/05/24 15:08 Total Protein 4.8 g/dL (6.6-8.7) L 10/05/24 15:08 Albumin 2.2 g/dL (3.5-5.2) L 10/05/24 15:08 Globulin 2.6 g/dL (1.3-4.6) 10/05/24 15:08 Blood Type A Positive 10/05/24 15:08 Rho(D) Type Rh positive 10/05/24 15:08 Antibody Screen Negative 10/05/24 15:08 Crossmatch See Detail 10/05/24 15:08 All radiology interpretation(s) finalized by discharge Discharge Plan Discharge Patient Disposition: Left Against Medical Advice Clinical Impression: Anemia, GI bleed Condition: Stable Prescriptions: No Action hydrocodone-acetaminophen 5-325 mg tablet 1 tab PO Q8H PRN (Reason: Pain) albuterol sulfate 1.25 mg/3 mL solution for nebulization 1.25 mg inhalation Q6H PRN (Reason: shortness of breath or wheezing) Qty: 90 5RF albuterol sulfate 90 mcg/actuation HFA aerosol inhaler 2 inh inhalation Q6H PRN (Reason: shortness of breath or wheezing) Qty: 6.7 5RF carvedilol 6.25 mg tablet 6.25 mg PO BID 90 Days Qty: 180 2RF Advair Diskus 250-50 mcg/dose blister with device 1 inh INHALATION BID Qty: 60 5RF furosemide 40 mg tablet 40 mg PO QAM 90 Days Qty: 90 2RF hydralazine 25 mg tablet 25 mg PO BID 90 Days Qty: 180 2RF Spiriva with HandiHaler 18 mcg capsule, w/inhalation device 1 cap INHALATION DAILY 30 Days Qty: 60 5RF clopidogrel [Plavix] 75 mg tablet 75 mg PO DAILY nystatin 100,000 unit/mL suspension 1,000,000 unit buccal QID 14 Days Qty: 560 1RF Rx Instructions: administer 1/2 of dose in each side of the mouth pantoprazole 40 mg tablet,delayed release (DR/EC) 40 mg PO BID atorvastatin 40 mg tablet 40 mg PO DAILY Vitamin A and D Diaper Rash Ointment See Rx Instructions topical .COMPLEX Qty: 113 1RF Rx Instructions: 1 application daily topical ; to sacral ulcer as needed spironolactone 25 mg tablet 25 mg PO QAM 90 Days Qty: 90 2RF apixaban 5 mg tablet 5 mg PO BID Rx Instructions: 340B tamsulosin 0.4 mg capsule 0.4 mg PO DAILY Qty: 20 0RF hydrocodone-acetaminophen 5-325 mg tablet 1 tab PO Q6H PRN (Reason: pain) Qty: 20 0RF promethazine 12.5 mg tablet 25 mg PO Q6H PRN (Reason: Nausea And Vomiting) sodium chloride 1,000 mg Tablet,Soluble 1,000 mg PO BID 30 Days Qty: 60 0RF Referrals: Melonie Padron MD [Primary Care Provider] - Discharge Diet: Advance as tolerated Discharge Activity: Resume usual activity Patient Instructions: Anemia (ED) Coding Level of Care Code ED [place] Att[employer] for Camron Sousa
[2024-10-05 15:38] LABS: INR 1.34 (0.8-1.2)
[2024-10-05 15:43] LABS: Alanine Aminotransferase 7 U/L (0-33); Albumin Level 2.2 g/dL (3.5-5.2); Alkaline Phosphatase 127 U/L (35-105); Anion Gap 15.4 (5-19); Aspartate Amino Transferase 10 U/L (0-32); Blood Urea Nitrogen 28 mg/dL (8-23); Calcium 7.9 mg/dL (8.5-10.5); Carbon Dioxide 22 mmol/L (22-29); Chloride 99 mmol/L (98-107); Globulin 2.6 g/dL (1.3-4.6); Glucose 92 mg/dL (65-115); Osmolality Calculated 281 mOsm/kg (285-295); Potassium 3.4 mmol/L (3.5-5.1); Sodium 133 mmol/L (136-145); Total Bilirubin 0.3 mg/dL (0.15-1.2); Total Protein 4.8 g/dL (6.6-8.7)
[2024-10-05] MEDS: iohexol 350 mg/mL 500 mL Btl (per mL) IV (15:56)
== END 2024-10-05 19:50 | disposition left against medical advice (07) ==
PROVIDERS: Emergency Provider Emergency Medicine; PCP Family Medicine
DX: D64.9 Anemia, unspecified (principal); K92.2 Gastrointestinal hemorrhage, unspecified; F17.210 Nicotine dependence, cigarettes, uncomplicated; J44.9 Chronic obstructive pulmonary disease, unspecified; I11.0 Hypertensive heart disease with heart failure; I50.30 Unspecified diastolic (congestive) heart failure
CPT/HCPCS: 36430; 74177; 80053; 85025; 85610; 86850; 86900; 86920; 99285; P9016

== ENCOUNTER → 2024-10-15 11:19 | Outpatient (BNVA) | payer MEDICARE, SELFPAY | PROVIDERS: PCP Family Medicine; Visit Provider Family Medicine | DX: I10 Essential (primary) hypertension (principal); I50.32 Chronic diastolic (congestive) heart failure; E87.1 Hypo-osmolality and hyponatremia; D64.9 Anemia, unspecified; J44.9 Chronic obstructive pulmonary disease, unspecified | CPT/HCPCS: 80053; 85025 ==

== ENCOUNTER → 2024-11-19 09:38 | Outpatient (BNVA) | payer MEDICARE, SELFPAY | PROVIDERS: PCP Family Medicine; Visit Provider Family Medicine | DX: E87.1 Hypo-osmolality and hyponatremia (principal); D64.9 Anemia, unspecified; E87.6 Hypokalemia; J44.9 Chronic obstructive pulmonary disease, unspecified | CPT/HCPCS: 80053; 85025 ==

== ENCOUNTER 2024-12-04 13:41 | Oncology outpatient (recurring) (ONCR) | payer MEDICARE, SELFPAY ==
[2024-12-04 15:14] LABS: Basophils # 0.1 10^3/uL (0.0-0.1); Basophils % 0.5 %; Eosinophils # 0.2 10^3/uL (0.0-0.8); Eosinophils % 2.3 %; Hematocrit 29.6 % (36-47); Lymphocytes # 3.9 10^3/uL (0.8-4.8); Mean Corpuscular HGB Conc 29.7 g/dL (30-55); Mean Corpuscular Hemoglobin 28.5 pg (27-33); Mean Corpuscular Volume 95.8 fl (85-98); Mean Platelet Volume 9.7 fL (7.4-10.4); Monocytes # 0.6 10^3/uL (0.2-0.9); Monocytes % 6.4 %; Neutrophils % 49.5 %; Nucleated Red Blood Cells % 0 %; Platelet Count 587 10^3/cmm (157-399); Red Blood Count 3.09 10^6/uL (3.85-5.65); Red Cell Distribution Width 15.9 % (12.1-15.1)
[2024-12-04 15:20] LABS: Reticulocyte % 2.6 % (0.5-2.0)
[2024-12-04 15:33] LABS: Alanine Aminotransferase < 5 U/L (0-33); Alkaline Phosphatase 82 U/L (35-105); Anion Gap 12.1 (5-19); Aspartate Amino Transferase 10 U/L (0-32); Blood Urea Nitrogen 42 mg/dL (8-23); Calcium 9.4 mg/dL (8.5-10.5); Carbon Dioxide 28 mmol/L (22-29); Chloride 93 mmol/L (98-107); Ferritin 62 ng/mL (15-150); Globulin 3.4 g/dL (1.3-4.6); Glucose 87 mg/dL (65-115); Iron 70 ug/dL (37-145); Lactate Dehydrogenase 165 U/L (135-214); Osmolality Calculated 278 mOsm/kg (285-295); Percent Saturation 20.2 % (20-50); Potassium 4.1 mmol/L (3.5-5.1); Sodium 129 mmol/L (136-145); Total Bilirubin 0.3 mg/dL (0.15-1.2); Total Iron Binding Capacity 346 mcg/dl; Total Protein 7.4 g/dL (6.6-8.7); Unsaturated Iron Binding 276 ug/dL (112-347)
[2024-12-04 15:49] LABS: Vitamin B12 475 pg/mL (232-1245)
[2024-12-04 15:55] LABS: Folate Level 11.5 ng/mL (4.8-37.3)
[2024-12-08 17:24] LABS: Erythropoietin 15.6 mIU/mL (2.6-18.5)
== END 2024-12-22 23:59 | disposition home or self-care (01) ==
PROVIDERS: Absent Provider Family Medicine; PCP Family Medicine; Visit Provider Internal Medicine
DX: D64.9 Anemia, unspecified (principal); K55.9 Vascular disorder of intestine, unspecified; I48.0 Paroxysmal atrial fibrillation; J43.1 Panlobular emphysema; I50.32 Chronic diastolic (congestive) heart failure; M54.42 Lumbago with sciatica, left side; M54.41 Lumbago with sciatica, right side; G89.29 Other chronic pain; R10.9 Unspecified abdominal pain; N18.9 Chronic kidney disease, unspecified; Z87.891 Personal history of nicotine dependence; I70.90 Unspecified atherosclerosis; I13.0 Hypertensive heart and chronic kidney disease with heart failure and stage 1 through stage 4 chronic kidney disease, or unspecified chronic kidney disease; Z90.49 Acquired absence of other specified parts of digestive tract; Z79.01 Long term (current) use of anticoagulants
CPT/HCPCS: 36415; 80053; 82607; 82668; 82728; 82746; 83010; 83540; 83550; 83615; 85025; 85045; 86880; 99204

== ENCOUNTER 2024-12-09 13:50 | Observation (INO) | payer MEDICARE, SELFPAY ==
[2024-12-09] VITALS (8 sets, daily range): BP systolic 100–139; BP diastolic 50–79; PULSE 88–106; RESP 16–21; TEMP 36.4–36.7; O2SAT 92–100; BMI 22.1; BMI 22.3
--- NOTE | 2024-12-09 14:47 | ED_ITS ---
HPI - Recheck/Abnormal Lab/Rx 2 General: Chief Complaint: Recheck/Abnormal Lab/Rx Stated Complaint: dr pereira, low sodium, low hemoglobin Time Seen by Provider: 12/09/24 14:30 History of Present Illness: 79-year-old female presents emergency ro om directed here by her primary care provider with report of anemia and hyponatremia.. Patient has previously had bowel ischemia had a bowel resection due to the concerns of stenosis from peripheral vascular disease she was started on Eliquis. She has not had any bright red blood per rectum or hematemesis. She has felt exceedingly weak. Worse in the last week. Last week her hemoglobin was 8.8. Related Data Home Medications ?Medication ?Instructions ?Recorded ?Confirmed hydrocodone 5 mg-acetaminophen 325 1 tab PO Q8H PRN Pa in 05/27/24 12/09/24 mg tablet promethazine 12.5 mg tablet 25 mg PO Q6H PRN Nausea An d 09/02/24 12/09/24 Vomiting furosemide 40 mg tablet 60 mg PO QAM 12/04/24 valacyclovir 1 gram tablet 1,000 mg PO Q12H 12/09/24 0 12/09/24 Previous Rx's ?Medication ?Instructions ?Recorded albuterol sulfate 1.25 mg/3 mL 1.25 mg (3 mL) inhalati on Q6H PRN 05/27/24 solution for nebulization shortness of breath or wheez ing #90 mL albuterol sulfate 90 mcg/actuation 2 inh inhalation Q6 H PRN shortness 05/27/24 aerosol inhaler of breath or wheezing #6.7 g julia nystatin 100,000 unit/mL oral 1,000,000 unit (10 mL) b uccal QID 09/25/24 suspension 2 weeks #560 mL apixaban 5 mg tablet 5 mg PO BID #60 tabs 5 atorvastatin 40 mg tablet 40 mg PO DAILY 90 days #90 t abs 10/15/24 carvedilol 6.25 mg tablet 6.25 mg PO BID 90 days #180 tabs 10/15/24 clopidogrel 75 mg tablet (Plavix) 75 mg PO DAILY 90 da ys #90 tabs 10/15/24 fluticasone 250 mcg-salmeterol 50 1 inh inhalation BID #60 ea 10/15/24 mcg/dose blistr powdr for inhalation (Advair Diskus) hydralazine 25 mg tablet 25 mg PO BID 90 days #180 ta bs 10/15/24 pantoprazole 40 mg tablet,delayed 40 mg PO BID 90 days #180 tabs 10/15/24 release sodium chloride 1,000 mg soluble 1,000 mg PO DAILY 90 days #90 tabs 10/15/24 tablet Held on 10/21/24. Instructions: Home Medication placed on hold at Doctor's office spironolactone 25 mg tablet 25 mg PO QAM 90 days #90 t abs 10/15/24 tiotropium bromide 18 mcg capsule 1 cap inhalation LV LY 30 days #60 10/15/24 with inhalation device (Spiriva inhalations with HandiHaler) triamcinolone acetonide 0.1 % 1 applic topical DAILY # 454 grams 11/19/24 topical cream Allergies Allergy/AdvReac Type Severity Reaction Status Date / Time No Known Allergies Allergy Verified 12/09/24 14:02 Review of Systems 2 Const: Reports: change in appetite and fatigue; Denies: fever(s) or chills Card: Denies: chest pain Resp: Denies: dyspnea GI: Denies: abdominal pain : Denies: dysuria, urinary frequency or urinary urgency Musc: Denies: neck pain or back pain Skin/Breast: Denies: rash PFSH ED 2 PFSH: Medical History Chronic hyponatremia HTN (hypertension) COPD (chronic obstructive pulmonary disease) Chronic heart failure with preserved ejection fraction (HFpEF) Acute respiratory failure Upper respiratory infection Encounter to establish care Emphysema lung Chronic low back pain Tachycardia Surgical History History of kyphoplasty H/O: hysterectomy Social History Smoking and tobacco/nicotine status: former use of tobacco/nicotine Physical Exam 2 Const: GENERAL APPEARANCE: cooperative ORIENTATION/CONSCIOUSNESS: Yes awake, Yes oriented to person, Yes oriented to place and Yes oriented to time HENMT: COMMON NORMALS: normocephalic, atraumatic and hearing grossly normal bilaterally HEAD & SCALP: normocephalic and atraumatic Resp: COMMON NORMALS: normal respiratory effort, No retractions, No use of accessory muscles and clear to auscultation bilaterally AUSCULTATION: clear to auscultation bilaterally Cardio: COMMON NORMALS: regular rate, regular rhythm and No murmurs present (Cardio) RATE: regular rate RHYTHM: regular rhythm GI: COMMON NORMALS: Soft to palpation and No hepatosplenomegaly present A USCULTATION: Yes normoactive bowel sounds PALPATION: Yes Soft to palpation, No Tenderness to palpation present (GI), No Guarding due to palpation present (GI) and Yes No hepatosplenomegaly present Extremity: COMMON NORMALS: normal to inspection, capillary refill normal, no clubbing, cyanosis or edema, no calf tenderness and no pedal edema Neuro: SENSORIUM/ORIENTATION: Yes oriented to person, Yes oriented to place and Yes oriented to time Skin: COMMON NORMALS: no rashes or lesions noted GENERAL SKIN EXAM: no rashes or lesions noted Course 2 Vital Signs: Vital signs: Vital Signs Temperature 97.6 F 12/09/24 13:58 Pulse Rate 95 12/09/24 17:03 Respiratory Rate 21 H 12/09/24 16:24 Blood Pressure 139/65 12/09/24 17:03 Pulse Oximetry 95 12/09/24 17:03 Oxygen Delivery Me thod Room Air 12/09/24 13:58 MDM - Recheck/Abnormal Lab/Rx Medical Decision Making Patient's hemoglobin is dropped to 5.8 over the last few days. She is in need to continue to stay on the Eliquis because of the indication. Discussed with the patient and with hospitalist will admit patient given IV Protonix prophylactically will admit for transfusion orders written. In addition to her hemoglobin itself she is at increased risk because of her A-fib for developing decompensated heart failure this will be a problem she is transfused Ol[place] need to be monitored as on observation. Medical Records I reviewed the patient's medical records. Lab Data I reviewed the patient's lab results. 12/09/24 14:43 12/09/24 14:43 Laboratory Results WBC 9.80 10^3/uL (3.29-11.43) 12/09/24 14:43 RBC 1.99 10^6/uL (3.85-5.65) L 12/09/24 14:43 Hgb 5.80 g/dL (11.27-16.99) L* 12/09/24 14:43 Hct 20.7 % (36-47) L* 12/09/24 14:43 MCV 104.0 fl (85-98) H 12/09/24 14:43 MCH 29.1 pg (27-33) 12/09/24 14:43 MCHC 28.0 g/dL (30-55) L 12/09/24 14:43 RDW 16.7 % (12.1-15.1) H 12/09/24 14:43 Plt Count 409 10^3/cmm (157-399) H 12/09/24 14:43 MPV 10.0 fL (7.4-10.4) 12/09/24 14:43 Neut % (Auto) 52.4 % 12/09/24 14:43 Lymph % (Auto) 37.4 % 12/09/24 14:43 [place] % (Auto) 5.3 % 12/09/24 14:43 Eos % (Auto) 2.6 % 12/09/24 14:43 Baso % (Auto) 0.7 % 12/09/24 14:43 Neut # (Auto) 5.13 10^3/uL (1.8-7.7) 12/09/24 14:43 Lymph # (Auto) 3.7 10^3/uL (0.8-4.8) 12/09/24 14:43 [place] # (Auto) 0.5 10^3/uL (0.2-0.9) 12/09/24 14:43 Eos # (Auto) 0.3 10^3/uL (0.0-0.8) 12/09/24 14:43 Baso # (Auto) 0.1 10^3/uL (0.0-0.1) 12/09/24 14:43 Nucleated RBC % (auto) 0 % 12/09/24 14:43 Nucleated RBCs # 0.0 /100WBC 12/09/24 14:43 Sodium 130 mmol/L (136-145) L 12/09/24 14:43 Potassium 3.9 mmol/L (3.5-5.1) 12/09/24 14:43 Chloride 93 mmol/L (98-107) L 12/09/24 14:43 Carbon Dioxide 25 mmol/L (22-29) 12/09/24 14:43 Anion Gap 15.9 (5-19) 12/09/24 14:43 BUN 51 mg/dL (8-23) H 12/09/24 14:43 Creatinine 1.6 mg/dL (0.5-0.9) H 12/09/24 14:43 GFR Calculation Not Reportable 12/09/24 14:43 Glucose 102 mg/dL (65-115) 12/09/24 14:43 Calculated Osmolality 284 mOsm/kg (285-295) L 12/09/24 14:43 Calcium 8.9 mg/dL (8.5-10.5) 12/09/24 14:43 Total Bilirubin 0.2 mg/dL (0.15-1.2) 12/09/24 14:43 AST 13 U/L (0-32) 12/09/24 14:43 ALT 6 U/L (0-33) 12/09/24 14:43 Alkaline Phosphatase 73 U/L (35-105) 12/09/24 14:43 Total Protein 6.9 g/dL (6.6-8.7) 12/09/24 14:43 Albumin 3.7 g/dL (3.5-5.2) 12/09/24 14:43 Globulin 3.2 g/dL (1.3-4.6) 12/09/24 14:43 Urine Color Yellow (Yellow) 12/09/24 15:28 Urine Appearance Clear (CLEAR) 12/09/24 15:28 Urine pH 6.5 (5-7) 12/09/24 15:28 Ur Specific [place] 1.008 (1.005-1.030) 12/09/24 15:28 Urine Protein Negative (Negative) 12/09/24 15:28 Urine Glucose (UA) Negative (Normal) 12/09/24 15:28 Urine Ketones Negative (Negative) 12/09/24 15: Urine Blood Negative (Negative) 12/09/24 15:28 Urine Nitrate Negative (Negative) 12/09/24 15: Urine Bilirubin Negative (Negative) 12/09/24 15:28 Urine Urobilinogen 0.2 mg/dL (Negative) 12/09/24 15:28 Ur Leukocyte Esterase 1+ (Negative) A 12/09/24 15:28 Urine RBC 0-2 /hpf (0-2) 12/09/24 15:28 Urine WBC 21-50 /hpf (0-5) H 12/09/24 15:28 Ur Squamous Epith Cells 0-5 /hpf (0-5) 12/09/24 15:28 Amorphous Sediment Not Reportable 12/09/24 15:28 Urine Bacteria 4+ /hpf (NONE) H 12/09/24 15:28 Hyaline Casts 3.30 /lpf 12/09/24 15:28 Blood Type A Positive 12/09/24 16:09 Rho(D) Type Rh positive 12/09/24 16:09 Antibody Screen Negative 12/09/24 16:09 No radiology studies performed this visit Discharge Plan Discharge Patient Disposition: Admitted As Inpatient Admit Provider: Samara Deluna Clinical Impression: Anemia, HTN (hypertension), Afib, Ischemia, bowel Condition: Stable Coding Level of Care Code ED Electrical Supervisor for Camron Sousa
[2024-12-09 14:49] LABS: Basophils # 0.1 10^3/uL (0.0-0.1); Basophils % 0.7 %; Eosinophils # 0.3 10^3/uL (0.0-0.8); Eosinophils % 2.6 %; Lymphocytes # 3.7 10^3/uL (0.8-4.8); Lymphocytes % 37.4 %; Mean Corpuscular Hemoglobin 29.1 pg (27-33); Monocytes # 0.5 10^3/uL (0.2-0.9); Monocytes % 5.3 %; Neutrophils # 5.13 10^3/uL (1.8-7.7); Neutrophils % 52.4 %; Nucleated Red Blood Cells % 0 %; Platelet Count 409 10^3/cmm (157-399); Red Blood Count 1.99 10^6/uL (3.85-5.65); Red Cell Distribution Width 16.7 % (12.1-15.1)
[2024-12-09 14:57] LABS: Hematocrit 20.7 % (36-47)
[2024-12-09 15:05] LABS: Alanine Aminotransferase 6 U/L (0-33); Albumin Level 3.7 g/dL (3.5-5.2); Alkaline Phosphatase 73 U/L (35-105); Anion Gap 15.9 (5-19); Aspartate Amino Transferase 13 U/L (0-32); Blood Urea Nitrogen 51 mg/dL (8-23); Calcium 8.9 mg/dL (8.5-10.5); Carbon Dioxide 25 mmol/L (22-29); Chloride 93 mmol/L (98-107); Creatinine Clr Calc Pharmacy 23.7946; Globulin 3.2 g/dL (1.3-4.6); Glucose 102 mg/dL (65-115); Osmolality Calculated 284 mOsm/kg (285-295); Potassium 3.9 mmol/L (3.5-5.1); Sodium 130 mmol/L (136-145); Total Bilirubin 0.2 mg/dL (0.15-1.2); Total Protein 6.9 g/dL (6.6-8.7)
[2024-12-09 16:31] LABS: Bilirubin Urine Negative (Negative); Blood Urine Negative (Negative); Glucose Urine UA Negative (Normal); Ketones Urine Negative (Negative); Leukocyte Esterase Urine 1+ (Negative); Nitrate Urine Negative (Negative); Protein Urine Negative (Negative); Specific Gravity, Urine 1.008 (1.005-1.030); Urine Appearance Clear (CLEAR); Urine Color Yellow (Yellow); Urobilinogen Urine 0.2 mg/dL (Negative); pH Urine 6.5 (5-7)
[2024-12-09 16:37] LABS: Add Urine Microscopic? YES; Bacteria Urine 4+ /hpf; RBC Urine 0-2 /hpf (0-2); Squamous Epithelial Cell Urine 0-5 /hpf (0-5); WBC Urine 21-50 /hpf (0-5)
[2024-12-09 16:40] LABS: Add Urine Culture? Yes
[2024-12-09] MEDS: pantoprazole 40 mg SDV 80 MG IVP (16:58)
--- NOTE | 2024-12-09 18:28 | PM.HP ---
Providers/Chief Complaint Admitting Physician: Samara Deluna MD Primary Care Provider: Melonie Padron MD Chief Complaint: dr pereira, low sodium, low hemoglobin History of Present Illness Oanh Quispe is a 79 year old female with past medical history of mesenteric ischemia post bowel resection, wound VAC which was removed 2 weeks ago, abdominal wound, chronic hyponatremia, recurrent anemia requiring blood transfusions on Eliquis for mesenteric stents, diastolic heart failure, hypertension, A-fib, COPD, CKD presents to the ER today from her PCPs office because she was found to have a hemoglobin in 5. Patient has been feeling extremely weak. Denies any bleeding per rectum, the patient was yesterday with. Occasionally she does complain of having black tarry soft bowel movements but not regularly. Denies any abdominal pain. Has been compliant to her medications. Was recently at [facility] for workup anemia. Underwent endoscopy which was reported normal. Was due to get colonoscopy but left AMA. Review of Systems General: Reports: 10 or more systems reviewed and unremarkable except in HPI and below Const: Denies: fever(s), chills, body aches, change in appetite, change in weight, malaise, night sweats, diaphoresis, change in sleep pattern, daytime sleepiness or snoring Eyes: Denies: change in vision, blurry vision, photophobia, eye discomfort or eye discharge ENMT: Denies: throat pain, enlarged tonsils, hoarseness, mouth pain, oral sores, dry mouth, tinnitus, nasal congestion or post nasal drip Card: Denies: chest pain, palpitations, irregular heart rhythm, edema, swelling of feet/ankles, lightheadedness, syncope, pre-syncope, dyspnea on exertion, orthopnea, leg pain with exertion or acrocyanosis Resp: Denies: dyspnea, productive cough, non-productive cough, wheezing, stridor, pain on inspiration, change in phlegm color, hemoptysis or chest congestion GI: Denies: abdominal pain, nausea, vomiting, hematemesis, coffee ground emesis, dysphagia, heartburn, diarrhea, constipation, bloating, GI cramping, change in bowel habits, pain on defecation, hematochezia or melena : Denies: flank pain, dysuria, urinary frequency, urinary urgency, urinary hesitancy, nocturia or hematuria Musc: Denies: neck pain, back pain, extremity pain, joint pain, joint swelling, joint redness, joint stiffness or limited range of motion Neuro: Denies: headache(s), numbness in extremities, weakness in extremities, sensory changes, lack of coordination, difficulty walking, frequent falls, dizziness, vertigo, confusion, Slurred speech present, difficulty communicating thoughts or seizure-like activity Psych: Denies: anxiety, depression, mood swings, panic attacks, hopelessness or irritability Endo: Denies: polyuria, polydipsia, tired all the time, cold intolerance, excessive sweating, flushing or heat intolerance Eren/Lymph: Denies: easy bruising or easy bleeding All/Imm: Denies: tongue swelling, facial swelling or acute wheezing Medications/Allergies Home Medications ?Medication ?Instructions ?Recorded ?Confirmed ?Last Taken ?Type albuterol sulfate 1.25 mg/3 mL 1.25 mg (3 mL) inhalation Q6H PRN 05/27/24 12/09/24 Unknown Rx solution for nebulization shortness of breath or wheezing #90 mL albuterol sulfate 90 mcg/actuation 2 inh inhalation Q6H PRN shortness 05/27/24 12/09/24 Unknown Rx aerosol inhaler of breath or wheezing #6.7 grams hydrocodone 5 mg-acetaminophen 325 1 tab PO Q8H PRN Pain 05/27/24 12/09/24 1 Week Ago History mg tablet ~08/19/24 promethazine 12.5 mg tablet 25 mg PO Q6H PRN Nausea And 09/02/24 12/09/24 Unknown History Vomiting nystatin 100,000 unit/mL oral 1,000,000 unit (10 mL) buccal QID 09/25/24 12/09/24 Unknown Rx suspension 2 weeks #560 mL apixaban 5 mg tablet 5 mg PO BID #60 tabs 10/15/24 12/09/24 12/09/24 Rx atorvastatin 40 mg tablet 40 mg PO DAILY 90 days #90 tabs 10/15/24 12/09/24 12/08/24 Rx carvedilol 6.25 mg tablet 6.25 mg PO BID 90 days #180 tabs 10/15/24 12/09/24 12/09/24 Rx clopidogrel 75 mg tablet (Plavix) 75 mg PO DAILY 90 days #90 tabs 10/15/24 12/09/24 12/09/24 Rx fluticasone 250 mcg-salmeterol 50 1 inh inhalation BID #60 ea 10/15/24 12/09/24 12/09/24 Rx mcg/dose blistr powdr for inhalation (Advair Diskus) hydralazine 25 mg tablet 25 mg PO BID 90 days #180 tabs 10/15/24 12/09/24 12/09/24 Rx pantoprazole 40 mg tablet,delayed 40 mg PO BID 90 days #180 tabs 10/15/24 12/09/24 12/09/24 Rx release sodium chloride 1,000 mg soluble 1,000 mg PO DAILY 90 days #90 tabs 10/15/24 12/09/24 12/09/24 Rx tablet Held on 10/21/24. Instructions: Home Medication placed on hold at Doctor's office spironolactone 25 mg tablet 25 mg PO QAM 90 days #90 tabs 10/15/24 12/09/24 12/09/24 Rx tiotropium bromide 18 mcg capsule 1 cap inhalation DAILY 30 days #60 10/15/24 12/09/24 12/09/24 Rx with inhalation device (Spiriva inhalations with HandiHaler) triamcinolone acetonide 0.1 % 1 applic topical DAILY #454 grams 11/19/24 12/09/24 12/09/24 Rx topical cream furosemide 40 mg tablet 60 mg PO QAM 12/04/24 12/09/24 12/09/24 History valacyclovir 1 gram tablet 1,000 mg PO Q12H 12/09/24 12/09/24 Unknown History Allergies Allergy/AdvReac Type Severity Reaction Status Date / Time No Known Allergies Allergy Verified 12/09/24 14:02 PFSH Acute PFSH: Medical History (Updated 12/09/24 @ 18:34 by Asif Khalil MD) Ischemia, bowel History of ischemic bowel disease Chronic hyponatremia HTN (hypertension) COPD (chronic obstructive pulmonary disease) Chronic heart failure with preserved ejection fraction (HFpEF) Acute respiratory failure Upper respiratory infection Encounter to establish care Emphysema lung Chronic low back pain Tachycardia Surgical History (Updated 12/09/24 @ 18:34 by Asif Khalil MD) History of bowel resection History of kyphoplasty H/O: hysterectomy Social History Smoking and tobacco/nicotine status: former use of tobacco/nicotine Vitals/I&O/Wt Last Vital Signs Temp 97.8 F 12/09/24 17:58 Pulse 88 12/09/24 17:58 Resp 16 12/09/24 17:58 BP 119/69 12/09/24 17:58 Pulse Ox 92 12/09/24 17:58 O2 Del Method Room Air 12/09/24 17:58 Weight last 48 hrs Weight 55.423 kg Weight 54.885 kg Physical Exam Narrative: General: No acute distress, AO x3, chronically sick appearing, dehydrated, pallor present HEENT: PERRLA, pupils bilaterally equal and reactive Chest: Normal vesicular breath sounds, no added sounds, equal good air entry bilaterally CVS: S1-S2 regular, no murmurs, no tachycardia, no gallops, no rubs Abdomen: Soft, nontender, no organomegaly, bowel sounds present Neuro: No focal deficits, no facial deformity, AO x3, power 5/5 in all limbs Data 12/09/24 14:43 12/09/24 14:43 A&P Assessment and plan (1) Anemia: Most likely in setting of chronic use of Eliquis due to recent mesenteric arteries stenting for bowel ischemia. Also takes Plavix at home. Repeated history of blood transfusions. Hemoglobin down to 5.8. 1 week ago up to 8.8. Denies any active melena or hematemesis. Transfused 2 unit of PRBC. Target hemoglobin more than 8. Continue with Protonix twice daily. Patient had endoscopy recently at [facility] which was reported normal. Left AMA before colonoscopy could be done. Discussed with detail with the patient regarding need for colonoscopy for further evaluation of recurrent anemias while being on anticoagulation. 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 Discussed in detail regarding merits versus demerits, risk factors with colonoscopy. Discussed that unfortunately she does not have too many other options given the the states she is not with recent mesenteric ischemia needing Eliquis and bleeding while being on Eliquis. Discussed need to discontinue Eliquis at least for 1 week. Discussed usually recommendations are to hold anticoagulation for 2 weeks but given her concerns and recent mesenteric ischemia within with last 1 year for now it should be okay to stop it for 1 week while continuing Plavix. She verbalizes understanding and is agreeable for now. Appreciate recent iron panel, vitamin B12 levels, haptoglobin levels. Appreciate reticulocyte count. Qualifiers: Anemia type: unspecified type Qualified Code(s): D64.9 - Anemia, unspecified (2) History of ischemic bowel disease: Continue Plavix. Holding off on Eliquis as above. (3) History of bowel resection: Had wound VAC which was removed 3 weeks ago. Continue with wound care at home. (4) Current use of [employer] anticoagulation: Patient's creatinine is around 1.6. Body weight is 55 kg. Age 79. Discussed in detail with the patient regarding need for anticoagulation at a lower dose to prevent from further bleeding. She verbalizes understanding. Will plan to start Eliquis at 2.5 mg twice daily dose after 1 week. She verbalizes understanding. (5) HTN (hypertension): Goal blood pressure less than 140/90 mmHg. Takes multiple medications at home including hydralazine, Coreg. Hold off on antihypertensive for now. Will restart as per goal blood pressures. Qualifiers: Hypertension type: primary hypertension Qualified Code(s): I10 - Essential (primary) hypertension (6) Chronic heart failure with preserved ejection fraction (HFpEF): Last echocardiogram from October 2023 showed an EF 55 to 60% with grade 2 diastolic function. Patient currently seems slightly dehydrated. Getting tubes of blood transfusion. For now we will continue with home dose of Lasix. (7) Afib: Telemetry. Currently rate controlled. Qualifiers: Atrial fibrillation type: paroxysmal Qualified Code(s): I48.0 - Paroxysmal atrial fibrillation (8) Chronic kidney disease: Baseline creatinine most recently 1.3-1.5. Currently 1.6. Medical reconciliation done for nephrotoxic drugs. Monitor daily. (9) Chronic hyponatremia: Chronically around 1 33-1 35. Currently 130. Continue with home dose of salt tablets. It seems all tablets are on hold recently. (10) COPD (chronic obstructive pulmonary disease): No exacerbation. Pulmicort twice daily, ipratropium, Xopenex every 6 hours. Qualifiers: COPD type: emphysema Emphysema type: panlobular Qualified Code(s): J43.1 - Panlobular emphysema Plan CODE STATUS: Discussed in detail with the patient. Discussed unfortunately she is a difficult situation as she needs anticoagulation given her history of recent bowel ischemia. Also discussed while being on Eliquis she has been having worsening anemia requiring multiple transfusions. Discussed the risk with multiple blood transfusion including hemosiderosis, pulmonary and liver injuries. Discussed possible need for colonoscopy even though there is a risk for perforation for further evaluation of GI bleed. Patient verbalized understanding and will schedule a colonoscopy with her electrician aircraft as an outpatient. Discussed in case of cardiac arrest if she would want any aggressive measures versus comfort care. She states she does not want any kind of aggressive measures to peacefully. CODE STATUS DNR/DNI Protonix twice daily will be sufficient for PUD prophylaxis SCD for DVT prophylaxis PDMP PDMP Reviewed: Not Reviewed Attestations Medical Necessity Statement*: Admit under observation for management of acute anemia requiring blood transfusion in a patient with history of bowel ischemia recent mesenteric stenting, on chronic anticoagulation, CKD Diagnoses Anemia, unspecified type D64.9 Anemia type: unspecified type History of ischemic bowel disease Z87.19 History of bowel resection Z90.49 Current use of [employer] anticoagulation Z79.01 Primary hypertension I10 Hypertension type: primary hypertension Chronic heart failure with preserved ejection fraction (HFpEF) I50.32 Paroxysmal atrial fibrillation I48.0 Atrial fibrillation type: paroxysmal Chronic kidney disease N18.9 Chronic hyponatremia E87.1 Panlobular emphysema J43.1 COPD type: emphysema Emphysema type: panlobular
[2024-12-09] MEDS: pantoprazole DR 40 mg Tablet PO (20:11)
[2024-12-09 20:21] LABS: Lactic Sepsis W/Reflex 1.6 mmol/L (0.5-2.2)
[2024-12-09 20:34] LABS: Estmated Average Glucose 80; Hemoglobin A1C 4.4 % (4.0-6.0)
[2024-12-09] MEDS: HYDROcodone-acetaminophen 5-325 mg Tablet 1 TAB PO (22:10)
[2024-12-10] VITALS (7 sets, daily range): BP systolic 106–125; BP diastolic 57–70; PULSE 68–95; RESP 15–18; TEMP 36.3–36.8; O2SAT 94–98
[2024-12-10 05:41] LABS: Basophils # 0.1 10^3/uL (0.0-0.1); Basophils % 0.6 %; Eosinophils # 0.2 10^3/uL (0.0-0.8); Eosinophils % 2.2 %; Hematocrit 27.2 % (36-47); Lymphocytes # 3.1 10^3/uL (0.8-4.8); Lymphocytes % 30.4 %; Mean Corpuscular HGB Conc 32.7 g/dL (30-55); Mean Corpuscular Hemoglobin 30.3 pg (27-33); Mean Corpuscular Volume 92.5 fl (85-98); Mean Platelet Volume 9.9 fL (7.4-10.4); Monocytes # 0.7 10^3/uL (0.2-0.9); Monocytes % 6.5 %; Neutrophils # 5.97 10^3/uL (1.8-7.7); Neutrophils % 58.2 %; Nucleated Red Blood Cells % 0 %; Platelet Count 414 10^3/cmm (157-399); Red Blood Count 2.94 10^6/uL (3.85-5.65); Red Cell Distribution Width 15.2 % (12.1-15.1); White Blood Count 10.23 10^3/uL (3.29-11.43)
[2024-12-10] MEDS: FUROsemide 40 mg Tablet 60 MG PO (05:44)
[2024-12-10] MEDS: morphine 4 mg/mL SDV 1 mL 2 MG IVP (05:54)
[2024-12-10 05:55] LABS: Chol HDL Ratio 3.54 mg/dL (0.0-4.40); Cholesterol 177 mg/dL (0-200); HDL Cholesterol 50 mg/dL (60-100); LDL Cholesterol Calculated 102 mg/dL (50-129); LDL HDL Ratio 2.04 RATIO (0.00-3.22); Triglycerides 125 mg/dL (0-150)
[2024-12-10 05:56] LABS: Alanine Aminotransferase < 5 U/L (0-33); Albumin Level 3.5 g/dL (3.5-5.2); Alkaline Phosphatase 70 U/L (35-105); Anion Gap 16.8 (5-19); Aspartate Amino Transferase 11 U/L (0-32); Blood Urea Nitrogen 52 mg/dL (8-23); Calcium 8.9 mg/dL (8.5-10.5); Carbon Dioxide 23 mmol/L (22-29); Chloride 95 mmol/L (98-107); Creatinine Clr Calc Pharmacy 27.7154; Globulin 2.9 g/dL (1.3-4.6); Glucose 84 mg/dL (65-115); Magnesium 2.1 mg/dL (1.7-2.3); Osmolality Calculated 285 mOsm/kg (285-295); Phosphorus 3.7 mg/dL (2.5-4.5); Potassium 3.8 mmol/L (3.5-5.1); Sodium 131 mmol/L (136-145); Total Bilirubin 1.3 mg/dL (0.15-1.2); Total Protein 6.4 g/dL (6.6-8.7)
[2024-12-10] MEDS: sodium chloride 1 gm Tablet PO (08:14)
[2024-12-10] MEDS: clopidogrel 75 mg Tablet PO (08:15)
[2024-12-10] MEDS: pantoprazole DR 40 mg Tablet PO (08:15)
--- NOTE | 2024-12-10 08:36 | PM.DCS ---
Discharge Providers Date of Admission: 12/09/24 16:40 Date of Discharge: December 10, 2024 Attending Provider at Admission: Samara Deluna MD Attending Provider at Discharge: Asif Khalil MD Primary Care Provider: Melonie Padron MD Diagnoses at Discharge Discharge Diagnosis (1) Anemia: Status: Acute Qualifiers: Anemia type: unspecified type Qualified Code(s): D64.9 - Anemia, unspecified (2) History of ischemic bowel disease: Status: Acute (3) History of bowel resection: Status: Acute (4) Current use of half-way anticoagulation: Status: Acute (5) HTN (hypertension): Status: Acute Qualifiers: Hypertension type: primary hypertension Qualified Code(s): I10 - Essential (primary) hypertension (6) Chronic heart failure with preserved ejection fraction (HFpEF): Status: Acute (7) Afib: Status: Acute Qualifiers: Atrial fibrillation type: paroxysmal Qualified Code(s): I48.0 - Paroxysmal atrial fibrillation (8) Chronic kidney disease: Status: Chronic (9) Chronic hyponatremia: Status: Acute (10) COPD (chronic obstructive pulmonary disease): Status: Acute Qualifiers: COPD type: emphysema Emphysema type: panlobular Qualified Code(s): J43.1 - Panlobular emphysema Reason for Visit Reason for Visit: dr pereira, low sodium, low hemoglobin Brief History: Oanh Quispe is a 79 year old female with past medical history of mesenteric ischemia post bowel resection, wound VAC which was removed 2 weeks ago, abdominal wound, chronic hyponatremia, recurrent anemia requiring blood transfusions on Eliquis for mesenteric stents, diastolic heart failure, hypertension, A-fib, COPD, CKD presents to the ER today from her PCPs office because she was found to have a hemoglobin in 5. Patient has been feeling extremely weak. Denies any bleeding per rectum, the patient was yesterday with. Occasionally she does complain of having black tarry soft bowel movements but not regularly. Denies any abdominal pain. Has been compliant to her medications. Was recently at [facility] for workup anemia. Underwent endoscopy which was reported normal. Was due to get colonoscopy but left AMA. Hospital Course Hospital Course Patient was admitted to the hospital further evaluation and management of acute on chronic anemia. She was given 2 units of blood transfusion after which her hemoglobin appropriately came up to more than 8. Discussed that she is currently on 5 of Eliquis twice daily specially with her body weight and her elevated creatinine more recently she would do better with a half the dose of Eliquis of 2.5 mg twice daily. She is agreeable to switch for now. Detailed goals of care discussions were done with patient and her daughter at bedside. Discussed unfortunately she is in a difficult situation as her bleeding is most likely because she is on anticoagulation with Eliquis and Plavix which she needs due to her recent history of mesenteric ischemia requiring mesenteric artery stent. She states she has been told by her dental surgery doctor not to stop Eliquis otherwise the mesenteric stent would close. We discussed the need for colonoscopy to further evaluate the reason for recurrent anemia requiring multiple blood transfusions. Discussed risks involved with colonoscopy but need for colonoscopy for further evaluation. Also discussed if colonoscopy does not find appropriate reason for bleeding the only option would be either to withhold Eliquis going further or to transition to hospice while being on Eliquis as multiple blood transfusions comes with higher organ damage risk as well. Patient verbalized understanding and will get in touch with her dental surgery doctor at [facility] to schedule a colonoscopy. For now she is agreeable to hold Eliquis for 1 week and after that to restart Eliquis at half the dose of 2.5 mg twice daily. She is also advised to take salt tablets twice daily rather than once daily for next 1 week. During hospitalization her blood pressures were noted to be normal of antihypertensive. She is to restart her Coreg but take hydralazine only as needed for systolic of more than 160 mmHg. Changes in medication were discussed in detail with the patient and she verbalized understanding. Physical Exam Narrative: General: No acute distress, AO x3, chronically sick appearing, dehydrated, pallor present HEENT: PERRLA, pupils bilaterally equal and reactive Chest: Normal vesicular breath sounds, no added sounds, equal good air entry bilaterally CVS: S1-S2 regular, no murmurs, no tachycardia, no gallops, no rubs Abdomen: Soft, nontender, no organomegaly, bowel sounds present Neuro: No focal deficits, no facial deformity, AO x3, power 5/5 in all limbs Discharge Data Studies Completed and Pending Pending at discharge Category Date Time Status Complete Blood Count w/Auto AM LABS Lab 12/11/24 04:00 Ordered Complete Blood Count w/Auto AM LABS Lab 12/12/24 04:00 Ordered Comprehensive Metabolic Panel AM LABS Lab 12/11/24 04:00 Ordered Comprehensive Metabolic Panel AM LABS Lab 12/12/24 04:00 Ordered Magnesium AM LABS Lab 12/11/24 04:00 Ordered Magnesium AM LABS Lab 12/12/24 04:00 Ordered Phosphorus AM LABS Lab 12/11/24 04:00 Ordered Phosphorus AM LABS Lab 12/12/24 04:00 Ordered Urine Culture Stat Lab 12/09/24 15:28 Received Laboratory Results WBC 10.23 10^3/uL (3.29-11.43) 12/10/24 05:12 RBC 2.94 10^6/uL (3.85-5.65) L 12/10/24 05:12 Hgb 8.90 g/dL (11.27-16.99) L D 12/10/24 05:12 Hct 27.2 % (36-47) L D 12/10/24 05:12 MCV 92.5 fl (85-98) D 12/10/24 05:12 MCH 30.3 pg (27-33) 12/10/24 05:12 MCHC 32.7 g/dL (30-55) D 12/10/24 05:12 RDW 15.2 % (12.1-15.1) H 12/10/24 05:12 Plt Count 414 10^3/cmm (157-399) H 12/10/24 05:12 MPV 9.9 fL (7.4-10.4) 12/10/24 05:12 Neut % (Auto) 58.2 % 12/10/24 05:12 Lymph % (Auto) 30.4 % 12/10/24 05:12 Juncos % (Auto) 6.5 % 12/10/24 05:12 Eos % (Auto) 2.2 % 12/10/24 05:12 Baso % (Auto) 0.6 % 12/10/24 05:12 Neut # (Auto) 5.97 10^3/uL (1.8-7.7) 12/10/24 05:12 Lymph # (Auto) 3.1 10^3/uL (0.8-4.8) 12/10/24 05:12 Juncos # (Auto) 0.7 10^3/uL (0.2-0.9) 12/10/24 05:12 Eos # (Auto) 0.2 10^3/uL (0.0-0.8) 12/10/24 05:12 Baso # (Auto) 0.1 10^3/uL (0.0-0.1) 12/10/24 05:12 Nucleated RBC % (auto) 0 % 12/10/24 05:12 Nucleated RBCs # 0.0 /100WBC 12/10/24 05:12 Sodium 131 mmol/L (136-145) L 12/10/24 05:12 Potassium 3.8 mmol/L (3.5-5.1) 12/10/24 05:12 Chloride 95 mmol/L (98-107) L 12/10/24 05:12 Carbon Dioxide 23 mmol/L (22-29) 12/10/24 05:12 Anion Gap 16.8 (5-19) 12/10/24 05:12 BUN 52 mg/dL (8-23) H 12/10/24 05:12 Creatinine 1.4 mg/dL (0.5-0.9) H 12/10/24 05:12 GFR Calculation Not Reportable 12/10/24 05:12 Glucose 84 mg/dL (65-115) 12/10/24 05:12 Estimat Average Glucose 80 12/09/24 19:44 Hemoglobin A1c 4.4 % (4.0-6.0) 12/09/24 19:44 Calculated Osmolality 285 mOsm/kg (285-295) 12/10/24 05:12 Lactic Acid 1.6 mmol/L (0.5-2.2) 12/09/24 19:44 Calcium 8.9 mg/dL (8.5-10.5) 12/10/24 05:12 Phosphorus 3.7 mg/dL (2.5-4.5) 12/10/24 05:12 Magnesium 2.1 mg/dL (1.7-2.3) 12/10/24 05:12 Total Bilirubin 1.3 mg/dL (0.15-1.2) H 12/10/24 05:12 AST 11 U/L (0-32) 12/10/24 05:12 ALT < 5 U/L (0-33) 12/10/24 05:12 Alkaline Phosphatase 70 U/L (35-105) 12/10/24 05:12 Total Protein 6.4 g/dL (6.6-8.7) L 12/10/24 05:12 Albumin 3.5 g/dL (3.5-5.2) 12/10/24 05:12 Globulin 2.9 g/dL (1.3-4.6) 12/10/24 05:12 Triglycerides 125 mg/dL (0-150) 12/10/24 05:12 Cholesterol 177 mg/dL (0-200) 12/10/24 05:12 LDL Cholesterol, Calc 102 mg/dL (50-129) 12/10/24 05:12 HDL Cholesterol 50 mg/dL (60-100) L 12/10/24 05:12 LDL/HDL Ratio 2.04 RATIO (0.00-3.22) 12/10/24 05:12 Cholesterol/HDL Ratio 3.54 mg/dL (0.0-4.40) 12/10/24 05:12 Urine Color Yellow (Yellow) 12/09/24 15:28 Urine Appearance Clear (CLEAR) 12/09/24 15: Urine pH 6.5 (5-7) 12/09/24 15:28 Ur Specific Dinosaur 1.008 (1.005-1.030) 12/09/24 15:28 Urine Protein Negative (Negative) 12/09/24 15: Urine Glucose (UA) Negative (Normal) 12/09/24 15: Urine Ketones Negative (Negative) 12/09/24 15: Urine Blood Negative (Negative) 12/09/24 15:28 Urine Nitrate Negative (Negative) 12/09/24 15: Urine Bilirubin Negative (Negative) 12/09/24 15: Urine Urobilinogen 0.2 mg/dL (Negative) 12/09/24 15:28 Ur Leukocyte Esterase 1+ (Negative) A 12/09/24 15:28 Urine RBC 0-2 /hpf (0-2) 12/09/24 15:28 Urine WBC 21-50 /hpf (0-5) H 12/09/24 15:28 Ur Squamous Epith Cells 0-5 /hpf (0-5) 12/09/24 15:28 Amorphous Sediment Not Reportable 12/09/24 15:28 Urine Bacteria 4+ /hpf (NONE) H 12/09/24 15: Hyaline Casts 3.30 /lpf 12/09/24 15:28 Blood Type A Positive 12/09/24 16:09 Rho(D) Type Rh positive 12/09/24 16:09 Antibody Screen Negative 12/09/24 16:09 Crossmatch See Detail 12/09/24 16:09 Vitals Last Vital Signs Temp 97.7 F 12/10/24 07:58 Pulse 68 12/10/24 07:58 Resp 17 12/10/24 07:58 BP 125/65 12/10/24 07:58 Pulse Ox 95 12/10/24 07:58 O2 Del Method Room Air 12/10/24 07:58 O2 Flow Rate 2 12/10/24 03:50 Discharge Plan Discharge Patient Disposition: Home Condition: Stable Prescriptions: New Eliquis 2.5 mg tablet 2.5 mg PO BID Qty: 60 0RF Rx Instructions: start from 12/17 Continued hydrocodone-acetaminophen 5-325 mg tablet 1 tab PO Q8H PRN (Reason: Pain) albuterol sulfate 1.25 mg/3 mL solution for nebulization 1.25 mg inhalation Q6H PRN (Reason: shortness of breath or wheezing) Qty: 90 5RF albuterol sulfate 90 mcg/actuation HFA aerosol inhaler 2 inh inhalation Q6H PRN (Reason: shortness of breath or wheezing) Qty: 6.7 5RF Advair Diskus 250-50 mcg/dose blister with device 1 inh INHALATION BID Qty: 60 5RF carvedilol 6.25 mg tablet 6.25 mg PO BID 90 Days Qty: 180 2RF atorvastatin 40 mg tablet 40 mg PO DAILY 90 Days Qty: 90 2RF pantoprazole 40 mg tablet,delayed release (DR/EC) 40 mg PO BID 90 Days Qty: 180 2RF Spiriva with HandiHaler 18 mcg capsule, w/inhalation device 1 cap INHALATION DAILY 30 Days Qty: 60 5RF sodium chloride 1,000 mg tablet,soluble 1,000 mg PO DAILY 90 Days Qty: 90 2RF clopidogrel [Plavix] 75 mg tablet 75 mg PO DAILY 90 Days Qty: 90 2RF triamcinolone acetonide 0.1 % cream 1 applic topical DAILY Qty: 454 1RF furosemide 40 mg tablet 60 mg PO QAM nystatin 100,000 unit/mL suspension 1,000,000 unit buccal QID 14 Days Qty: 560 1RF Rx Instructions: administer 1/2 of dose in each side of the mouth promethazine 12.5 mg tablet 25 mg PO Q6H PRN (Reason: Nausea And Vomiting) valacyclovir 1 gram tablet 1,000 mg PO Q12H Changed hydralazine 25 mg tablet 25 mg PO BID PRN (Reason: sbp more than 160 mmhg) 90 Days Qty: 180 2RF Discontinued spironolactone 25 mg tablet 25 mg PO QAM 90 Days Qty: 90 2RF apixaban 5 mg tablet 5 mg PO BID Qty: 60 5RF Rx Instructions: 340B Discharge Orders: Discharge Order (Routine); Ordered 12/10/24 Ordered By: Asif Khalil Other Ambulatory Orders: Complete Blood Count w/Auto (Routine) Timeframe: 1 Week Facility: [facility] - Location: [facility] Ordered By: Asif Khalil Referrals: Melonie Padron MD [Primary Care Provider] - 12/15/24 10:40 am (labs with appt in one week cbc ) Discharge Diet: GI Soft Discharge Activity: Resume usual activity and Increase activity as tolerated Patient Instructions: Anemia, Hydralazine (By mouth), Apixaban (By mouth) (Eliquis), Blood Thinners (DC), Opioid Safety Activity Restrictions/Additional Instructions: Do not take Eliquis for next 1 week. After restarting Eliquis start at 2.5 mg twice daily. Repeat hemoglobin in 1 week. For next 1 week take salt tablets twice daily. You can go back to the dose of once daily from 12/17. Check your blood pressure daily at home and maintain a blood pressure diary. Goal blood pressures less than 140/90 mmHg. Do not take hydralazine scheduled for now. Take hydralazine only as needed for a systolic blood pressure of more than 160 mmHg. Discharge Attestations Time Spent in Discharge Care*: greater than 30 min Specific Discharge Activities: educating patient, educating and/or supporting family/caregiver, discussing with pcp/other providers, discussing with assistant case manager/social workers/dc planners, documenting/other paperwork and evaluating patient/reviewing data Status at Discharge: Cognitive status at discharge: cognitively intact, Behavioral status at discharge: cooperative, Functional status at discharge: independent ambulation, Overall status at discharge: patient is back to baseline Quality Metrics Clinical Quality Measures [ No reported AMI, CVA or VTE this stay] Coding Level of Care Code 57871 Total time (in minutes) for Discharge: 70 Diagnoses Anemia, unspecified type D64.9 Anemia type: unspecified type History of ischemic bowel disease Z87.19 History of bowel resection Z90.49 Current use of half-way anticoagulation Z79.01 Primary hypertension I10 Hypertension type: primary hypertension Chronic heart failure with preserved ejection fraction (HFpEF) I50.32 Paroxysmal atrial fibrillation I48.0 Atrial fibrillation type: paroxysmal Chronic kidney disease N18.9 Chronic hyponatremia E87.1 Panlobular emphysema J43.1 COPD type: emphysema Emphysema type: panlobular
[2024-12-10] MEDS: diphenhydrAMINE 25 mg Capsule PO (08:41)
--- NOTE | 2024-12-10 09:46 | PC.CHAP ---
Pastoral Care Encounter/Spiritual Assessment Type of Contact [] Declined curtain stretcher assembler visit [] Patient/Family/Request visit [] Outpatient visit [] Follow-up visit [] Physician referral [] Code/Alert [x] Routine visit [] Staff referral [] Actively dying [] Patient sleeping [] Family support [] [] Out of room [] Palliative care [] [] Receiving care in room [] Pre-surgical visit [] Trauma [] Long length of stay [] ICU visit [] Other: Relational/Emotional Strength [x] Patient feels connected with others/family/visitors/staff [] Distress [] Loneliness/isolation [] Abandonment Spirituality of Patient [x] Person of Evelyne [] Attends Mu-Ism of their Evelyne [x] Believes in Prayer [] Reads Bible or Samaritan materials [] There are Spiritual issues to be addressed Paver Layer Interventions [x] Prayer [x] Active listening [] Non-anxious presence [x] Spiritual/emotional support [] Crisis/trauma care [] Spiritual counseling [] Bereavement support [] Provided bereavement packet [] Provided Bible/devotional materials [] Provided toy/stuffed animal, coloring book to patient or family member [] Provided Communion [] Anointing/[place] [] Salvation [x] Completed spiritual assessment [] Other: Impact on Illness or Injury [] Angry [] Fearful [] Anxious [] Often cries [] Exhaustion [] Unable to work [] Unable to attend scientologist [] Unable to walk/stand [] Unable to read [] Unable to drive [] Unable to eat/drink [] Unable to sleep [] Unable to be with family [] Patient intubated [] Other: Summary Time spent with patient 5 min
[2024-12-10] MEDS: HYDROcodone-acetaminophen 5-325 mg Tablet 1 TAB PO (09:54)
--- NOTE | 2024-12-10 11:23 | PC.NURSE ---
Discharge instructions provided to pt and her daughter in law. No questions or concerns voiced at this time. Pt to private vehicle via wheelchair with all belongings
== END 2024-12-10 11:25 | disposition home or self-care (01) ==
LOC: ER 14:51 → MEDSURG 16:40
PROVIDERS: Admitting Provider Student in an Organized Health Care Education/Training Program; Emergency Provider Family Medicine; PCP Family Medicine; Visit Provider Student in an Organized Health Care Education/Training Program
DX: D64.9 Anemia, unspecified (principal); I13.0 Hypertensive heart and chronic kidney disease with heart failure and stage 1 through stage 4 chronic kidney disease, or unspecified chronic kidney disease; N18.9 Chronic kidney disease, unspecified; I50.32 Chronic diastolic (congestive) heart failure; Z87.19 Personal history of other diseases of the digestive system; Z90.49 Acquired absence of other specified parts of digestive tract; Z79.01 Long term (current) use of anticoagulants; I48.0 Paroxysmal atrial fibrillation; E87.1 Hypo-osmolality and hyponatremia; Z87.891 Personal history of nicotine dependence; J43.1 Panlobular emphysema; Z66 Do not resuscitate
CPT/HCPCS: 36415; 36430; 80053; 80061; 81001; 83036; 83605; 83735; 84100; 85025; 86850; 86900; 86920; 87077; 87086; 87186; 94664; 96374; 96375; 99285; G0378; J2270; J2470; J9999; P9016

== ENCOUNTER → 2024-12-24 08:42 | Outpatient (BNVA) | payer MEDICARE, SELFPAY | PROVIDERS: PCP Family Medicine; Referring Provider Family Medicine; Visit Provider Family Medicine | DX: I10 Essential (primary) hypertension (principal) | CPT/HCPCS: 80048; 85025 ==

== ENCOUNTER 2024-12-25 10:46 | Oncology outpatient (recurring) (ONCR) | payer MEDICARE, SELFPAY ==
[2024-12-25 12:29] LABS: Ferritin 46 ng/mL (15-150); Iron 52 ug/dL (37-145); Percent Saturation 16.6 % (20-50); Total Iron Binding Capacity 312 mcg/dl; Unsaturated Iron Binding 260 ug/dL (112-347)
[2024-12-25] MEDS: diphenhydrAMINE 25 mg Capsule PO (13:05)
[2024-12-25] MEDS: acetaminophen 325 mg Tablet 650 MG PO (13:05)
[2024-12-25] MEDS: sodium chloride 0.9% 250 mL Bag IV (13:08)
[2024-12-25 14:01] VITALS: BP 113/58; PULSE 84; TEMP 35.9
[2024-12-25 14:20] VITALS: BP 115/64; PULSE 86; TEMP 35.8; O2SAT 92
[2024-12-25 14:40] VITALS: BP 124/74; PULSE 83; TEMP 36.1; O2SAT 92
[2024-12-25 15:10] VITALS: BP 132/71; PULSE 79; RESP 16; TEMP 36.5; O2SAT 96
[2024-12-25 16:25] VITALS: BP 114/87; PULSE 80; RESP 16; TEMP 36.5; O2SAT 97
[2024-12-25 16:31] VITALS: BP 114/87; PULSE 80; RESP 16; TEMP 36.5; O2SAT 97
== END 2025-01-21 23:59 | disposition home or self-care (01) ==
PROVIDERS: Absent Provider Family Medicine; PCP Family Medicine; Visit Provider Internal Medicine
DX: D64.9 Anemia, unspecified (principal); I50.32 Chronic diastolic (congestive) heart failure; K55.9 Vascular disorder of intestine, unspecified; I48.0 Paroxysmal atrial fibrillation; J43.1 Panlobular emphysema; I13.0 Hypertensive heart and chronic kidney disease with heart failure and stage 1 through stage 4 chronic kidney disease, or unspecified chronic kidney disease; M54.42 Lumbago with sciatica, left side; M54.41 Lumbago with sciatica, right side; G89.29 Other chronic pain; R10.9 Unspecified abdominal pain; N18.9 Chronic kidney disease, unspecified; Z79.899 Other long term (current) drug therapy; Z87.891 Personal history of nicotine dependence; Z79.01 Long term (current) use of anticoagulants
CPT/HCPCS: 36430; 82728; 83540; 83550; 86850; 86900; 86920; 99213; J7050; J9999; P9040

== ENCOUNTER → 2025-01-05 11:34 | Outpatient (BNVA) | payer MEDICARE, SELFPAY | PROVIDERS: PCP Family Medicine; Visit Provider Family Medicine | DX: D64.9 Anemia, unspecified (principal); K92.1 Melena; Z79.01 Long term (current) use of anticoagulants; K55.9 Vascular disorder of intestine, unspecified; I50.32 Chronic diastolic (congestive) heart failure; E87.6 Hypokalemia; Z09 Encounter for follow-up examination after completed treatment for conditions other than malignant neoplasm | CPT/HCPCS: 80053; 85025 ==

== ENCOUNTER → 2025-01-21 13:48 | Outpatient (BNVA) | payer MEDICARE, SELFPAY | PROVIDERS: PCP Family Medicine; Visit Provider Family Medicine | DX: D64.9 Anemia, unspecified (principal) | CPT/HCPCS: 80048; 85025 ==

== ENCOUNTER → 2025-02-04 09:57 | Outpatient (BNVA) | payer MEDICARE, SELFPAY | PROVIDERS: PCP Family Medicine; Visit Provider Family Medicine | DX: D64.9 Anemia, unspecified (principal) | CPT/HCPCS: 85018 ==

== ENCOUNTER 2025-02-20 07:45 | Oncology outpatient (recurring) (ONCR) | payer MEDICARE, SELFPAY ==
[2025-02-05 09:42] LABS: Basophils # 0.1 10^3/uL (0.0-0.1); Basophils % 0.7 %; Eosinophils # 0.4 10^3/uL (0.0-0.8); Eosinophils % 4.9 %; Hematocrit 26.8 % (36-47); Lymphocytes # 2.3 10^3/uL (0.8-4.8); Lymphocytes % 30.7 %; Mean Corpuscular Hemoglobin 30.1 pg (27-33); Mean Corpuscular Volume 97.1 fl (85-98); Mean Platelet Volume 9.8 fL (7.4-10.4); Monocytes # 0.5 10^3/uL (0.2-0.9); Monocytes % 6.7 %; Neutrophils # 4.13 10^3/uL (1.8-7.7); Neutrophils % 56.2 %; Nucleated Red Blood Cells % 0 %; Platelet Count 430 10^3/cmm (157-399); Red Blood Count 2.76 10^6/uL (3.85-5.65); Red Cell Distribution Width 17.2 % (12.1-15.1); Reticulocyte % 2.4 % (0.5-2.0); White Blood Count 7.34 10^3/uL (3.29-11.43)
[2025-02-05 10:09] LABS: Alanine Aminotransferase 6 U/L (0-33); Albumin Level 4.2 g/dL (3.5-5.2); Alkaline Phosphatase 86 U/L (35-105); Aspartate Amino Transferase 13 U/L (0-32); Blood Urea Nitrogen 39 mg/dL (8-23); Carbon Dioxide 24 mmol/L (22-29); Chloride 101 mmol/L (98-107); Ferritin 32 ng/mL (15-150); Glucose 81 mg/dL (65-115); Iron 37 ug/dL (37-145); Lactate Dehydrogenase 180 U/L (135-214); Osmolality Calculated 294 mOsm/kg (285-295); Percent Saturation 9.3 % (20-50); Sodium 138 mmol/L (136-145); Total Bilirubin 0.2 mg/dL (0.15-1.2); Total Iron Binding Capacity 394 mcg/dl; Total Protein 7.2 g/dL (6.6-8.7); Unsaturated Iron Binding 357 ug/dL (112-347)
[2025-02-09] MEDS: iron sucrose 200 MG in sodium chloride 0.9% (100 ml) 100 ML IV (12:53)
[2025-02-09] MEDS: sodium chloride 0.9% 250 ML 75 ML IV (12:54)
[2025-02-09 14:21] VITALS: BP 125/76; PULSE 85; RESP 17; TEMP 36.3; O2SAT 99
[2025-02-11] MEDS: iron sucrose 200 MG in sodium chloride 0.9% (100 ml) 100 ML IV (10:03)
[2025-02-11 10:36] VITALS: BP 103/57; PULSE 75; RESP 18; TEMP 36.6; O2SAT 90
[2025-02-13 09:51] VITALS: BP 114/72; PULSE 85; RESP 17; TEMP 36.3; O2SAT 91
[2025-02-13] MEDS: iron sucrose 200 MG in sodium chloride 0.9% (100 ml) 100 ML 220 MG IV (10:33)
[2025-02-17] MEDS: iron sucrose 200 MG in sodium chloride 0.9% (100 ml) 100 ML IV (10:09)
[2025-02-20 08:29] LABS: Basophils # 0.1 10^3/uL (0.0-0.1); Basophils % 0.8 %; Eosinophils # 0.2 10^3/uL (0.0-0.8); Eosinophils % 3.3 %; Hematocrit 27.9 % (36-47); Lymphocytes # 1.7 10^3/uL (0.8-4.8); Lymphocytes % 28.2 %; Mean Corpuscular HGB Conc 29.4 g/dL (30-55); Mean Corpuscular Hemoglobin 29.9 pg (27-33); Mean Corpuscular Volume 101.8 fl (85-98); Monocytes # 0.5 10^3/uL (0.2-0.9); Monocytes % 7.4 %; Neutrophils # 3.59 10^3/uL (1.8-7.7); Neutrophils % 59.3 %; Nucleated Red Blood Cells % 0 %; Platelet Count 427 10^3/cmm (157-399); Red Blood Count 2.74 10^6/uL (3.85-5.65); Red Cell Distribution Width 18.3 % (12.1-15.1); White Blood Count 6.06 10^3/uL (3.29-11.43)
[2025-02-20] MEDS: iron sucrose 200 MG in sodium chloride 0.9% (100 ml) 100 ML 220 MG IV (09:11)
[2025-02-20 09:19] LABS: Alanine Aminotransferase 8 U/L (0-33); Albumin Level 4.1 g/dL (3.5-5.2); Alkaline Phosphatase 93 U/L (35-105); Anion Gap 17.1 (5-19); Aspartate Amino Transferase 17 U/L (0-32); Blood Urea Nitrogen 43 mg/dL (8-23); Calcium 8.9 mg/dL (8.5-10.5); Carbon Dioxide 25 mmol/L (22-29); Chloride 98 mmol/L (98-107); Creatinine Clr Calc Pharmacy 20.8282; Glucose 73 mg/dL (65-115); Osmolality Calculated 291 mOsm/kg (285-295); Potassium 4.1 mmol/L (3.5-5.1); Sodium 136 mmol/L (136-145); Total Bilirubin 0.2 mg/dL (0.15-1.2); Total Protein 7.1 g/dL (6.6-8.7)
[2025-02-20 10:33] VITALS: BP 126/70; PULSE 80; RESP 18; TEMP 36.6; O2SAT 96
== END 2025-02-21 23:59 | disposition home or self-care (01) ==
PROVIDERS: Nurse Practitioner; Absent Provider Family Medicine; PCP Family Medicine; Visit Provider Internal Medicine
DX: Z53.9 Procedure and treatment not carried out, unspecified reason; D50.9 Iron deficiency anemia, unspecified; Z79.899 Other long term (current) drug therapy
CPT/HCPCS: 36415; 80053; 82728; 83010; 83540; 83550; 83615; 85025; 85045; 96365; 99214; J1756; J7050

== ENCOUNTER 2025-03-23 07:30 | Oncology outpatient (recurring) (ONCR) | payer MEDICARE, SELFPAY ==
[2025-03-03 11:13] LABS: Basophils # 0.1 10^3/uL (0.0-0.1); Basophils % 0.7 %; Eosinophils # 0.2 10^3/uL (0.0-0.8); Eosinophils % 2.5 %; Hematocrit 28.6 % (36-47); Lymphocytes # 2.3 10^3/uL (0.8-4.8); Lymphocytes % 33.8 %; Mean Corpuscular HGB Conc 30.4 g/dL (30-55); Mean Corpuscular Hemoglobin 30.5 pg (27-33); Mean Corpuscular Volume 100.4 fl (85-98); Monocytes # 0.4 10^3/uL (0.2-0.9); Monocytes % 6.4 %; Neutrophils # 3.77 10^3/uL (1.8-7.7); Nucleated Red Blood Cells % 0 %; Platelet Count 419 10^3/cmm (157-399); Red Blood Count 2.85 10^6/uL (3.85-5.65); Red Cell Distribution Width 18.2 % (12.1-15.1); White Blood Count 6.74 10^3/uL (3.29-11.43)
[2025-03-03 11:30] LABS: Alanine Aminotransferase 7 U/L (0-33); Albumin Level 4.4 g/dL (3.5-5.2); Alkaline Phosphatase 90 U/L (35-105); Aspartate Amino Transferase 18 U/L (0-32); Blood Urea Nitrogen 47 mg/dL (8-23); Calcium 9.2 mg/dL (8.5-10.5); Carbon Dioxide 22 mmol/L (22-29); Chloride 96 mmol/L (98-107); Globulin 3.1 g/dL (1.3-4.6); Glucose 83 mg/dL (65-115); Osmolality Calculated 287 mOsm/kg (285-295); Sodium 133 mmol/L (136-145); Total Bilirubin 0.2 mg/dL (0.15-1.2); Total Protein 7.5 g/dL (6.6-8.7)
[2025-03-03 11:31] LABS: Anion Gap 19.6 (5-19); Potassium 4.6 mmol/L (3.5-5.1)
--- NOTE | 2025-03-03 12:04 | PC.NURSE ---
Lab results shown to Hammad [facility]IUP and reviewed with pt/caregiver. HGB 8.7 Pt stated that was good for her. No transfusion needed at this time./lc
[2025-03-19 12:42] LABS: Basophils # 0.1 10^3/uL (0.0-0.1); Basophils % 0.8 %; Eosinophils # 0.1 10^3/uL (0.0-0.8); Eosinophils % 2.3 %; Lymphocytes # 2.2 10^3/uL (0.8-4.8); Lymphocytes % 36.4 %; Mean Corpuscular HGB Conc 30.4 g/dL (30-55); Mean Corpuscular Hemoglobin 31.5 pg (27-33); Mean Corpuscular Volume 103.6 fl (85-98); Monocytes # 0.4 10^3/uL (0.2-0.9); Monocytes % 6.1 %; Neutrophils # 3.21 10^3/uL (1.8-7.7); Neutrophils % 53.2 %; Nucleated Red Blood Cells % 0 %; Platelet Count 396 10^3/cmm (157-399); Red Blood Count 2.22 10^6/uL (3.85-5.65); Red Cell Distribution Width 17.3 % (12.1-15.1); White Blood Count 6.04 10^3/uL (3.29-11.43)
[2025-03-19 13:03] LABS: Alanine Aminotransferase 6 U/L (0-33); Albumin Level 4.2 g/dL (3.5-5.2); Alkaline Phosphatase 86 U/L (35-105); Anion Gap 19.1 (5-19); Aspartate Amino Transferase 13 U/L (0-32); Blood Urea Nitrogen 50 mg/dL (8-23); Calcium 9.2 mg/dL (8.5-10.5); Carbon Dioxide 23 mmol/L (22-29); Chloride 100 mmol/L (98-107); Globulin 3.1 g/dL (1.3-4.6); Glucose 120 mg/dL (65-115); Osmolality Calculated 301 mOsm/kg (285-295); Potassium 4.1 mmol/L (3.5-5.1); Sodium 138 mmol/L (136-145); Total Bilirubin 0.2 mg/dL (0.15-1.2); Total Protein 7.3 g/dL (6.6-8.7)
[2025-03-19 14:13] LABS: Ferritin 141 ng/mL (15-150); Iron 49 ug/dL (37-145); Percent Saturation 15.7 % (20-50); Total Iron Binding Capacity 312 mcg/dl; Unsaturated Iron Binding 263 ug/dL (112-347)
[2025-03-19 14:25] LABS: Vitamin B12 372 pg/mL (232-1245)
[2025-03-19 15:23] LABS: Folate Level > 20.0 ng/mL (4.8-37.3)
[2025-03-20] MEDS: acetaminophen 325 mg Tablet 650 MG PO (08:18)
[2025-03-20] MEDS: diphenhydrAMINE 25 mg Capsule PO (08:19)
[2025-03-20] MEDS: sodium chloride 0.9% 250 ML IV (08:20)
[2025-03-20 08:45] VITALS: BP 109/63; PULSE 76; RESP 17; TEMP 36.5; O2SAT 94
[2025-03-20 09:00] VITALS: BP 113/68; PULSE 80; RESP 17; TEMP 35.9; O2SAT 91
[2025-03-20 09:15] VITALS: BP 116/64; PULSE 75; RESP 18; TEMP 36.2; O2SAT 97
[2025-03-20 09:45] VITALS: BP 122/77; PULSE 78; RESP 17; TEMP 35.9; O2SAT 97
[2025-03-20 11:23] VITALS: BP 112/69; PULSE 44; RESP 18; TEMP 35.9; O2SAT 93
[2025-03-23 08:05] LABS: Basophils # 0.1 10^3/uL (0.0-0.1); Basophils % 1.2 %; Eosinophils # 0.2 10^3/uL (0.0-0.8); Eosinophils % 2.8 %; Hematocrit 28.2 % (36-47); Lymphocytes # 1.9 10^3/uL (0.8-4.8); Lymphocytes % 29.1 %; Mean Corpuscular HGB Conc 29.8 g/dL (30-55); Mean Corpuscular Hemoglobin 30.2 pg (27-33); Mean Corpuscular Volume 101.4 fl (85-98); Mean Platelet Volume 10.1 fL (7.4-10.4); Monocytes # 0.5 10^3/uL (0.2-0.9); Monocytes % 7.6 %; Neutrophils % 58.8 %; Nucleated Red Blood Cells % 0 %; Platelet Count 419 10^3/cmm (157-399); Red Blood Count 2.78 10^6/uL (3.85-5.65); Red Cell Distribution Width 18.5 % (12.1-15.1); White Blood Count 6.46 10^3/uL (3.29-11.43)
[2025-03-23 08:38] LABS: Alanine Aminotransferase 6 U/L (0-33); Albumin Level 4.1 g/dL (3.5-5.2); Alkaline Phosphatase 91 U/L (35-105); Anion Gap 17.5 (5-19); Aspartate Amino Transferase 15 U/L (0-32); Blood Urea Nitrogen 54 mg/dL (8-23); Carbon Dioxide 22 mmol/L (22-29); Chloride 99 mmol/L (98-107); Globulin 2.9 g/dL (1.3-4.6); Glucose 78 mg/dL (65-115); Osmolality Calculated 292 mOsm/kg (285-295); Potassium 4.5 mmol/L (3.5-5.1); Sodium 134 mmol/L (136-145); Total Bilirubin 0.3 mg/dL (0.15-1.2)
[2025-03-23] MEDS: acetaminophen 325 mg Tablet 650 MG PO (09:17)
[2025-03-23] MEDS: diphenhydrAMINE 25 mg Capsule PO (09:17)
[2025-03-23] MEDS: sodium chloride 0.9% 250 mL Bag IV (09:17)
[2025-03-23 09:38] VITALS: BP 104/64; PULSE 82; RESP 16; TEMP 35.8; O2SAT 91
[2025-03-23 09:57] VITALS: BP 126/79; PULSE 83; RESP 16; TEMP 35.9; O2SAT 91
[2025-03-23 10:17] VITALS: BP 116/58; PULSE 84; RESP 16; TEMP 36.2; O2SAT 93
[2025-03-23 10:47] VITALS: BP 117/72; RESP 16; TEMP 36.4; O2SAT 93
[2025-03-23 11:45] VITALS: BP 114/73; PULSE 80; RESP 16; TEMP 36.6
== END 2025-03-23 23:59 | disposition home or self-care (01) ==
PROVIDERS: Nurse Practitioner; Student in an Organized Health Care Education/Training Program; Absent Provider Family Medicine; PCP Family Medicine; Visit Provider Internal Medicine Medical Oncology
DX: Z53.9 Procedure and treatment not carried out, unspecified reason; D64.9 Anemia, unspecified; Z79.01 Long term (current) use of anticoagulants
CPT/HCPCS: 36415; 36430; 80053; 82607; 82728; 82746; 83540; 83550; 85025; 86850; 86900; 86920; 96375; 99214; J7050; J9999; P9016

== ENCOUNTER 2025-04-23 07:55 | Oncology outpatient (recurring) (ONCR) | payer MEDICARE, SELFPAY ==
[2025-03-30 08:21] LABS: Hematocrit 34.5 % (36-47); Hemoglobin 10.20 g/dL (11.27-16.99); Mean Corpuscular HGB Conc 29.6 g/dL (30-55); Mean Corpuscular Hemoglobin 29.5 pg (27-33); Mean Corpuscular Volume 99.7 fl (85-98); Nucleated Red Blood Cells % 0 %; Platelet Count 402 10^3/cmm (157-399); Red Blood Count 3.46 10^6/uL (3.85-5.65); White Blood Count 5.87 10^3/uL (3.29-11.43)
[2025-03-30 08:35] LABS: Alanine Aminotransferase 8 U/L (0-33); Albumin Level 4.2 g/dL (3.5-5.2); Alkaline Phosphatase 88 U/L (35-105); Anion Gap 17.0 (5-19); Aspartate Amino Transferase 15 U/L (0-32); Blood Urea Nitrogen 54 mg/dL (8-23); Calcium 9.0 mg/dL (8.5-10.5); Carbon Dioxide 24 mmol/L (22-29); Chloride 102 mmol/L (98-107); Globulin 2.9 g/dL (1.3-4.6); Glucose 64 mg/dL (65-115); Osmolality Calculated 301 mOsm/kg (285-295); Potassium 4.0 mmol/L (3.5-5.1); Sodium 139 mmol/L (136-145); Total Protein 7.1 g/dL (6.6-8.7)
[2025-04-01 11:20] LABS: Ferritin 160 ng/mL (15-150); Iron 67 ug/dL (37-145); Total Iron Binding Capacity 332 mcg/dl; Unsaturated Iron Binding 265 ug/dL (112-347)
[2025-04-14] VITALS (9 sets, daily range): BP systolic 102–129; BP diastolic 55–79; PULSE 70–90; RESP 16–17; TEMP 35.8–36.6; O2SAT 92–99
[2025-04-14 08:53] LABS: Mean Corpuscular HGB Conc 30.6 g/dL (30-55); Mean Corpuscular Hemoglobin 31.7 pg (27-33); Mean Corpuscular Volume 103.7 fl (85-98); Nucleated Red Blood Cells % 0 %; Platelet Count 428 10^3/cmm (157-399); Red Blood Count 1.89 10^6/uL (3.85-5.65); White Blood Count 9.21 10^3/uL (3.29-11.43)
[2025-04-14 09:02] LABS: Hematocrit 19.6 % (36-47); Hemoglobin 6.00 g/dL (11.27-16.99)
[2025-04-14 09:21] LABS: Alanine Aminotransferase 8 U/L (0-33); Albumin Level 4.0 g/dL (3.5-5.2); Alkaline Phosphatase 76 U/L (35-105); Anion Gap 18.9 (5-19); Aspartate Amino Transferase 15 U/L (0-32); Blood Urea Nitrogen 66 mg/dL (8-23); Calcium 8.5 mg/dL (8.5-10.5); Carbon Dioxide 22 mmol/L (22-29); Chloride 97 mmol/L (98-107); Creatinine Clr Calc Pharmacy 18.5728; Ferritin 105 ng/mL (15-150); Globulin 2.7 g/dL (1.3-4.6); Glucose 92 mg/dL (65-115); Iron 186 ug/dL (37-145); Osmolality Calculated 295 mOsm/kg (285-295); Potassium 4.9 mmol/L (3.5-5.1); Sodium 133 mmol/L (136-145); Total Iron Binding Capacity 299 mcg/dl; Total Protein 6.7 g/dL (6.6-8.7); Unsaturated Iron Binding 113 ug/dL (112-347)
[2025-04-14 09:43] LABS: Thyroid Stimulating Hormone 191.40 uIU/mL (0.27-4.20)
[2025-04-14] MEDS: FUROsemide 10 mg/mL SDV 2mL 20 MG IVP (13:35)
[2025-04-23] VITALS (11 sets, daily range): BP systolic 112–149; BP diastolic 57–93; PULSE 67–81; RESP 16–18; TEMP 35.8–36.6; O2SAT 92–98
[2025-04-23 08:42] LABS: Hematocrit 24.6 % (36-47); Hemoglobin 7.50 g/dL (11.27-16.99); Mean Corpuscular HGB Conc 30.5 g/dL (30-55); Mean Corpuscular Hemoglobin 30.1 pg (27-33); Mean Corpuscular Volume 98.8 fl (85-98); Nucleated Red Blood Cells % 0 %; Platelet Count 376 10^3/cmm (157-399); Red Blood Count 2.49 10^6/uL (3.85-5.65); White Blood Count 6.79 10^3/uL (3.29-11.43)
[2025-04-23 09:01] LABS: Alanine Aminotransferase 7 U/L (0-33); Albumin Level 4.0 g/dL (3.5-5.2); Alkaline Phosphatase 75 U/L (35-105); Anion Gap 14.2 (5-19); Aspartate Amino Transferase 12 U/L (0-32); Blood Urea Nitrogen 58 mg/dL (8-23); Calcium 8.7 mg/dL (8.5-10.5); Carbon Dioxide 26 mmol/L (22-29); Chloride 100 mmol/L (98-107); Creatinine Clr Calc Pharmacy 19.4572; Ferritin 110 ng/mL (15-150); Globulin 2.4 g/dL (1.3-4.6); Glucose 80 mg/dL (65-115); Iron 56 ug/dL (37-145); Osmolality Calculated 297 mOsm/kg (285-295); Potassium 4.2 mmol/L (3.5-5.1); Sodium 136 mmol/L (136-145); Total Iron Binding Capacity 300 mcg/dl; Total Protein 6.4 g/dL (6.6-8.7); Unsaturated Iron Binding 244 ug/dL (112-347)
[2025-04-23] MEDS: FUROsemide 10 mg/mL SDV 2mL 20 MG IVP (13:52)
== END 2025-04-23 23:59 | disposition home or self-care (01) ==
PROVIDERS: Internal Medicine Medical Oncology; Nurse Practitioner; Absent Provider Family Medicine; PCP Family Medicine; Visit Provider Internal Medicine
DX: Z53.9 Procedure and treatment not carried out, unspecified reason; D64.9 Anemia, unspecified; D50.9 Iron deficiency anemia, unspecified; Z79.899 Other long term (current) drug therapy
CPT/HCPCS: 36415; 36430; 80053; 82728; 83540; 83550; 84443; 85025; 86850; 86900; 86920; 96375; 99214; J1938; J7050; J9999; P9016; P9040

== ENCOUNTER → 2025-05-12 11:13 | Outpatient (BNVA) | payer MEDICARE, SELFPAY | PROVIDERS: PCP Family Medicine; Visit Provider Family Medicine | DX: I10 Essential (primary) hypertension (principal); I50.32 Chronic diastolic (congestive) heart failure | CPT/HCPCS: 71046; 80048; 83735; 83880; 85025 ==

== ENCOUNTER 2025-05-19 07:30 | Oncology outpatient (recurring) (ONCR) | payer MEDICARE, SELFPAY ==
[2025-04-28 08:28] LABS: Hematocrit 34.9 % (36-47); Hemoglobin 10.80 g/dL (11.27-16.99); Mean Corpuscular HGB Conc 30.9 g/dL (30-55); Mean Corpuscular Hemoglobin 29.0 pg (27-33); Mean Corpuscular Volume 93.8 fl (85-98); Nucleated Red Blood Cells % 0 %; Platelet Count 373 10^3/cmm (157-399); Red Blood Count 3.72 10^6/uL (3.85-5.65); White Blood Count 6.22 10^3/uL (3.29-11.43)
[2025-04-28 08:46] LABS: Alanine Aminotransferase 7 U/L (0-33); Albumin Level 4.0 g/dL (3.5-5.2); Alkaline Phosphatase 87 U/L (35-105); Anion Gap 14.3 (5-19); Aspartate Amino Transferase 15 U/L (0-32); Blood Urea Nitrogen 42 mg/dL (8-23); Calcium 9.0 mg/dL (8.5-10.5); Carbon Dioxide 26 mmol/L (22-29); Chloride 99 mmol/L (98-107); Globulin 2.7 g/dL (1.3-4.6); Glucose 79 mg/dL (65-115); Osmolality Calculated 289 mOsm/kg (285-295); Potassium 4.3 mmol/L (3.5-5.1); Sodium 135 mmol/L (136-145); Total Protein 6.7 g/dL (6.6-8.7)
[2025-05-15 09:14] LABS: Hematocrit 23.6 % (36-47); Hemoglobin 7.20 g/dL (11.27-16.99); Mean Corpuscular HGB Conc 30.5 g/dL (30-55); Mean Corpuscular Hemoglobin 29.6 pg (27-33); Mean Corpuscular Volume 97.1 fl (85-98); Nucleated Red Blood Cells % 0 %; Platelet Count 440 10^3/cmm (157-399); Red Blood Count 2.43 10^6/uL (3.85-5.65); White Blood Count 7.23 10^3/uL (3.29-11.43)
[2025-05-15 09:39] LABS: Alanine Aminotransferase 10 U/L (0-33); Albumin Level 4.0 g/dL (3.5-5.2); Alkaline Phosphatase 82 U/L (35-105); Anion Gap 16.7 (5-19); Aspartate Amino Transferase 15 U/L (0-32); Blood Urea Nitrogen 53 mg/dL (8-23); Calcium 8.9 mg/dL (8.5-10.5); Carbon Dioxide 25 mmol/L (22-29); Chloride 96 mmol/L (98-107); Creatinine Clr Calc Pharmacy 18.7539; Globulin 2.7 g/dL (1.3-4.6); Glucose 88 mg/dL (65-115); Osmolality Calculated 290 mOsm/kg (285-295); Potassium 4.7 mmol/L (3.5-5.1); Sodium 133 mmol/L (136-145); Total Protein 6.7 g/dL (6.6-8.7)
[2025-05-15 10:40] VITALS: BP 114/77; PULSE 86; RESP 16; TEMP 35.8; O2SAT 96
[2025-05-15 10:55] VITALS: BP 119/70; PULSE 79; RESP 16; TEMP 35.7; O2SAT 100
[2025-05-15 11:10] VITALS: BP 128/80; RESP 17; TEMP 35.8
[2025-05-15 11:43] VITALS: BP 131/74; PULSE 79; RESP 17; TEMP 36.3; O2SAT 99
[2025-05-15 12:20] VITALS: BP 128/81; PULSE 83; RESP 17; TEMP 36.4; O2SAT 100
[2025-05-15 12:30] VITALS: BP 128/81; PULSE 83; RESP 17; TEMP 36.4; O2SAT 100
[2025-05-19] VITALS (13 sets, daily range): BP systolic 103–132; BP diastolic 53–75; PULSE 73–87; RESP 15–18; TEMP 36–36.3; O2SAT 94–99
[2025-05-19 08:17] LABS: Hematocrit 26.7 % (36-47); Hemoglobin 8.20 g/dL (11.27-16.99); Mean Corpuscular HGB Conc 30.7 g/dL (30-55); Mean Corpuscular Hemoglobin 29.0 pg (27-33); Mean Corpuscular Volume 94.3 fl (85-98); Nucleated Red Blood Cells % 0 %; Platelet Count 441 10^3/cmm (157-399); Red Blood Count 2.83 10^6/uL (3.85-5.65); White Blood Count 6.28 10^3/uL (3.29-11.43)
[2025-05-19 08:35] LABS: Alanine Aminotransferase 8 U/L (0-33); Albumin Level 4.2 g/dL (3.5-5.2); Alkaline Phosphatase 84 U/L (35-105); Anion Gap 15.4 (5-19); Aspartate Amino Transferase 17 U/L (0-32); Blood Urea Nitrogen 62 mg/dL (8-23); Calcium 9.0 mg/dL (8.5-10.5); Carbon Dioxide 25 mmol/L (22-29); Chloride 97 mmol/L (98-107); Creatinine Clr Calc Pharmacy 19.8367; Ferritin 137 ng/mL (15-150); Globulin 2.7 g/dL (1.3-4.6); Glucose 85 mg/dL (65-115); Iron 86 ug/dL (37-145); Osmolality Calculated 293 mOsm/kg (285-295); Potassium 4.4 mmol/L (3.5-5.1); Sodium 133 mmol/L (136-145); Total Iron Binding Capacity 342 mcg/dl; Total Protein 6.9 g/dL (6.6-8.7); Unsaturated Iron Binding 256 ug/dL (112-347)
[2025-05-19 08:51] LABS: Vitamin B12 357 pg/mL (232-1245)
[2025-05-19] MEDS: FUROsemide 10 mg/mL SDV 2mL 20 MG IVP ×2 (09:35→13:06)
== END 2025-05-24 23:59 | disposition home or self-care (01) ==
PROVIDERS: Internal Medicine Medical Oncology; Nurse Practitioner; Nurse Practitioner Family; Absent Provider Family Medicine; PCP Family Medicine; Visit Provider Internal Medicine
DX: D50.9 Iron deficiency anemia, unspecified; I50.32 Chronic diastolic (congestive) heart failure; K29.71 Gastritis, unspecified, with bleeding; R03.0 Elevated blood-pressure reading, without diagnosis of hypertension; Z79.899 Other long term (current) drug therapy; Z79.01 Long term (current) use of anticoagulants; Z53.9 Procedure and treatment not carried out, unspecified reason
CPT/HCPCS: 36415; 36430; 80053; 82607; 82728; 82746; 83540; 83550; 85025; 86850; 86900; 86920; 96374; 99214; J1938; J7050; J9999; P9016; P9040

== ENCOUNTER 2025-05-25 05:00 | Outpatient (RCR) | payer MEDICARE, SELFPAY | END 2025-06-23 23:59 | disposition home or self-care (01) | LOC: MPT 05:00 | PROVIDERS: PCP Family Medicine; Visit Provider Student in an Organized Health Care Education/Training Program | DX: R26.81 Unsteadiness on feet (principal) | CPT/HCPCS: 97110; 97162; 97530 ==

== ENCOUNTER 2025-06-16 07:30 | Oncology outpatient (recurring) (ONCR) | payer MEDICARE, SELFPAY ==
[2025-06-02 08:10] LABS: Hematocrit 32.4 % (36-47); Hemoglobin 10.00 g/dL (11.27-16.99); Mean Corpuscular HGB Conc 30.9 g/dL (30-55); Mean Corpuscular Hemoglobin 29.2 pg (27-33); Mean Corpuscular Volume 94.5 fl (85-98); Nucleated Red Blood Cells % 0 %; Platelet Count 411 10^3/cmm (157-399); Red Blood Count 3.43 10^6/uL (3.85-5.65); White Blood Count 7.16 10^3/uL (3.29-11.43)
[2025-06-02 08:29] LABS: Alanine Aminotransferase 10 U/L (0-33); Albumin Level 4.2 g/dL (3.5-5.2); Alkaline Phosphatase 85 U/L (35-105); Anion Gap 12.3 (5-19); Aspartate Amino Transferase 19 U/L (0-32); Blood Urea Nitrogen 58 mg/dL (8-23); Calcium 9.3 mg/dL (8.5-10.5); Carbon Dioxide 26 mmol/L (22-29); Chloride 100 mmol/L (98-107); Ferritin 176 ng/mL (15-150); Globulin 3.0 g/dL (1.3-4.6); Glucose 70 mg/dL (65-115); Iron 91 ug/dL (37-145); Osmolality Calculated 293 mOsm/kg (285-295); Potassium 4.3 mmol/L (3.5-5.1); Sodium 134 mmol/L (136-145); Total Iron Binding Capacity 326 mcg/dl; Total Protein 7.2 g/dL (6.6-8.7); Unsaturated Iron Binding 235 ug/dL (112-347)
[2025-06-16] VITALS (9 sets, daily range): BP systolic 101–132; BP diastolic 56–83; PULSE 53–93; RESP 16–17; TEMP 36.4–36.8; O2SAT 92–97
[2025-06-16 08:11] LABS: Hematocrit 22.5 % (36-47); Hemoglobin 7.10 g/dL (11.27-16.99); Mean Corpuscular HGB Conc 31.6 g/dL (30-55); Mean Corpuscular Hemoglobin 31.1 pg (27-33); Mean Corpuscular Volume 98.7 fl (85-98); Nucleated Red Blood Cells % 0 %; Platelet Count 411 10^3/cmm (157-399); Red Blood Count 2.28 10^6/uL (3.85-5.65); White Blood Count 9.07 10^3/uL (3.29-11.43)
[2025-06-16 08:29] LABS: Alanine Aminotransferase 10 U/L (0-33); Albumin Level 4.1 g/dL (3.5-5.2); Alkaline Phosphatase 74 U/L (35-105); Blood Urea Nitrogen 78 mg/dL (8-23); Calcium 9.2 mg/dL (8.5-10.5); Carbon Dioxide 24 mmol/L (22-29); Chloride 98 mmol/L (98-107); Creatinine Clr Calc Pharmacy 18.5736; Globulin 2.6 g/dL (1.3-4.6); Glucose 91 mg/dL (65-115); Osmolality Calculated 305 mOsm/kg (285-295); Sodium 136 mmol/L (136-145); Total Protein 6.7 g/dL (6.6-8.7)
[2025-06-16 08:30] LABS: Anion Gap 19.0 (5-19); Potassium 5.0 mmol/L (3.5-5.1)
[2025-06-16 08:31] LABS: Aspartate Amino Transferase 23 U/L (0-32)
[2025-06-16 09:03] LABS: Ferritin 136 ng/mL (15-150); Iron 144 ug/dL (37-145)
[2025-06-16 09:05] LABS: Total Iron Binding Capacity 318 mcg/dl; Unsaturated Iron Binding 174 ug/dL (112-347)
[2025-06-16] MEDS: FUROsemide 10 mg/mL SDV 2mL 20 MG IVP ×2 (09:28→12:18)
== END 2025-06-23 23:59 | disposition home or self-care (01) ==
PROVIDERS: Nurse Practitioner; Absent Provider Family Medicine; Visit Provider Internal Medicine Medical Oncology
DX: Z53.9 Procedure and treatment not carried out, unspecified reason; D50.9 Iron deficiency anemia, unspecified; Z87.891 Personal history of nicotine dependence; K29.71 Gastritis, unspecified, with bleeding; N18.9 Chronic kidney disease, unspecified
CPT/HCPCS: 36415; 36430; 80053; 82728; 83540; 83550; 85025; 86850; 86900; 86920; 99213; 99214; J1938; J7050; J9999; P9016

== ENCOUNTER 2025-07-20 07:50 | Outpatient (RCR) | payer MEDICARE, SELFPAY | END 2025-07-24 23:59 | disposition home or self-care (01) | LOC: MPT 07:50 | PROVIDERS: PCP Family Medicine; Visit Provider Student in an Organized Health Care Education/Training Program | DX: R26.81 Unsteadiness on feet (principal) | CPT/HCPCS: 97110; 97112 ==

== ENCOUNTER 2025-07-21 07:45 | Oncology outpatient (recurring) (ONCR) | payer MEDICARE, SELFPAY ==
[2025-06-30] VITALS (11 sets, daily range): BP systolic 111–162; BP diastolic 64–83; PULSE 68–87; RESP 16; TEMP 35.4–36; O2SAT 92–99
[2025-06-30 08:22] LABS: Hematocrit 22.9 % (36-47); Hemoglobin 7.10 g/dL (11.27-16.99); Mean Corpuscular HGB Conc 31.0 g/dL (30-55); Mean Corpuscular Hemoglobin 30.6 pg (27-33); Mean Corpuscular Volume 98.7 fl (85-98); Nucleated Red Blood Cells % 0 %; Platelet Count 444 10^3/cmm (157-399); Red Blood Count 2.32 10^6/uL (3.85-5.65); White Blood Count 7.22 10^3/uL (3.29-11.43)
[2025-06-30 08:51] LABS: Alanine Aminotransferase 9 U/L (0-33); Albumin Level 4.2 g/dL (3.5-5.2); Alkaline Phosphatase 74 U/L (35-105); Anion Gap 17.8 (5-19); Aspartate Amino Transferase 16 U/L (0-32); Blood Urea Nitrogen 71 mg/dL (8-23); Calcium 9.1 mg/dL (8.5-10.5); Carbon Dioxide 26 mmol/L (22-29); Chloride 97 mmol/L (98-107); Creatinine Clr Calc Pharmacy 14.5935; Ferritin 141 ng/mL (15-150); Globulin 2.7 g/dL (1.3-4.6); Glucose 76 mg/dL (65-115); Iron 104 ug/dL (37-145); Osmolality Calculated 302 mOsm/kg (285-295); Potassium 4.8 mmol/L (3.5-5.1); Sodium 136 mmol/L (136-145); Total Iron Binding Capacity 331 mcg/dl; Total Protein 6.9 g/dL (6.6-8.7); Unsaturated Iron Binding 227 ug/dL (112-347)
[2025-06-30] MEDS: FUROsemide 10 mg/mL SDV 2mL 20 MG IVP (13:08)
[2025-07-08 13:03] LABS: Hematocrit 22.2 % (36-47); Hemoglobin 7.10 g/dL (11.27-16.99); Mean Corpuscular HGB Conc 32.0 g/dL (30-55); Mean Corpuscular Hemoglobin 30.2 pg (27-33); Mean Corpuscular Volume 94.5 fl (85-98); Nucleated Red Blood Cells % 0 %; Platelet Count 462 10^3/cmm (157-399); Red Blood Count 2.35 10^6/uL (3.85-5.65); White Blood Count 8.83 10^3/uL (3.29-11.43)
[2025-07-08 13:27] LABS: Alanine Aminotransferase 10 U/L (0-33); Albumin Level 4.0 g/dL (3.5-5.2); Alkaline Phosphatase 80 U/L (35-105); Anion Gap 17.3 (5-19); Aspartate Amino Transferase 17 U/L (0-32); Blood Urea Nitrogen 73 mg/dL (8-23); Calcium 8.8 mg/dL (8.5-10.5); Carbon Dioxide 22 mmol/L (22-29); Chloride 97 mmol/L (98-107); Creatinine Clr Calc Pharmacy 16.4976; Globulin 2.7 g/dL (1.3-4.6); Glucose 95 mg/dL (65-115); Osmolality Calculated 295 mOsm/kg (285-295); Potassium 4.3 mmol/L (3.5-5.1); Sodium 132 mmol/L (136-145); Total Protein 6.7 g/dL (6.6-8.7)
[2025-07-08 14:56] LABS: Ferritin 203 ng/mL (15-150); Iron 65 ug/dL (37-145); Total Iron Binding Capacity 330 mcg/dl; Unsaturated Iron Binding 265 ug/dL (112-347)
[2025-07-08 15:12] LABS: Vitamin B12 376 pg/mL (232-1245)
[2025-07-09] VITALS (10 sets, daily range): BP systolic 90–139; BP diastolic 53–75; PULSE 54–87; RESP 16–17; TEMP 35.6–36.2; O2SAT 90
[2025-07-09 07:49] LABS: PROTEIN, TOTAL 6.2 g/dL (6.1-8.1)
[2025-07-10 08:59] LABS: ALPHA 1 GLOBULIN 0.3 g/dL (0.2-0.3); ALPHA 2 GLOBULIN 0.7 g/dL (0.5-0.9); BETA 1 GLOBULIN 0.4 g/dL (0.4-0.6); BETA 2 GLOBULIN 0.2 g/dL (0.2-0.5)
[2025-07-10 14:50] LABS: KAPPA LIGHT CHAIN, FREE, SERUM 61.1 mg/L (3.3-19.4); KAPPA/LAMBDA LIGHT CHAINS FREE 1.52 (0.26-1.65); LAMBDA LIGHT CHAIN, FREE, SERU 40.1 mg/L (5.7-26.3)
[2025-07-14 07:58] LABS: Hematocrit 32.5 % (36-47); Hemoglobin 10.20 g/dL (11.27-16.99); Mean Corpuscular HGB Conc 31.4 g/dL (30-55); Mean Corpuscular Hemoglobin 29.3 pg (27-33); Mean Corpuscular Volume 93.4 fl (85-98); Nucleated Red Blood Cells % 0 %; Platelet Count 493 10^3/cmm (157-399); Red Blood Count 3.48 10^6/uL (3.85-5.65); White Blood Count 8.25 10^3/uL (3.29-11.43)
[2025-07-14 08:14] LABS: Alanine Aminotransferase 10 U/L (0-33); Albumin Level 3.9 g/dL (3.5-5.2); Alkaline Phosphatase 87 U/L (35-105); Anion Gap 17.3 (5-19); Aspartate Amino Transferase 16 U/L (0-32); Blood Urea Nitrogen 53 mg/dL (8-23); Calcium 8.6 mg/dL (8.5-10.5); Carbon Dioxide 23 mmol/L (22-29); Chloride 96 mmol/L (98-107); Creatinine Clr Calc Pharmacy 17.8724; Globulin 2.3 g/dL (1.3-4.6); Glucose 86 mg/dL (65-115); Osmolality Calculated 288 mOsm/kg (285-295); Potassium 4.3 mmol/L (3.5-5.1); Sodium 132 mmol/L (136-145); Total Protein 6.2 g/dL (6.6-8.7)
[2025-07-14] MEDS: iron sucrose 300 MG in sodium chloride 0.9% (100 ml) 100 ML 200 MG IV (09:46)
[2025-07-14 10:30] VITALS: BP 124/84; PULSE 79; RESP 17; TEMP 36.5; O2SAT 93
[2025-07-21 08:17] LABS: Hematocrit 31.3 % (36-47); Hemoglobin 10.00 g/dL (11.27-16.99); Mean Corpuscular HGB Conc 31.9 g/dL (30-55); Mean Corpuscular Hemoglobin 30.3 pg (27-33); Mean Corpuscular Volume 94.8 fl (85-98); Nucleated Red Blood Cells % 0 %; Platelet Count 472 10^3/cmm (157-399); Red Blood Count 3.30 10^6/uL (3.85-5.65); White Blood Count 11.16 10^3/uL (3.29-11.43)
[2025-07-21 09:04] VITALS: BP 130/74; PULSE 79; RESP 16; TEMP 35.9; O2SAT 99
[2025-07-21] MEDS: iron sucrose 300 MG in sodium chloride 0.9% (100 ml) 100 ML 200 MG IV (09:06)
== END 2025-07-24 23:59 | disposition home or self-care (01) ==
PROVIDERS: Nurse Practitioner; Absent Provider Family Medicine; PCP Family Medicine; Visit Provider Internal Medicine Medical Oncology
DX: D50.9 Iron deficiency anemia, unspecified; Z79.899 Other long term (current) drug therapy; Z53.9 Procedure and treatment not carried out, unspecified reason
CPT/HCPCS: 36415; 36430; 80053; 80503; 82607; 82668; 82728; 82746; 83010; 83540; 83550; 83615; 83883; 83921; 84155; 84165; 85025; 85045; 85378; 85651; 86850; 86870; 86880; 86900; 86920; 96365; 96374; 99214; J1756; J1938; J7050; J9999; P9016; P9040

== ENCOUNTER → 2025-08-05 09:59 | Outpatient (BNVA) | payer MEDICARE, SELFPAY | PROVIDERS: PCP Family Medicine; Visit Provider Surgery | DX: Z95.828 Presence of other vascular implants and grafts (principal); Z87.19 Personal history of other diseases of the digestive system; D50.9 Iron deficiency anemia, unspecified | CPT/HCPCS: 99204 ==

== ENCOUNTER 2025-08-10 05:54 | Day surgery (SDC) | payer MEDICARE, SELFPAY ==
[2025-08-10] VITALS (10 sets, daily range): BP systolic 81–135; BP diastolic 47–90; PULSE 81–97; RESP 12–22; TEMP 36.1–36.4; O2SAT 92–99; BMI 28.9
--- NOTE | 2025-08-10 06:13 | P.HPUD_ITS ---
Surgery/Procedure H&P Update DATE OF PROCEDURE: August 10, 2025 DATE H&P PERFORMED: 08/05/25 H&P UPDATE INFORMATION: I have reviewed H&P completed within last 30 days, I have examined patient prior to procedure, No changes to prior documentation, H&P is in [facility] EMR on date indicated and Risks and benefits of the procedure reviewed PLANNED PROCEDURE: Operation Date: 08/10/25 07:00 Proposed Procedures p Port a Cath Insertion [id number] D50.9(Not Applicable) - Desean Silva MD
--- NOTE | 2025-08-10 06:42 | ANES.PREANE2 ---
Pre-Anesthetic Assessment Height/Weight: Height 5 ft 2 in Weight 158 lb Temp Pulse Resp BP Pulse Ox O2 Del Method 97.4 F L 89 17 130/72 96 Room Air 08/10/25 06:18 08/10/25 06:18 08/10/25 06:18 08/10/25 06:18 08/10/25 06:18 08/10/25 06:18 Preop Diagnosis: Chronic anemia Operation Date: 08/10/25 07:00 Proposed Procedures p Port a Cath Insertion [id number] D50.9(Not Applicable) - Desean Silva MD Was Beta Felecia taken within 24 hours: Yes Was Clonidine taken within 24 hours: N/A Last intake: Intake Last Liquid Date 08/09/25 Last Liquid Time 23:59 Last Solid Date 08/09/25 Last Solid Time 17:00 Social No alcohol and No tobacco Exam alert and oriented x 3 Airway Submandibular: within normal limits Cervical ROM: within normal limits Mallampati: Class III Dentition: false Anesthetic Plan ASA status: 4 Anesthesia: Choice Other: No prior issues with anesthesia NPO since yesterday evening History of hypertension on carvedilol and hydralazine Patient admits to chronic shortness of breath which she associates to her iron deficiency anemia CKD, no dialysis A-fib COPD CAD with HFpEF, cardiac clearance received. Eliquis held for 48 hours and Plavix was last taken 5 days ago Labs reviewed from 08/04/2025, hemoglobin 7.4 at that time Patient needs blood transfusions almost every other week. Follows with heme-onc Will attempt MAC anesthesia with possible conversion to general if necessary Medications/Allergies Home Medications ?Medication ?Instructions ?Recorded ?Confirmed ?Last Taken ?Type promethazine 12.5 mg tablet 25 mg PO Q6H PRN Nausea And 09/02/24 08/06/25 08/06/25 History Vomiting valacyclovir 1 gram tablet 1,000 mg PO Q12H 12/09/24 08/06/25 Unknown History hydralazine 25 mg tablet 25 mg PO BID PRN sbp more than 160 12/10/24 08/06/25 12/09/24 Rx mmhg 90 days #180 tabs hydrocodone 5 mg-acetaminophen 325 1 tab PO Q8H PRN Pain 7 days #21 04/13/25 08/10/25 08/09/25 Rx mg tablet tabs triamcinolone acetonide 0.5 % 1 applic topical TID PRN itching 06/08/25 08/10/25 08/03/25 Rx topical cream #15 grams apixaban 5 mg tablet (Eliquis) 2.5 mg PO BID 06/23/25 08/10/25 08/08/25 History clopidogrel 75 mg tablet (Plavix) 75 mg PO DAILY 90 days #90 tabs 06/30/25 08/06/25 08/06/25 Rx albuterol sulfate 1.25 mg/3 mL 1.25 mg (3 mL) inhalation Q6H PRN 08/03/25 08/06/25 08/06/25 Rx solution for nebulization shortness of breath or wheezing #90 mL albuterol sulfate 90 mcg/actuation 2 inh inhalation Q6H PRN shortness 08/03/25 08/06/25 Unknown Rx aerosol inhaler of breath or wheezing #6.7 grams fluticasone 250 mcg-salmeterol 50 1 inh inhalation BID #60 ea 08/03/25 08/10/25 08/09/25 Rx mcg/dose blistr powdr for inhalation (Advair Diskus) pantoprazole 40 mg tablet,delayed 40 mg PO BID 90 days #180 tabs 08/03/25 08/10/25 08/09/25 Rx release sodium chloride 1,000 mg soluble 1,000 mg PO BID 90 days #180 tabs 08/03/25 08/10/25 08/09/25 Rx tablet tiotropium bromide 18 mcg capsule 1 cap inhalation DAILY 30 days #60 08/03/25 08/10/25 08/09/25 Rx with inhalation device (Spiriva inhalations with HandiHaler) carvedilol 6.25 mg tablet 6.25 mg PO BID 08/06/25 08/10/25 08/09/25 History furosemide 40 mg tablet 40 mg PO DIRECTED 08/06/25 08/10/25 08/09/25 History spironolactone 25 mg tablet 25 mg PO BID swelling 08/06/25 08/10/25 08/09/25 History Allergies Allergy/AdvReac Type Severity Reaction Status Date / Time No Known Allergies Allergy Verified 08/05/25 10:01 Current Medications Generic Name Dose Route Start Last Admin Trade Name Freq PRN Reason Stop Dose Admin Sodium Chloride 1,000 mls @ 30 mls/hr 08/10/25 06:00 08/10/25 06:27 Sodium Chloride 0.9% IV 08/11/25 05:59 30 mls/hr .Q24H BIANCA Administration PFSH Anesthesia Medical History (Updated 08/05/25 @ 10:10 by Betty Pressley, CT) Ischemia, bowel History of ischemic bowel disease Chronic hyponatremia HTN (hypertension) COPD (chronic obstructive pulmonary disease) Chronic heart failure with preserved ejection fraction (HFpEF) Acute respiratory failure Upper respiratory infection Encounter to establish care Emphysema lung Chronic low back pain Tachycardia Surgical History History of bowel resection History of kyphoplasty H/O: hysterectomy Social History Smoking and tobacco/nicotine status: former use of tobacco/nicotine Data Anesthesia Cardiac Studies: Echocardiogram 11/10/23
--- NOTE | 2025-08-10 07:06 | SC_ITS ---
WS: [id number] C-arm FL for CVA [id number] REASON FOR EXAM: OR PICS FINDINGS: Chemotherapy infusion port of the left chest with trans left internal jugular infusion catheter. The tip is in the superior vena cava distal to the innominate SVC junction. Incidental note of previous vertebroplasty in the midthoracic spine. SC/C-arm FL for CVA [id number] IMPRESSION: Chemotherapy and fusion port and catheter as above.
[2025-08-10] MEDS: ceFAZolin 2,000 mg SDV 2000 MG IVP (07:07)
[2025-08-10] MEDS: BUPivacaine 0.25% INJ 10 mL INJECTION (07:29)
[2025-08-10] MEDS: heparin, porcine 1,000 unit/mL INJ 10 mL 10000 UNIT IRRIGATION (07:29)
[2025-08-10] MEDS: lidocaine-epi 1% 20 mL INJ INJECTION (07:29)
--- NOTE | 2025-08-10 08:06 | P.OP_ITS ---
Operative Report Date of procedure: August 10, 2025 Pre-op diagnosis: Iron deficiency anemia Post-op diagnosis: Same Post-op findings: No vascular targets on the right neck, right IJ was very small and almost absent, left IJ was visualized and appeared to be a suitable target Procedure done: Insertion of left IJ Port-A-Cath Implants: Bard port a cath Specimens removed/disposition: none Surgeon: Desean Silva MD Estimated blood loss: 5 Complications: none Brief History: This is a 79-year-old female who presents to my office for port placement due to frequent need for IV access for iron infusions. Procedure: Patient was brought into the OR, he was placed in a supine position, monitor anesthesia sedation was given. The neck was interrogated with ultrasound on the lower left IJ was visualized. Timeout was conducted after the skin was prepped and draped in the usual sterile fashion. I then proceeded to identify the left IJ vein with ultrasound, I infiltrated local anesthesia on top of the vein. I then proceeded to cannulate the vein under direct ultrasound guidance using an 18-gauge needle, the needle tip was seen entering the vein and immediate return of blood was noted. A wire was advanced through the needle and the needle was removed. The position of the wire was verified with ultrasound and fluoroscopy. The wire was then fixed to the drapes. I then placed my attention to the chest, local anesthesia was infiltrated in the previously marked area on the chest and then a tract connecting the chest to the wire insertion site in the neck. I then proceeded to make a 3.5 cm incision in the right upper chest, the incision was deepened to subcutaneous tissue with electrocautery and electrocautery was used to create the subcutaneous pocket to house the Port-A- Cath. I then proceeded to use a hemostat to create a tunnel from the chest wound to the neck. I then proceeded to make a 0.5 cm incision at the level of the wire insertion site in the neck. Hemostasis was verified. I then placed the Port-A-Cath in the pocket and tunneled the catheter using the provided tunneler. The catheter was cut to appropriate length under fluoroscopy guidance and then flushed. I then proceeded to insert an introducer with a peel-off sheath over the wire under direct fluoroscopic guidance. I then remove the wire and the introducer leaving the peel-off sheath in place. The catheter was then advanced through the peel-off sheath and the peel-off sheath was removed leaving the catheter in place. Fluoroscopy showed evidence of Adequate catheter position. I then proceeded to access the port; the port was retrieving blood and flushing fine, I then hep-locked the catheter. Hemostasis was verified. The wound was closed in layers using #3-0 Vicryl for the subcutaneous tissue and #4 Monocryl for the skin. Dermabond was applied. At the end of the procedure all counts were correct. The patient tolerated well the procedure and was transferred to the PACU in stable condition.
--- NOTE | 2025-08-10 08:14 | SUR.PHASEII ---
804 Spoke with Ge) and Dr. Silva about leaving 20 gauge IV(was started today for port placement) in until tomorrow for iron infusion due to Dr. Silva wants the port to not be used for at least 7 days due to patients fragile skin and her tendency to bleed, she takes eliquis and plavix,called Monica in Infusion center to tell about leaving iv in and verbalized understanding
--- NOTE | 2025-08-10 09:10 | PC.NURSE ---
Addendum entered by America Miller RN 08/10/25 09:37: pt released home Dr. Silva expressed to the pt to use her home O2 for the day at 3 to 4 liters instead of 2L that she uses. pt has portable tank with her to go home with Original Note: Pt comes to Phase 2 recovery with intense itching as a result of a previous blood transfusion reaction. pt has been taking benadryl for the itching but was not able to take dose prior to surgery. Anesthesia consulted a dose of IV benadryl 12.5 was ordered to aid in reduction of itching for patient.
[2025-08-10] MEDS: diphenhydrAMINE 50 mg/mL SDV 1mL 12.5 MG IVP (09:19)
--- NOTE | 2025-08-10 09:45 | ANE.PACU2 ---
Inpatient post-anesthesia follow up: Airway intact: Yes Vital signs: Temperature 97 F Pulse Rate 87 Respiratory Rate 20 Blood Pressure 115/84 Pulse Oximetry 96 Oxygen Delivery Me thod Nasal Cannula Oxygen Flow Rate 3 Fraction of Inspir ed Oxygen Hydration adequate: Yes Nausea and vomiting: No Pain level: 1 Mental status: Baseline
== END 2025-08-10 09:45 | disposition home or self-care (01) ==
PROVIDERS: PCP Family Medicine; Visit Provider Surgery
PROC: (CPT 36561; principal; 2025-08-10 07:00)
DX: D50.9 Iron deficiency anemia, unspecified (principal); I13.0 Hypertensive heart and chronic kidney disease with heart failure and stage 1 through stage 4 chronic kidney disease, or unspecified chronic kidney disease; N18.9 Chronic kidney disease, unspecified; I50.89 Other heart failure; R00.0 Tachycardia, unspecified; J44.9 Chronic obstructive pulmonary disease, unspecified; Z87.891 Personal history of nicotine dependence; K21.9 Gastro-esophageal reflux disease without esophagitis; Z79.02 Long term (current) use of antithrombotics/antiplatelets
CPT/HCPCS: 36561; 76000; 77001; C1750; C1788; J0690; J1200; J1644; J2371; J2704; J3010; J3490; J7030; J9999

== ENCOUNTER → 2025-08-14 08:19 | Outpatient (BNVA) | payer MEDICARE, SELFPAY | PROVIDERS: PCP Family Medicine; Referring Provider Family Medicine; Visit Provider Internal Medicine | DX: J44.1 Chronic obstructive pulmonary disease with (acute) exacerbation (principal); J43.9 Emphysema, unspecified; Z99.81 Dependence on supplemental oxygen; Z87.891 Personal history of nicotine dependence; J44.9 Chronic obstructive pulmonary disease, unspecified; T78.40XA Allergy, unspecified, initial encounter; X58.XXXA Exposure to other specified factors, initial encounter | CPT/HCPCS: 99214; Q3014 ==

== ENCOUNTER 2025-08-18 07:28 | Oncology outpatient (recurring) (ONCR) | payer MEDICARE, SELFPAY ==
[2025-07-28 09:37] LABS: Alanine Aminotransferase 14 U/L (0-33); Albumin Level 4.1 g/dL (3.5-5.2); Alkaline Phosphatase 92 U/L (35-105); Anion Gap 18.8 (5-19); Aspartate Amino Transferase 23 U/L (0-32); Blood Urea Nitrogen 58 mg/dL (8-23); Calcium 8.7 mg/dL (8.5-10.5); Carbon Dioxide 22 mmol/L (22-29); Chloride 103 mmol/L (98-107); Globulin 2.7 g/dL (1.3-4.6); Glucose 101 mg/dL (65-115); Osmolality Calculated 304 mOsm/kg (285-295); Potassium 4.8 mmol/L (3.5-5.1); Sodium 139 mmol/L (136-145); Total Protein 6.8 g/dL (6.6-8.7)
[2025-07-28 09:38] LABS: Hematocrit 28.2 % (36-47); Hemoglobin 8.80 g/dL (11.27-16.99); Mean Corpuscular HGB Conc 31.2 g/dL (30-55); Mean Corpuscular Hemoglobin 30.0 pg (27-33); Mean Corpuscular Volume 96.2 fl (85-98); Nucleated Red Blood Cells % 0 %; Platelet Count 473 10^3/cmm (157-399); Red Blood Count 2.93 10^6/uL (3.85-5.65); White Blood Count 10.48 10^3/uL (3.29-11.43)
[2025-07-28] MEDS: iron sucrose 300 MG in sodium chloride 0.9% (100 ml) 100 ML 200 MG IV (10:00)
[2025-07-28 10:49] VITALS: BP 108/59; PULSE 94; RESP 17; TEMP 36.2; O2SAT 90
[2025-08-04 08:15] LABS: Hematocrit 23.9 % (36-47); Hemoglobin 7.40 g/dL (11.27-16.99); Mean Corpuscular HGB Conc 31.0 g/dL (30-55); Mean Corpuscular Hemoglobin 31.2 pg (27-33); Mean Corpuscular Volume 100.8 fl (85-98); Nucleated Red Blood Cells % 0 %; Platelet Count 449 10^3/cmm (157-399); Red Blood Count 2.37 10^6/uL (3.85-5.65); White Blood Count 10.14 10^3/uL (3.29-11.43)
[2025-08-04] MEDS: iron sucrose 300 MG in sodium chloride 0.9% (100 ml) 100 ML 200 MG IV (09:05)
[2025-08-04 09:48] VITALS: BP 108/64; PULSE 79; RESP 18; TEMP 35.9
[2025-08-05] VITALS (8 sets, daily range): BP systolic 100–134; BP diastolic 65–86; PULSE 78–89; RESP 17–18; TEMP 35.4–36.6; O2SAT 95
[2025-08-11] MEDS: iron sucrose 200 MG/100 ML BAG IV (08:14)
[2025-08-11 08:15] LABS: Hematocrit 30.9 % (36-47); Hemoglobin 9.60 g/dL (11.27-16.99); Mean Corpuscular HGB Conc 31.1 g/dL (30-55); Mean Corpuscular Hemoglobin 31.3 pg (27-33); Mean Corpuscular Volume 100.7 fl (85-98); Nucleated Red Blood Cells % 0 %; Platelet Count 421 10^3/cmm (157-399); Red Blood Count 3.07 10^6/uL (3.85-5.65); White Blood Count 8.86 10^3/uL (3.29-11.43)
[2025-08-11 08:50] VITALS: BP 123/64; PULSE 74; RESP 18; TEMP 36.6; O2SAT 95
[2025-08-18] MEDS: iron sucrose 200 MG/100 ML BAG IV (08:20)
[2025-08-18 08:23] LABS: Hematocrit 27.1 % (36-47); Hemoglobin 8.50 g/dL (11.27-16.99); Mean Corpuscular HGB Conc 31.4 g/dL (30-55); Mean Corpuscular Hemoglobin 30.8 pg (27-33); Mean Corpuscular Volume 98.2 fl (85-98); Nucleated Red Blood Cells % 0 %; Platelet Count 402 10^3/cmm (157-399); Red Blood Count 2.76 10^6/uL (3.85-5.65); White Blood Count 11.22 10^3/uL (3.29-11.43)
[2025-08-18 09:00] VITALS: BP 124/74; PULSE 88; RESP 18; TEMP 36.6; O2SAT 98
== END 2025-08-23 23:59 | disposition home or self-care (01) ==
PROVIDERS: Absent Provider Family Medicine; PCP Family Medicine; Visit Provider Internal Medicine Medical Oncology
DX: Z53.9 Procedure and treatment not carried out, unspecified reason; D50.9 Iron deficiency anemia, unspecified; Z79.899 Other long term (current) drug therapy
CPT/HCPCS: 80053; 85025; 86850; 86900; 86920; 96365; J1756; J7050; J9999; P9040

== ENCOUNTER 2025-08-22 04:00 | Inpatient (IN) | payer MEDICARE, SELFPAY ==
[2025-08-22] VITALS (25 sets, daily range): BP systolic 89–153; BP diastolic 41–82; PULSE 78–124; RESP 18–28; TEMP 36.4–37.7; O2SAT 87–100; BMI 29.0; BMI 29.4
--- OUTSIDE RECORDS SUMMARY | 2025-08-22 04:15 | XMS_ITS | Clinical Summary ---
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 Active albuterol sulfate HFA 90 mcg/actuation aerosol inhaler Take 2 Puffs by inhalation every 6 hours as needed for Shortness of Breath. Active carvediloL (COREG) 6.25 mg tablet Take 6.25 mg by mouth 2 times daily with meals. Active fluticasone propion-salmetero L (ADVAIR DISKUS,WIXELA INHUB) 250-50 mcg/dose disk inhaler Take 1 Puff by inhalation 2 times daily. Active hydrALAZINE (APRESOLINE) 25 mg tablet Take 25 mg by mouth 2 times daily. Active HYDROcodone-aceta minophen (NORCO) 5-325 mg tablet Take 1 Tablet by mouth every 4 hours as needed for Pain, Moderate. Active tiotropium (SPIRIVA) 18 mcg capsule Take 18 mcg by inhalation daily. Active sucralfate (CARAFATE) 1 gram tablet Take 1 Gram by mouth 4 times daily before meals and at bedtime. Active apixaban (Eliquis) 5 mg tablet Take 2.5 mg by mouth 2 times daily. Active tamsulosin (FLOMAX) 0.4 mg capsule Take 0.4 mg by mouth daily. Active promethazine (PHENERGAN) 12.5 mg Tablet Take 12.5 mg by mouth every 6 hours as needed for Nausea/Emesis. Active atorvastatin (LIPITOR) 40 mg tablet Take 1 Tablet by mouth daily. Active clopidogreL (PLAVIX) 75 mg Tablet Take 75 mg by mouth daily. Active Sodium Chloride 1,000 mg Tablet, Soluble Take 1,000 mg by mouth 2 times daily. Active pantoprazole (PROTONIX) 40 mg Tablet, Delayed Release (E.C.) Take 40 mg by mouth 2 times daily. Active furosemide (LASIX) 20 mg tablet Take 60 mg by mouth daily. Active SPIRONOLACTONE ORAL Take by mouth daily. Active triamcinolone acetonide (KENALOG) 0.1 % Lotion Apply to affected area 2 times daily. Active potassium CHLORIDE (KLOR-CON) 10 mEq Extended Release tablet Take 1 Tablet (10 mEq) by mouth daily with breakfast. 30 Tablet 1 Active Active Problems Problem Noted Date Diagnosed Date Acute kidney injury superimposed on CKD 12/29/19 25 Shortness of breath 12/28/2024 Normocytic anemia 12/28/2024 Upper GI bleed 12/28/2024 Melena 11/20/2024 Acute upper GI bleed 11/20/2024 Acute blood loss anemia 11/20/2024 Gastrointestinal hemorrhage 11/20/2024 Anticoagulated 11/20/2024 Gastric ulcer 09/20/2024 Esophagitis, Powell grade D 09/20/2024 Paroxysmal atrial fibrillation 09/11/2024 S/P exploratory laparotomy 09/05/2024 Anemia of chronic disease 09/05/2024 S/P partial small bowel resection 09/05/2024 Mesenteric ischemia 09/05/2024 Protein-calorie malnutrition, moderate History of occlusion of superior mesenteric carl ry 09/05/2024 Chronic heart failure with preserved ejection fr action 09/04/2024 Renal artery stenosis 09/04/2024 Tobacco abuse 09/04/2024 Chronic obstructive pulmonary disease 09/04/2024 Renovascular hypertension 09/04/2024 Chronic anticoagulation, apixaban 09/04/2024 Unintentional weight loss 09/04/2024 Atrophy of muscle of multiple sites 09/04/2024 Resolved Problems Problem Noted Date Diagnosed Date Resolved Date Acute heart failure with pre served ejection fraction (HFpEF) 09/15/2024 09/20/2024 Hematemesis 09/12/2024 09/20/2024 Hematochezia 09/12/2024 09/20/2024 Acute generalized abdominal pain 09/12/2024 09/20/2024 Acute upper GI bleed 09/12/2024 024 Acute gastric ulcer with hemorrhage 09/12/2024 09/20/2024 Acute blood loss anemia 09/05/202408/25 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 1 11/21/2023 Acute respiratory failure with hypoxia 09/05/2024 09/20/2024 Ischemic colitis 09/04/2024 09/20/2024 Chronic hyponatremia 09/04/2024 024 Encounters Date Type Department Care Team Description 06/09/2025 External Device Data STL ABSTRACTION Provider, Abstract from Last 3 Months Family History Medical History Relation Name Comments Colon Cancer Neg Hx Social History Tobacco Use Types Packs/Day Years Used Date Smoking Tobacco: Former Cigarettes Smokeless Tobacco: Never Tobacco Cessation:Counseling Given: Not Answered Alcohol Use Standard Drinks/Week Comments Not Currently 0 (1 standard drink = 0.6 oz pur e alcohol) Feeling Safe Answer Date Recorded Are you in a relationship wi th someone who hurts you emotionally and/or physically? No 04/29/2025 Food Insecurity Answer Date Recorded Patient needs follow up regardin 01/15/2025 Transportation Needs Answer Date Record ed Patient needs follow up regardin 01/15/2025 Housing Stability Answer Date Recorded Social/Environmental Concerns No concerns Utility Needs Answer Date Recorded Patient needs follow up regardin 01/15/2025 Comments No Sex and Gender Information Value Date Recorded Sex Assigned at Not on file Legal Sex Female 3:06 PM [employer]O [employer]PER[employer] Gender Identity Not on file Sexual Orientation Not on file Last Filed Vital Signs Vital Sign Reading Time Taken Comments Blood Pressure 110/70 05/13/2025 10:31 AM CDT Pulse 104 05/13/2025 10:31 AM CDT Temperature 36.3 C (97.4 F) 12/31/2024 11:10 AM CDT Respiratory Rate 20 04/29/2025 8:18 AM CDT Oxygen Saturation 94% 05/13/2025 10:31 AM CDT Inhaled Oxygen Concentration - - Weight 68 kg (150 lb) 05/13/2025 10:31 AM CDT Height 157.5 cm (5' 2 ) 04/23/2025 1:20 PM CDT Body Mass Index 27.44 04/23/2025 1:20 PM CDT Plan of Treatment Health Maintenance Due Date Last Done Comments DTAP/TDAP/TD VACCINES (1 - Tdap) 1965 PNEUMOCOCCAL VACCINE 50+ YEARS (1 of 2 - PCV) 11/11/18 66 ZOSTER VACCINE (1 of 2) 1996 OSTEOPOROSIS SCREENING 2011 RSV VACCINE (60+ or ) (1 - 1-dose 75+ series) 2021 INFLUENZA VACCINE (#1) 2025 Medical Devices Implanted Type Area Head Of History Device Identifier Shelf Expiration Date Model / Serial / Lot Clip Ligating Horizon Lg Ti [id number] - [facility] [place] - [id number] Implanted:Qty: 1 on 09/05/2024 by Desean Juan MD at [facility] Clip N/A: Abdomen TELEFLEX- [employer]URE SYS [id number] 07/10/2027 [id number] / / [id number] Automatic Spinning Lathe Operator Ligaclip Multi Med [facility] [place]20 - [id number] Implanted:Qty: 1 on 09/05/2024 by Desean Juan MD at [facility] Clip N/A: Abdomen J[employer]J- [employer] [id number] 06/23/2029 [id number] / / [id number] Automatic Spinning Lathe Operator Ligaclip Sml [facility]20 - [id number] Implanted:Qty: 1 on 09/05/2024 by Desean Juan MD at [facility] Clip N/A: Abdomen J[employer]J- [employer] [id number] 06/23/2029 [id number] / / [id number] Clip Ligating Horizon Med Ti [id number] - [facility] - [id number] Implanted:Qty: 1 on 09/05/2024 by Desean Juan MD at [facility] Clip N/A: Abdomen TELEFLEX- WECK CLOSURE SYS [id number] 04/28/2029 [id number] / / [id number] Clip Ligating Horizon Red [id number] - [facility] - [id number] Implanted:Qty: 1 on 09/05/2024 by Desean Juan MD at [facility] Clip N/A: Abdomen [employer] [id number] 05/11/2029 [id number] / [id number] Clip Endo Resolution 360 Ultra 2.8mm 235cm [id number] - [id number] Implanted:Qty: 1 on 09/12/2024 by Wilder Calderón MD at [facility] Clip N/A: Esophagus [employer] [id number] 12/06/2026 [id number] / / [id number] Clip Endo Resolution 360 235cm [id number] - [id number] Implanted:Qty: 1 on 12/29/2024 by Freddie Shelton DO at [facility] Clip N/A: Duodenum [employer] [id number] 11/01/2026 [id number] / / [id number] Clip Endo Resolution 360 235cm [id number] - [id number] Implanted:Qty: 1 on 12/29/2024 by Freddie Shelton DO at [facility] Clip N/A: Duodenum [employer] [id number] 11/01/2026 [id number] / / [id number] Stent Viabahn Vbx 6fr 6x29mm 135cm Bx2 [id number] - [id number] Implanted:Qty: 1 on 09/05/2024 by Desean Juan MD at [facility] Stent N/A: Mesenteric Artery [employer] [id number] 11/03/2026 [id number] / [id number] / Insurance [address] [place] [address] [facility] [id number] Advance Directives For more information, please contact: [phone] Documents on File Type Date Recorded 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
--- OUTSIDE RECORDS SUMMARY | 2025-08-22 04:15 | XMS_ITS | Patient Health Record ---
Author Organization [facility] Address [address] [place] [address] Care Team Providers Care Pediatric Np Name Role Phone Vito ROTHMAN, Melonie Primary Care Provider Unavail able AmatoSarahi bansalica Unavailable [phone] Abad Sanford Unavailable Unavailable AlmazStaci Unavailable Allergies No Known Allergies Results Component Value Reference Range Flag Notes Urine Drug Screen (cup read) - [id number] Reviewed date:05/05/2025 02:49:11 PM Interpretation: Performing Lab: Notes/Report: AMP - TIMA - BUP - BZO - MDMA - OPI - PCP - OXY - MTD - MAMP - Urine Drug Screen (cup read) - [id number] Reviewed date:06/25/2025 09:11:58 AM Interpretation: Performing Lab: Notes/Report: OPI + Urine Confirmation Panel (in strument) - [id number] Reviewed date:05/11/2025 03:03:55 PM Interpretation: Performing Lab: Notes/Report: 6-Acetylmorphine 0 <6 ng/mL N This roberto t was developed and its performance characteristics determined by [facility]. It has not been cleared or approved by the U.S. Food and Drug Administration. 7-Aminoclonazepam 0 <60 ng/mL N This te st was developed and its performance characteristics determined by [facility]. It has not been cleared or approved by the U.S. Food and Drug Administration. Alprazolam 0 <60 ng/mL N This test was developed and its performance characteristics determined by [facility]. It has not been cleared or approved by the U.S. Food and Drug Administration. Amphetamine 0 <75 ng/mL N This test was developed and its performance characteristics determined by [facility]. It has not been cleared or approved by the U.S. Food and Drug Administration. aOH-Alprazolam 0 <60 ng/mL N This test was developed and its performance characteristics determined by [facility]. It has not been cleared or approved by the U.S. Food and Drug Administration. Buprenorphine 3.8 <7.5 ng/mL N This test w as developed and its performance characteristics determined by [facility]. It has not been cleared or approved by the U.S. Food and Drug Administration. Norbuprenorphine 0.0 <37.5 ng/mL N This te st was developed and its performance characteristics determined by [facility]. It has not been cleared or approved by the U.S. Food and Drug Administration. Carisoprodol 0 <75 ng/mL N This test wa s developed and its performance characteristics determined by [facility]. It has not been cleared or approved by the U.S. Food and Drug Administration. Codeine 0 <75 ng/mL N This test was developed and its performance characteristics determined by [facility]. It has not been cleared or approved by the U.S. Food and Drug Administration. EDDP 0 <75 ng/mL N This test was developed and its performance characteristics determined by [facility]. It has not been cleared or approved by the U.S. Food and Drug Administration. Fentanyl 0 <6 ng/mL N This test was developed and its performance characteristics determined by [facility]. It has not been cleared or approved by the U.S. Food and Drug Administration. Hydrocodone 1260 <75 ng/mL H This test was developed and its performance characteristics determined by [facility]. It has not been cleared or approved by the U.S. Food and Drug Administration. Hydromorphone 138 <75 ng/mL H This test w as developed and its performance characteristics determined by [facility]. It has not been cleared or approved by the U.S. Food and Drug Administration. Lorazepam 0 <60 ng/mL N This test was developed and its performance characteristics determined by [facility]. It has not been cleared or approved by the U.S. Food and Drug Administration. MDMA 0 <75 ng/mL N This test was developed and its performance characteristics determined by [facility]. It has not been cleared or approved by the U.S. Food and Drug Administration. Meperidine 0.0 <37.5 ng/mL N This test was developed and its performance characteristics determined by [facility]. It has not been cleared or approved by the U.S. Food and Drug Administration. Meprobamate 0 <75 ng/mL N This test was developed and its performance characteristics determined by [facility]. It has not been cleared or approved by the U.S. Food and Drug Administration. Methamphetamine 0 <75 ng/mL N This test was developed and its performance characteristics determined by [facility]. It has not been cleared or approved by the U.S. Food and Drug Administration. Methadone 0 <75 ng/mL N This test was developed and its performance characteristics determined by [facility]. It has not been cleared or approved by the U.S. Food and Drug Administration. Morphine 0 <75 ng/mL N This test was developed and its performance characteristics determined by [facility]. It has not been cleared or approved by the U.S. Food and Drug Administration. Nordiazepam 0 <60 ng/mL N This test was developed and its performance characteristics determined by [facility]. It has not been cleared or approved by the U.S. Food and Drug Administration. Norfentanyl 0 <6 ng/mL N This test was developed and its performance characteristics determined by [facility]. It has not been cleared or approved by the U.S. Food and Drug Administration. Normeperidine 0.0 <37.5 ng/mL N This test was developed and its performance characteristics determined by [facility]. It has not been cleared or approved by the U.S. Food and Drug Administration. O-desmethyltramadol 0 <75 ng/mL N This test was developed and its performance characteristics determined by [facility]. It has not been cleared or approved by the U.S. Food and Drug Administration. Oxazepam 0 <60 ng/mL N This test was developed and its performance characteristics determined by [facility]. It has not been cleared or approved by the U.S. Food and Drug Administration. Oxycodone 2.3 <37.5 ng/mL N This test was developed and its performance characteristics determined by [facility]. It has not been cleared or approved by the U.S. Food and Drug Administration. Oxymorphone 0 <75 ng/mL N This test was developed and its performance characteristics determined by [facility]. It has not been cleared or approved by the U.S. Food and Drug Administration. Phencyclidine 0.0 <7.5 ng/mL N This test w as developed and its performance characteristics determined by [facility]. It has not been cleared or approved by the U.S. Food and Drug Administration. Tapentadol 5.9 <37.5 ng/mL N This test was developed and its performance characteristics determined by [facility]. It has not been cleared or approved by the U.S. Food and Drug Administration. Temazepam 0 <60 ng/mL N This test was developed and its performance characteristics determined by [facility]. It has not been cleared or approved by the U.S. Food and Drug Administration. Tramadol 0 <75 ng/mL N This test was developed and its performance characteristics determined by [facility]. It has not been cleared or approved by the U.S. Food and Drug Administration. Norhydrocodone 676 <75 ng/mL H This test was developed and its performance characteristics determined by [facility]. It has not been cleared or approved by the U.S. Food and Drug Administration. Noroxycodone 0 <38 ng/mL N This test wa s developed and its performance characteristics determined by [facility]. It has not been cleared or approved by the U.S. Food and Drug Administration. Pregabalin 0 <225 ng/mL N This test was developed and its performance characteristics determined by [facility]. It has not been cleared or approved by the U.S. Food and Drug Administration. Gabapentin 0 <225 ng/mL N This test was developed and its performance characteristics determined by [facility]. It has not been cleared or approved by the U.S. Food and Drug Administration. Benzoylecgonine 0.0 <37.5 ng/mL N This roberto t was developed and its performance characteristics determined by [facility]. It has not been cleared or approved by the U.S. Food and Drug Administration. 4-Hydroxy Xylazine 0 <25 ng/mL N This t est was developed and its performance characteristics determined by [facility]. It has not been cleared or approved by the U.S. Food and Drug Administration. Tox Results Reviewed date:05/11/2025 03:04:21 PM Interpretation: Performing Lab: Notes/Report: Reason For Referral Reason eval and treat Diagnosis 1 Vertebrogenic low ba ck pain (M54.51) Diagnosis 2 Sacroiliitis, not el sewhere classified (M46.1) Referring Provider First Name Abad Referring Provider Last Name Juvenal Referring Provider Speciality Pain Medic ine [facility] Referred Provider Mona Muse Referred Address [address] [facility],[address],[place] Referred Provider Specialty Pain Medicin e Referral Priority Routine Reason PT for balance Diagnosis 1 Balance problem (R26 .89) Referral Organization [facility] Referring Provider First Name Staci Referring Provider Last Name Josué Gonzalez Referring Provider Speciality Pain Medic [facility] Referred Provider [facility] Gatito Mustafa Referred Provider [facility] Referral Priority Routine Medications Medication SIG (Take, Route, Frequency, Duration) Notes Start Date End Date Status HYDROcodone-Acetamino phen 5-325 MG Tablet 1 tablet Orally every 8 hours; Duration: 30 days As needed Not to exceed 3 per day Fill on 07/30/2025 06/25/2025 08/29/2025 Active Sodium Chloride Acti ve HYDROcodone-Acetamino phen 5-325 MG Tablet 1 tablet as needed Orally every 6 hrs Active Fluticasone Furoate Active Spiriva HandiHaler A ctive Carvedilol 6.25 MG Tablet 1 tablet with food Orally Twice a day Active Plavix 75 MG Tablet 1 tablet Orally Once a day Active Eliquis 2.5 MG Tablet as directed Orally Active Protonix 40 MG Tablet Delayed Release 1 tablet 1/2 to 1 hour before morning meal Orally Once a day Active Social History Tobacco Use: Social History Observation Description Date Details (start date - stop date) Never Smoker NA - NA Social History Tobacco Use: Social Info Question Answer Notes Tobacco Control (Standard) Tobacco use: Nonsmoker Additional Details Category Social Info Options Details Miscellaneous: Sexually active: no Sexual abuse: no Drugs/Alcohol: Do you smoke marijuana? De nies Do you drink alcohol? No Problems Problem Type SNOMED Code ICD Code Onset Dates Problem Status W/U Status Risk Notes Problem Information temporarily unavailable Chronic pain syndrome (G89.4) Active confirmed Problem Information temporarily unavailable Sacroiliitis, not elsewhere classified (M46.1) Active confirmed Problem Information temporarily unavailable assisted (current) use of opiate analgesic (Z79.891) Active confirmed Problem Information temporarily unavailable Lumbosacral spondylosis with radiculopathy (M47.27) Active confirmed Problem Information temporarily unavailable Spondylosis of lumbosacral region without myelopathy or radiculopathy (M47.817) Active confirmed Problem Information temporarily unavailable Kyphosis of thoracic region, 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) Active confirmed Problem Information temporarily unavailable Myalgia (M79.10) Active confirmed Problem Information temporarily unavailable Balance problem (R26.89) Active confirmed Problem Information temporarily unavailable Lumbosacral radiculopathy (M54.17) Active confirmed Vital Signs Height-cm 157.48 cm 06/25/2025 Weight-kg 69.85 kg 06/25/2025 Height 62 in 06/25/2025 Weight 154 lbs 06/25/2025 BMI 28.16 kg/m2 06/25/2025 Encounters Encounter Location Date Provider Diagnosis [facility] [address] [address] 05/05/2025 Staci vargas Chronic pain syndrome G89.4 ; Lumbosacral spondylosis with radiculopathy M47.27 ; Myalgia M79.10 ; Kyphosis of thoracic region, unspecified kyphosis type M40.204 ; 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 Z79.891 ; Lumbosacral radiculopathy M54.17 and Spondylosis of lumbosacral region without myelopathy or radiculopathy M47.817 [facility] [address] [address] 06/25/2025 Monica Amato Chronic pain syndrome G89.4 ; Lumbosacral spondylosis with radiculopathy M47.27 ; Myalgia M79.10 ; Kyphosis of thoracic region, unspecified kyphosis type M40.204 and 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 She states she is doing reasonably well on her current medication regimen. She has been going to physical therapy and states it is going slow as she gets so out of breath but she does feel that it helps. She tries to continue to do a little bit of the exercises at home as well. She continues with lower back pain as well as myalgia mediated pain. She is not a candidate for interventional procedures right now. She continues with her frequently bleeding ulcer and states she has to get about 2 units of blood every 2 weeks. She denies any other changes since we last seen her any untoward side effects of the medication. I did discuss lifestyle modifications as well as a bowel regimen. She will continue her medication at present level and return to clinic in 2 months to monitor for treatment effectiveness and compliance. The patient continues with chronic pain requiring treatment to help restore function and improve quality of life. Risks of opioid therapy as well as interaction of opioids with alcohol, illicit drugs, muscle relaxers, and other sedative medications are reviewed briefly with patient again today. The patient has trialed all other reasonable treatment options and uses the medication to alleviate pain in order to remain active and rest with less pain. No clinically relevant medication side effects are noted. Last UDS and [place] [employer]TER LIQUEFIER reviewed today. Patient is advised that best long-term goals include increased activity, core strengthening, proper weight management, coping strategies, avoidance of painful triggers, and targeted interventional therapy. We will see the patient for routine follow up in accordance with all clinic policies. We did remind patient today of current guidelines to decrease opioid when possible. We will continue to stress nonopioid treatment. URINE TESTING TODAY; POINT OF SERVICE Urine drug screening will be performed today to monitor compliance with opioid therapy or to serve as a baseline screen for a patient who may be a candidate for opioid therapy in the future, pending UDS results. We will monitor with in-office testing (rapid testing) today and review the results prior to dispensing prescription, as well. Patient has been made aware of this policy. 06/25/2025 Lumbosacral spondylosis with radiculopathy (ICD-10 - M47.27) 05/05/2025 Chronic pain syndrome (ICD-10 - G89.4) Ms. Quispe is a very pleasant patient with lumbosacral spondylosis mediated pain as well as recovering well from T7-[address] Marsh. She also has myalgia mediated pain. She is not a candidate, given her anti-coagulation status for interventional spine procedures at this time. She is doing well on a regimen of Hardesty 5 up to 3 tablets per day. PDMP reviewed with no untoward events. We will obtain a UDS confirmation today to evaluate her as part of her new patient agreement in compliance with medications. She will talk to her primary car physician given her history of compression fractures that she already has osteopenia about that consideration of calcium versus vitamin D therapy versus bisphosphonate. She does have a component of CKD which may have precluded her from certain interventions for her osteoporosis. The options for treatment were explained in detail, this included PT, medications, injections, lifestyle modifications and exercise. The patient presents to clinic for medication evaluation and management. The patient is stable on their current medication regimen and endorses adequate analgesia, increased ADLs, denies abuse and side effects. A bowel regimen was discussed with the patient. We will see her back in 2 months for reevaluation. 05/05/2025 Lumbosacral spondylosis with radiculopathy (ICD-10 - M47.27) 06/25/2025 Myalgia (ICD-10 - M79.10) 05/05/2025 Myalgia (ICD-10 - M79.10) 05/05/2025 Kyphosis of thoracic region, unspecified kyphosis type (ICD-10 - M40.204) 06/25/2025 Kyphosis of thoracic region, unspecified kyphosis type (ICD-10 - M40.204) 06/25/2025 assisted (current) use of opiate analgesic (ICD-10 - Z79.891) 05/05/2025 assisted (current) use of opiate analgesic (ICD-10 - Z79.891) RECOMMEND URINE TESTING TODAY Urine drug screening will be performed today to monitor compliance with opioid therapy or to serve as a baseline screen for a patient who may be a candidate for opioid therapy in the future, pending UDS results. We will monitor with in-office testing (rapid testing) today and review the results prior to dispensing prescription. All positive results will be sent for quantitative analysis to ensure accuracy and quantify amounts. Any expected positive results that return negative will also be sent for quantitative analysis. Any questionable read or any medication we cannot test for in the office confidently will be sent for quantitative analysis, as well. Patient has been made aware of this policy and agrees to abide by our urine testing policy. 05/05/2025 Lumbosacral radiculopathy (ICD-10 - M54.17) 05/05/2025 Spondylosis of lumbosacral region without myelopathy or radiculopathy (ICD-10 - M47.817) 05/05/2025 Other Karl, Jami Monae, am scribing for Dr. Alford. I, Dr. Alford, personally performed the services described in this documentation, as scribed by Jami Monae, and it is both accurate and complete. Plan Of Treatment Next Appt Details Provider Name:Monica villasenor, 08/27/2025 09:00:00 AM, [address] [place], [address], Insurance Providers Payer Name Payer Address Payer Phone Subscriber Number Group Number Insured Name Patient Relationship to Insured Coverage Start Date Coverage End Date [facility] Medicare Advantage PPO [address] [address] [place] [phone] [id number] Oanh Quispe Self - patient is the insured Medical (General) History Medical History History ICD Code High Blood Pressure Heart Disease COPD emphysema Stomach Ulcer Arthritis Blood thinners Surgical History Surgery Date(Month/Year) kyphoplasty 03/14/2024 bowel resection 09/04/2024
--- NOTE | 2025-08-22 04:21 | XRR_ITS ---
PROCEDURE INFORMATION: Exam: XR Chest Exam date and time: 08/22/2025 4:35 AM Age: 79 years old Clinical indication: Cough and shortness of breath and other: Hypotension; Prior surgery; Surgery date: 6+ months; Surgery type: Port a cath. Kyphoplasty; Cough with SOB and hypotension TECHNIQUE: Imaging protocol: Radiologic exam of the chest. Views: 1 view. COMPARISON: CR XR chest 2V* [id number] 05/12/2025 11:29 AM FINDINGS: Tubes, catheters and devices: Left infusion port terminates in the SVC. Lungs: Mild interstitial prominence. Pleural spaces: Unremarkable. No pleural effusion. No pneumothorax. Heart/Mediastinum: Mild cardiomegaly. Bones/joints: Midthoracic kyphoplasty. XR/XR chest 1V portable [id number] IMPRESSION: No acute findings.
--- NOTE | 2025-08-22 05:00 | ECG_ITS ---
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 Measurements Intervals [place] Rate: 78 P: -12 [place]: 110 QRS: 6 QRSD: 89 T: 3 QT: 383 QTc: 438 Interpretive Statements SINUS RHYTHM WITH SHORT [place] INTERVAL LOW QRS VOLTAGE IN PRECORDIAL LEADS [QRS DEFLECTION < 1.0 mV IN CHEST LEADS] Compared to ECG 09/02/2024 08:18:27 Low QRS voltage now present Sinus tachycardia no longer present Electronically Signed On 08-22-2025 15:28:46 DOG CATCHER by Satnam Calles M.D. [email or web address]
[2025-08-22 05:01] LABS: Mean Corpuscular HGB Conc 30.4 g/dL (30-55); Mean Corpuscular Hemoglobin 31.6 pg (27-33); Mean Corpuscular Volume 104.1 fl (85-98); Nucleated Red Blood Cells % 0 %; Platelet Count 293 10^3/cmm (157-399); Red Blood Count 1.96 10^6/uL (3.85-5.65); White Blood Count 9.88 10^3/uL (3.29-11.43)
[2025-08-22 05:03] LABS: Hematocrit 20.4 % (36-47); Hemoglobin 6.20 g/dL (11.27-16.99)
[2025-08-22 05:25] LABS: Lactic Sepsis W/Reflex 1.0 mmol/L (0.5-2.2)
[2025-08-22 05:26] LABS: Troponin(5th) Baseline 66 ng/L (0-10)
[2025-08-22 05:32] LABS: Base Excess VBG -4.2 mmol/L (-3.0-3.0); Blood Gas Allen Test Pos; Blood Gas LPM 3.0 %; Blood Gas Operator Identificat gerca; Blood Gas Sample Type Venous; HCO3 VBG 20.7 mmol/L (24-28); PCO2 VBG 35.7 mmHg (41-51); PO2 VBG 140.0 mmHg (25-40); Venous Blood Gas Hematocrit 22.3 % (37-47); pH VBG 7.37 (7.32-7.42)
[2025-08-22 05:36] LABS: Alanine Aminotransferase 15 U/L (0-33); Albumin Level 3.4 g/dL (3.5-5.2); Alkaline Phosphatase 89 U/L (35-105); Anion Gap 19.1 (5-19); Aspartate Amino Transferase 36 U/L (0-32); Blood Urea Nitrogen 71 mg/dL (8-23); Calcium 8.1 mg/dL (8.5-10.5); Carbon Dioxide 20 mmol/L (22-29); Chloride 100 mmol/L (98-107); Globulin 2.5 g/dL (1.3-4.6); Glucose 107 mg/dL (65-115); NT Pro B Type Natriuretic Pept 19822 pg/mL (0-450); Osmolality Calculated 301 mOsm/kg (285-295); Potassium 4.1 mmol/L (3.5-5.1); Sodium 135 mmol/L (136-145); Total Protein 5.9 g/dL (6.6-8.7)
--- NOTE | 2025-08-22 05:55 | W.ED.SOB ---
HPI - SOB/Dyspnea General: Chief Complaint: Shortness of Breath/Dyspnea Stated Complaint: SOB, Coughing Time Seen by Provider: 08/22/25 04:34 History of Present Illness: HPI Narrative: Patient is a 79-year-old female who presents with shortness of breath, generalized pruritus, and cough. According to the caregiver, the patient began deteriorating around (Sunday or ), with worsening symptoms on Sunday. The patient was initially reluctant to seek medical attention. The caregiver reports the patient has been experiencing confusion, talking to people who aren't present. The patient confirms chest pain and reports that her symptoms are getting worse. She has been on home oxygen therapy at 2-3 liters, which was previously only required at night about a month ago, indicating progressive respiratory decline. The caregiver has been administering breathing treatments at home every 3-4 hours. Regarding the pruritus, the patient has extensive excoriations and a rash covering her body. The caregiver reports this began after the patient received a blood transfusion, resulting in massive rash and hives. Multiple medications have been tried for the itching, including Benadryl and hydroxyzine, with limited relief. The patient has been scratching extensively, causing self-inflicted skin damage. A dermatology appointment is scheduled for mid-August. Related Data Home Medications ?Medication ?Instructions ?Recorded ?Confirmed valacyclovir 1 gram tablet 1,000 mg PO Q12H PRN Cold Sores 12/09/24 08/22/25 apixaban 5 mg tablet (Eliquis) 2.5 mg PO BID 06/23/25 08/22/25 carvedilol 6.25 mg tablet 6.25 mg PO BID 08/06/25 08/22/25 furosemide 40 mg tablet 60 mg PO QAM 08/06/25 08/22/25 spironolactone 25 mg tablet See Rx Instructions .Route 08/06/25 08/22/25 .COMPLEX swelling polyethylene glycol 3350 17 gram 17 g PO DAILY PRN Constipation 08/14/25 08/22/25 oral powder packet (Miralax) atorvastatin 40 mg tablet 40 mg PO BEDTIME 08/22/25 08/22/25 diphenhydramine HCl 25 mg capsule 25 mg PO BID PRN Itching 08/22/25 08/22/25 (Benadryl) fluticasone 250 mcg-salmeterol 50 1 inh inhalation BID 08/22/25 08/22/25 mcg/dose blistr powdr for inhalation hydroxyzine HCl 25 mg tablet 25 - 50 mg PO BEDTIME PRN Itching 08/22/25 08/22/25 oxycodone 5 mg tablet 5 mg PO BID PRN Pain 08/22/25 08/22/25 potassium chloride 10 mEq 10 meq PO DAILY 08/22/25 08/22/25 tablet,extended release Previous Rx's ?Medication ?Instructions ?Recorded hydralazine 25 mg tablet 25 mg PO BID PRN sbp more than 160 12/10/24 mmhg 90 days #180 tabs hydrocodone 5 mg-acetaminophen 325 1 tab PO Q8H PRN Pain 7 days #21 04/13/25 mg tablet tabs triamcinolone acetonide 0.5 % 1 applic topical TID PRN itching 06/08/25 topical cream #15 grams clopidogrel 75 mg tablet (Plavix) 75 mg PO DAILY 90 days #90 tabs 06/30/25 albuterol sulfate 1.25 mg/3 mL 1.25 mg (3 mL) inhalation Q6H PRN 08/03/25 solution for nebulization shortness of breath or wheezing #90 mL albuterol sulfate 90 mcg/actuation 2 inh inhalation Q6H PRN shortness 08/03/25 aerosol inhaler of breath or wheezing #6.7 grams pantoprazole 40 mg tablet,delayed 40 mg PO BID 90 days #180 tabs 08/03/25 release sodium chloride 1,000 mg soluble 1,000 mg PO BID 90 days #180 tabs 08/03/25 tablet tiotropium bromide 18 mcg capsule 1 cap inhalation DAILY 30 days #60 08/03/25 with inhalation device (Spiriva inhalations with HandiHaler) arformoterol 15 mcg/2 mL solution 2 ml inhalation Q12H #120 mL 08/14/25 for nebulization budesonide 0.5 mg/2 mL suspension 0.5 mg (2 mL) inhalation BID #60 mL 08/14/25 for nebulization (Pulmicort) Allergies Allergy/AdvReac Type Severity Reaction Status Date / Time No Known Allergies Allergy Verified 08/14/25 08:42 PFSH ED PFSH: Medical History (Updated 08/22/25 @ 15:43 by Karel Sarah DO) Hx of mesenteric infarction stents placement Ischemia, bowel History of ischemic bowel disease Chronic hyponatremia HTN (hypertension) COPD (chronic obstructive pulmonary disease) Chronic heart failure with preserved ejection fraction (HFpEF) Acute respiratory failure Upper respiratory infection Encounter to establish care Emphysema lung Chronic low back pain Tachycardia Surgical History History of bowel resection History of kyphoplasty H/O: hysterectomy Social History Smoking and tobacco/nicotine status: former use of tobacco/nicotine (1 09/25 PPD X 59 years. Quit 2023 ) Physical Exam Const: GENERAL APPEARANCE: cooperative, ill appearing and frail appearing ORIENTATION/CONSCIOUSNESS: Yes awake, Yes oriented to person, Yes oriented to place and Yes confused (mildly); not oriented to time HENMT: COMMON NORMALS: normocephalic, atraumatic and Normal external nose present HEAD & SCALP: normocephalic and atraumatic FACE & SINUS: normal facial exam and face symmetric NOSE: Normal external nose present Eye: COMMON NORMALS: Equal, round and reactive pupils present and EOMs intact bilaterally PUPIL: Yes Equal, round and reactive pupils present Neck/C-Spine: GENERAL: Yes trachea midline Chest: CHEST: Yes Symmetrical chest wall rise Resp: EFFORT & INSPECTION: Yes symmetric chest movement, Yes tachypneic and Yes labored AUSCULTATION: diminished lung sounds Cardio: COMMON NORMALS: regular rate and regular rhythm RATE: regular rate RHYTHM: regular rhythm GI: COMMON NORMALS: Normal to inspection, nondistended, normoactive bowel sounds present Extremity: COMMON NORMALS: no pedal edema Neuro: ANTHONY COMA SCALE: document GCS findings Anthony coma scale eye opening: Spontaneous Leland coma scale verbal response: Confused Leland coma scale motor response: Obey commands Anthony coma scale total score: 14 SENSORIUM/ORIENTATION: Yes oriented to person, Yes oriented to place and No oriented to time SENSORY EXAM: Yes extremities (intact) Psych: COMMON NORMALS: speech normal SPEECH: Yes normal speech Skin: COMMON NORMALS: no rashes or lesions noted GENERAL SKIN EXAM: no rashes or lesions noted Course Vital Signs: Vital signs: Vital Signs Temperature 97.9 F 08/22/25 15:17 Pulse Rate 101 H 08/22/25 15:31 Respiratory Rate 24 H 08/22/25 15:31 Blood Pressure 153/73 08/22/25 15:17 Pulse Oximetry 100 08/22/25 15:31 Oxygen Delivery Me thod Nasal Cannula 08/22/25 15:31 Oxygen Flow Rate 3 08/22/25 15:31 MDM - SOB/Dyspnea Medical Decision Making 79-year-old female with a history of anemia, heart failure. She presents significantly short of breath. She is tachypneic on arrival. She was placed on 3 L of nasal cannula oxygen with some improvement. She is on 2-3 L at home. Her vitals have otherwise been stable. Her hemoglobin is 6.2. MCV is slightly elevated. Her creatinine is 3 which is a mild bump off of her baseline. BUN is significantly elevated at 71. Venous blood gas shows a pH of 7.37 PCO2 [place] 36[place] [address]. First troponin is 66. She will require blood transfusion. Because of her history of heart failure, she required diuresis, and with her renal function, this will be a tedious process. I spoke with the hospitalist regarding admission. He agrees to admit. Able to see the patient. Lab Data 08/22/25 04:51 08/22/25 04:51 Labs/Radiology: Radiology Impressions Chest X-Ray 08/22/25 04:21 IMPRESSION: No acute findings. Laboratory Results WBC 9.88 10^3/uL (3.29-11.43) 08/22/25 04:51 RBC 1.96 10^6/uL (3.85-5.65) L 08/22/25 04:51 Hgb 6.20 g/dL (11.27-16.99) L* 08/22/25 04:51 Hct 20.4 % (36-47) L* 08/22/25 04:51 MCV 104.1 fl (85-98) H 08/22/25 04:51 MCH 31.6 pg (27-33) 08/22/25 04:51 MCHC 30.4 g/dL (30-55) 08/22/25 04:51 RDW 22.5 % (12.1-15.1) H 08/22/25 04:51 Plt Count 293 10^3/cmm (157-399) 08/22/25 04:51 MPV 10.1 fL (7.4-10.4) 08/22/25 04:51 Neut % (Auto) 86.9 % 08/22/25 04:51 Lymph % (Auto) 7.0 % 08/22/25 04:51 [place] % (Auto) 3.1 % 08/22/25 04:51 Eos % (Auto) 0.9 % 08/22/25 04:51 Baso % (Auto) 0.2 % 08/22/25 04:51 Neut # (Auto) 8.58 10^3/uL (1.8-7.7) H 08/22/25 04:51 Lymph # (Auto) 0.7 10^3/uL (0.8-4.8) L 08/22/25 04:51 [place] # (Auto) 0.3 10^3/uL (0.2-0.9) 08/22/25 04:51 Eos # (Auto) 0.1 10^3/uL (0.0-0.8) 08/22/25 04:51 Baso # (Auto) 0.0 10^3/uL (0.0-0.1) 08/22/25 04:51 Nucleated RBC % (auto) 0 % 08/22/25 04:51 Nucleated RBCs # 0.0 /100WBC 08/22/25 04:51 Specimen Type Venous 08/22/25 05:24 Jose Test Pos 08/22/25 05:24 VBG pH 7.37 (7.32-7.42) 08/22/25 05:24 VBG pCO2 35.7 mmHg (41-51) L 08/22/25 05:24 VBG pO2 140.0 mmHg (25-40) H 08/22/25 05:24 VBG HCO3 20.7 mmol/L (24-28) L 08/22/25 05:24 VBG Base Excess -4.2 mmol/L (-3.0-3.0) L 08/22/25 05:24 VBG Hematocrit 22.3 % (37-47) L 08/22/25 05:24 O2 Delivery Device Nc 08/22/25 05:24 O2 Liters/Min 3.0 % 08/22/25 05:24 FiO2 32.0 % 08/22/25 05:24 Jigger Machine Operator ID [id number] 08/22/25 05:24 Sodium 135 mmol/L (136-145) L 08/22/25 04:51 Potassium 4.1 mmol/L (3.5-5.1) 08/22/25 04:51 Chloride 100 mmol/L (98-107) 08/22/25 04:51 Carbon Dioxide 20 mmol/L (22-29) L 08/22/25 04:51 Anion Gap 19.1 (5-19) H 08/22/25 04:51 BUN 71 mg/dL (8-23) H 08/22/25 04:51 Creatinine 3.0 mg/dL (0.5-0.9) H 08/22/25 04:51 GFR Calculation Not Reportable 08/22/25 04:51 Glucose 107 mg/dL (65-115) 08/22/25 04:51 Calculated Osmolality 301 mOsm/kg (285-295) H 08/22/25 04:51 Lactic Acid 1.0 mmol/L (0.5-2.2) 08/22/25 04:51 Calcium 8.1 mg/dL (8.5-10.5) L 08/22/25 04:51 Total Bilirubin 0.2 mg/dL (0.15-1.2) 08/22/25 04:51 AST 36 U/L (0-32) H 08/22/25 04:51 ALT 15 U/L (0-33) 08/22/25 04:51 Alkaline Phosphatase 89 U/L (35-105) 08/22/25 04:51 Troponin T Baseline 66 ng/L (0-10) H 08/22/25 04:51 NT-Pro-B Natriuret Pep 18167 pg/mL (0-450) H 08/22/25 04:51 Total Protein 5.9 g/dL (6.6-8.7) L 08/22/25 04:51 Albumin 3.4 g/dL (3.5-5.2) L 08/22/25 04:51 Globulin 2.5 g/dL (1.3-4.6) 08/22/25 04:51 Blood Type A Positive 08/22/25 05:08 Rho(D) Type Rh positive 08/22/25 05:08 Antibody Screen Negative 08/22/25 05:08 Crossmatch See Detail 08/22/25 05:08 All radiology interpretation(s) finalized by discharge EKG Data EKG 1: Interpretation: EKg timed 0500 read 0504 shows sinus rhythm rate 75. normal axis and intervals. no acute ST wave changes. Discharge Plan Discharge Patient Disposition: Admitted As Inpatient Admit Provider: Giles Vazquez Clinical Impression: Chronic hypoxemic respiratory failure, Chronic heart failure with preserved ejection fraction (HFpEF) Anemia Qualifiers: Anemia type: unspecified type Qualified Code(s): D64.9 - Anemia, unspecified Condition: Stable Coding Level of Care Code ED Masonry Supervisor for Camron Sousa
--- NOTE | 2025-08-22 06:28 | PC.NURSE ---
Lety from [facility] called this nurse and informed her that patient's type and screen came back, and patient requires a special blood that is currently being called in by [facility]. Blood administration expected to be delayed 3-4 hours per blood bank. This information was relayed to nurse on med-surg who took report, Mamta.
--- NOTE | 2025-08-22 06:55 | PM.HP ---
Providers/Chief Complaint Admitting Physician: Giles Vazquez MD Primary Care Provider: Melonie Padron MD Chief Complaint: SOB, Coughing History of Present Illness Oanh Quispe is a 79 year old female with history significant for mesenteric ischemia s/p stenting and partial bowel resection, atrial fibrillation, chronic respiratory failure(on O2 2-3L at baseline) CKD, iron def. anemia(seen by hematology) hyponatremia and HFpEF, who presents with family with complaints of shortness of breath. There is also complaint of confusion, chest pain, and severe itching. She has had chronic shortness of breath of note but this has becoe more severe in the days leading up to admission. She is unable to lay flat due to her shortness of breath. Family mention she has had unintentional weight gain of about 30 lbs in the past 4-5 months. She is otherwise compliant with her prescribed medications which are managed by family. No significant dietary changes have been noted. Since Sunday, family has noticed she has become confused, with odd speech. Patient has been reluctant to come to the hospital for help because she does not like hospitals. Chest pain has been present in the recent days as well. Regarding her itching, it has been severe and present in the past 2 months after receiving a blood transfusion which she seems to get regularly. She also receives weekly iron infusions. It is severe enough where she is bleeding from her scratching. Medications/Allergies Home Medications ?Medication ?Instructions ?Recorded ?Confirmed ?Last Taken ?Type valacyclovir 1 gram tablet 1,000 mg PO Q12H 12/09/24 08/14/25 Unknown History hydralazine 25 mg tablet 25 mg PO BID PRN sbp more than 160 12/10/24 08/14/25 12/09/24 Rx mmhg 90 days #180 tabs hydrocodone 5 mg-acetaminophen 325 1 tab PO Q8H PRN Pain 7 days #21 04/13/25 08/14/25 08/09/25 Rx mg tablet tabs triamcinolone acetonide 0.5 % 1 applic topical TID PRN itching 06/08/25 08/14/25 08/03/25 Rx topical cream #15 grams apixaban 5 mg tablet (Eliquis) 2.5 mg PO BID 06/23/25 08/14/25 08/08/25 History clopidogrel 75 mg tablet (Plavix) 75 mg PO DAILY 90 days #90 tabs 06/30/25 08/14/25 08/06/25 Rx albuterol sulfate 1.25 mg/3 mL 1.25 mg (3 mL) inhalation Q6H PRN 08/03/25 08/14/25 08/06/25 Rx solution for nebulization shortness of breath or wheezing #90 mL albuterol sulfate 90 mcg/actuation 2 inh inhalation Q6H PRN shortness 08/03/25 08/14/25 Unknown Rx aerosol inhaler of breath or wheezing #6.7 grams pantoprazole 40 mg tablet,delayed 40 mg PO BID 90 days #180 tabs 08/03/25 08/14/25 08/09/25 Rx release sodium chloride 1,000 mg soluble 1,000 mg PO BID 90 days #180 tabs 08/03/25 08/14/25 08/09/25 Rx tablet tiotropium bromide 18 mcg capsule 1 cap inhalation DAILY 30 days #60 08/03/25 08/14/25 08/09/25 Rx with inhalation device (Spiriva inhalations with HandiHaler) carvedilol 6.25 mg tablet 6.25 mg PO BID 08/06/25 08/14/25 08/09/25 History furosemide 40 mg tablet 40 mg PO DIRECTED 08/06/25 08/14/25 08/09/25 History spironolactone 25 mg tablet 25 mg PO BID swelling 08/06/25 08/14/25 08/09/25 History arformoterol 15 mcg/2 mL solution 2 ml inhalation Q12H #120 mL 08/14/25 08/14/25 Unknown Rx for nebulization budesonide 0.5 mg/2 mL suspension 0.5 mg (2 mL) inhalation BID #60 mL 08/14/25 08/14/25 Unknown Rx for nebulization (Pulmicort) polyethylene glycol 3350 17 gram 17 g PO DAILY PRN 08/14/25 Unknown History oral powder packet (Miralax) Allergies Allergy/AdvReac Type Severity Reaction Status Date / Time No Known Allergies Allergy Verified 08/14/25 08:42 PFSH Acute PFSH: Medical History (Updated 08/22/25 @ 07:21 by Giles Vazquez MD) Hx of mesenteric infarction stents placement Ischemia, bowel History of ischemic bowel disease Chronic hyponatremia HTN (hypertension) COPD (chronic obstructive pulmonary disease) Chronic heart failure with preserved ejection fraction (HFpEF) Acute respiratory failure Upper respiratory infection Encounter to establish care Emphysema lung Chronic low back pain Tachycardia Surgical History History of bowel resection History of kyphoplasty H/O: hysterectomy Social History Smoking and tobacco/nicotine status: former use of tobacco/nicotine (1 09/25 PPD X 59 years. Quit 2023 ) Vitals/I&O/Wt Last Vital Signs Temp 98.9 F 08/22/25 04:17 Pulse 78 08/22/25 06:34 Resp 18 08/22/25 04:17 BP 101/60 08/22/25 06:34 Pulse Ox 95 08/22/25 06:34 O2 Del Method Nasal Cannula 08/22/25 06:34 O2 Flow Rate 3 08/22/25 05:25 08/21/25 08/21/25 08/22/25 14:59 22:59 06:59 Intake Total 0 / 0 Balance 0 / 0 Weight last 48 hrs Weight 72.121 kg Physical Exam Narrative: General: No acute distress, AO x3, chronically sick appearing, appears fatigued HEENT: PERRLA, pupils bilaterally equal and reactive Chest: Diminished breath sounds bilaterally. Appears mildly labored with breathing CVS: S1-S2 regular, no murmurs, no tachycardia, no gallops, no rubs. left upper chest IV access noted Abdomen: Soft, nontender, no organomegaly, bowel sounds present Skin: Excoriations noted throughout all extremities and to the anterior trunk. There is fresh blood noted to the left upper arm Neuro: No focal deficits, no facial deformity, AO x3, power 5/5 in all limbs Data 08/22/25 04:51 08/22/25 04:51 Micro: Microbiology 08/22/25 05:24 Blood Culture - Preliminary Blood SPECIMEN COLLECTED 08/22/25 05:08 Blood Culture - Preliminary Blood SPECIMEN COLLECTED A&P Assessment and plan 1. Chronic heart failure with preserved ejection fraction (HFpEF): - Noted with BNP near 20k - 60mg IV lasix ordered by ED. Will continue BID - Strict intake and output - Daily weight - Hold salt tabs 2. Iron deficiency anemia, unspecified iron deficiency anemia type: - Seen by outpatient hematology with regular iron infusions - Family reports blood products need to be sent from [facility] - 1u PRBC ordered for transfusion. Need to be mindful of overload 3. Chronic pruritus: - Family reports a pending dermatology consult to address - Trial 40mg methylprednisolone to help manage symptoms. Antihistamines have not been effective 4. Chronic kidney disease, unspecified CKD stage: - Baseline creatinine of 2.4, suspect MARISOL - Hold aldactone for now 5. Chronic hyponatremia: - Hold salt tabs for now 6. Atrial fibrillation, unspecified type: - Continue coreg and eliquis 7. Chronic hypoxemic respiratory failure: - Continue inhalers 8. Hx of mesenteric infarction: - On Plavix and Eliquis. Continue PDMP PDMP Reviewed: Not Reviewed Attestations Medical Necessity Statement*: Patient will require greater than two midnights of inpatient care to help seniour insight manager her acute CHF exacerbation and anemia Coding Level of Care Code [facility] Diagnoses Chronic heart failure with preserved ejection fraction (HFpEF) I50.32 Iron deficiency anemia, unspecified iron deficiency anemia type D50.9 Iron deficiency anemia type: unspecified iron deficiency Chronic pruritus L29.9 Chronic kidney disease, unspecified CKD stage N18.9 Chronic kidney disease stage: unspecified stage Chronic hyponatremia E87.1 Atrial fibrillation, unspecified type I48.91 Atrial fibrillation type: unspecified Chronic hypoxemic respiratory failure J96.11 Hx of mesenteric infarction Z87.19
[2025-08-22 07:37] LABS: Troponin 5 2HR 64.39 ng/L (0-10)
[2025-08-22 07:39] LABS: Troponin 5 2HR Delta -1.61 ABS# (0-10)
[2025-08-22] MEDS: methylPREDNISolone sod succ 40 mg/mL INJ IVP (08:13)
[2025-08-22] MEDS: APIXABAN 2.5 MG TABLET PO (08:14)
[2025-08-22 09:23] LABS: Respiratory Syncytial Virus Ce NEGATIVE (Negative); SARS-CoV-2 PCR NEGATIVE (Negative)
--- NOTE | 2025-08-22 10:35 | PM.CONSULT ---
Providers/Reason For Consult Consulting Physician/Specialty*: Dr. Truong general surgery Reason for Consult*: GI bleed Attending Physician: Fior Haq MD Primary Care Provider: Melonie Padron MD History of Present Illness History of Present Illness Oanh Quispe is a 79 year old female with multiple medical problems including peptic ulcer disease and mesenteric ischemia with an SMA stent for which she is on apixaban and Plavix who presented with anemia. Patient is known to hematology for chronic anemia and she has seen Dr. Miguel Gomez as well. Today she is denying hematochezia, she reports questionable melena. She is considering hospice care. Medications/Allergies Home Medications ?Medication ?Instructions ?Recorded ?Confirmed ?Last Taken ?Type valacyclovir 1 gram tablet 1,000 mg PO Q12H PRN Cold Sores 12/09/24 08/22/25 Unknown History hydralazine 25 mg tablet 25 mg PO BID PRN sbp more than 160 12/10/24 08/22/25 12/09/24 Rx mmhg 90 days #180 tabs hydrocodone 5 mg-acetaminophen 325 1 tab PO Q8H PRN Pain 7 days #21 04/13/25 08/22/25 08/21/25 Rx mg tablet tabs triamcinolone acetonide 0.5 % 1 applic topical TID PRN itching 06/08/25 08/22/25 08/03/25 Rx topical cream #15 grams apixaban 5 mg tablet (Eliquis) 2.5 mg PO BID 06/23/25 08/22/25 08/21/25 History clopidogrel 75 mg tablet (Plavix) 75 mg PO DAILY 90 days #90 tabs 06/30/25 08/22/25 08/21/25 Rx albuterol sulfate 1.25 mg/3 mL 1.25 mg (3 mL) inhalation Q6H PRN 08/03/25 08/22/25 08/06/25 Rx solution for nebulization shortness of breath or wheezing #90 mL albuterol sulfate 90 mcg/actuation 2 inh inhalation Q6H PRN shortness 08/03/25 08/22/25 Unknown Rx aerosol inhaler of breath or wheezing #6.7 grams pantoprazole 40 mg tablet,delayed 40 mg PO BID 90 days #180 tabs 08/03/25 08/22/25 08/21/25 Rx release sodium chloride 1,000 mg soluble 1,000 mg PO BID 90 days #180 tabs 08/03/25 08/22/25 08/09/25 Rx tablet tiotropium bromide 18 mcg capsule 1 cap inhalation DAILY 30 days #60 08/03/25 08/22/25 08/21/25 Rx with inhalation device (Spiriva inhalations with HandiHaler) carvedilol 6.25 mg tablet 6.25 mg PO BID 08/06/25 08/22/25 08/21/25 History furosemide 40 mg tablet 60 mg PO QAM 08/06/25 08/22/25 08/21/25 History spironolactone 25 mg tablet See Rx Instructions .Route 08/06/25 08/22/25 08/21/25 History .COMPLEX swelling arformoterol 15 mcg/2 mL solution 2 ml inhalation Q12H #120 mL 08/14/25 08/22/25 Unknown Rx for nebulization budesonide 0.5 mg/2 mL suspension 0.5 mg (2 mL) inhalation BID #60 mL 08/14/25 08/22/25 Unknown Rx for nebulization (Pulmicort) polyethylene glycol 3350 17 gram 17 g PO DAILY PRN Constipation 08/14/25 08/22/25 Unknown History oral powder packet (Miralax) atorvastatin 40 mg tablet 40 mg PO BEDTIME 08/22/25 08/22/25 Unknown History diphenhydramine HCl 25 mg capsule 25 mg PO BID PRN Itching 08/22/25 08/22/25 08/21/25 History (Benadryl) fluticasone 250 mcg-salmeterol 50 1 inh inhalation BID 08/22/25 08/22/25 08/21/25 History mcg/dose blistr powdr for inhalation hydroxyzine HCl 25 mg tablet 25 - 50 mg PO BEDTIME PRN Itching 08/22/25 08/22/25 08/21/25 History oxycodone 5 mg tablet 5 mg PO BID PRN Pain 08/22/25 08/22/25 Unknown History potassium chloride 10 mEq 10 meq PO DAILY 08/22/25 08/22/25 Unknown History tablet,extended release Allergies Allergy/AdvReac Type Severity Reaction Status Date / Time No Known Allergies Allergy Verified 08/14/25 08:42 Current Medications Generic Name Dose Route Start Last Admin Trade Name Freq PRN Reason Stop Dose Admin Albuterol Sulfate 2.5 mg 08/22/25 07:52 08/22/25 07:57 Albuterol 2.5 Mg/3 Ml Neb INHALATION 2.5 mg Q6H PRN Administration shortness of breath or wheezing Apixaban 2.5 mg 08/22/25 08:00 08/22/25 08:14 Apixaban 2.5 Mg Tablet PO 2.5 mg On Hold: 08/22/25 09:03 BID BIANCA Administration Budesonide 0.5 mg 08/22/25 08:00 08/22/25 07:57 Budesonide 0.5 Mg/2 Ml Neb INHALATION 0.5 mg BID.RESPIRATORY BIANCA Administration Clopidogrel Bisulfate 75 mg 08/22/25 07:40 08/22/25 08:14 Clopidogrel 75 Mg Tablet PO 75 mg On Hold: 08/22/25 09:03 DAILY BIANCA Administration Ipratropium Kidder 0.5 mg 08/22/25 08:00 08/22/25 08:03 Ipratropium 0.5 Mg/2.5 Ml Neb INHALATION Not Given QID.RESPIRATORY BIANCA PFSH Acute PFSH: Medical History (Updated 08/22/25 @ 07:21 by Giles Vazquez MD) Hx of mesenteric infarction stents placement Ischemia, bowel History of ischemic bowel disease Chronic hyponatremia HTN (hypertension) COPD (chronic obstructive pulmonary disease) Chronic heart failure with preserved ejection fraction (HFpEF) Acute respiratory failure Upper respiratory infection Encounter to establish care Emphysema lung Chronic low back pain Tachycardia Surgical History History of bowel resection History of kyphoplasty H/O: hysterectomy Social History Smoking and tobacco/nicotine status: former use of tobacco/nicotine (1 09/25 PPD X 59 years. Quit 2023 ) Vitals/I&O/Wt Last Vital Signs Temp 97.6 F 08/22/25 07:32 Pulse 89 08/22/25 08:01 Resp 18 08/22/25 08:01 BP 89/53 08/22/25 07:32 Pulse Ox 97 08/22/25 08:01 O2 Del Method Nasal Cannula 08/22/25 08:01 O2 Flow Rate 3 08/22/25 08:01 08/21/25 08/22/25 08/22/25 22:59 06:59 14:59 Intake Total 0 / 0 Balance 0 / 0 Weight last 48 hrs Weight 161 lb Weight 159 lb Physical Exam Narrative: Chest: Unlabored breathing room air. No lymphadenopathy. Heart: Regular rate and rhythm. Abdomen: Soft, nontender, nondistended. No masses or lymphadenopathy. Data 08/22/25 04:51 08/22/25 04:51 Micro: Microbiology 08/22/25 05:24 Blood Culture - Preliminary Blood SPECIMEN COLLECTED 08/22/25 05:08 Blood Culture - Preliminary Blood SPECIMEN COLLECTED A&P Assessment and plan 1. Iron deficiency anemia, unspecified iron deficiency anemia type: Plan: 79-year-old female with multiple medical problems including peptic ulcer disease and mesenteric ischemia on anticoagulation and antiplatelet therapy whom surgery was consulted to rule out GI bleed in the setting of acute on chronic anemia. Family at bedside. I had an extensive discussion with the patient and family and they have all decided to not proceed with endoscopy. Patient is considering hospice care. I will sign off. Call with questions. PDMP PDMP Reviewed: Not Reviewed Coding Level of Care Code 15883 Diagnoses Iron deficiency anemia, unspecified iron deficiency anemia type D50.9 Iron deficiency anemia type: unspecified iron deficiency
[2025-08-22] MEDS: pantoprazole 40 mg SDV IVP ×2 (10:39→20:19)
[2025-08-22] MEDS: HYDROmorphone 0.5 MG/0.5 ML INJ 0.2 MG IVP (10:40)
--- NOTE | 2025-08-22 10:47 | PM.MISC ---
Miscellaneous Note Note: Full consult note to follow. Discussed with hospitalist. No hematochezia/melena. Recommend CTA abdomen pelvis to look for a bleeding source. If no bleeding source identified, endoscopy will be lower yield.
--- NOTE | 2025-08-22 10:53 | ECG_ITS ---
[employer] Test Date: 2025-08-22 Pat Name: Oanh Quispe Department: Room: 253 Gender: Female Cloth Stretcher: : 1945 Requested By: Karel Lopez Order Number: [id number] Booker MD: Satnam Calles M.D. Measurements Intervals [place] Rate: 89 P: 49 LA: 115 QRS: 18 QRSD: 91 T: 23 QT: 344 QTc: 420 Interpretive Statements SINUS RHYTHM WITH SHORT LA INTERVAL LOW QRS VOLTAGE IN PRECORDIAL LEADS [QRS DEFLECTION < 1.0 mV IN CHEST LEADS] Compared to ECG 08/22/2025 05:00:24 No significant changes Electronically Signed On 08-22-2025 17:15:55 GLASS MOLD REPAIRER by Satnam Calles M.D. [email or web address] [id number]
[2025-08-22 11:16] LABS: Troponin 5 6HR 56.13 ng/L (0-10)
[2025-08-22] MEDS: FUROsemide 10 mg/mL SDV 4mL 40 MG IVP ×2 (14:56→20:20)
--- NOTE | 2025-08-22 15:27 | P.MISC_ITS ---
Miscellaneous Note Purpose of Documentation: Severe anemia requiring blood transfusion Patient DNR and further discussion of her quality of care has been done with the family and the patient Patient has the capacity to make decision and would prefer hospice/comfort care and also referral for home hospice Note: - Hold Eliquis and clopidogrel at the mo ment -Stat blood transfusion and Lasix posttr ansfusion based on the blood pressure parameters - Comfort measures protocol has been marcella lied and case briefer informed about the patient wishes and proceed accordingly for home hospice referral - Adequate analgesia - Comfort care Patient condition has been discussed at length with the patient/family, I have independently reviewed the chart labs imaging/diagnostics/EKG. the goals of care and code status with the patient/family/NOK/legal architectural representative, and documented accordingly. The management has been done according to the current clinical condition with respect to patient goals of care and based on recommendations/guidelines. The patient/family has been informed about the current condition and further plan of care. Agreed with the plan of care and understood without any language barrier. Every effort was made to ensure accuracy of low emission automobile designer. Any obvious errors or omissions should be clarified with the author of the document.
[2025-08-22] MEDS: oxyCODONE 5 mg IR Tab/Cap PO (16:00)
[2025-08-22 16:55] LABS: Bacillus cereus group Not Detected (NOT DETECT); Bacillus subtillis group Not Detected (NOT DETECT); Corynebacterium Not Detected (NOT DETECT); Cutibacterium acnes (P.acnes) Not Detected (NOT DETECT); Enterococcus faecalis Not Detected (NOT DETECT); Enterococcus faecium Not Detected (NOT DETECT); Listeria Not Detected (NOT DETECT); Micrococcus Not Detected (NOT DETECT); Pan Candida Not Detected (NOT DETECT); Pan Gram-Negative Not Detected (NOT DETECT); Staphylococcus epidermidis Not Detected (NOT DETECT); Staphylococcus lugdunensis Not Detected (NOT DETECT); Staphylococcus species Not Detected (NOT DETECT); Streptococcus anginosus group Not Detected (NOT DETECT); Streptococcus pyogenes Not Detected (NOT DETECT); Streptococcus species Detected (NOT DETECT)
[2025-08-22] MEDS: sennosides-docusate Tablet 1 TAB PO (17:10)
--- NOTE | 2025-08-22 18:44 | PC.NURSE ---
Dr. Haq notified of positive blood culture bottles. No antibiotics given due to patients request to go on Hospice care.
[2025-08-22] MEDS: morphine 4 mg/mL SDV 1 mL IVP ×2 (20:23→21:15)
[2025-08-22] MEDS: LORazepam 2 mg/mL INJ 1 mL IVP ×2 (20:25→22:43)
[2025-08-22] MEDS: morphine 10 mg/0.5 mL oral liq UD SUBLINGUAL (20:46)
[2025-08-23] VITALS (10 sets, daily range): BP systolic 76–88; BP diastolic 36–54; PULSE 109–118; RESP 18–113; TEMP 35.9–37; O2SAT 88–94
[2025-08-23] MEDS: morphine 4 mg/mL SDV 1 mL IVP ×4 (00:02→08:59)
[2025-08-23] MEDS: atropine 1% op soln 2 mL Btl 3 DROP SUBLINGUAL ×3 (04:21→13:44)
--- NOTE | 2025-08-23 04:24 | PC.NURSE ---
coreg and senna held due to pt not swallowing, pt pushing mouth swab out with tongue
[2025-08-23] MEDS: LORazepam 2 mg/mL INJ 1 mL IVP (05:58)
[2025-08-23] MEDS: glycopyrrolate 0.2 mg/mL SDV 2 mL IV ×2 (06:03→10:00)
--- NOTE | 2025-08-23 07:56 | PC.RESP ---
nebs dc due to comfort care order
[2025-08-23] MEDS: pantoprazole 40 mg SDV IVP ×2 (09:00→20:34)
--- NOTE | 2025-08-23 12:30 | P.PN_ITS ---
Subjective 2 Subjective: Patient mildly drowsy and on oxygen Having wet/wheezy breathing but seems comfortable Daughter in front of the patient and preferred to continue hospice/comfort care for her mother considering her complicated comorbidities, complex and critical clinical condition and her age/frailty which carries guarded prognosis with further high risk with aggressive intervention rather than benefits. The patient and the family is understanding therefore proceeded with hospice care as per patient preference and thorough discussions Vitals/I&O/Wt Last Vital Signs Temp 97.0 F L 08/23/25 11:37 Pulse 112 H 08/23/25 11:37 Resp 22 H 08/23/25 11:37 BP 85/54 08/23/25 11:37 Pulse Ox 88 L 08/23/25 11:37 O2 Del Method Nasal Cannula 08/23/25 11:37 O2 Flow Rate 3 08/23/25 11:37 08/22/25 08/23/25 08/23/25 22:59 06:59 14:59 Intake Total 700 / 700 Output Total 1350 / 1350 350 / 1700 Balance -650 / -650 -350 / -1000 Weight last 48 hrs Weight 72.484 kg Weight 73.028 kg Weight 72.121 kg Physical Exam 2 Narrative: General: Patient was sleeping, on room oxygen supplementation through nasal cannula, he is a little tired having wet/wheezy breathing but not in distress HEENT: Normocephalic, atraumatic, grossly unremarkable exam Cardio: Sinus tachycardia, normal S1-S2, no murmurs appreciated, JVD cannot be appreciated due to thick short neck Respiratory: Patient having coarse crackles and mild wheezing, poor respiratory effort, however no discomfort and was sleeping comfortably GI: Abdomen soft, with dressing covering her previous wound, no discharge or active signs of infection observed Neuro: Patient sleeping, therefore neurological exam was limited and not performed Behavior: Appropriate Extremities: Adequate palpable pulses, bilateral pedal edema Skin: Having multiple skin rash and bruises all over her body Urinary Catheter Management: Nicholson: Cath Placed During This Visit: yes Reason for Continuing Indwelling Catheter: Hospice/Comfort/Palliative Care Urinary Catheter Date of Insertion: 08/22/25 Urinary Catheter Time of Insertion: 17:00 Data 08/22/25 04:51 08/22/25 04:51 Micro: Microbiology 08/22/25 05:24 Blood Culture - Preliminary Blood NEGATIVE TO DATE 08/22/25 05:08 Blood Culture - Preliminary Blood A&P Assessment and plan 1. Need for comfort care: Patient preferred to for comfort/hospice care plan initiated as per patient wishes and protocol Continue on comfort care 2. 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 No need to repeat further labs since the patient preferred comfort care and does not preferred to be pricked for blood sampling 3. Hypotension: Resolved after blood transfusion Hemodynamics monitoring as per comfort care 4. Hx of mesenteric infarction: History of mesenteric ischemia and known chronic anticoagulation Due to blood loss, hold Plavix and apixaban 5. Chronic hypoxemic respiratory failure: Oxygen supplementation through nasal cannula 6. Chronic pruritus: Continue to monitor and treatment as per comfort care 7. Chronic kidney disease, unspecified CKD stage: Mild MARISOL, monitor intake and output Proceed with comfort care 8. 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 Lumbar disc disease with radiculopathy: Adequate analgesia as per comfort care 10. HTN (hypertension): Patient blood pressure on the softer side, hold any antihypertensive medications Proceed with comfort care 11. Chronic heart failure with preserved ejection fraction (HFpEF): Lasix as needed as needed based on comfort care protocol 12. COPD (chronic obstructive pulmonary disease): Oxygen supplementation and nebulization as per comfort care protocol Plan: - Considering patient comorbidities and complexity of the situation initial PDMP PDMP Reviewed: Not Reviewed Attestations 2 Medical Necessity Statement*: Patient will stay over midnight as the patient is on comfort care and is critically ill and unstable Time Spent in Patient Care: 16 - 35 minutes (>than 50% of time sp ent in counselling and/or direct pt care on unit) . Other Attestations: Patient condition has been discussed at length with the patient/family, I have independently reviewed the chart labs imaging/diagnostics/EKG. the goals of care and code status with the patient/family/NOK/legal agency sales representative, and documented accordingly. The management has been done according to the current clinical condition with respect to patient goals of care and based on recommendations/guidelines. The patient/family has been informed about the current condition and further plan of care. Agreed with the plan of care and understood without any language barrier. Every effort was made to ensure accuracy of head waiter/waitress. Any obvious errors or omissions should be clarified with the author of the document. 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
--- NOTE | 2025-08-23 15:45 | PC.NURSE ---
This nurse was in the room with patient, Margarita and Den 08-22-2025 when patient stated I will stay here if Margarita can stay here with me . This nurse stated Margarita is more than welcome to stay with patient. Margarita stated she and her Den have been taking shifts the last three days staying with patient at [facility] [place].
--- NOTE | 2025-08-24 06:42 | PC.NURSE ---
nurse answered call light and pt daughter verbalized pt not breathing, pt assessed by two nurses confirmed no breath sounds and no heartbeat. daughter in the room stated she will contact the rest of the family via text
--- NOTE | 2025-08-24 07:12 | PC.NURSE ---
MTS MTS notified at 0700 of patient's expiration. This nurse spoke with Ginger, MTS Coordinator. Ginger reports to hold patient for further MTS screening. MTS services to contact nursing staff regarding patient status for release when available. CUONG Mcduffie charge notified.
--- NOTE | 2025-08-24 07:27 | PC.NURSE ---
MTS & Home Patient daughter, Franchesca, signed body release form at 07 for patient to go to [facility] when release is given from MTS. [facility] coordinator, Gege, contacted this nurse at 07 stating that patient is a potential candidate for MTS. Patient to go to [facility] when family is done with visitation. CUONG Mcduffie notified of MTS hold.
[2025-08-24 09:35] VITALS: BP 0/0; PULSE 0; RESP 0; TEMP -17.7; TEMP 0; O2SAT 0
--- NOTE | 2025-08-24 09:36 | PC.NURSE ---
Pt was [place] in the [facility] [place] at [phone]
--- NOTE | 2025-08-24 18:28 | P.DES_ITS ---
Discharge Providers DDS Date of Admission: 08/22/25 06:03 Date Summary Completed: 08/24/25 Attending Provider at Admission: Giles Vazquez MD Attending Provider at Discharge: Fior Haq MD Primary Care Provider: Melonie Padron MD DS Diagnoses Hospital Diagnoses 1. Need for comfort care: 2. Acute blood loss anemia: 3. Hypotension: 4. Hx of mesenteric infarction: Permanent Problem Comments: stents placement 5. Chronic hypoxemic respiratory failure: 6. Chronic pruritus: 7. Chronic kidney disease, unspecified CKD stage: Qualifiers: Chronic kidney disease stage: unspecified stage Qualified Code(s): N18.9 - Chronic kidney disease, unspecified 8. Current use of terminal supervisor anticoagulation: 9. Lumbar disc disease with radiculopathy: 10. Primary hypertension: Qualifiers: Hypertension type: primary hypertension Qualified Code(s): I10 - Essential (primary) hypertension 11. Chronic heart failure with preserved ejection fraction (HFpEF): 12. Panlobular emphysema: Qualifiers: COPD type: emphysema Emphysema type: panlobular Qualified Code(s): J43.1 - Panlobular emphysema Reason for Visit Reason for Visit SOB, Coughing Brief History: As per the previous admitting attending at spectator note review Oanh Quispe is a 79 year old female with history significant for mesenteric ischemia s/p stenting and partial bowel resection, atrial fibrillation, chronic respiratory failure(on O2 2-3L at baseline) CKD, iron def. anemia(seen by hematology) hyponatremia and HFpEF, who presents with family with complaints of shortness of breath. There is also complaint of confusion, chest pain, and severe itching. She has had chronic shortness of breath of note but this has becoe more severe in the days leading up to admission. She is unable to lay flat due to her shortness of breath. Family mention she has had unintentional weight gain of about 30 lbs in the past 4-5 months. She is otherwise compliant with her prescribed medications which are managed by family. No significant dietary changes have been noted. Since Sunday, family has noticed she has become confused, with odd speech. Patient has been reluctant to come to the hospital for help because she does not like hospitals. Chest pain has been present in the recent days as well. Regarding her itching, it has been severe and present in the past 2 months after receiving a blood transfusion which she seems to get regularly. She also receives weekly iron infusions. It is severe enough where she is bleeding from her scratching. Summary Summary Summary: Was admitted as a case of altered mentation with some confusion and altered speech. Patient also had acute blood loss and iron deficiency anemia for which she was requiring special PRBC, because of her previous allergic reaction, from [place]. She also had heart failure with reduced ejection fraction and features of mild fluid overload for which she was given Lasix without much improvement. She was kept on oxygen therapy as per protocol. She also had chronic kidney disease and atrial fibrillation with history of mesenteric ischemia and significant atherosclerotic vascular disease requiring chronic anticoagulation and antiplatelet therapy. During patient hospital stay she was having significant drop in hemoglobin and had altered mentation which was better next day. PRBCs were arranged and she was given blood transfusion undercover of Lasix. To rule out any intra-abdominal bleed CT angio abdomen and pelvis with contrast was requested however the patient did not want to proceed with any further intervention. She mentioned that she is already tired with her chronic comorbidities and poor quality of life with guarded prognosis and therefore would like to have hospice care/comfort measures. And if she is for discharge then would like to have referral for home hospice.. Furthermore she also did not want to go with any contrast studies since she had chronic kidney disease and could worsen her chronic kidney status. The patient was well-informed about her clinical condition with all the risk and benefits of further intervention. The son was in front of the patient and later on the daughter also came. The unanimous decision along with the patient and the family was to proceed with hospice care/comfort measures. Her diagnostics and labs reviewed. Her blood cultures grew you group G Streptococcus and she was informed to initiate antibiotics however the patient did not want anything apart from comfort measures with adequate analgesia oxygen therapy and to help her with her breathing. The family was well-informed of every management based on her labs diagnostic and clinical condition without any language barrier and agree with the plan of care. The patient around 6/40 a.m. and was managed as per hospice care. Condolences to the patient family has been provided May the soul rest in peace Patient condition has been discussed at length with the patient/family, I have independently reviewed the chart labs imaging/diagnostics/EKG. the goals of care and code status with the patient/family/NOK/legal customer service representative teller, and documented accordingly. The management has been done according to the current clinical condition with respect to patient goals of care and based on recommendations/guidelines. The patient/family has been informed about the current condition and further plan of care. Agreed with the plan of care and understood without any language barrier. Every effort was made to ensure accuracy of test skein winder. Any obvious errors or omissions should be clarified with the author of the document. Additional Data Advance directives?: No Discharge Plan Discharge Patient Disposition: Condition: Stable DS Attestations Time Spent in /Discharge Care*: greater than 30 min Quality - AMI: AMI present?: No Clinical Trial Participant: No Quality - Stroke: CVA present?: No Symptom Onset Unknown: No Quality - VTE: VTE present?: No Deep Vein Thrombosis/Pulmonary Embolism Present on Admission: No Coding Level of Care Code 92000 Diagnoses Need for comfort care Acute blood loss anemia D62 Hypotension I95.9 Hx of mesenteric infarction Z87.19 Chronic hypoxemic respiratory failure J96.11 Chronic pruritus L29.9 Chronic kidney disease, unspecified CKD stage N18.9 Chronic kidney disease stage: unspecified stage Current use of [facility] anticoagulation Z79.01 Lumbar disc disease with radiculopathy M51.16 Primary hypertension I10 Hypertension type: primary hypertension Chronic heart failure with preserved ejection fraction (HFpEF) I50.32 Panlobular emphysema J43.1 COPD type: emphysema Emphysema type: panlobular
== END 2025-08-24 09:37 | disposition expired | DRG 811 ==
LOC: ER 05:55 → MEDSURG 06:25
PROVIDERS: Admitting Provider Family Medicine; Emergency Provider Emergency Medicine; PCP Family Medicine; Visit Provider Student in an Organized Health Care Education/Training Program
DX: D62 Acute posthemorrhagic anemia (principal); I50.23 Acute on chronic systolic (congestive) heart failure; K55.059 Acute (reversible) ischemia of intestine, part and extent unspecified; J96.11 Chronic respiratory failure with hypoxia; I13.0 Hypertensive heart and chronic kidney disease with heart failure and stage 1 through stage 4 chronic kidney disease, or unspecified chronic kidney disease; N17.9 Acute kidney failure, unspecified; E87.1 Hypo-osmolality and hyponatremia; I95.9 Hypotension, unspecified; L29.9 Pruritus, unspecified; N18.9 Chronic kidney disease, unspecified; M54.16 Radiculopathy, lumbar region; J43.1 Panlobular emphysema; I48.91 Unspecified atrial fibrillation; D50.9 Iron deficiency anemia, unspecified; R07.9 Chest pain, unspecified; Z51.5 Encounter for palliative care; Z66 Do not resuscitate; D63.1 Anemia in chronic kidney disease; G89.29 Other chronic pain; M54.50 Low back pain, unspecified; B95.1 Streptococcus, group B, as the cause of diseases classified elsewhere; R41.82 Altered mental status, unspecified; Z79.01 Long term (current) use of anticoagulants; Z95.820 Peripheral vascular angioplasty status with implants and grafts; Z87.11 Personal history of peptic ulcer disease; Z87.891 Personal history of nicotine dependence; Z90.49 Acquired absence of other specified parts of digestive tract
CPT/HCPCS: 36415; 36430; 51702; 71045; 80053; 82803; 83605; 83880; 84484; 85025; 86850; 86900; 86920; 87040; 87077; 87150; 87186; 87205; 87637; 93005; 94640; 99285; J1171; J1938; J2060; J2270; J2470; J2919; J3490; J7613; J7626; J7644; J9999; P9016